=== PATIENT | female | born 1975 ===

== ENCOUNTER 2016-08-16 18:13 | Inpatient (IN) | payer OTHER ==
[2016-08-16] MEDS ORDERED: Sodium Chloride 0.9% 1,000 ML IV ONE ×2 (19:10→20:55)
--- NOTE | 2016-08-16 19:10 | C.PDOC ---
History Of Present Illness Patient presents to the ED for evaluation after being referred by clinic for elevated blood sugar over 483 mg/dl. Patient states sugar has been "out of control" and is an insulin-dependent diabetic. Patient denies any fever, chills , nausea, or vomiting. Time Seen by Provider: 08/16/16 19:10 Chief Complaint (Nursing): High Blood Sugar History Per: Patient, Other (Clinic ) History/Exam Limitations: no limitations Onset/Duration Of Symptoms: Hrs Current Diabetic Medications: Insulin Associated Infectious Symptoms: denies: Nausea, Vomiting, Diarrhea Recent travel outside of the [place]: No Past Medical History Reviewed: Historical Data, Nursing Documentation, Vital Signs Vital Signs: Last Vital Signs Temp 97.5 F L 08/16/16 22:31 Pulse 83 08/17/16 00:30 Resp 18 08/17/16 00:30 BP 129/73 08/17/16 00:30 Pulse Ox 100 08/17/16 01:25 - Medical History PMH: Diabetes, HTN Family History: States: Unknown Family Hx - Social History Hx Alcohol Use: No Hx Substance Use: No - Immunization History Hx Tetanus Toxoid Vaccination: Yes Hx Influenza Vaccination: No Hx Pneumococcal Vaccination: No Review Of Systems Constitutional: Negative for: Fever, Chills Cardiovascular: Negative for: Chest Pain, Palpitations Respiratory: Negative for: Cough, Shortness of Breath Gastrointestinal: Negative for: Nausea, Vomiting, Abdominal Pain, Diarrhea Physical Exam - Physical Exam Appears: Non-toxic, No Acute Distress Skin: Warm, Dry Eye(s): bilateral: Normal Inspection Neck: Supple Chest: Symmetrical, No Deformity Cardiovascular: Rhythm Regular Respiratory: No Rales, No Rhonchi, No Stridor, No Wheezing Gastrointestinal/Abdominal: Soft, No Tenderness, No Distention, No Guarding, No Rebound Extremity: Normal ROM, No Tenderness Neurological/Psych: Oriented x3 ED Course And Treatment - Laboratory Results Result Diagrams: 08/16/16 19:43 08/16/16 19:43 O2 Sat by Pulse Oximetry: 100 (room air ) Pulse Ox Interpretation: Normal Progress Note: blood work, ivf, insulin. pt c/o headache - ct ordered. c/o periorbital tingling as well as her tongue - neuro non focal ct negative. repeat accucheck BS 147 Critical Care Time - Critical Care Note Total Time (in mins): 30 Documented critical care: time excludes all time spent performing seperately billable procedures. NIHSS Stroke Scale - Date/Time Evaluation Performed Date Performed: 08/16/16 Time Performed: 22:20 When Was NIHSS Performed: Baseline - How Severe is the Stoke Level of Consciousness: 0=Alert LOC to Questions: 0=Both comments correct LOC to commands: 0=Obeys both correctly Best Gaze: 0=Normal Visual: 0=No visual loss Facial: 0=Normal Motor Arm - Left: 0=No drift Motor Arm - Right: 0=No drift Motor Leg - Left: 0=No drift Motor Leg - Right: 0=No drift Limb Ataxia: 0=Absent Sensory: 0=Normal Best Language: 0=No aphasia Dysarthia: 0=Normal articulation Extinction & Inattention (Neglect): 0=Normal, no object Score: 0 Severity Of Stroke: 0= No Stroke Disposition Discussed With : Sandeep Crespo Comment: accepted the pt on his service and took over the care at 1:53 AM Doctor Will See Patient In The: ED Counseled Patient/Family Regarding: Studies Performed, Diagnosis - Disposition Disposition: HOSPITALIZED Disposition Time: 19:10 Condition: FAIR - POA Present On Arrival: Poor Glycemic Control - Clinical Impression Clinical Impression: Hyperglycemia, Uncontrolled diabetes mellitus, Intractable headache - Scribe Statement The provider has reviewed the documentation as recorded by the Scribe Jyoti Juan All medical record entries made by the Joseibe were at my direction and personally dictated by me. I have reviewed the chart and agree that the record accurately reflects my personal performance of the history, physical exam, medical decision making, and the department course for this patient. I have also personally directed, reviewed, and agree with the discharge instructions and disposition. Decision To Admit - Pt Status Changed To: Hospital Disposition Of: Observation - . Bed Request Type: Regular Admitting Physician: Sandeep Crespo Patient Diagnosis: Hyperglycemia, Uncontrolled diabetes mellitus, Intractable headache
[2016-08-16 19:46] LABS: BASO # 0.1 K/uL (0.0-0.2); BASO % 0.7 % (0.0-2.0); EOS % 0.2 % (0.0-4.0); HEMOGLOBIN 10.2 g/dL (11.0-16.0); LYMPH % 20.5 % (20.0-40.0); MEAN CORPUSCULAR HEMOGLOBIN 23.9 pg (27.0-31.0); MEAN CORPUSCULAR HGB CONC 30.9 g/dL (33.0-37.0); MEAN PLATELET VOLUME 7.7 fL (7.2-11.7); MONO # 0.7 K/uL (0.0-0.8); MONO % 6.9 % (0.0-10.0); NEUT # 6.9 K/uL (1.8-7.0); NEUT % 71.7 % (50.0-75.0); RBC 4.25 Mil/uL (3.80-5.20); RED CELL DISTRIBUTION WIDTH 17.2 % (11.5-14.5); WHITE BLOOD COUNT 9.6 K/uL (4.8-10.8)
[2016-08-16 19:50] LABS: MEAN CELL VOLUME 77.4 fL (81.0-99.0)
[2016-08-16 19:54] LABS: VENOUS BLOOD GAS PCO2 43 mmHg (40-60); VENOUS BLOOD GAS PO2 34 mm/Hg (30-55); VENOUS BLOOD PH 7.38 (7.32-7.43)
[2016-08-16 19:56] LABS: ALBUMIN 3.7 g/dL (3.5-5.0)
[2016-08-16 19:58] LABS: GFR AFRICAN-AMERICAN > 60; GFR NON-AFRICAN AMERICAN > 60
[2016-08-16 19:59] LABS: ALB/GLOB RATIO 1.1 (1.0-2.1); ALT/SGPT 16 U/L (9-52); AST/SGOT 17 U/L (14-36); BLOOD UREA NITROGEN 20 mg/dL (7-17); CALCIUM 8.7 mg/dl (8.6-10.4); LIPASE 270 U/L (23-300)
[2016-08-16] MEDS ORDERED: (Novolin R) Insulin Human Regular 100 units/ml vial IV ONE (20:04)
[2016-08-16] MEDS ORDERED: (Novolin R) Insulin Human Regular 100 units/ml vial ONE (20:10)
[2016-08-16 20:23] LABS: SQUAMOUS EPITHIAL 1 /hpf (0-5); URINE BACTERIA OCC (<OCC); URINE BILIRUBIN NEGATIVE (NEGATIVE); URINE BLOOD 1+ (NEGATIVE); URINE CLARITY Clear (Clear); URINE COLOR Straw (YELLOW); URINE GLUCOSE (UA) 3+ mg/dL (Normal); URINE NITRATE POSITIVE (NEGATIVE); URINE PROTEIN 2+ mg/dL (NEGATIVE); URINE UROBILINOGEN NORMAL mg/dL (0.2-1.0)
[2016-08-16 20:24] LABS: URINE LEUKOCYTE ESTERASE 1+ Leu/uL (Negative)
[2016-08-16] MEDS ORDERED: Piperacillin/Tazobact 3.375 gm 100 ML IVPB STA (20:25)
[2016-08-16] MEDS ORDERED: Piperacillin/Tazobact 3.375 gm 100 ML IVPB ONE (21:03)
[2016-08-16] MEDS ORDERED: Sodium Chloride 0.9% 1,000 ML ONE (21:03)
--- NOTE | 2016-08-16 21:45 | CT ---
EXAM: CT Head Without Intravenous Contrast CLINICAL HISTORY: 41 years old, female; Condition or disease; Headache; Headache not specified TECHNIQUE: Axial computed tomography images of the head/brain without intravenous contrast. This CT exam was performed using one or more of the following dose reduction techniques: automated exposure control, adjustment of the mA and/or kV according to patient size, and/or use of iterative reconstruction technique. EXAM DATE/TIME: 08/16/2016 8:54 PM COMPARISON: There are no prior studies for comparison. FINDINGS: Brain: There is prominence of the of sulci, gyri and ventricles. There is no midline shift. There are no intra-axial or extra axial mass lesions or areas of hemorrhage. Mccormack-white differentiation is maintained. Ventricles: See above. Bony structures: Cranial vault is intact. Soft tissues: unremarkable Sinuses: There is no acute sinusitis. Ears and mastoids: Middle ears and mastoids unremarkable.There is streak artifact from an earring Orbits: Orbital contents are unremarkable. IMPRESSION: No acute intracranial abnormality
[2016-08-16] MEDS ORDERED: Morphine 4 MG/ML VIAL ONE (23:29)
[2016-08-17] MEDS ORDERED: HYDROmorphone 1 mg/ml ISec IVP STA (00:14)
[2016-08-17] MEDS ORDERED: HYDROmorphone 1 mg/ml ISec ONE (00:29)
--- NOTE | 2016-08-17 02:52 | CP.PCM.HP ---
History of Present Illness - History of Present Illness History of Present Illness: CC - "I was sent by my doctor for high blood sugar" HPI - Patient is a 40yo female PMHx DM and HTN presents to the ED today after being told by her primary care Dr. Meaghan Hodge that she had elevated blood sugars. Patient states she checks her sugars 5x a day and that they are always elevated in the 200s and 300s. She states she is complaint with taking her insulin. She was diagnosed with diabetes a few years ago but last HBA1c was 13.7. The patient admits to feeling very thirsty and urinary frequency but denies dysuria. She also admits to a headache which she has had for 3 days. She states she is nauseous and the headaches comes and goes mostly felt on the left side of her face, forehead and radiates to the back. She did not take any medication for the pain. With associated photophobia. She has had these headaches frequently in the past. She states that he vision is blurry but then that she actually was just seeing "black specs". Lastly she reports some numbness and tingling around her lips on tongue. She is able to speak well and denies numbness or weakness in the extremities. Patient denied any fever, chills , lightheadedness, cough, diarrhea, constipation. Denied sore throat, SOB, chest pain, dysphagia, leg cramps, muscle aches. Patient denied any travel history or sick contacts. PMHx: T2DM, HTN PMD: None MEDS: Lantus 25 U HS, Novolog 15 U TID ALL: NKDA PSurg: None FamHx: denies SH: smokes 2ppd for 10 years quit 3 month ago. Denies drug use. Drinks alcohol socially. Lives at home with children. Used to work in a [employer]. Present on Admission - Present on Admission Any Indicators Present on Admission: Yes History of Uncontrolled Diabetes: Yes Review of Systems - Constitutional Constitutional: absent: Chills, Fever - EENT Eyes: Change in Vision, Floaters, Spots in Vision. absent: Blurred Vision Ears: absent: Dizziness - Cardiovascular Cardiovascular: absent: Chest Pain, Chest Pain at Rest, Palpitations, Pedal Edema, Syncope - Respiratory Respiratory: absent: Cough, Dyspnea, Dyspnea on Exertion - Gastrointestinal Gastrointestinal: Nausea. absent: Abdominal Pain, Constipation, Diarrhea, Vomiting - Genitourinary Genitourinary: Urinary Frequency. absent: Change in Urinary Stream, Difficulty Urinating, Dysuria, Flank Pain, Hematuria - Musculoskeletal Musculoskeletal: Numbness, Tingling. absent: Muscle Weakness Additional comments: periorbital, lips, tongue - Neurological Neurological: Headaches. absent: Dizziness, Weakness Past Patient History - Past Social History Smoking Status: Former Smoker - CARDIAC Hx Hypertension: Yes - PULMONARY Hx Respiratory Disorders: No - NEUROLOGICAL Hx Neurological Disorder: No - HEENT Hx HEENT Problems: No - RENAL Hx Chronic Kidney Disease: No - ENDOCRINE/METABOLIC Hx Endocrine Disorders: Yes Hx Diabetes Mellitus Type 1: Yes - HEMATOLOGICAL/ONCOLOGICAL Hx Blood Disorders: No - INTEGUMENTARY Hx Dermatological Problems: No - MUSCULOSKELETAL/RHEUMATOLOGICAL Hx Musculoskeletal Disorders: No Hx Falls: No - GASTROINTESTINAL Hx Gastrointestinal Disorders: No - GENITOURINARY/GYNECOLOGICAL Hx Genitourinary Disorders: No - PSYCHIATRIC Hx Substance Use: No - SURGICAL HISTORY Hx Surgeries: No - ANESTHESIA Hx Anesthesia: No Meds Allergies/Adverse Reactions: Allergies Allergy/AdvReac Type Severity Reaction Status Date / Time No Known Allergies Allergy Verified 08/16/16 18:17 Physical Exam - Constitutional Appears: Non-toxic, No Acute Distress - Head Exam Head Exam: ATRAUMATIC, NORMAL INSPECTION - Eye Exam Eye Exam: EOMI, Normal appearance, PERRL Pupil Exam: NORMAL ACCOMODATION - ENT Exam ENT Exam: Mucous Membranes Dry - Respiratory Exam Respiratory Exam: Clear to Auscultation Bilateral, NORMAL BREATHING PATTERN. absent: Accessory Muscle Use, Decreased Breath Sounds, Rales, Wheezes, Respiratory Distress - Cardiovascular Exam Cardiovascular Exam: REGULAR RHYTHM, +S1, +S2 - GI/Abdominal Exam GI & Abdominal Exam: Normal Bowel Sounds, Soft. absent: Distended, Firm, Guarding, Tenderness - Extremities Exam Extremities exam: Positive for: normal inspection. Negative for: calf tenderness, pedal edema - Back Exam Back exam: NORMAL INSPECTION. absent: CVA tenderness (L), CVA tenderness (R), paraspinal tenderness - Neurological Exam Neurological exam: Alert, CN II-XII Intact, Normal Gait, Oriented x3 - Psychiatric Exam Psychiatric exam: Normal Affect, Normal Mood - Skin Skin Exam: Dry, Intact, Normal Color, Warm Results - Vital Signs Recent Vital Signs: Last Vital Signs Temp 97.5 F L 08/16/16 22:31 Pulse 83 08/17/16 00:30 Resp 18 08/17/16 00:30 BP 129/73 08/17/16 00:30 Pulse Ox 100 08/17/16 01:54 - Labs Result Diagrams: 08/16/16 19:43 08/16/16 19:43 Labs: Laboratory Results - last 24 hr 08/16/16 08/16/16 08/16/16 19:18 19:43 19:43 WBC 9.6 RBC 4.25 Hgb 10.2 L Hct 32.9 L MCV 77.4 L D MCH 23.9 L MCHC 30.9 L RDW 17.2 H Plt Count 489 H D MPV 7.7 Neut % (Auto) 71.7 Lymph % (Auto) 20.5 Surry % (Auto) 6.9 Eos % (Auto) 0.2 Baso % (Auto) 0.7 Neut # 6.9 Lymph # 2.0 Surry # 0.7 Eos # 0.0 Baso # 0.1 pO2 VBG pH VBG pCO2 VBG HCO3 VBG Total CO2 VBG O2 Sat (Calc) VBG Base Excess VBG Potassium Glucose Lactate Crit Value Called To Crit Value Called By Crit Value Read Back Blood Gas Notified Time Sodium 131 L Potassium 4.7 Chloride 97 L Carbon Dioxide 23 Anion Gap 16 BUN 20 H Creatinine 0.8 Est GFR ( Amer) > 60 Est GFR (Non-Af Amer) > 60 POC Glucose (mg/dL) 453 H* Random Glucose 485 H* D Calcium 8.7 Total Bilirubin 0.4 AST 17 ALT 16 Alkaline Phosphatase 83 Total Protein 7.2 Albumin 3.7 Globulin 3.5 Albumin/Globulin Ratio 1.1 Lipase 270 Venous Blood Potassium Urine Color Urine Clarity Urine pH Ur Specific Sterling Urine Protein Urine Glucose (UA) Urine Ketones Urine Blood Urine Nitrate Urine Bilirubin Urine Urobilinogen Ur Leukocyte Esterase Urine WBC (Auto) Urine RBC (Auto) Ur Squamous Epith Cells Urine Bacteria Urine HCG, Qual Serum Ketones Negative 08/16/16 08/16/16 08/16/16 19:50 19:56 19:56 WBC RBC Hgb Hct MCV MCH MCHC RDW Plt Count MPV Neut % (Auto) Lymph % (Auto) Surry % (Auto) Eos % (Auto) Baso % (Auto) Neut # Lymph # Surry # Eos # Baso # pO2 34 VBG pH 7.38 VBG pCO2 43 VBG HCO3 24.0 VBG Total CO2 26.7 VBG O2 Sat (Calc) 73.1 H VBG Base Excess 0.0 VBG Potassium 4.9 Glucose 491 H* Lactate 2.7 H Crit Value Called To Dr [email or web address] Crit Value Called By [email or web address].rt Crit Value Read Back Y Blood Gas Notified Time 1950 Sodium 133.0 Potassium Chloride 99.0 Carbon Dioxide Anion Gap BUN Creatinine Est GFR ( Amer) Est GFR (Non-Af Amer) POC Glucose (mg/dL) Random Glucose Calcium Total Bilirubin AST ALT Alkaline Phosphatase Total Protein Albumin Globulin Albumin/Globulin Ratio Lipase Venous Blood Potassium 4.9 Urine Color Straw Urine Clarity Clear Urine pH 6.0 Ur Specific Sterling 1.016 Urine Protein 2+ H Urine Glucose (UA) 3+ H Urine Ketones Negative Urine Blood 1+ H Urine Nitrate Positive H Urine Bilirubin Negative Urine Urobilinogen Normal Ur Leukocyte Esterase 1+ H Urine WBC (Auto) 22 H Urine RBC (Auto) 10 H Ur Squamous Epith Cells 1 Urine Bacteria Occ H Urine HCG, Qual Negative Serum Ketones 08/16/16 08/16/16 21:32 23:18 WBC RBC Hgb Hct MCV MCH MCHC RDW Plt Count MPV Neut % (Auto) Lymph % (Auto) Surry % (Auto) Eos % (Auto) Baso % (Auto) Neut # Lymph # Surry # Eos # Baso # pO2 VBG pH VBG pCO2 VBG HCO3 VBG Total CO2 VBG O2 Sat (Calc) VBG Base Excess VBG Potassium Glucose Lactate Crit Value Called To Crit Value Called By Crit Value Read Back Blood Gas Notified Time Sodium Potassium Chloride Carbon Dioxide Anion Gap BUN Creatinine Est GFR ( Amer) Est GFR (Non-Af Amer) POC Glucose (mg/dL) 108 147 H Random Glucose Calcium Total Bilirubin AST ALT Alkaline Phosphatase Total Protein Albumin Globulin Albumin/Globulin Ratio Lipase Venous Blood Potassium Urine Color Urine Clarity Urine pH Ur Specific Sterling Urine Protein Urine Glucose (UA) Urine Ketones Urine Blood Urine Nitrate Urine Bilirubin Urine Urobilinogen Ur Leukocyte Esterase Urine WBC (Auto) Urine RBC (Auto) Ur Squamous Epith Cells Urine Bacteria Urine HCG, Qual Serum Ketones Assessment & Plan - Assessment and Plan (Free Text) Assessment: DM uncontrolled Lantus 25 U SC HS Novolog 15 U TID with meals f/u HbA1c ISS Accuchecks consider statin/lisionpril f/u am labs Headache Head CT - negative Sumitriptan 6mg x 1 dose Firoicet 1tab Q 8 prn headache Numbness/tingling of lips Head CT negative Neuro exam normal - no focal deficits Hx HTN controlled does not take any home meds for HTN Prophylactic Measures SCDs Lovenox 40mg SC daily Pepcid 20 mg PO BID NS at 125 cc/hour Consistent carb diet
[2016-08-17] MEDS: Sodium Chloride 0.9% 1,000 ML IV SCH ×3 (03:27→19:42)
[2016-08-17 06:54] LABS: BASO # 0.1 K/uL (0.0-0.2); BASO % 0.7 % (0.0-2.0); EOS % 0.2 % (0.0-4.0); HEMOGLOBIN 9.7 g/dL (11.0-16.0); LYMPH % 16.6 % (20.0-40.0); MEAN CELL VOLUME 76.6 fL (81.0-99.0); MEAN CORPUSCULAR HEMOGLOBIN 24.4 pg (27.0-31.0); MEAN CORPUSCULAR HGB CONC 31.9 g/dL (33.0-37.0); MEAN PLATELET VOLUME 7.6 fL (7.2-11.7); MONO # 0.9 K/uL (0.0-0.8); MONO % 7.2 % (0.0-10.0); NEUT # 8.9 K/uL (1.8-7.0); NEUT % 75.3 % (50.0-75.0); RBC 3.98 Mil/uL (3.80-5.20); RED CELL DISTRIBUTION WIDTH 16.8 % (11.5-14.5); WHITE BLOOD COUNT 11.8 K/uL (4.8-10.8)
[2016-08-17] MEDS ORDERED: (Novolin R) Insulin Human Regular 100 units/ml vial SC SCH ×2 (07:30→07:53)
[2016-08-17 07:41] LABS: ALBUMIN 3.2 g/dL (3.5-5.0); ALT/SGPT 13 U/L (9-52); BLOOD UREA NITROGEN 12 mg/dL (7-17); CALCIUM 7.8 mg/dl (8.6-10.4); GFR AFRICAN-AMERICAN > 60; GFR NON-AFRICAN AMERICAN > 60; HDL CHOLESTEROL 61 mg/dL (30-70); LDL CHOLESTEROL 166 mg/dL (0-129); MAGNESIUM 1.9 mg/dL (1.6-2.3)
[2016-08-17 08:21] LABS: AST/SGOT 16 U/L (14-36)
--- NOTE | 2016-08-17 08:59 | CT ---
PROCEDURE: CT Abdomen and Pelvis without intravenous contrast HISTORY: + CVA tenderness COMPARISON: None. TECHNIQUE: Without contrast.. Contrast Dose: 0 Radiation dose: Total exam DLP = 519.42 mGy-cm. This CT exam was performed using one or more of the following dose reduction techniques: Automated exposure control, adjustment of the mA and/or kV according to patient size, and/or use of iterative reconstruction technique. FINDINGS: LOWER THORAX: Minimal linear scar/ atelectasis in both lower lobes. LIVER: Unremarkable. No gross lesion or ductal dilatation. GALLBLADDER AND BILE DUCTS: Unremarkable. PANCREAS: Unremarkable. No gross lesion or ductal dilatation. SPLEEN: Unremarkable. ADRENALS: Unremarkable. No mass. KIDNEYS AND URETERS: No mass, calculus or hydronephrosis. Minimal left perinephric stranding, nonspecific. Please note that evaluation for pyelonephritis is limited in the absence of intravenous contrast administration peer VASCULATURE: Unremarkable. No aortic aneurysm. BOWEL: Mild sigmoid diverticulosis. No evidence of diverticulitis. No bowel obstruction. No other abnormal bowel loops are identified. APPENDIX: Not positively identified. No secondary findings to suggest acute appendicitis. PERITONEUM: Unremarkable. No free fluid. No free air. LYMPH NODES: Unremarkable. No enlarged lymph nodes. BLADDER: Unremarkable. REPRODUCTIVE: Normal uterus. BONES: No acute fracture. OTHER FINDINGS: None. IMPRESSION: No acute abnormality. No evidence of urinary calculus or urinary tract obstruction. Please note that if there is suspicion of pyelonephritis, this examination is of limited diagnostic value due to the absence of intravenous contrast administration.
[2016-08-17] MEDS ORDERED: (Novolin R) Insulin Human Regular 100 units/ml vial ONE ×4 (09:19→13:14)
[2016-08-17] MEDS: (Novolin R) Insulin Human Regular 100 units/ml vial SC SCH ×2 (09:21→13:15)
[2016-08-17] MEDS: Saccharomyces Boulardi 250 mg Cap PO SCH ×2 (09:57→17:52)
[2016-08-17] MEDS: Enoxaparin 40 mg Syringe SC SCH (09:57)
[2016-08-17 11:10] LABS: CK-MB 0.83 ng/mL (0.0-3.38)
[2016-08-17] MEDS ORDERED: Sodium Chloride 0.9% 1,000 ML ONE (13:14)
--- NOTE | 2016-08-17 17:03 | CP.PCM.PN ---
<Maryana Davis - Last Filed: 08/17/16 17:30> Subjective - Date & Time of Evaluation Date of Evaluation: 08/17/16 Time of Evaluation: 08:00 - Subjective Subjective: PGY1 - Medicine Note- Dr. Dhillno's Service Patient seen and examined at bedside. Patient admits to headache that is made worse by light and is laying with her eyes closed. Patient has nausea but no vomiting. Patient admits of having some lower abdominal /suprapubic pain. Patient also states she has had burning with urination for the past 3-4 days. Patient explains she has some chest pressure and numbness and tingling in the left hand. Patient also says she has numbness and tingling in both feet which is chronic. Patient denies dizziness, shortness of breath and constipation/ diarrhea. Patient admits that she has not been to an outpatient doctor in a long time. Objective - Vital Signs/Intake and Output Vital Signs (last 24 hours): Temp Pulse Resp BP Pulse Ox 98.3 F 106 H 18 149/90 100 08/17/16 12:16 08/17/16 12:16 08/17/16 12:16 08/17/16 12:16 08/17/16 12:16 - Medications Medications: Current Medications Acetaminophen/Butalbital/Caffeine (Fioricet) 1 tab PO Q8 PRN PRN Reason: Headache Aspirin (Aspirin Chewable) 81 mg PO DAILY [facility] Enoxaparin Sodium (Lovenox) 40 mg SC DAILY [facility] Last Admin: 08/17/16 09:57 Dose: 40 mg Famotidine (Pepcid) 20 mg PO BID [facility] [place] Last Admin: 08/17/16 09:57 Dose: 20 mg Sodium Chloride (Sodium Chloride 0.9%) 1,000 mls @ 125 mls/hr IV .Q8H [facility] [place] Last Admin: 08/17/16 12:05 Dose: 125 mls/hr Ceftriaxone Sodium 1 gm/ (Sodium Chloride) 100 mls @ 100 mls/hr IVPB DAILY [facility] [place] Last Admin: 08/17/16 09:57 Dose: 100 mls/hr Insulin Aspart (Novolog) 12 unit SC AC ANA Insulin Aspart (Novolog) 0 unit SC ACHS ANA PRN Reason: Protocol Insulin Glargine (Lantus) 30 unit SC HS ANA Ondansetron HCl (Zofran Inj) 4 mg IVP Q6 PRN PRN Reason: Nausea/Vomiting Last Admin: 08/17/16 13:15 Dose: 4 mg Saccharomyces Boulardii (Florastor) 250 mg PO BID ANA Last Admin: 08/17/16 09:57 Dose: 250 mg - Labs Labs: 08/17/16 06:51 08/17/16 06:51 - Constitutional Appears: Well, Non-toxic, No Acute Distress - Head Exam Head Exam: ATRAUMATIC, NORMAL INSPECTION, NORMOCEPHALIC - Eye Exam Eye Exam: EOMI, Normal appearance, PERRL - ENT Exam ENT Exam: Mucous Membranes Moist, Normal Exam - Neck Exam Neck Exam: Full ROM, Normal Inspection. absent: Lymphadenopathy - Respiratory Exam Respiratory Exam: Clear to Ausculation Bilateral, NORMAL BREATHING PATTERN. absent: Rales, Rhonchi, Wheezes, Respiratory Distress, Stridor - Cardiovascular Exam Cardiovascular Exam: REGULAR RHYTHM, RRR, +S1, +S2. absent: Gallop, Rubs, Murmur - GI/Abdominal Exam GI & Abdominal Exam: Soft, Tenderness, Normal Bowel Sounds. absent: Distended, Firm, Guarding Additional comments: suprapubic tenderness - Extremities Exam Extremities Exam: Full ROM, Normal Inspection - Back Exam Back Exam: NORMAL INSPECTION. absent: rash noted - Neurological Exam Neurological Exam: Alert, Awake, Oriented x3 Neuro motor strength exam: Left Upper Extremity: 5, Right Upper Extremity: 5, Left Lower Extremity: 5, Right Lower Extremity: 5 - Psychiatric Exam Psychiatric exam: Normal Affect, Normal Mood - Skin Skin Exam: Intact, Normal Color, Warm Assessment and Plan (1) Uncontrolled diabetes mellitus Assessment & Plan: HgbA1C: 13.2 consult endocronologist, Dr. Henry, help appreciated makeup instructor referral for noncompliance diabetes management- teach PRN accuchecks QACHS Lantus 25 U sc q HS increased to 30 U Novolog sliding scale qHS urine microalbumin ordered (consider starting UCHE/ARB) Lipid panel: Triglycerides-88, Cholesterol-234, LDL-166, HDL-61 TSH:6.12, Free T4:1.23 Status: Acute (2) Chest pain Assessment & Plan: EKG x 3 (1st ekg NSR) FRANKI x 3 (1st FRANKI negative) ASA 325 mg PO x1 ASA 81 mg PO daily TSH elevated (6.12) lipid panel- see above Status: Acute (3) Dysuria Assessment & Plan: dysuria for 3-4 days Rochephin 1 g daily urine culture Florastor 250 mg PO BID IV NS 125 cc/hr CT scan of abdomen/pelvis: negative Status: Acute (4) Headache Assessment & Plan: Neurology consulted, Dr. Chan, help appreciated. Fiorcet q8h head CT done 08/16: no acute intracranial abnormality Status: Acute (5) Prophylactic measure Assessment & Plan: gi prophylaxis: Pepcid 20 mg PO BID DVT PPX: Lovenox mg SC Daily Status: Acute <Dara Dhillon V - Last Filed: 08/17/16 18:25> Objective - Vital Signs/Intake and Output Vital Signs (last 24 hours): Temp Pulse Resp BP Pulse Ox 98.4 F 87 18 129/76 100 08/17/16 17:35 08/17/16 17:35 08/17/16 17:35 08/17/16 17:35 08/17/16 17:35 - Medications Medications: Current Medications Acetaminophen/Butalbital/Caffeine (Fioricet) 1 tab PO Q8 PRN PRN Reason: Headache Last Admin: 08/17/16 17:51 Dose: 1 tab Aspirin (Aspirin Chewable) 81 mg PO DAILY [facility] Enoxaparin Sodium (Lovenox) 40 mg SC DAILY [facility] [place] Last Admin: 08/17/16 09:57 Dose: 40 mg Famotidine (Pepcid) 20 mg PO BID [facility] [place] Last Admin: 08/17/16 17:52 Dose: 20 mg Sodium Chloride (Sodium Chloride 0.9%) 1,000 mls @ 125 mls/hr IV .Q8H [facility] [place] Last Admin: 08/17/16 12:05 Dose: 125 mls/hr Ceftriaxone Sodium 1 gm/ (Sodium Chloride) 100 mls @ 100 mls/hr IVPB DAILY [facility] [place] Last Admin: 08/17/16 09:57 Dose: 100 mls/hr Insulin Aspart (Novolog) 12 unit SC AC ANA Insulin Aspart (Novolog) 0 unit SC ACHS ANA PRN Reason: Protocol Insulin Glargine (Lantus) 30 unit SC HS [facility] [place] Ondansetron HCl (Zofran Inj) 4 mg IVP Q6 PRN PRN Reason: Nausea/Vomiting Last Admin: 08/17/16 13:15 Dose: 4 mg Saccharomyces Carlitosdii (Florastor) 250 mg PO BID ANA Last Admin: 08/17/16 17:52 Dose: 250 mg - Labs Labs: 08/17/16 06:51 08/17/16 06:51 Attending/Attestation - Attestation I have personally seen and examined this patient.: Yes I have fully participated in the care of the patient.: Yes I have reviewed all pertinent clinical information, including history, physical exam and plan: Yes Notes (Text): Patient seen, examined, and discussed with daytime brand marketing intern. Patient seen in the emergency room hallway bed 1. Patient reporting history of gestational diabetes about 13 years with her last . Patient reports she inconsistently uses her insulin regimen. patient reports starting insulin regimen as of one month ago. Patient used to take Metformin but reports it does not work for her. Patient is noncompliant on Diabetic diet. Patient does not exercise. Patient has not seen an outpatient physician in quite some time and has no good explanation as to why she has not seen a doctor. Patient has been heavily only counseled on diet modifications and exercise in regards to her diabetes. Patient also reporting associated in the lower extremities. Likely secondary to her uncontrolled diabetes. Patient reporting history of 3-4 day of dysuria. Patient reports 2 prior hospitalizations Patient discussed CAT results which show no kidney stones. Patient started on empiric IV antibiotic for UTI. Awaiting urine culture. patient reported chest pressure with brand marketing intern this morning, given aspirin, and will follow-up serial EKG and Franki given her risk factor of uncontrolled diabetes. Patient reporting migraine type headaches; CT head r/o acute pathology; f/u neurology if further workup is needed. Upgraded to telemetry given chest pressure complaints. Assessment and Plan (1) Uncontrolled diabetes mellitus Assessment & Plan: HgbA1C: 13.2 consult endocronologist, Dr. Henry, help appreciated makeup instructor referral for noncompliance diabetes management- teach PRN accuchecks QACHS Lantus 25 U sc q HS increased to 30 U Novolog sliding scale qHS urine microalbumin ordered (consider starting UCHE/ARB) Lipid panel: Triglycerides-88, Cholesterol-234, LDL-166, HDL-61 TSH:6.12, Free T4:1.23 Status: Chronic (2) Chest pain Assessment & Plan: EKG x 3 (1st ekg NSR), Q 6hours FRANKI x 3 (1st FRANKI negative) ASA 325 mg PO x1 ASA 81 mg PO daily TSH elevated (6.12); mary lou; Free T4 Lipid panel: Triglycerides-88, Cholesterol-234, LDL-166, HDL-61 Status: Acute (3) Dysuria Assessment & Plan: dysuria for 3-4 days Rocephin 1 g IV q daily (active since 08/17/16) pending urine culture Florastor 250 mg PO BID IV NS 125 cc/hr CT scan of abdomen/pelvis: negative for nephrolithiasis Status: Acute (4) Headache Assessment & Plan: Neurology consulted, Dr. Chan, help appreciated. Fiorcet q8h head CT done 08/16: no acute intracranial abnormality Status: Acute (5) Prophylactic measure Assessment & Plan: gi prophylaxis: Pepcid 20 mg PO BID DVT PPX: Lovenox mg SC Daily Professor Of Finance referral Diabetes education provided Aspirin 81mg PO daily Status: Acute
[2016-08-17 17:09] LABS: CK-MB 0.66 ng/mL (0.0-3.38)
[2016-08-17] MEDS: Apap-Butalbital-Caffeine 325-50-40mg Tab PO PRN (17:51)
--- NOTE | 2016-08-17 18:23 | CP.PCM.CON ---
History of Present Illness - History of Present Illness History of Present Illness: NEURO CONSULT NOTE: 08/17/16 CHIEF COMPLAINT: HEADACHE. HPI: 54 YEAR O41 YEAR OLD WOMAN WITH HISTORY OF DM2, HTN WHO CAME IN WITH DIFFUSE PRESSURE HEADACHE WITH NAUSEA, PHOTOPHOBIA AND OCCASIONAL SCINTILATING SCOTOMA. SHE HAS ELEVATED BLOOD SUGARS AND CAME IN WITH SUGAR OVER 400. SHE MOVES ALL EXTREMITIES EQUALLY. CT HEAD SHOWED NO ACUTE ABNORMALITIES. A1C IS 13.5 INDICATING POOR CONTROLLED DIABETES. ROS: 14 POINT REVIEW OF SYMPTOMS IS NEGATIVE PER HPI. ALLERGIES: NONE SOCIAL HISTORY: NO ILLICIT DRUG USE, SMOKING, OR ETOH USE. FAMILY: NON CONTRIBUTORY. MEDICATIONS: REVIEWED BY NURSE'S RECONCILIATION SHEET. PAST MEDICAL HISTORY: HTN, TYPE 2 DM, PHYSICAL EXAM: VITAL SIGNS: REVIEWED BY THE CHART GENERAL EXAM: PATIENT SEEN IN BED, IN NO ACUTE DISTRESS MORBIDLY OBESE. HEENT: PERRLA, EOMI, NECK SUPPLE, NO JVD, NO ADENOPATHY CVS: S1, S2, RRR, NO MURMURS NOTED LUNGS: CLEAR TO AUSCULTATION, NO ADVENTITIOUS SOUNDS ABDOMEN: SOFT AND NONTENDER EXTREMITIES: NO CLUBBING OR CYANOSIS. PP 2+ B/L NEURO: PT IS ALERT AND ORIENTED TO PERSON, PLACE, AND YEAR. POOR ATTENTION SPAN , SLOW THOUGHT PROCESS, RECALL TO 5 MINUTES 0/3, SPEECH IS FLUENT WITHOUT ERRORS, CN II-XII INTACT, MOTOR EXAM: NORMAL TONE, NORMAL BULK OF MUSCLE, MOVES ALL EXTREMITIES EQUALLY, NO PRONATOR DRIFT SEEN. SENSORY EXAM: DECREASED LIGHT TOUCH, PIN PRICK UP TO CALVES B/L, PROPRIOCEPTION INTACT, DECREASED VIBRATION AT TOES AND KNEES. DEEP TENDON REFLEXES: 2+ THROUGHOUT EXCEPT 1 AT THE ANKLES. COORDINATION: FINGER TO NOSE IS INTACT. HEEL TO [place] IS INTACT GAIT: DEFERRED FOR NOW. LABS: REVIEWED BY THE CHART. ASSESSMENT AND PLAN: 54 YEAR O39 YEAR OLD WOMAN WITH HISTORY OF DM2, HTN WHO CAME IN WITH DIFFUSE PRESSURE HEADACHE WITH NAUSEA, PHOTOPHOBIA AND OCCASIONAL SCINTILATING SCOTOMA. SHE HAS ELEVATED BLOOD SUGARS AND CAME IN WITH SUGAR OVER 400. SHE MOVES ALL EXTREMITIES EQUALLY. CT HEAD SHOWED NO ACUTE ABNORMALITIES. A1C IS 13.5 INDICATING POOR CONTROLLED DIABETES. HEADACHE IS MORE OF MIGRAINE TRIGGERED BY HYPERGLYCEMIA. PLAN: 1.TILT TABLE TEST FOR SYNCOPAL EVENTS 2. ASA 81 MG FOR STROKE PREVENTION AND GABAPENTIN 300MG QHS FOR HEADACHE PREVENTION, FIORICET 1-2 TAB AT ACUTE ONSET OF HEADACHE. 3. MONITOR ELECTROLYTES AND CORRECT ACCORDINGLY. 4. ENDOCRINE CONSULT FOR UNCONTROLLED DM. KEEP BS BTW 140-180 5. NEEDS REDUCTION OF WEIGHT. THANK YOU PLEASE RECONSULT NECESSARY. Tremayne VELEZ MD Past Patient History - Past Medical History & Family History Past Medical History?: Yes - Past Social History Smoking Status: Former Smoker - CARDIAC Hx Hypertension: Yes - PULMONARY Hx Respiratory Disorders: No - NEUROLOGICAL Hx Neurological Disorder: No - HEENT Hx HEENT Problems: No - RENAL Hx Chronic Kidney Disease: No - ENDOCRINE/METABOLIC Hx Endocrine Disorders: Yes Hx Diabetes Mellitus Type 1: Yes - HEMATOLOGICAL/ONCOLOGICAL Hx Blood Disorders: No - INTEGUMENTARY Hx Dermatological Problems: No - MUSCULOSKELETAL/RHEUMATOLOGICAL Hx Musculoskeletal Disorders: No Hx Falls: No - GASTROINTESTINAL Hx Gastrointestinal Disorders: No - GENITOURINARY/GYNECOLOGICAL Hx Genitourinary Disorders: No - PSYCHIATRIC Hx Substance Use: No - SURGICAL HISTORY Hx Surgeries: No - ANESTHESIA Hx Anesthesia: Yes Hx Anesthesia Reactions: No Meds Allergies/Adverse Reactions: Allergies Allergy/AdvReac Type Severity Reaction Status Date / Time No Known Allergies Allergy Verified 08/16/16 18:17 - Medications Medications: Current Medications Acetaminophen/Butalbital/Caffeine (Fioricet) 1 tab PO Q8 PRN PRN Reason: Headache Last Admin: 08/17/16 17:51 Dose: 1 tab Aspirin (Aspirin Chewable) 81 mg PO DAILY [facility] Enoxaparin Sodium (Lovenox) 40 mg SC DAILY [facility] Last Admin: 08/17/16 09:57 Dose: 40 mg Famotidine (Pepcid) 20 mg PO BID [facility] Last Admin: 08/17/16 17:52 Dose: 20 mg Sodium Chloride (Sodium Chloride 0.9%) 1,000 mls @ 125 mls/hr IV .Q8H [facility] Last Admin: 08/17/16 12:05 Dose: 125 mls/hr Ceftriaxone Sodium 1 gm/ (Sodium Chloride) 100 mls @ 100 mls/hr IVPB DAILY [facility] Last Admin: 08/17/16 09:57 Dose: 100 mls/hr Insulin Aspart (Novolog) 12 unit SC AC ANA Insulin Aspart (Novolog) 0 unit SC ACHS ANA PRN Reason: Protocol Insulin Glargine (Lantus) 30 unit SC HS ANA Ondansetron HCl (Zofran Inj) 4 mg IVP Q6 PRN PRN Reason: Nausea/Vomiting Last Admin: 08/17/16 13:15 Dose: 4 mg Saccharomyces Boulardii (Florastor) 250 mg PO BID ANA Last Admin: 08/17/16 17:52 Dose: 250 mg Results - Vital Signs Recent Vital Signs: Last Vital Signs Temp 98.4 F 08/17/16 17:35 Pulse 87 08/17/16 17:35 Resp 18 08/17/16 17:35 BP 129/76 08/17/16 17:35 Pulse Ox 100 08/17/16 17:35 - Labs Result Diagrams: 08/17/16 06:51 08/17/16 06:51 Labs: Laboratory Results - last 24 hr 08/17/16 08/17/16 08/17/16 06:51 06:51 07:30 WBC 11.8 H RBC 3.98 Hgb 9.7 L Hct 30.4 L MCV 76.6 L MCH 24.4 L MCHC 31.9 L RDW 16.8 H Plt Count 447 H MPV 7.6 Neut % (Auto) 75.3 H Lymph % (Auto) 16.6 L [place] % (Auto) 7.2 Eos % (Auto) 0.2 Baso % (Auto) 0.7 Neut # 8.9 H Lymph # 2.0 [place] # 0.9 H Eos # 0.0 Baso # 0.1 Sodium 135 Potassium 4.4 Chloride 105 Carbon Dioxide 25 Anion Gap 10 BUN 12 Creatinine 0.7 Est GFR ( Amer) > 60 Est GFR (Non-Af Amer) > 60 POC Glucose (mg/dL) 228 H Random Glucose 179 H Hemoglobin A1c Calcium 7.8 L Phosphorus 2.6 Magnesium 1.9 Total Bilirubin 0.4 AST 16 ALT 13 Alkaline Phosphatase 73 Total Creatine Kinase CK-MB (Mass) Troponin I, Quant Total Protein 6.3 Albumin 3.2 L Globulin 3.1 Albumin/Globulin Ratio 1.0 Triglycerides 88 Cholesterol 234 H LDL Cholesterol Direct 166 H HDL Cholesterol 61 Free T4 TSH 3rd Generation 6.12 H 08/17/16 08/17/16 08/17/16 09:12 10:36 10:36 WBC RBC Hgb Hct MCV MCH MCHC RDW Plt Count MPV Neut % (Auto) Lymph % (Auto) [place] % (Auto) Eos % (Auto) Baso % (Auto) Neut # Lymph # [place] # Eos # Baso # Sodium Potassium Chloride Carbon Dioxide Anion Gap BUN Creatinine Est GFR ( Amer) Est GFR (Non-Af Amer) POC Glucose (mg/dL) 243 H Random Glucose Hemoglobin A1c 13.5 H Calcium Phosphorus Magnesium Total Bilirubin AST ALT Alkaline Phosphatase Total Creatine Kinase 58 CK-MB (Mass) 0.83 Troponin I, Quant < 0.0120 Total Protein Albumin Globulin Albumin/Globulin Ratio Triglycerides Cholesterol LDL Cholesterol Direct HDL Cholesterol Free T4 TSH 3rd Generation 08/17/16 08/17/16 08/17/16 10:36 13:04 16:37 WBC RBC Hgb Hct MCV MCH MCHC RDW Plt Count MPV Neut % (Auto) Lymph % (Auto) [place] % (Auto) Eos % (Auto) Baso % (Auto) Neut # Lymph # [place] # Eos # Baso # Sodium Potassium Chloride Carbon Dioxide Anion Gap BUN Creatinine Est GFR ( Amer) Est GFR (Non-Af Amer) POC Glucose (mg/dL) 261 H Random Glucose Hemoglobin A1c Calcium Phosphorus Magnesium Total Bilirubin AST ALT Alkaline Phosphatase Total Creatine Kinase 48 CK-MB (Mass) 0.66 Troponin I, Quant < 0.0120 Total Protein Albumin Globulin Albumin/Globulin Ratio Triglycerides Cholesterol LDL Cholesterol Direct HDL Cholesterol Free T4 1.23 TSH 3rd Generation
[2016-08-17] MEDS: (Novolog) Insulin Aspart, Recombinant 100 u/ml 10 ml vial SC SCH ×3 (18:49→21:37)
[2016-08-17] MEDS ORDERED: (Novolog) Insulin Aspart, Recombinant 100 u/ml 10 ml vial ONE (18:53)
[2016-08-17] MEDS ORDERED: (Lantus) Insulin Glargine, Recombinant SC SCH ×2 (22:00)
[2016-08-18 00:02] LABS: CK-MB 0.62 ng/mL (0.0-3.38)
[2016-08-18] MEDS: Sodium Chloride 0.9% 1,000 ML IV SCH ×3 (03:35→19:28)
[2016-08-18] MEDS: Apap-Butalbital-Caffeine 325-50-40mg Tab PO PRN ×2 (06:00→20:09)
[2016-08-18 07:39] LABS: BASO # 0.1 K/uL (0.0-0.2); BASO % 0.6 % (0.0-2.0); EOS % 0.4 % (0.0-4.0); HEMOGLOBIN 9.1 g/dL (11.0-16.0); LYMPH # 1.5 K/uL (1.0-4.3); LYMPH % 17.2 % (20.0-40.0); MEAN CORPUSCULAR HEMOGLOBIN 24.7 pg (27.0-31.0); MEAN CORPUSCULAR HGB CONC 31.7 g/dL (33.0-37.0); MEAN PLATELET VOLUME 8.3 fL (7.2-11.7); MONO # 0.7 K/uL (0.0-0.8); MONO % 8.2 % (0.0-10.0); NEUT # 6.4 K/uL (1.8-7.0); NEUT % 73.6 % (50.0-75.0); RBC 3.67 Mil/uL (3.80-5.20); RED CELL DISTRIBUTION WIDTH 17.1 % (11.5-14.5); WHITE BLOOD COUNT 8.6 K/uL (4.8-10.8)
[2016-08-18 07:49] LABS: ALBUMIN 2.9 g/dL (3.5-5.0)
[2016-08-18 07:52] LABS: AST/SGOT 16 U/L (14-36); GFR AFRICAN-AMERICAN > 60; GFR NON-AFRICAN AMERICAN > 60
[2016-08-18 07:53] LABS: ALB/GLOB RATIO 0.9 (1.0-2.1); ALT/SGPT 13 U/L (9-52); BLOOD UREA NITROGEN 15 mg/dL (7-17); MAGNESIUM 2.2 mg/dL (1.6-2.3)
[2016-08-18] MEDS: (Novolog) Insulin Aspart, Recombinant 100 u/ml 10 ml vial SC SCH ×7 (09:33→22:08)
[2016-08-18] MEDS: Enoxaparin 40 mg Syringe SC SCH (09:35)
[2016-08-18] MEDS: Saccharomyces Boulardi 250 mg Cap PO SCH ×2 (09:35→17:27)
--- NOTE | 2016-08-18 11:41 | CP.PCM.CON ---
History of Present Illness - History of Present Illness History of Present Illness: Consult Note for Dr. Carvajal Reason for consult: Tilt-table test 40 y/o F with PMH of HTN and DM initially presented to the hospital on 08/16/16 for hyperglycemia. Pt was found to have elevated blood sugars in her PMD's office. Pt states she checks her sugars frequently at home and they are always elevated. Pt admits to increased thirst and urination. In addition, patient also mentions that she has had a severe headache for the past several days. Pt states the headache is located mainly behind her eyes and is characterized as throbbing. Patient also mentions photophobia with headaches. She did not take any medication for the headaches. Pt does describe a hx of these severe headaches. Denies CP, SOB, N/V/D, fevers, chills. PMH: HTN, DM Surgical Hx: Denies SH: Former smoker, 1 ppd x 10 years. Social alcohol use, denies illicit drugs. Medications: See MAR Allergies: NKDA Review of Systems - Constitutional Constitutional: absent: Fatigue, Fever - EENT Eyes: Change in Vision. absent: Blurred Vision Nose/Mouth/Throat: Sinus Pressure. absent: Nasal Congestion, Nasal Discharge - Cardiovascular Cardiovascular: absent: Chest Pain, Irregular Heart Rhythm - Respiratory Respiratory: absent: Cough, Dyspnea - Genitourinary Genitourinary: absent: Dysuria, Hematuria - Integumentary Integumentary: absent: New Lesions, Rash - Neurological Neurological: Headaches. absent: Syncope, Tingling Past Patient History - Past Medical History & Family History Past Medical History?: Yes - Past Social History Smoking Status: Former Smoker - CARDIAC Hx Hypertension: Yes - PULMONARY Hx Respiratory Disorders: No - NEUROLOGICAL Hx Neurological Disorder: No - HEENT Hx HEENT Problems: No - RENAL Hx Chronic Kidney Disease: No - ENDOCRINE/METABOLIC Hx Endocrine Disorders: Yes Hx Diabetes Mellitus Type 1: Yes - HEMATOLOGICAL/ONCOLOGICAL Hx Blood Disorders: No - INTEGUMENTARY Hx Dermatological Problems: No - MUSCULOSKELETAL/RHEUMATOLOGICAL Hx Musculoskeletal Disorders: No Hx Falls: No - GASTROINTESTINAL Hx Gastrointestinal Disorders: No - GENITOURINARY/GYNECOLOGICAL Hx Genitourinary Disorders: No - PSYCHIATRIC Hx Substance Use: No - SURGICAL HISTORY Hx Surgeries: No - ANESTHESIA Hx Anesthesia: Yes Hx Anesthesia Reactions: No Meds Allergies/Adverse Reactions: Allergies Allergy/AdvReac Type Severity Reaction Status Date / Time No Known Allergies Allergy Verified 08/16/16 18:17 - Medications Medications: Current Medications Acetaminophen/Butalbital/Caffeine (Fioricet) 1 tab PO Q8 PRN PRN Reason: Headache Last Admin: 08/18/16 06:00 Dose: 1 tab Aspirin (Aspirin Chewable) 81 mg PO DAILY [facility] Last Admin: 08/18/16 09:35 Dose: 81 mg Enoxaparin Sodium (Lovenox) 40 mg SC DAILY [facility] Last Admin: 08/18/16 09:35 Dose: 40 mg Famotidine (Pepcid) 20 mg PO BID [facility] Last Admin: 08/18/16 09:35 Dose: 20 mg Sodium Chloride (Sodium Chloride 0.9%) 1,000 mls @ 125 mls/hr IV .Q8H [facility] Last Admin: 08/18/16 03:35 Dose: 125 mls/hr Ceftriaxone Sodium 1 gm/ (Sodium Chloride) 100 mls @ 100 mls/hr IVPB DAILY [facility] Last Admin: 08/18/16 09:35 Dose: 100 mls/hr Insulin Aspart (Novolog) 0 unit SC ACHS [facility] PRN Reason: Protocol Last Admin: 08/18/16 09:33 Dose: 5 unit Insulin Aspart (Novolog) 20 unit SC AC [facility] Insulin Glargine (Lantus) 40 unit SC HS [facility] Ondansetron HCl (Zofran Inj) 4 mg IVP Q6 PRN PRN Reason: Nausea/Vomiting Last Admin: 08/18/16 09:01 Dose: 4 mg Saccharomyces Boulardii (Florastor) 250 mg PO BID [facility] Last Admin: 08/18/16 09:35 Dose: 250 mg Physical Exam - Constitutional Appears: Well, No Acute Distress - Head Exam Head Exam: ATRAUMATIC, NORMAL INSPECTION, NORMOCEPHALIC - Respiratory Exam Respiratory Exam: Clear to Auscultation Bilateral, NORMAL BREATHING PATTERN - Cardiovascular Exam Cardiovascular Exam: RRR, +S1, +S2 - GI/Abdominal Exam GI & Abdominal Exam: Normal Bowel Sounds, Soft. absent: Tenderness - Extremities Exam Extremities exam: Negative for: calf tenderness, pedal edema - Neurological Exam Neurological exam: Alert, Oriented x3 - Skin Skin Exam: Intact, Normal Color, Warm Results - Vital Signs Recent Vital Signs: Last Vital Signs Temp 98.2 F 08/18/16 08:00 Pulse 91 H 08/18/16 08:00 Resp 20 08/18/16 08:00 BP 160/91 H 08/18/16 08:00 Pulse Ox 97 08/18/16 08:00 - Labs Result Diagrams: 08/18/16 07:03 08/18/16 07:03 Labs: Laboratory Results - last 24 hr 08/17/16 08/17/16 08/17/16 13:04 16:37 17:58 WBC RBC Hgb Hct MCV MCH MCHC RDW Plt Count MPV Neut % (Auto) Lymph % (Auto) [place] % (Auto) Eos % (Auto) Baso % (Auto) Neut # Lymph # [place] # Eos # Baso # Sodium Potassium Chloride Carbon Dioxide Anion Gap BUN Creatinine Est GFR ( Amer) Est GFR (Non-Af Amer) POC Glucose (mg/dL) 261 H Random Glucose Calcium Phosphorus Magnesium Total Bilirubin AST ALT Alkaline Phosphatase Total Creatine Kinase 48 CK-MB (Mass) 0.66 Troponin I, Quant < 0.0120 Total Protein Albumin Globulin Albumin/Globulin Ratio Urine Microalbumin > 950.0 H 08/17/16 08/17/16 08/17/16 18:47 21:14 23:37 WBC RBC Hgb Hct MCV MCH MCHC RDW Plt Count MPV Neut % (Auto) Lymph % (Auto) [place] % (Auto) Eos % (Auto) Baso % (Auto) Neut # Lymph # [place] # Eos # Baso # Sodium Potassium Chloride Carbon Dioxide Anion Gap BUN Creatinine Est GFR ( Amer) Est GFR (Non-Af Amer) POC Glucose (mg/dL) 175 H 75 Random Glucose Calcium Phosphorus Magnesium Total Bilirubin AST ALT Alkaline Phosphatase Total Creatine Kinase 56 CK-MB (Mass) 0.62 Troponin I, Quant < 0.0120 Total Protein Albumin Globulin Albumin/Globulin Ratio Urine Microalbumin 08/18/16 08/18/16 08/18/16 06:38 07:03 07:03 WBC 8.6 RBC 3.67 L Hgb 9.1 L Hct 28.6 L MCV 78.0 L MCH 24.7 L MCHC 31.7 L RDW 17.1 H Plt Count 425 H MPV 8.3 Neut % (Auto) 73.6 Lymph % (Auto) 17.2 L [place] % (Auto) 8.2 Eos % (Auto) 0.4 Baso % (Auto) 0.6 Neut # 6.4 Lymph # 1.5 [place] # 0.7 Eos # 0.0 Baso # 0.1 Sodium 137 Potassium 4.7 Chloride 108 H Carbon Dioxide 21 L Anion Gap 13 BUN 15 Creatinine 0.9 Est GFR ( Amer) > 60 Est GFR (Non-Af Amer) > 60 POC Glucose (mg/dL) 369 H Random Glucose 363 H Calcium 8.0 L Phosphorus 2.4 L Magnesium 2.2 Total Bilirubin 0.3 AST 16 ALT 13 Alkaline Phosphatase 65 Total Creatine Kinase CK-MB (Mass) Troponin I, Quant Total Protein 6.1 L Albumin 2.9 L Globulin 3.2 Albumin/Globulin Ratio 0.9 L Urine Microalbumin Assessment & Plan (1) Headache Assessment and Plan: Being followed by neurology who suggests tilt-table test Symptoms likely related to hyperglycemia as per neurology Tilt-table scheduled for tomorrow morning Status: Acute
--- NOTE | 2016-08-18 14:13 | CP.PCM.PN ---
<Maryana Davis - Last Filed: 08/18/16 16:50> Subjective - Date & Time of Evaluation Date of Evaluation: 08/18/16 Time of Evaluation: 07:00 - Subjective Subjective: PGY1- Medicine Note- Dr. Dhillon's Service Patient seen and examined at bedside and is in no acute distress. Patient states she is feeling better but still has a headache which she rates 6/10. She also has some dull mid to low back pain. She has suprapubic pain and says it burris when she urinates and she can only urinate a small amount at a time. She was able to eat dinner yesterday with no vomiting. She has some nausea today. Her last bowel movement was two days ago. Patient denies shortness of breath or chest pain. Objective - Vital Signs/Intake and Output Vital Signs (last 24 hours): Temp Pulse Resp BP Pulse Ox 98.2 F 91 H 20 160/91 H 97 08/18/16 08:00 08/18/16 08:00 08/18/16 08:00 08/18/16 08:00 08/18/16 08:00 Intake and Output: 08/18/16 08/18/16 06:59 18:59 Intake Total 450 Balance 450 - Medications Medications: Current Medications Acetaminophen/Butalbital/Caffeine (Fioricet) 1 tab PO Q8 PRN PRN Reason: Headache Last Admin: 08/18/16 06:00 Dose: 1 tab Aspirin (Aspirin Chewable) 81 mg PO DAILY [facility] Last Admin: 08/18/16 09:35 Dose: 81 mg Enoxaparin Sodium (Lovenox) 40 mg SC DAILY [facility] Last Admin: 08/18/16 09:35 Dose: 40 mg Famotidine (Pepcid) 20 mg PO BID [facility] Last Admin: 08/18/16 09:35 Dose: 20 mg Gabapentin (Neurontin) 300 mg PO HS [facility] Sodium Chloride (Sodium Chloride 0.9%) 1,000 mls @ 125 mls/hr IV .Q8H [facility] Last Admin: 08/18/16 03:35 Dose: 125 mls/hr Ceftriaxone Sodium 1 gm/ (Sodium Chloride) 100 mls @ 100 mls/hr IVPB DAILY [facility] Last Admin: 08/18/16 09:35 Dose: 100 mls/hr Insulin Aspart (Novolog) 0 unit SC ACHS [facility] PRN Reason: Protocol Last Admin: 08/18/16 14:02 Dose: 323 unit Insulin Aspart (Novolog) 20 unit SC AC [facility] Last Admin: 08/18/16 14:02 Dose: 20 unit Insulin Glargine (Lantus) 40 unit SC HS [facility] Ondansetron HCl (Zofran Inj) 4 mg IVP Q6 PRN PRN Reason: Nausea/Vomiting Last Admin: 08/18/16 09:01 Dose: 4 mg Saccharomyces Boulardii (Florastor) 250 mg PO BID [facility] Last Admin: 08/18/16 09:35 Dose: 250 mg - Labs Labs: 08/18/16 07:03 08/18/16 07:03 - Constitutional Appears: Well - Head Exam Head Exam: ATRAUMATIC, NORMAL INSPECTION, NORMOCEPHALIC - Eye Exam Eye Exam: EOMI, Normal appearance, PERRL - ENT Exam ENT Exam: Mucous Membranes Moist, Normal Exam - Neck Exam Neck Exam: Full ROM, Normal Inspection. absent: Lymphadenopathy - Respiratory Exam Respiratory Exam: Clear to Ausculation Bilateral, NORMAL BREATHING PATTERN. absent: Rales, Rhonchi, Wheezes, Respiratory Distress, Stridor - Cardiovascular Exam Cardiovascular Exam: REGULAR RHYTHM, RRR, +S1, +S2. absent: Gallop, Rubs, Murmur - GI/Abdominal Exam GI & Abdominal Exam: Soft, Tenderness, Normal Bowel Sounds. absent: Distended, Firm, Guarding Additional comments: suprapubic and left upper quadrant tenderness - Extremities Exam Extremities Exam: Full ROM, Normal Capillary Refill, Normal Inspection. absent : Joint Swelling, Pedal Edema - Back Exam Back Exam: NORMAL INSPECTION, tenderness Additional comments: low to mid back tenderness bilaterally - Neurological Exam Neurological Exam: Alert, Awake, Oriented x3 - Psychiatric Exam Psychiatric exam: Normal Affect, Normal Mood - Skin Skin Exam: Normal Color, Warm Assessment and Plan (1) Uncontrolled diabetes mellitus Assessment & Plan: HgbA1C: 13.2 consult endocronologist, Dr. Henry, help appreciated economic consultant referral for noncompliance diabetes management- teach PRN accuchecks QACHS Lantus 30 U sc q HS Novolog sliding scale qHS urine microalbumin: >950 (started Lisinopril 2.5mg PO daily) Lipid panel: Triglycerides-88, Cholesterol-234, LDL-166, HDL-61 TSH:6.12, Free T4:1.23 Status: Acute (2) Chest pain Assessment & Plan: Chest pain resolved EKG x 3 Negative RASHAD x 3 Negative ASA 325 mg PO x1 on 08/17 ASA 81 mg PO daily TSH elevated (6.12) lipid panel- see above Status: Resolved (3) Dysuria Assessment & Plan: dysuria for 3-4 days Rochephin 1 g daily urine culture Florastor 250 mg PO BID IV NS 125 cc/hr CT scan of abdomen/pelvis: negative Status: Acute (4) Urinary hesitancy Assessment & Plan: Bladder scan showed 85ml of urine. Encourage patient to keep drinking fluids. Continue Rocephin 1 g daily. Status: Acute (5) Headache Assessment & Plan: As per Dr. Chan (neuro) symptoms likely related to hyperglycemia. Recommended tilt table test for syncopal events, 81mg aspirin for stroke prevention and Gabapentin 300 mg QHS for headache. -Gabapentin started and tilt table test to be performed 08/[address] done 08/16: no acute intracranial abnormality Status: Acute (6) Prophylactic measure Assessment & Plan: gi prophylaxis: Pepcid 20 mg PO BID DVT PPX: Lovenox mg SC Daily Status: Acute <Dara Dhillon V - Last Filed: 08/19/16 02:48> Objective - Vital Signs/Intake and Output Vital Signs (last 24 hours): Temp Pulse Resp BP Pulse Ox 98.3 F 82 20 134/79 96 08/18/16 16:10 08/18/16 20:38 08/18/16 16:10 08/18/16 16:10 08/18/16 16:10 Intake and Output: 08/18/16 08/19/16 18:59 06:59 Intake Total 1075 600 Balance 1075 600 - Medications Medications: Current Medications Acetaminophen/Butalbital/Caffeine (Fioricet) 1 tab PO Q8 PRN PRN Reason: Headache Last Admin: 08/18/16 20:09 Dose: 1 tab Aspirin (Aspirin Chewable) 81 mg PO DAILY [facility] Last Admin: 08/18/16 09:35 Dose: 81 mg Enoxaparin Sodium (Lovenox) 40 mg SC DAILY [facility] Last Admin: 08/18/16 09:35 Dose: 40 mg Famotidine (Pepcid) 20 mg PO BID [facility] Last Admin: 08/18/16 17:27 Dose: 20 mg Gabapentin (Neurontin) 300 mg PO HS [facility] Last Admin: 08/18/16 21:27 Dose: 300 mg Sodium Chloride (Sodium Chloride 0.9%) 1,000 mls @ 125 mls/hr IV .Q8H [facility] Last Admin: 08/18/16 19:28 Dose: 125 mls/hr Ceftriaxone Sodium 1 gm/ (Sodium Chloride) 100 mls @ 100 mls/hr IVPB DAILY [facility] Last Admin: 08/18/16 09:35 Dose: 100 mls/hr Insulin Aspart (Novolog) 0 unit SC ACHS [facility] PRN Reason: Protocol Last Admin: 08/18/16 22:08 Dose: Not Given Insulin Aspart (Novolog) 20 unit SC AC [facility] Last Admin: 08/18/16 17:35 Dose: Not Given Insulin Glargine (Lantus) 40 unit SC HS [facility] Last Admin: 08/18/16 22:11 Dose: 40 units Lisinopril (Zestril) 2.5 mg PO DAILY [facility] Ondansetron HCl (Zofran Inj) 4 mg IVP Q6 PRN PRN Reason: Nausea/Vomiting Last Admin: 08/18/16 09:01 Dose: 4 mg Saccharomyces Boulardii (Florastor) 250 mg PO BID [facility] Last Admin: 08/18/16 17:27 Dose: 250 mg - Labs Labs: 08/18/16 07:03 08/18/16 07:03 Attending/Attestation - Attestation I have personally seen and examined this patient.: Yes I have fully participated in the care of the patient.: Yes I have reviewed all pertinent clinical information, including history, physical exam and plan: Yes Notes (Text): this is late compute entry for 08/18/16. Patient seen, examined and case discussed with day-time resident. Patient seen during afternoon rounds. Patient reports she is doing better. Patient is eating ADA diet. Patient to be evaluated by economic consultant. Patient's insulin regimen adjusted by school social worker today Patient started on Gabapentin 300mg POqHS recommended by neurology. Patient setup for a tilt table tomorrow with cardiology given her syncopal episodes. Patient STRONGLY advised for dietary and exercise modifications given her uncontrolled diabetes. Patient started on raquel-inhibitor given elevated urine microalbumin. Patient will likely need statin as well and prophylactic aspirin given her diabetes. Patient seen and evaluated by cardiology. Patient to be NPO for tilt table test tomorrow by cardiology. Assessment/Plan (1) Uncontrolled diabetes mellitus Assessment & Plan: HgbA1C: 13.2 consult endocronologist, Dr. Henry, help appreciated economic consultant referral for noncompliance diabetes management- teach PRN accuchecks QACHS Lantus 40 U sc q HS Novolog 20 units subqAC Novolog sliding scale qHS urine microalbumin: >950-->started Lisinopril 2.5mg PO daily for renoprotection Lipid panel: Triglycerides-88, Cholesterol-234, LDL-166, HDL-61-->will need statin therapy TSH:6.12, Free T4:1.23 Status: Acute (2) Chest pain Assessment & Plan: Chest pain resolved EKG x 3 Negative RASHAD x 3 Negative ASA 325 mg PO x1 on 08/17 ASA 81 mg PO daily TSH elevated (6.12) Lipid panel: Triglycerides-88, Cholesterol-234, LDL-166, HDL-61-->will need statin therapy Status: Resolved (3) Dysuria Assessment & Plan: dysuria for 3-4 days Rochephin 1 g IV daily urine culture pending Bladder scan: 85ml Florastor 250 mg PO BID IV NS 125 cc/hr CT scan of abdomen/pelvis: negative Status: Acute (4) Urinary hesitancy Assessment & Plan: Bladder scan showed 85ml of urine. Encourage patient to keep drinking fluids. Continue Rocephin 1 g IV daily for empiric broad coverage Urine culture; gram negative clarence (10,000 CFU)--->patient is symptomatic of UTI Status: Acute (5) Headache Assessment & Plan: As per Dr. Chan (neuro) symptoms likely related to hyperglycemia. Recommended tilt table test for syncopal events, 81mg aspirin for stroke prevention and Gabapentin 300 mg QHS for headache. -Gabapentin started and tilt table test to be performed 08/19 by cardiology Fiorcet q8h PRN headache head CT done 08/16: no acute intracranial abnormality Status: Acute (6) Prophylactic measure Assessment & Plan: gi prophylaxis: Pepcid 20 mg PO BID DVT PPX: Lovenox mg SC Daily NPO for tilt table tomorrow Status: Acute Dispostion: * Patient for tilt table test tomorrow-->depending clinical outcome is a possible discharge tomorrow and will need active outpatient follow-up in regards to further diabetic management
[2016-08-18] MEDS ORDERED: (Lantus) Insulin Glargine, Recombinant SC SCH (22:00)
[2016-08-19] MEDS: Sodium Chloride 0.9% 1,000 ML IV SCH ×2 (03:02→11:15)
--- NOTE | 2016-08-19 06:41 | CARD ---
APPROVED REPORT EKG Measurement Heart [id number] [place] 100P33 [id number] <Conclusion> Sinus rhythm with short [place] Otherwise normal ECG
[2016-08-19 07:17] LABS: BASO % 0.4 % (0.0-2.0); EOS % 0.5 % (0.0-4.0); HEMOGLOBIN 9.5 g/dL (11.0-16.0); LYMPH # 1.5 K/uL (1.0-4.3); LYMPH % 16.7 % (20.0-40.0); MEAN CELL VOLUME 76.8 fL (81.0-99.0); MEAN CORPUSCULAR HGB CONC 31.2 g/dL (33.0-37.0); MEAN PLATELET VOLUME 8.3 fL (7.2-11.7); MONO # 0.7 K/uL (0.0-0.8); NEUT # 6.6 K/uL (1.8-7.0); NEUT % 74.4 % (50.0-75.0); RBC 3.97 Mil/uL (3.80-5.20); RED CELL DISTRIBUTION WIDTH 17.4 % (11.5-14.5); WHITE BLOOD COUNT 8.8 K/uL (4.8-10.8)
[2016-08-19] MEDS: (Novolog) Insulin Aspart, Recombinant 100 u/ml 10 ml vial SC SCH ×7 (07:30→21:21)
[2016-08-19 07:45] LABS: ALBUMIN 3.2 g/dL (3.5-5.0)
[2016-08-19 07:47] LABS: GFR AFRICAN-AMERICAN > 60; GFR NON-AFRICAN AMERICAN > 60
[2016-08-19 07:48] LABS: ALT/SGPT 12 U/L (9-52); AST/SGOT 17 U/L (14-36); BLOOD UREA NITROGEN 17 mg/dL (7-17)
[2016-08-19 07:49] LABS: CALCIUM 8.5 mg/dl (8.6-10.4); MAGNESIUM 2.3 mg/dL (1.6-2.3)
[2016-08-19] MEDS: Saccharomyces Boulardi 250 mg Cap PO SCH ×2 (10:31→17:44)
[2016-08-19] MEDS: Enoxaparin 40 mg Syringe SC SCH (10:32)
[2016-08-19] MEDS: Apap-Butalbital-Caffeine 325-50-40mg Tab PO PRN (10:37)
--- NOTE | 2016-08-19 12:07 | CP.PCM.PN ---
Subjective - Date & Time of Evaluation Date of Evaluation: 08/19/16 Time of Evaluation: 12:05 - Subjective Subjective: Progress note for Dr. Carvajal Pt seen and examined at bedside. Pt with no acute events overnight as per nursing. Pt will receive tilt-table test this morning. Admits to dizziness. Denies CP, SOB, N/V/D. Objective - Vital Signs/Intake and Output Vital Signs (last 24 hours): Temp Pulse Resp BP Pulse Ox 97.1 F L 90 18 145/93 H 98 08/19/16 07:00 08/19/16 10:30 08/19/16 07:00 08/19/16 10:30 08/19/16 07:00 Intake and Output: 08/19/16 08/19/16 06:59 18:59 Intake Total 1030 Output Total 420 Balance 610 - Medications Medications: Current Medications Acetaminophen/Butalbital/Caffeine (Fioricet) 1 tab PO Q8 PRN PRN Reason: Headache Last Admin: 08/19/16 10:37 Dose: 1 tab Aspirin (Aspirin Chewable) 81 mg PO DAILY [facility] Last Admin: 08/19/16 10:31 Dose: 81 mg Enoxaparin Sodium (Lovenox) 40 mg SC DAILY [facility] Last Admin: 08/19/16 10:32 Dose: 40 mg Famotidine (Pepcid) 20 mg PO BID [facility] Last Admin: 08/19/16 10:31 Dose: 20 mg Gabapentin (Neurontin) 300 mg PO HS [facility] Last Admin: 08/18/16 21:27 Dose: 300 mg Sodium Chloride (Sodium Chloride 0.9%) 1,000 mls @ 125 mls/hr IV .Q8H [facility] Last Admin: 08/19/16 03:02 Dose: 125 mls/hr Ceftriaxone Sodium 1 gm/ (Sodium Chloride) 100 mls @ 100 mls/hr IVPB DAILY [facility] Last Admin: 08/19/16 10:31 Dose: 100 mls/hr Insulin Aspart (Novolog) 0 unit SC ACHS [facility] PRN Reason: Protocol Last Admin: 08/19/16 07:30 Dose: Not Given Insulin Aspart (Novolog) 20 unit SC AC [facility] Last Admin: 08/19/16 07:30 Dose: Not Given Insulin Glargine (Lantus) 50 unit SC HS [facility] Lisinopril (Zestril) 2.5 mg PO DAILY [facility] Last Admin: 08/19/16 10:32 Dose: 2.5 mg Ondansetron HCl (Zofran Inj) 4 mg IVP Q6 PRN PRN Reason: Nausea/Vomiting Last Admin: 08/19/16 11:44 Dose: 4 mg Saccharomyces Boulardii (Florastor) 250 mg PO BID [facility] Last Admin: 08/19/16 10:31 Dose: 250 mg - Labs Labs: 08/19/16 07:06 08/19/16 07:06 - Constitutional Appears: Well, No Acute Distress - Head Exam Head Exam: ATRAUMATIC, NORMAL INSPECTION, NORMOCEPHALIC - Respiratory Exam Respiratory Exam: Clear to Ausculation Bilateral, NORMAL BREATHING PATTERN - Cardiovascular Exam Cardiovascular Exam: RRR, +S1, +S2 - GI/Abdominal Exam GI & Abdominal Exam: Soft, Normal Bowel Sounds. absent: Tenderness - Extremities Exam Extremities Exam: absent: Calf Tenderness, Pedal Edema - Neurological Exam Neurological Exam: Alert, Awake, Oriented x3 - Skin Skin Exam: Intact, Normal Color, Warm Assessment and Plan (1) Headache Assessment & Plan: Tilt-table test negative Continue current medical management Will sign off at this time Thank you for the consult Status: Acute
--- NOTE | 2016-08-19 16:52 | CP.PCM.PN ---
Subjective - Date & Time of Evaluation Date of Evaluation: 08/19/16 Time of Evaluation: 09:40 - Subjective Subjective: Medicine Note (PGY 1) : Dr. Root's service Patient was seen and examined at bedside. Patient states that she is feeling better but still coninues to experience headaches, intermittent chest pain and suprapubic pain, constipation but denies sob, fever, chills, nausea, vomiting and abd pain. Objective - Vital Signs/Intake and Output Vital Signs (last 24 hours): Temp Pulse Resp BP Pulse Ox 98.2 F 106 H 20 143/72 96 08/19/16 16:20 08/19/16 16:20 08/19/16 16:20 08/19/16 16:20 08/19/16 16:20 Intake and Output: 08/19/16 08/19/16 06:59 18:59 Intake Total 1030 1240 Output Total 420 Balance 610 1240 - Medications Medications: Current Medications Acetaminophen/Butalbital/Caffeine (Fioricet) 1 tab PO Q8 PRN PRN Reason: Headache Last Admin: 08/19/16 10:37 Dose: 1 tab Aspirin (Aspirin Chewable) 81 mg PO DAILY [facility] Last Admin: 08/19/16 10:31 Dose: 81 mg Enoxaparin Sodium (Lovenox) 40 mg SC DAILY [facility] Last Admin: 08/19/16 10:32 Dose: 40 mg Famotidine (Pepcid) 20 mg PO BID [facility] Last Admin: 08/19/16 10:31 Dose: 20 mg Gabapentin (Neurontin) 300 mg PO HS [facility] Last Admin: 08/18/16 21:27 Dose: 300 mg Ceftriaxone Sodium 1 gm/ (Sodium Chloride) 100 mls @ 100 mls/hr IVPB DAILY [facility] Last Admin: 08/19/16 10:31 Dose: 100 mls/hr Insulin Aspart (Novolog) 0 unit SC ACHS [facility] PRN Reason: Protocol Last Admin: 08/19/16 11:30 Dose: Not Given Insulin Aspart (Novolog) 26 unit SC ACB ANA Insulin Aspart (Novolog) 20 unit SC ACLD ANA Insulin Glargine (Lantus) 50 unit SC HS [facility] Lisinopril (Zestril) 2.5 mg PO DAILY [facility] Last Admin: 08/19/16 10:32 Dose: 2.5 mg Ondansetron HCl (Zofran Inj) 4 mg IVP Q6 PRN PRN Reason: Nausea/Vomiting Last Admin: 08/19/16 11:44 Dose: 4 mg Saccharomyces Boulardii (Florastor) 250 mg PO BID [facility] Last Admin: 08/19/16 10:31 Dose: 250 mg - Labs Labs: 08/19/16 07:06 08/19/16 07:06 - Constitutional Appears: Well, No Acute Distress - Head Exam Head Exam: NORMAL INSPECTION, NORMOCEPHALIC - Eye Exam Eye Exam: EOMI, Normal appearance - ENT Exam ENT Exam: Mucous Membranes Moist, Normal Exam - Respiratory Exam Respiratory Exam: Clear to Ausculation Bilateral, NORMAL BREATHING PATTERN - Cardiovascular Exam Cardiovascular Exam: REGULAR RHYTHM, +S1, +S2 - GI/Abdominal Exam GI & Abdominal Exam: Soft, Normal Bowel Sounds - Neurological Exam Neurological Exam: Alert, Awake, Oriented x3 - Psychiatric Exam Psychiatric exam: Normal Affect, Normal Mood - Skin Skin Exam: Dry, Normal Color, Warm Assessment and Plan (1) Uncontrolled diabetes mellitus Assessment & Plan: HgbA1C: 13.2 consult endocronologist, Dr. 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 Carvajal) for cardiac work up --- > Help appreciated Chest pain is intermittent EKG x 3 Negative RASHAD x 3 Negative ASA 325 mg PO x1 on 08/17 ASA 81 mg PO daily Status: Acute (3) Dysuria Assessment & Plan: dysuria for 3-4 days Rochephin 1 g daily urine culture + for staphylcoccus IV NS 125 cc/hr CT scan of abdomen/pelvis: negative Status: Acute (4) Urinary hesitancy Assessment & Plan: Bladder scan showed 85ml of urine. Encourage patient to keep drinking fluids. Continue Rocephin 1 g daily. Bladder scan at midnight of 08/19/16 showed 440cc--> straight cath and second bladder scan showed 144 cc Status: Acute (5) Headache Assessment & Plan: As per Dr. Chan (neuro) symptoms likely related to hyperglycemia. tilt table test today for syncopal events, 81mg aspirin for stroke prevention and Gabapentin 300 mg QHS for headache. -Gabapentin started and tilt table test to be performed 08/19 Fiorcet q8h---> stopped and oxycodone 5mg PO Q8H started head CT done 08/16: no acute intracranial abnormality Status: Acute (6) Prophylactic measure Assessment & Plan: gi prophylaxis: Pepcid 20 mg PO BID Florastor 250mg PO BID DVT PPX: Lovenox mg SC Daily Status: Acute
[2016-08-19] MEDS ORDERED: Bisacodyl 5mg EC Tab PO ONE (17:36)
[2016-08-19] MEDS ORDERED: Apap-Butalbital-Caffeine 325-50-40mg Tab PO SCH (18:00)
[2016-08-19] MEDS: oxyCODONE 5 mg Immediate Release Tab PO SCH (19:01)
[2016-08-19] MEDS: (Lantus) Insulin Glargine, Recombinant SC SCH (21:21)
[2016-08-20] MEDS: oxyCODONE 5 mg Immediate Release Tab PO SCH ×2 (05:41→22:02)
--- NOTE | 2016-08-20 06:48 | CARD ---
APPROVED REPORT EKG Measurement Heart [id number] [place] 106P35 [id number] <Conclusion> Sinus rhythm with short [place] Otherwise normal ECG
[2016-08-20 07:06] LABS: BASO % 0.5 % (0.0-2.0); EOS # 0.1 K/uL (0.0-0.7); EOS % 0.9 % (0.0-4.0); HEMOGLOBIN 9.3 g/dL (11.0-16.0); LYMPH # 1.8 K/uL (1.0-4.3); LYMPH % 19.6 % (20.0-40.0); MEAN CELL VOLUME 76.5 fL (81.0-99.0); MEAN CORPUSCULAR HGB CONC 31.4 g/dL (33.0-37.0); MEAN PLATELET VOLUME 8.1 fL (7.2-11.7); MONO # 0.7 K/uL (0.0-0.8); NEUT # 6.3 K/uL (1.8-7.0); RBC 3.86 Mil/uL (3.80-5.20); RED CELL DISTRIBUTION WIDTH 17.2 % (11.5-14.5); WHITE BLOOD COUNT 8.9 K/uL (4.8-10.8)
[2016-08-20] MEDS: (Novolog) Insulin Aspart, Recombinant 100 u/ml 10 ml vial SC SCH ×5 (07:35→21:55)
[2016-08-20 07:53] LABS: ALBUMIN 2.9 g/dL (3.5-5.0)
[2016-08-20 07:55] LABS: GFR AFRICAN-AMERICAN > 60; GFR NON-AFRICAN AMERICAN > 60
[2016-08-20 07:56] LABS: ALB/GLOB RATIO 0.9 (1.0-2.1); ALT/SGPT 19 U/L (9-52); AST/SGOT 18 U/L (14-36); BLOOD UREA NITROGEN 20 mg/dL (7-17); CALCIUM 8.3 mg/dl (8.6-10.4)
[2016-08-20 07:57] LABS: MAGNESIUM 2.2 mg/dL (1.6-2.3)
[2016-08-20] MEDS: Saccharomyces Boulardi 250 mg Cap PO SCH (09:48)
[2016-08-20] MEDS: Enoxaparin 40 mg Syringe SC SCH (09:48)
[2016-08-20] MEDS ORDERED: Bisacodyl 5mg EC Tab PO ONE ×2 (11:02→12:30)
--- NOTE | 2016-08-20 20:51 | CP.PCM.PN ---
Subjective - Date & Time of Evaluation Date of Evaluation: 08/20/16 Time of Evaluation: 10:20 - Subjective Subjective: Medicine Note (PGY 1) : Dr. Root's service Patient was seen and examined at bedside. Patient states that she is feeling better but still continues to experience headaches, intermittent chest pain and suprapubic pain, constipation but denies sob, fever, chills, nausea, vomiting and abd pain Objective - Vital Signs/Intake and Output Vital Signs (last 24 hours): Temp Pulse Resp BP Pulse Ox 97.8 F 96 H 18 138/73 97 08/20/16 15:10 08/20/16 15:10 08/20/16 15:10 08/20/16 15:10 08/20/16 15:10 - Medications Medications: Current Medications Aspirin (Aspirin Chewable) 81 mg PO DAILY [facility] Last Admin: 08/20/16 09:48 Dose: 81 mg Enoxaparin Sodium (Lovenox) 40 mg SC DAILY [facility] Last Admin: 08/20/16 09:48 Dose: 40 mg Famotidine (Pepcid) 20 mg PO BID [facility] Last Admin: 08/20/16 09:48 Dose: 20 mg Gabapentin (Neurontin) 300 mg PO HS [facility] Last Admin: 08/19/16 21:25 Dose: 300 mg Ceftriaxone Sodium 1 gm/ (Sodium Chloride) 100 mls @ 100 mls/hr IVPB DAILY [facility] Last Admin: 08/20/16 09:53 Dose: 100 mls/hr Insulin Aspart (Novolog) 0 unit SC ACHS [facility] PRN Reason: Protocol Last Admin: 08/20/16 11:52 Dose: Not Given Insulin Aspart (Novolog) 26 unit SC ACB [facility] Last Admin: 08/20/16 08:24 Dose: 26 unit Insulin Aspart (Novolog) 20 unit SC ACLD [facility] Last Admin: 08/20/16 12:18 Dose: 20 unit Insulin Glargine (Lantus) 50 unit SC HS [facility] Last Admin: 08/19/16 21:21 Dose: Not Given Lisinopril (Zestril) 10 mg PO DAILY [facility] Last Admin: 08/20/16 09:47 Dose: 10 mg Ondansetron HCl (Zofran Inj) 4 mg IVP Q6 PRN PRN Reason: Nausea/Vomiting Last Admin: 08/19/16 11:44 Dose: 4 mg Oxycodone HCl (Oxycodone Immediate Release Tab) 5 mg PO Q8 [facility] Last Admin: 08/20/16 05:41 Dose: 5 mg Saccharomyces Boulardii (Florastor) 250 mg PO BID [facility] Last Admin: 08/20/16 09:48 Dose: 250 mg - Labs Labs: 08/20/16 07:01 08/20/16 07:01 - Constitutional Appears: Well, No Acute Distress - Head Exam Head Exam: NORMAL INSPECTION, NORMOCEPHALIC - Eye Exam Eye Exam: EOMI, Normal appearance - ENT Exam ENT Exam: Mucous Membranes Moist, Normal Exam - Respiratory Exam Respiratory Exam: Clear to Ausculation Bilateral, NORMAL BREATHING PATTERN - Cardiovascular Exam Cardiovascular Exam: REGULAR RHYTHM, +S1, +S2 - GI/Abdominal Exam GI & Abdominal Exam: Soft, Normal Bowel Sounds - Extremities Exam Extremities Exam: Normal Capillary Refill, Normal Inspection - Neurological Exam Neurological Exam: Alert, Awake, Oriented x3 - Psychiatric Exam Psychiatric exam: Normal Affect, Normal Mood - Skin Skin Exam: Dry, Normal Color, Warm Assessment and Plan (1) Uncontrolled diabetes mellitus Assessment & Plan: HgbA1C: 13.2 consult endocronologist, Dr. Henry, help appreciated litigation manager referral for noncompliance diabetes management- teach PRN accuchecks QACHS Lantus 30 U sc q HS Novolog sliding scale adjustment (08/19/16); * Novolog 26 units before breakfast * Novolog 20 units before dinner urine microalbumin: >950 (started Lisinopril 2.5mg PO daily---> lisinopril increased to 10mg on 08/19/16) Lipid panel: Triglycerides-88, Cholesterol-234, LDL-166, HDL-61 TSH:6.12, Free T4:1.23 Status: Acute (2) Chest pain Assessment & Plan: Media Relations Manager on board (Dr. Carvajal) for cardiac work up --- > Help appreciated Chest pain is intermittent EKG x 3 Negative RASHAD x 3 Negative ASA 325 mg PO x1 on 08/17 ASA 81 mg PO daily Status: Acute (3) Dysuria Assessment & Plan: Resolving dysuria for 3-4 days Rochephin 1 g daily urine culture + for staphylcoccus IV NS 125 cc/hr CT scan of abdomen/pelvis: negative Status: Acute (4) Urinary hesitancy Assessment & Plan: Bladder scan showed 85ml of urine. Encourage patient to keep drinking fluids. Continue Rocephin 1 g daily. Bladder scan at midnight of 08/19/16 showed 440cc--> straight cath and second bladder scan showed 144 cc Bladder scan at 1:00pm after voiding 2x, right side showed 254 cc (08/20/16) Status: Acute (5) Headache Assessment & Plan: Ongoing As per Dr. Chan (neuro) symptoms likely related to hyperglycemia. tilt table test today for syncopal events, 81mg aspirin for stroke prevention and Gabapentin 300 mg QHS for headache. -Gabapentin started and tilt table test to be performed 08/19 Fiorcet q8h---> stopped and oxycodone 5mg PO Q8H started 08/20/16: Started on ibuprofen 800mg Q6 prn head CT done 08/16: no acute intracranial abnormality Status: Acute (6) Prophylactic measure Assessment & Plan: gi prophylaxis: Pepcid 20 mg PO BID Florastor 250mg PO BID DVT PPX: Lovenox mg SC Daily Status: Acute
[2016-08-20] MEDS: (Lantus) Insulin Glargine, Recombinant SC SCH (22:10)
--- NOTE | 2016-08-21 02:07 | CP.PCM.PN ---
Subjective - Date & Time of Evaluation Date of Evaluation: 08/21/16 Time of Evaluation: 06:10 - Subjective Subjective: PGY-[address] Dhillon Service Patient was examined at bedside. Patients and daughter were present. Patient complained of headache and dizziness when she tries to ambulate. She states that she feels a little better from yesterday. She states her constipation has resolved. She denies chest pain, shortness of breath, palpitations, abdominal pain, diarrhea, vomiting, fever. Objective - Vital Signs/Intake and Output Vital Signs (last 24 hours): Temp Pulse Resp BP Pulse Ox 97.8 F 95 H 20 129/72 97 08/21/16 00:13 08/21/16 00:13 08/21/16 00:13 08/21/16 00:13 08/21/16 00:13 Intake and Output: 08/20/16 08/21/16 18:59 06:59 Intake Total 240 Balance 240 - Medications Medications: Current Medications Aspirin (Aspirin Chewable) 81 mg PO DAILY [facility] Last Admin: 08/20/16 09:48 Dose: 81 mg Enoxaparin Sodium (Lovenox) 40 mg SC DAILY [facility] Last Admin: 08/20/16 09:48 Dose: 40 mg Famotidine (Pepcid) 20 mg PO BID [facility] Last Admin: 08/20/16 09:48 Dose: 20 mg Gabapentin (Neurontin) 300 mg PO HS [facility] Last Admin: 08/20/16 22:02 Dose: 300 mg Ceftriaxone Sodium 1 gm/ (Sodium Chloride) 100 mls @ 100 mls/hr IVPB DAILY [facility] Last Admin: 08/20/16 09:53 Dose: 100 mls/hr Insulin Aspart (Novolog) 0 unit SC ACHS [facility] PRN Reason: Protocol Last Admin: 08/20/16 21:55 Dose: Not Given Insulin Aspart (Novolog) 26 unit SC ACB [facility] Last Admin: 08/20/16 08:24 Dose: 26 unit Insulin Aspart (Novolog) 20 unit SC ACLD [facility] Last Admin: 08/20/16 12:18 Dose: 20 unit Insulin Glargine (Lantus) 50 unit SC HS [facility] Last Admin: 08/20/16 22:10 Dose: 50 u Lisinopril (Zestril) 10 mg PO DAILY [facility] Last Admin: 07/01/17 09:47 Dose: 10 mg Ondansetron HCl (Zofran Inj) 4 mg IVP Q6 PRN PRN Reason: Nausea/Vomiting Last Admin: 08/19/16 11:44 Dose: 4 mg Oxycodone HCl (Oxycodone Immediate Release Tab) 5 mg PO Q8 [facility] Last Admin: 08/20/16 22:02 Dose: 5 mg Saccharomyces Boulardii (Florastor) 250 mg PO BID [facility] Last Admin: 08/20/16 09:48 Dose: 250 mg - Labs Labs: 08/20/16 07:01 08/20/16 07:01 - Constitutional Appears: Well, Non-toxic, No Acute Distress - Head Exam Head Exam: NORMAL INSPECTION - Eye Exam Eye Exam: EOMI, Normal appearance - ENT Exam ENT Exam: Mucous Membranes Moist - Neck Exam Neck Exam: Full ROM, Normal Inspection - Respiratory Exam Respiratory Exam: Clear to Ausculation Bilateral, NORMAL BREATHING PATTERN - Cardiovascular Exam Cardiovascular Exam: REGULAR RHYTHM, RRR, +S1, +S2 - GI/Abdominal Exam GI & Abdominal Exam: Soft, Normal Bowel Sounds - Rectal Exam Rectal Exam: Deferred - Extremities Exam Extremities Exam: Full ROM, Normal Inspection - Back Exam Back Exam: tenderness - Neurological Exam Neurological Exam: Alert, Awake, Oriented x3 - Psychiatric Exam Psychiatric exam: Normal Affect, Normal Mood - Skin Skin Exam: Dry, Intact, Normal Color, Warm Assessment and Plan - Assessment and Plan (Free Text) Assessment: (1) Uncontrolled diabetes mellitus Assessment & Plan: HgbA1C: 13.2 consult endocronologist, Dr. 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 Carvajal) for cardiac work up --- > Help appreciated Chest pain is intermittent EKG x 3 Negative RASHAD x 3 Negative ASA 325 mg PO x1 on 08/17 ASA 81 mg PO daily Status: Acute (3) Dysuria Assessment & Plan: Resolving dysuria for 3-4 days Rochephin 1 g daily urine culture + for staphylcoccus IV NS 125 cc/hr CT scan of abdomen/pelvis: negative Status: Acute (4) Urinary hesitancy Assessment & Plan: Bladder scan showed 85ml of urine. Encourage patient to keep drinking fluids. Continue Rocephin 1 g daily. Bladder scan at midnight of 08/19/16 showed 440cc--> straight cath and second bladder scan showed 144 cc Bladder scan at 1:00pm after voiding 2x, right side showed 254 cc (08/20/16) Status: Acute (5) Headache Assessment & Plan: Ongoing As per Dr. Chan (neuro) symptoms likely related to hyperglycemia. tilt table test today for syncopal events, 81mg aspirin for stroke prevention and Gabapentin 300 mg QHS for headache. -Gabapentin started and tilt table test to be performed 08/19 Fiorcet q8h---> stopped and oxycodone 5mg PO Q8H started 08/20/16: Started on ibuprofen 800mg Q6 prn head CT done 08/16: no acute intracranial abnormality Status: Acute (6) Prophylactic measure Assessment & Plan: gi prophylaxis: Pepcid 20 mg PO BID Florastor 250mg PO BID DVT PPX: Lovenox mg SC Daily Status: Acute
[2016-08-21] MEDS: oxyCODONE 5 mg Immediate Release Tab PO SCH ×3 (05:25→21:35)
[2016-08-21 07:17] LABS: BASO # 0.1 K/uL (0.0-0.2); BASO % 0.7 % (0.0-2.0); EOS # 0.1 K/uL (0.0-0.7); EOS % 0.8 % (0.0-4.0); HEMOGLOBIN 8.9 g/dL (11.0-16.0); LYMPH # 1.7 K/uL (1.0-4.3); LYMPH % 17.9 % (20.0-40.0); MEAN CORPUSCULAR HEMOGLOBIN 23.7 pg (27.0-31.0); MEAN CORPUSCULAR HGB CONC 30.8 g/dL (33.0-37.0); MEAN PLATELET VOLUME 8.5 fL (7.2-11.7); MONO # 0.8 K/uL (0.0-0.8); NEUT # 7.1 K/uL (1.8-7.0); NEUT % 72.6 % (50.0-75.0); NRBC % 0.1 % (0.0-2.0); RBC 3.76 Mil/uL (3.80-5.20); RED CELL DISTRIBUTION WIDTH 17.6 % (11.5-14.5); WHITE BLOOD COUNT 9.7 K/uL (4.8-10.8)
[2016-08-21] MEDS: (Novolog) Insulin Aspart, Recombinant 100 u/ml 10 ml vial SC SCH ×7 (07:17→21:32)
[2016-08-21 08:27] LABS: ALBUMIN 2.9 g/dL (3.5-5.0)
[2016-08-21 08:30] LABS: AST/SGOT 19 U/L (14-36); GFR AFRICAN-AMERICAN > 60; GFR NON-AFRICAN AMERICAN 55
[2016-08-21 08:31] LABS: ALT/SGPT 15 U/L (9-52); BLOOD UREA NITROGEN 28 mg/dL (7-17); CALCIUM 8.3 mg/dl (8.6-10.4); MAGNESIUM 2.3 mg/dL (1.6-2.3)
[2016-08-21 08:40] LABS: ALB/GLOB RATIO 0.9 (1.0-2.1)
[2016-08-21] MEDS: Enoxaparin 40 mg Syringe SC SCH (10:01)
[2016-08-21] MEDS: Saccharomyces Boulardi 250 mg Cap PO SCH ×2 (10:01→17:52)
[2016-08-21] MEDS: (Lantus) Insulin Glargine, Recombinant SC SCH (21:37)
[2016-08-22] MEDS: oxyCODONE 5 mg Immediate Release Tab PO SCH (05:51)
[2016-08-22 07:12] LABS: BASO # 0.1 K/uL (0.0-0.2); BASO % 0.8 % (0.0-2.0); EOS # 0.1 K/uL (0.0-0.7); EOS % 0.9 % (0.0-4.0); HEMOGLOBIN 9.1 g/dL (11.0-16.0); LYMPH # 1.5 K/uL (1.0-4.3); LYMPH % 17.7 % (20.0-40.0); MEAN CELL VOLUME 76.5 fL (81.0-99.0); MEAN CORPUSCULAR HGB CONC 31.3 g/dL (33.0-37.0); MEAN PLATELET VOLUME 8.3 fL (7.2-11.7); MONO # 0.8 K/uL (0.0-0.8); MONO % 9.8 % (0.0-10.0); NEUT # 5.9 K/uL (1.8-7.0); NEUT % 70.8 % (50.0-75.0); NRBC % 0.1 % (0.0-2.0); RBC 3.8 Mil/uL (3.80-5.20); RED CELL DISTRIBUTION WIDTH 17.4 % (11.5-14.5); WHITE BLOOD COUNT 8.3 K/uL (4.8-10.8)
[2016-08-22 07:28] LABS: AST/SGOT 17 U/L (14-36); BLOOD UREA NITROGEN 26 mg/dL (7-17); GFR AFRICAN-AMERICAN > 60; GFR NON-AFRICAN AMERICAN > 60
[2016-08-22 07:29] LABS: ALT/SGPT 15 U/L (9-52); CALCIUM 8.3 mg/dl (8.6-10.4); MAGNESIUM 2.3 mg/dL (1.6-2.3)
[2016-08-22] MEDS: (Novolog) Insulin Aspart, Recombinant 100 u/ml 10 ml vial SC SCH ×7 (08:21→21:53)
[2016-08-22] MEDS: Enoxaparin 40 mg Syringe SC SCH (10:21)
[2016-08-22] MEDS: Saccharomyces Boulardi 250 mg Cap PO SCH ×2 (10:22→18:20)
[2016-08-22] MEDS ORDERED: Dextrose 50% SYRINGE Inj (50 ml) IV ONE (13:21)
--- NOTE | 2016-08-22 13:42 | CP.PCM.PN ---
Subjective - Date & Time of Evaluation Date of Evaluation: 08/22/16 Time of Evaluation: 13:35 - Subjective Subjective: Cardiology progress note. Attending: Dr. Carvajal Pt seen and examined at bedside. No acute distress. No events overnight. No fevers, chills, vomiting, diarrhea. Objective - Vital Signs/Intake and Output Vital Signs (last 24 hours): Temp Pulse Resp BP Pulse Ox 98 F 96 H 20 148/88 99 08/22/16 07:50 08/22/16 07:50 08/22/16 07:50 08/22/16 07:50 08/22/16 07:50 - Medications Medications: Current Medications Aspirin (Aspirin Chewable) 81 mg PO DAILY [facility] Last Admin: 08/22/16 10:21 Dose: 81 mg Enoxaparin Sodium (Lovenox) 40 mg SC DAILY [facility] Last Admin: 08/22/16 10:21 Dose: 40 mg Famotidine (Pepcid) 20 mg PO BID [facility] Last Admin: 08/22/16 10:22 Dose: 20 mg Gabapentin (Neurontin) 300 mg PO HS [facility] Last Admin: 08/21/16 21:37 Dose: 300 mg Ibuprofen (Motrin Tab) 800 mg PO Q6H PRN PRN Reason: Pain, moderate (4-7) Insulin Aspart (Novolog) 0 unit SC ACHS [facility] PRN Reason: Protocol Last Admin: 08/22/16 08:21 Dose: Not Given Insulin Aspart (Novolog) 26 unit SC ACB [facility] Last Admin: 08/22/16 09:06 Dose: 26 unit Insulin Aspart (Novolog) 20 unit SC ACLD [facility] Last Admin: 08/21/16 17:17 Dose: 20 unit Insulin Glargine (Lantus) 50 unit SC HS [facility] Last Admin: 08/21/16 21:37 Dose: 50 u Lisinopril (Zestril) 10 mg PO DAILY [facility] Last Admin: 08/22/16 10:22 Dose: 10 mg Ondansetron HCl (Zofran Inj) 4 mg IVP Q6 PRN PRN Reason: Nausea/Vomiting Last Admin: 08/22/16 09:05 Dose: 4 mg Saccharomyces Boulardii (Florastor) 250 mg PO BID [facility] Last Admin: 08/22/16 10:22 Dose: 250 mg Temazepam (Restoril) 30 mg PO HS PRN PRN Reason: Insomnia Last Admin: 08/21/16 23:21 Dose: 30 mg - Labs Labs: 08/22/16 07:01 08/22/16 07:01 - Constitutional Appears: Non-toxic, No Acute Distress - Head Exam Head Exam: ATRAUMATIC, NORMAL INSPECTION, NORMOCEPHALIC - Eye Exam Eye Exam: EOMI - ENT Exam ENT Exam: Mucous Membranes Moist - Respiratory Exam Respiratory Exam: NORMAL BREATHING PATTERN. absent: Respiratory Distress - Cardiovascular Exam Cardiovascular Exam: +S1, +S2 - GI/Abdominal Exam GI & Abdominal Exam: Soft, Normal Bowel Sounds. absent: Tenderness - Extremities Exam Extremities Exam: Full ROM, Normal Inspection - Neurological Exam Neurological Exam: Alert, Awake, Oriented x3 - Psychiatric Exam Psychiatric exam: Normal Affect, Normal Mood - Skin Skin Exam: Dry, Intact, Normal Color, Warm Assessment and Plan - Assessment and Plan (Free Text) Assessment: (1) Headache Tilt-table test negative Continue current medical management outpatient stress test f/u echo florentino Carvajal
[2016-08-22] MEDS ORDERED: Simethicone 80 mg Chewtab PO PRN (14:14)
[2016-08-22] MEDS ORDERED: (Novolog) Insulin Aspart, Recombinant 100 u/ml 10 ml vial SC SCH (14:14)
[2016-08-22] MEDS ORDERED: Dextrose 50% SYRINGE Inj (50 ml) IV STA (14:28)
--- NOTE | 2016-08-22 22:07 | CP.PCM.PN ---
<Jace Sampson R - Last Filed: 08/22/16 22:04> Subjective - Date & Time of Evaluation Date of Evaluation: 08/22/16 Time of Evaluation: 09:00 - Subjective Subjective: PGY-[address] Dhillon's Medicine Service Patient was seen and examined at bedside. Patient was not in acute distress. Pt complained of headache. She complained of dizziness when she ambulated to the bathroom. She said she had an episode of vomiting after eating breakfast. She says she feels bloated. She says she was able to urinate on her own last night, she urinated about 300ml. She denies chest pain, shortness of breath, tremors, diarrhea. Objective - Vital Signs/Intake and Output Vital Signs (last 24 hours): Temp Pulse Resp BP Pulse Ox 97.8 F 105 H 20 95/67 L 97 08/22/16 15:30 08/22/16 15:30 08/22/16 15:30 08/22/16 15:30 08/22/16 15:30 Intake and Output: 08/22/16 08/23/16 18:59 06:59 Intake Total 300 Balance 300 - Medications Medications: Current Medications Aspirin (Aspirin Chewable) 81 mg PO DAILY [facility] Last Admin: 08/22/16 10:21 Dose: 81 mg Enoxaparin Sodium (Lovenox) 40 mg SC DAILY [facility] Last Admin: 08/22/16 10:21 Dose: 40 mg Famotidine (Pepcid) 20 mg PO BID [facility] Last Admin: 08/22/16 18:20 Dose: 20 mg Gabapentin (Neurontin) 300 mg PO HS [facility] Last Admin: 08/21/16 21:37 Dose: 300 mg Ibuprofen (Motrin Tab) 800 mg PO Q6H PRN PRN Reason: Pain, moderate (4-7) Insulin Aspart (Novolog) 0 unit SC ACHS [facility] PRN Reason: Protocol Last Admin: 08/22/16 21:53 Dose: Not Given Insulin Aspart (Novolog) 20 unit SC ACLD [facility] Last Admin: 08/22/16 18:37 Dose: Not Given Insulin Aspart (Novolog) 26 unit SC ACB [facility] Insulin Glargine (Lantus) 50 unit SC HS [facility] Last Admin: 08/21/16 21:37 Dose: 50 u Lisinopril (Zestril) 10 mg PO DAILY [facility] Last Admin: 08/22/16 10:22 Dose: 10 mg Ondansetron HCl (Zofran Inj) 4 mg IVP Q6 PRN PRN Reason: Nausea/Vomiting Last Admin: 08/22/16 09:05 Dose: 4 mg Saccharomyces Boulardii (Florastor) 250 mg PO BID [facility] Last Admin: 08/22/16 18:20 Dose: 250 mg Simethicone (Mylicon Chew Tab) 80 mg PO QID PRN PRN Reason: GI distress Temazepam (Restoril) 30 mg PO HS PRN PRN Reason: Insomnia Last Admin: 08/21/16 23:21 Dose: 30 mg - Labs Labs: 08/22/16 07:01 08/22/16 07:01 - Constitutional Appears: Well, Non-toxic, No Acute Distress - Head Exam Head Exam: ATRAUMATIC, NORMAL INSPECTION, NORMOCEPHALIC - Eye Exam Eye Exam: EOMI, Normal appearance, PERRL - ENT Exam ENT Exam: Mucous Membranes Moist, Normal Exam - Neck Exam Neck Exam: Full ROM, Normal Inspection. absent: Lymphadenopathy - Respiratory Exam Respiratory Exam: Clear to Ausculation Bilateral, NORMAL BREATHING PATTERN - Cardiovascular Exam Cardiovascular Exam: REGULAR RHYTHM, +S1, +S2. absent: Murmur - GI/Abdominal Exam GI & Abdominal Exam: Soft, Normal Bowel Sounds. absent: Tenderness - Rectal Exam Rectal Exam: Deferred - Extremities Exam Extremities Exam: Full ROM, Normal Capillary Refill, Normal Inspection. absent : Joint Swelling, Pedal Edema - Neurological Exam Neurological Exam: Alert, Awake, Oriented x3 - Psychiatric Exam Psychiatric exam: Normal Affect, Normal Mood - Skin Skin Exam: Dry, Intact, Normal Color, Warm Assessment and Plan - Assessment and Plan (Free Text) Assessment: (1) Uncontrolled diabetes mellitus Assessment & Plan: HgbA1C: 13.2 08/22: glucose 74, dextrose 50ml IV given today consult endocronologist, Dr. 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 Carvajal) for cardiac work up --- > Help appreciated Chest pain is intermittent EKG x 3 Negative RASHAD x 3 Negative ASA 325 mg PO x1 on 08/17 ASA 81 mg PO daily cardiology recommends outpatient stress test tilt table test negative f/u echo Status: Acute (3) Dysuria Assessment & Plan: Resolving dysuria for 3-4 days Rochephin 1 g daily urine culture + for staphylcoccus IV NS 125 cc/hr CT scan of abdomen/pelvis: negative Status: Acute (4) Urinary hesitancy Assessment & Plan: 08/22: pt able to urinate on her own overnight, 300ml Bladder scan showed 85ml of urine. Encourage patient to keep drinking fluids. Continue Rocephin 1 g daily. Bladder scan at midnight of 08/19/16 showed 440cc--> straight cath and second bladder scan showed 144 cc Bladder scan at 1:00pm after voiding 2x, right side showed 254 cc (08/20/16) Status: Acute (5) Headache Assessment & Plan: Ongoing Tilt-table test negative As per Dr. Chan (neuro) symptoms likely related to hyperglycemia. tilt table test today for syncopal events, 81mg aspirin for stroke prevention and Gabapentin 300 mg QHS for headache. -Gabapentin started and tilt table test to be performed 08/19 Fiorcet q8h---> stopped and oxycodone 5mg PO Q8H started 08/20/16: Started on ibuprofen 800mg Q6 prn head CT done 08/16: no acute intracranial abnormality Status: Acute (6) Prophylactic measure Assessment & Plan: gi prophylaxis: Pepcid 20 mg PO BID Florastor 250mg PO BID DVT PPX: Lovenox mg SC Daily Status: Acute <Dara Dhillon V - Last Filed: 08/22/16 22:49> Objective - Vital Signs/Intake and Output Vital Signs (last 24 hours): Temp Pulse Resp BP Pulse Ox 97.8 F 105 H 20 95/67 L 97 08/22/16 15:30 08/22/16 15:30 08/22/16 15:30 08/22/16 15:30 08/22/16 15:30 Intake and Output: 08/22/16 08/23/16 18:59 06:59 Intake Total 300 Balance 300 - Medications Medications: Current Medications Aspirin (Aspirin Chewable) 81 mg PO DAILY [facility] Last Admin: 08/22/16 10:21 Dose: 81 mg Enoxaparin Sodium (Lovenox) 40 mg SC DAILY [facility] Last Admin: 08/22/16 10:21 Dose: 40 mg Famotidine (Pepcid) 20 mg PO BID [facility] Last Admin: 08/22/16 18:20 Dose: 20 mg Gabapentin (Neurontin) 300 mg PO HS [facility] Last Admin: 08/22/16 22:38 Dose: 300 mg Ibuprofen (Motrin Tab) 800 mg PO Q6H PRN PRN Reason: Pain, moderate (4-7) Insulin Aspart (Novolog) 0 unit SC ACHS [facility] PRN Reason: Protocol Last Admin: 08/22/16 21:53 Dose: Not Given Insulin Aspart (Novolog) 20 unit SC ACLD [facility] Last Admin: 08/22/16 18:37 Dose: Not Given Insulin Aspart (Novolog) 26 unit SC ACB [facility] Insulin Glargine (Lantus) 50 unit SC HS [facility] Last Admin: 08/22/16 22:38 Dose: 50 u Lisinopril (Zestril) 10 mg PO DAILY [facility] Last Admin: 08/22/16 10:22 Dose: 10 mg Ondansetron HCl (Zofran Inj) 4 mg IVP Q6 PRN PRN Reason: Nausea/Vomiting Last Admin: 08/22/16 09:05 Dose: 4 mg Saccharomyces Boulardii (Florastor) 250 mg PO BID [facility] Last Admin: 08/22/16 18:20 Dose: 250 mg Simethicone (Mylicon Chew Tab) 80 mg PO QID PRN PRN Reason: GI distress Temazepam (Restoril) 30 mg PO HS PRN PRN Reason: Insomnia Last Admin: 08/22/16 22:39 Dose: 30 mg - Labs Labs: 08/22/16 07:01 08/22/16 07:01 Attending/Attestation - Attestation I have personally seen and examined this patient.: Yes I have fully participated in the care of the patient.: Yes I have reviewed all pertinent clinical information, including history, physical exam and plan: Yes Notes (Text): Patient seen, examined and case discussed with day-time web marketing intern. Patient reports she is feeling better but reports she feels lightheaded and dizziness. Patient sugar at bedside 48. Patient reports she ate everything including juice meal, ordered for amp D50. Patient reports she had oatmeal and some alvarenga from breakfast. Patient reports day prior she has not been getting meals at consistent time and had to wait 4 hours later for dinner and barely had lunch. Patient reminded she needs to eat consistently. Hold parameter for morning Novolog placed. Patient's sugar is 280 while on Lantus 50 units subHS. Per cardiology, patient is recommended for an echo which was ordered on 08/20 but has yet to be completed and unlikely to be completed since its a holiday tomorrow. Recommended for outpatient stress test. Patient has not been sleeping well. patient is placed on Restoril prn to help improve insomnia. Patient is mildly tachycardia likely due to hypoglycemia. Will order thyroid studies and d-dimer to r/o other sources of tachycardia.
[2016-08-22] MEDS: (Lantus) Insulin Glargine, Recombinant SC SCH (22:38)
[2016-08-23] MEDS: (Novolog) Insulin Aspart, Recombinant 100 u/ml 10 ml vial SC SCH ×4 (08:02→21:52)
[2016-08-23 08:04] LABS: BASO % 0.4 % (0.0-2.0); EOS # 0.1 K/uL (0.0-0.7); EOS % 0.6 % (0.0-4.0); HEMOGLOBIN 9.5 g/dL (11.0-16.0); LYMPH # 2.3 K/uL (1.0-4.3); LYMPH % 23.1 % (20.0-40.0); MEAN CELL VOLUME 77.4 fL (81.0-99.0); MEAN CORPUSCULAR HEMOGLOBIN 23.9 pg (27.0-31.0); MEAN CORPUSCULAR HGB CONC 30.9 g/dL (33.0-37.0); MEAN PLATELET VOLUME 8.2 fL (7.2-11.7); MONO # 0.8 K/uL (0.0-0.8); NEUT # 6.8 K/uL (1.8-7.0); NEUT % 67.9 % (50.0-75.0); NRBC % 0.1 % (0.0-2.0); RBC 3.98 Mil/uL (3.80-5.20); RED CELL DISTRIBUTION WIDTH 17.8 % (11.5-14.5); WHITE BLOOD COUNT 9.9 K/uL (4.8-10.8)
[2016-08-23 08:24] LABS: ALBUMIN 3.4 g/dL (3.5-5.0)
[2016-08-23 08:26] LABS: GFR AFRICAN-AMERICAN > 60; GFR NON-AFRICAN AMERICAN 55
[2016-08-23 08:27] LABS: AST/SGOT 27 U/L (14-36)
[2016-08-23 08:28] LABS: ALT/SGPT 29 U/L (9-52); BLOOD UREA NITROGEN 28 mg/dL (7-17); CALCIUM 8.6 mg/dl (8.6-10.4); MAGNESIUM 2.4 mg/dL (1.6-2.3)
[2016-08-23] MEDS: Saccharomyces Boulardi 250 mg Cap PO SCH ×2 (09:26→17:34)
[2016-08-23] MEDS: Enoxaparin 40 mg Syringe SC SCH (09:26)
[2016-08-23] MEDS ORDERED: Iodixanol 320 MG/ML 100 ML BOTTLE IV ONE (09:41)
[2016-08-23 10:16] LABS: CK-MB 0.73 ng/mL (0.0-3.38)
--- NOTE | 2016-08-23 11:40 | CT ---
PROCEDURE: CT Chest with contrast (Pulmonary Angiogram) HISTORY: elevated d-dimer COMPARISON: None available. TECHNIQUE: Axial computed tomography images were obtained of the chest in the pulmonary arterial phase of enhancement. Coronal and sagittal reformatted images were created and reviewed. Intravenous contrast dose: 100 cc Visipaque 320 contrast Radiation dose: Total exam DLP = 465.5 mGy-cm. This CT exam was performed using one or more of the following dose reduction techniques: Automated exposure control, adjustment of the mA and/or kV according to patient size, and/or use of iterative reconstruction technique. FINDINGS: PULMONARY ARTERIES: Visualized pulmonary trunk, right and left main, lobar, segmental and proximal subsegmental branches of the pulmonary arteries are relatively well opacified with no definitive filling defects seen to suggest acute pulmonary embolus. Pulmonary trunk measures approximately 2.75 cm. AORTA: Ascending thoracic aorta measures approximately 3 cm and descending thoracic aorta measures approximately 2.4 cm. No evidence of aortic dissection. LUNGS: Mild bibasilar atelectasis and or scarring changes left greater than right. In addition, there are ground-glass opacities seen in the the posterior lung michaels with lower lobe predominance is suggesting some air trapping - small airways disease. . . Tiny blebs seen right posterior lung apex. PLEURAL SPACES: Unremarkable. No effusion or pneuomothorax. HEART: Heart size is within range of normal. No significant pericardial effusion. LYMPH NODES: No significant mediastinal or hilar adenopathy. Central airways are midline and patent. No endobronchial lesions are identified. There is a small hiatal hernia. BONES, CHEST WALL: The osseous structures appear grossly intact. OTHER FINDINGS: The liver is incompletely seen along its inferior border though does appear enlarged. IMPRESSION: No evidence of acute central pulmonary embolus. Bibasilar atelectasis and or scarring changes left greater than right. There are also ground-glass opacity seen in the posterior lung michaels lower lobe predominance suggesting air trapping -small airways disease. On findings consistent with on hepatomegaly.
--- NOTE | 2016-08-23 13:24 | CP.PCM.PN ---
<Dara Dhillon V - Last Filed: 08/23/16 14:32> Objective - Vital Signs/Intake and Output Vital Signs (last 24 hours): Temp Pulse Resp BP Pulse Ox 97.9 F 90 20 144/90 96 08/23/16 07:58 08/23/16 08:00 08/23/16 07:58 08/23/16 07:58 08/23/16 07:58 - Medications Medications: Current Medications Aspirin (Aspirin Chewable) 81 mg PO DAILY [facility] Last Admin: 08/23/16 09:26 Dose: 81 mg Enoxaparin Sodium (Lovenox) 40 mg SC DAILY [facility] Last Admin: 08/23/16 09:26 Dose: 40 mg Famotidine (Pepcid) 20 mg PO BID [facility] Last Admin: 08/23/16 09:26 Dose: 20 mg Gabapentin (Neurontin) 300 mg PO HS [facility] Last Admin: 08/22/16 22:38 Dose: 300 mg Ibuprofen (Motrin Tab) 800 mg PO Q6H PRN PRN Reason: Pain, moderate (4-7) Last Admin: 08/23/16 06:22 Dose: 800 mg Insulin Aspart (Novolog) 0 unit SC ACHS [facility] PRN Reason: Protocol Last Admin: 08/22/16 21:53 Dose: Not Given Insulin Aspart (Novolog) 20 unit SC QPM [facility] Insulin Glargine (Lantus) 50 unit SC HS [facility] Last Admin: 08/22/16 22:38 Dose: 50 u Lisinopril (Zestril) 10 mg PO DAILY [facility] Last Admin: 08/23/16 09:26 Dose: 10 mg Ondansetron HCl (Zofran Inj) 4 mg IVP Q6 PRN PRN Reason: Nausea/Vomiting Last Admin: 08/22/16 09:05 Dose: 4 mg Saccharomyces Boulardii (Florastor) 250 mg PO BID [facility] Last Admin: 08/23/16 09:26 Dose: 250 mg Simethicone (Mylicon Chew Tab) 80 mg PO QID PRN PRN Reason: GI distress Temazepam (Restoril) 30 mg PO HS PRN PRN Reason: Insomnia Last Admin: 08/22/16 22:39 Dose: 30 mg - Labs Labs: 08/23/16 07:55 08/23/16 07:55 Attending/Attestation - Attestation I have personally seen and examined this patient.: Yes I have fully participated in the care of the patient.: Yes I have reviewed all pertinent clinical information, including history, physical exam and plan: Yes Notes (Text): Patient seen, examined and case discussed with day-time direct marketing intern. Patient seen at bedside this morning. Patient reporting she has a headache. Patient is not using the PRN for her insomnia and reports she is not sleeping. Patient advised to use PRN to assist in getting proper sleep. Review insulin regimen with resident and discussed with nursing staff. patient becomes hypoglycemic after breakfast and prior to start of lunch wherein sugar goes in 50s following Novolog 26 units and prior to receiving Novolog 20 units. Discontinued Novolog 20 units prior to lunch and reset at dinner. Discussed with nursing, patient is completing her breakfast in the morning. Patient ordered Chest CT given elevated d-dimer in light of tachycardia. Chest Ct is negative for PE. Patient is pending for an echocardiogram which was ordered 08/20/16. Assessment/Plan (1) Uncontrolled diabetes mellitus Assessment & Plan: HgbA1C: 13.2 consult endocronologist, Dr. Henry, help appreciated thermostat repairer referral for noncompliance diabetes management- teach PRN accuchecks QACHS Lantus 40 U sc q HS Novolog 20 units subq at 8PM Held Novolog 26 units SUBAC-->patient becomes hypoglycemic Novolog sliding scale qHS urine microalbumin: >950 Lipid panel: Triglycerides-88, Cholesterol-234, LDL-166, HDL-61 TSH:6.12, Free T4:1.23 Lisinopril 10mg PO daily for renoprotection Crestor 5mg POqHS for optimal LDL therapy in light of uncontrolled diabetes Status: Acute (2) Chest pain Assessment & Plan: Cardiology (Dr. Carvajal) help appreciated Chest pain resolved EKG x 3 Negative RASHAD x 3 Negative ASA 325 mg PO x1 on 08/17 ASA 81 mg PO daily TSH elevated (6.12) Lipid panel: Triglycerides-88, Cholesterol-234, LDL-166, HDL-61-->will need statin therapy CT Chest (08/23/16): no evidence of acute central pulmonary embolus. Bibasilar atelectasis and/or scarring changes left greater than right. Ground glass opacity seen in the posterior pending echocardiogram Will likely need outpatient stress test Status: Acute (3) Dysuria Assessment & Plan: Completed 6 days of IV abx CT scan of abdomen/pelvis: negative urine culture: no growth Status: Resolved (4) Urinary hesitancy Assessment & Plan: Resolved Patient is urinating Status: Acute (5) Headache Assessment & Plan: As per Dr. Chan (neuro) symptoms likely related to hyperglycemia. Recommended tilt table test for syncopal events, 81mg aspirin for stroke prevention and Gabapentin 300 mg QHS for headache. Gabapentin 300mg POqHS Completed Tilt table test head CT done 08/16: no acute intracranial abnormality Likely due to sleep deprivation Aspirin 81mg PO daily Motrin 800mg PO Q8hour PRN Restoril 30mg POqHS PRN insomnia Status: Acute (6) Prophylactic measure Assessment & Plan: gi prophylaxis: Pepcid 20 mg PO BID DVT PPX: Lovenox 40 mg SC Daily Status: Acute Dispostion: * Will optimize sugars given repeated hypoglycemic events for past 2 days; will likely discharge the patient tomorrow * Patient encouraged to take insomnia PRN medications * Will need to follow-up outpatient with cardiology for possible outpatient stress test <Jace Smapson - Last Filed: 08/23/16 18:11> Subjective - Date & Time of Evaluation Date of Evaluation: 08/23/16 Time of Evaluation: 10:30 - Subjective Subjective: PGY-[address] Dhillon's Medicine Service Patient was seen and examined at bedside. Patient was not in acute distress. Today pt complained of intermittent left sided chest pain which she rated a 3/ 10. Pt also complained of ongoing headache. She complained of dizziness when she ambulated to the bathroom. She denies vomiting, shortness of breath, tremors , diarrhea, urinary retention. Objective - Vital Signs/Intake and Output Vital Signs (last 24 hours): Temp Pulse Resp BP Pulse Ox 97.9 F 90 20 144/90 96 08/23/16 07:58 08/23/16 07:58 08/23/16 07:58 08/23/16 07:58 08/23/16 07:58 - Medications Medications: Current Medications Aspirin (Aspirin Chewable) 81 mg PO DAILY [facility] Last Admin: 08/23/16 09:26 Dose: 81 mg Enoxaparin Sodium (Lovenox) 40 mg SC DAILY [facility] Last Admin: 08/23/16 09:26 Dose: 40 mg Famotidine (Pepcid) 20 mg PO BID [facility] Last Admin: 08/23/16 09:26 Dose: 20 mg Gabapentin (Neurontin) 300 mg PO [facility] Last Admin: 08/22/16 22:38 Dose: 300 mg Ibuprofen (Motrin Tab) 800 mg PO Q6H PRN PRN Reason: Pain, moderate (4-7) Last Admin: 08/23/16 06:22 Dose: 800 mg Insulin Aspart (Novolog) 0 unit SC [facility] PRN Reason: Protocol Last Admin: 08/22/16 21:53 Dose: Not Given Insulin Glargine (Lantus) 50 unit SC [facility] Last Admin: 08/22/16 22:38 Dose: 50 u Lisinopril (Zestril) 10 mg PO DAILY [facility] Last Admin: 08/23/16 09:26 Dose: 10 mg Ondansetron HCl (Zofran Inj) 4 mg IVP Q6 PRN PRN Reason: Nausea/Vomiting Last Admin: 08/22/16 09:05 Dose: 4 mg Saccharomyces Boulardii (Florastor) 250 mg PO BID [facility] Last Admin: 08/23/16 09:26 Dose: 250 mg Simethicone (Mylicon Chew Tab) 80 mg PO QID PRN PRN Reason: GI distress Temazepam (Restoril) 30 mg PO HS PRN PRN Reason: Insomnia Last Admin: 08/22/16 22:39 Dose: 30 mg - Labs Labs: 08/23/16 07:55 08/23/16 07:55 - Constitutional Appears: Well - Head Exam Head Exam: ATRAUMATIC, NORMAL INSPECTION, NORMOCEPHALIC - Eye Exam Eye Exam: EOMI, Normal appearance, PERRL - ENT Exam ENT Exam: Mucous Membranes Moist, Normal Exam - Neck Exam Neck Exam: Full ROM, Normal Inspection. absent: Lymphadenopathy - Respiratory Exam Respiratory Exam: Clear to Ausculation Bilateral, NORMAL BREATHING PATTERN - Cardiovascular Exam Cardiovascular Exam: REGULAR RHYTHM, +S1, +S2. absent: Murmur - GI/Abdominal Exam GI & Abdominal Exam: Soft, Normal Bowel Sounds. absent: Tenderness - Rectal Exam Rectal Exam: Deferred - Extremities Exam Extremities Exam: Full ROM, Normal Capillary Refill, Normal Inspection. absent : Joint Swelling, Pedal Edema - Neurological Exam Neurological Exam: Alert, Awake, Oriented x3 - Psychiatric Exam Psychiatric exam: Normal Affect, Normal Mood - Skin Skin Exam: Dry, Intact, Normal Color, Warm Assessment and Plan - Assessment and Plan (Free Text) Assessment: (1) Uncontrolled diabetes mellitus Assessment & Plan: HgbA1C: 13.2 08/22: glucose 74, dextrose 50ml IV given today consult endocronologist, Dr. Henry, help appreciated thermostat repairer referral for noncompliance diabetes management- teach PRN accuchecks QACHS Lantus 30 U sc q HS -> Lantus 50 U sc q HS (08/22) Novolog sliding scale adjustment (08/19/16); Novolog 26 units before breakfast. 08/23: Stopped for now. Novolog 20 units before dinner. 08/23: Was getting this before lunch and with her novolog 26u before breakfast, was causing hypoglycemia. urine microalbumin: >950 (started Lisinopril 2.5mg PO daily---> lisinopril increased to 10mg on 08/19/16) Lipid panel: Triglycerides-88, Cholesterol-234, LDL-166, HDL-61 08/23: TSH wnl TSH:6.12, Free T4:1.23 Status: Acute (2) Chest pain Assessment & Plan: It Intern on board (Dr. Carvajal) for cardiac work up --- > Help appreciated Chest pain is intermittent 08/23: D dimer 505 H 08/23: ROMIx3, EKGsx3 ordered due to chest pain this morning 08/23: TSH wnl 08/23: Chest CT impression "No evidence of acute central pulmonary embolus. Bibasilar atelectasis and or scarring changes left greater than right. There are also ground-glass opacity seen in the posterior lung michaels lower lobe predominance suggesting air trapping -small airways disease. On findings consistent with on hepatomegaly" EKG x 3 Negative RASHAD x 3 Negative ASA 325 mg PO x1 on 08/17 ASA 81 mg PO daily cardiology recommends outpatient stress test tilt table test negative f/u echo Status: Acute (3) Dysuria Assessment & Plan: Resolving dysuria for 3-4 days Rochephin 1 g daily urine culture + for staphylcoccus IV NS 125 cc/hr CT scan of abdomen/pelvis: negative Status: Acute (4) Urinary hesitancy Assessment & Plan: 08/22: pt able to urinate on her own overnight, 300ml Bladder scan showed 85ml of urine. Encourage patient to keep drinking fluids. Continue Rocephin 1 g daily. Bladder scan at midnight of 08/19/16 showed 440cc--> straight cath and second bladder scan showed 144 cc Bladder scan at 1:00pm after voiding 2x, right side showed 254 cc (08/20/16) Status: Acute (5) Headache Assessment & Plan: Ongoing possibly related to insomnia. Resteril 30mg po hs prn for insomnia. Tilt-table test negative As per Dr. Chan (neuro) symptoms likely related to hyperglycemia. tilt table test today for syncopal events, 81mg aspirin for stroke prevention and Gabapentin 300 mg QHS for headache. -Gabapentin started and tilt table test to be performed 08/19 Fiorcet q8h---> stopped and oxycodone 5mg PO Q8H started 08/20/16: Started on ibuprofen 800mg Q6 prn head CT done 08/16: no acute intracranial abnormality Status: Acute (6) Prophylactic measure Assessment & Plan: gi prophylaxis: Pepcid 20 mg PO BID Florastor 250mg PO BID DVT PPX: Lovenox mg SC Daily Status: Acute
[2016-08-23] MEDS ORDERED: Bisacodyl 5mg EC Tab PO ONE (15:24)
[2016-08-23 16:47] LABS: CK-MB 0.81 ng/mL (0.0-3.38)
[2016-08-23] MEDS ORDERED: (Novolog) Insulin Aspart, Recombinant 100 u/ml 10 ml vial SC SCH (18:00)
[2016-08-23] MEDS: (Lantus) Insulin Glargine, Recombinant SC SCH (21:51)
[2016-08-23 22:26] LABS: CK-MB 1.1 ng/mL (0.0-3.38)
[2016-08-24 07:37] LABS: BASO # 0.1 K/uL (0.0-0.2); BASO % 0.5 % (0.0-2.0); EOS # 0.1 K/uL (0.0-0.7); EOS % 0.8 % (0.0-4.0); HEMOGLOBIN 9.3 g/dL (11.0-16.0); LYMPH # 1.7 K/uL (1.0-4.3); LYMPH % 17.5 % (20.0-40.0); MEAN CELL VOLUME 76.7 fL (81.0-99.0); MEAN CORPUSCULAR HEMOGLOBIN 23.9 pg (27.0-31.0); MEAN CORPUSCULAR HGB CONC 31.1 g/dL (33.0-37.0); MONO # 0.9 K/uL (0.0-0.8); MONO % 9.1 % (0.0-10.0); NEUT # 7.1 K/uL (1.8-7.0); NEUT % 72.1 % (50.0-75.0); NRBC % 0.2 % (0.0-2.0); RBC 3.88 Mil/uL (3.80-5.20); RED CELL DISTRIBUTION WIDTH 17.9 % (11.5-14.5); WHITE BLOOD COUNT 9.9 K/uL (4.8-10.8)
[2016-08-24 07:40] LABS: ALBUMIN 3.2 g/dL (3.5-5.0)
[2016-08-24 07:43] LABS: ALB/GLOB RATIO 1.1 (1.0-2.1); AST/SGOT 27 U/L (14-36); GFR AFRICAN-AMERICAN > 60; GFR NON-AFRICAN AMERICAN 55
[2016-08-24 07:44] LABS: ALT/SGPT 27 U/L (9-52); BLOOD UREA NITROGEN 21 mg/dL (7-17); CALCIUM 8.4 mg/dl (8.6-10.4); MAGNESIUM 2.9 mg/dL (1.6-2.3)
[2016-08-24] MEDS: (Novolog) Insulin Aspart, Recombinant 100 u/ml 10 ml vial SC SCH ×6 (08:03→21:47)
--- NOTE | 2016-08-24 09:56 | CP.PCM.PN ---
Subjective - Date & Time of Evaluation Date of Evaluation: 08/24/16 Time of Evaluation: 09:00 - Subjective Subjective: Patient was seen and examined at bedside today. She was not in acute distress. She was sleeping when I walked in. She stated that she was able to fall sleep last night, sleeping has been a problem for her and might be contributing to her headaches. She complains of headache but says they were less severe today. She complains of dizziness. She had her first BM yesterday after 4 days. She had no other complaints. She denies chest pain, shortness of breath, cough, vomiting, diarrhea. Objective - Vital Signs/Intake and Output Vital Signs (last 24 hours): Temp Pulse Resp BP Pulse Ox 98.1 F 95 H 20 133/77 97 08/24/16 07:42 08/24/16 07:42 08/24/16 07:42 08/24/16 07:42 08/24/16 07:42 Intake and Output: 08/24/16 08/24/16 06:59 18:59 Intake Total 120 Balance 120 - Medications Medications: Current Medications Aspirin (Aspirin Chewable) 81 mg PO DAILY [facility] Last Admin: 08/23/16 09:26 Dose: 81 mg Enoxaparin Sodium (Lovenox) 40 mg SC DAILY [facility] Last Admin: 08/23/16 09:26 Dose: 40 mg Famotidine (Pepcid) 20 mg PO BID [facility] Last Admin: 08/23/16 17:34 Dose: 20 mg Gabapentin (Neurontin) 300 mg PO HS [facility] Last Admin: 08/23/16 21:49 Dose: 300 mg Ibuprofen (Motrin Tab) 800 mg PO Q6H PRN PRN Reason: Pain, moderate (4-7) Last Admin: 08/23/16 20:47 Dose: 800 mg Insulin Aspart (Novolog) 0 unit SC ACHS [facility] PRN Reason: Protocol Last Admin: 08/24/16 08:03 Dose: Not Given Insulin Aspart (Novolog) 10 unit SC TIDAC [facility] Insulin Glargine (Lantus) 50 unit SC HS [facility] Last Admin: 08/23/16 21:51 Dose: 50 u Lisinopril (Zestril) 10 mg PO DAILY [facility] Last Admin: 08/23/16 09:26 Dose: 10 mg Ondansetron HCl (Zofran Inj) 4 mg IVP Q6 PRN PRN Reason: Nausea/Vomiting Last Admin: 08/22/16 09:05 Dose: 4 mg Rosuvastatin Calcium (Crestor) 5 mg PO HS [facility] Last Admin: 08/23/16 21:49 Dose: 5 mg Saccharomyces Boulardii (Florastor) 250 mg PO BID [facility] Last Admin: 08/23/16 17:34 Dose: 250 mg Simethicone (Mylicon Chew Tab) 80 mg PO QID PRN PRN Reason: GI distress Temazepam (Restoril) 30 mg PO HS PRN PRN Reason: Insomnia Last Admin: 08/22/16 22:39 Dose: 30 mg - Labs Labs: 08/24/16 07:09 08/24/16 07:09 - Constitutional Appears: Well, Non-toxic - Head Exam Head Exam: ATRAUMATIC, NORMAL INSPECTION, NORMOCEPHALIC - Eye Exam Eye Exam: EOMI, Normal appearance, PERRL - ENT Exam ENT Exam: Mucous Membranes Moist, Normal Exam - Neck Exam Neck Exam: Full ROM - Respiratory Exam Respiratory Exam: Clear to Ausculation Bilateral. absent: Wheezes - Cardiovascular Exam Cardiovascular Exam: REGULAR RHYTHM, +S1, +S2. absent: Murmur - GI/Abdominal Exam GI & Abdominal Exam: Normal Bowel Sounds - Rectal Exam Rectal Exam: Deferred - Extremities Exam Extremities Exam: Full ROM, Normal Inspection - Neurological Exam Neurological Exam: Alert, Awake, Oriented x3 - Psychiatric Exam Psychiatric exam: Normal Affect, Normal Mood - Skin Skin Exam: Dry, Intact, Normal Color, Warm Assessment and Plan - Assessment and Plan (Free Text) Assessment: (1) Uncontrolled diabetes mellitus Assessment & Plan: HgbA1C: 13.2 consult endocronologist, Dr. 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 08/24: Novolog 10 units TIDAC Held Novolog 26 units SUBAC-->patient becomes hypoglycemic Novolog sliding scale qHS urine microalbumin: >950 Lipid panel: Triglycerides-88, Cholesterol-234, LDL-166, HDL-61 TSH:6.12, Free T4:1.23 Lisinopril 10mg PO daily for renoprotection Crestor 5mg POqHS for optimal LDL therapy in light of uncontrolled diabetes Status: Acute (2) Chest pain Assessment & Plan: Cardiology (Dr. Carvajal) help appreciated 08/23: chest CT negative for PE 08/23: d-dimer 505 Chest pain resolved EKG x 3 Negative RASHAD x 3 Negative ASA 325 mg PO x1 on 08/17 ASA 81 mg PO daily TSH elevated (6.12) Lipid panel: Triglycerides-88, Cholesterol-234, LDL-166, HDL-61-->will need statin therapy CT Chest (08/23/16): no evidence of acute central pulmonary embolus. Bibasilar atelectasis and/or scarring changes left greater than right. Ground glass opacity seen in the posterior pending echocardiogram Will likely need outpatient stress test Status: Acute (3) Dysuria Assessment & Plan: Completed 6 days of IV abx CT scan of abdomen/pelvis: negative urine culture: no growth Status: Resolved (4) Urinary hesitancy Assessment & Plan: Resolved Patient is urinating Status: Acute (5) Headache Assessment & Plan: As per Dr. Chan (neuro) symptoms likely related to hyperglycemia. Recommended tilt table test for syncopal events, 81mg aspirin for stroke prevention and Gabapentin 300 mg QHS for headache. Gabapentin 300mg POqHS Completed Tilt table test head CT done 08/16: no acute intracranial abnormality Likely due to sleep deprivation Aspirin 81mg PO daily Motrin 800mg PO Q8hour PRN Restoril 30mg POqHS PRN insomnia Status: Acute (6) Prophylactic measure Assessment & Plan: gi prophylaxis: Pepcid 20 mg PO BID DVT PPX: Lovenox 40 mg SC Daily Status: Acute Dispostion: 08/24: Social work working with patient for insulin coverage after discharge * Will optimize sugars given repeated hypoglycemic events for past 2 days; will likely discharge the patient tomorrow * Patient encouraged to take insomnia PRN medications * Will need to follow-up outpatient with cardiology for possible outpatient stress test
[2016-08-24] MEDS: Saccharomyces Boulardi 250 mg Cap PO SCH ×2 (10:41→18:42)
[2016-08-24] MEDS: (Lantus) Insulin Glargine, Recombinant SC SCH (21:45)
--- NOTE | 2016-08-24 23:07 | CARD ---
APPROVED REPORT EXAM: Two-dimensional and M-mode echocardiogram with Doppler and color Doppler. Other Information Quality : GoodRhythm : NSR RISK FACTORS Hypertension Diabetes Smoking M-Mode DIMENSIONS RVDd1.92 (2.1-3.2cm)Left Atrium (MM)3.64 (2.5-4.0cm) IVSd1.07 (0.7-1.1cm)Aortic Root2.57 (2.2-3.7cm) LVDd4.20 (4.0-5.6cm)Aortic Cusp Exc.1.98 (1.5-2.0cm) PWd0.88 (0.7-1.1cm)FS (%) 48 % LVDs2.18 (2.0-3.8cm)LVEF (%)80 (>50%) Mitral Valve MV E [id number]/sMV A Xwxpvpgw96.6cm/sE/A ratio1.2 TDI E/Lateral E'0.0E/Medial E'0.0 Tricuspid Valve TR Peak [id number]/sTR Peak [id number] LEFT VENTRICLE The left ventricle is normal size. There is normal left ventricular wall thickness. Left ventricle systolic function is normal with Ejection Fraction of >70%. There is normal LV segmental wall motion. The left ventricular diastolic function is normal. No left ventricle thrombus noted on this study. RIGHT VENTRICLE The right ventricle is normal size. The right ventricular systolic function is normal. ATRIA The left atrium size is normal. The right atrium size is normal. AORTIC VALVE The aortic valve is trileaflet. The aortic valve is mildly thickened. No aortic regurgitation is present. There is no aortic valvular stenosis. There is no aortic valvular vegetation. MITRAL VALVE The mitral valve is normal in structure. There is no evidence of mitral valve prolapse. There is no mitral valve stenosis. Mitral regurgitation is mild. TRICUSPID VALVE The tricuspid valve is normal in structure. There is mild tricuspid regurgitation. Right ventricular systolic pressure is estimated at 30-40 mmHg. There is no pulmonary hypertension. There is no tricuspid valve prolapse or vegetation. There is no tricuspid valve stenosis. PULMONIC VALVE The pulmonic valve is not well visualized. There is no pulmonic valvular regurgitation. GREAT VESSELS The aortic root is normal in size. The IVC is normal in size and collapses >50% with inspiration. PERICARDIAL EFFUSION There is no pericardial effusion. There is no pleural effusion. <Conclusion> Left ventricle systolic function is normal with Ejection Fraction of >70%. The left ventricular diastolic function is normal. The right ventricle is normal size. The right ventricular systolic function is normal. The left atrium size is normal. The right atrium size is normal. There is mild tricuspid regurgitation. Mitral regurgitation is mild. There is mild tricuspid regurgitation.
[2016-08-25] MEDS: (Novolog) Insulin Aspart, Recombinant 100 u/ml 10 ml vial SC SCH ×6 (08:09→16:49)
[2016-08-25] MEDS: Saccharomyces Boulardi 250 mg Cap PO SCH ×2 (10:40→17:45)
[2016-08-25] MEDS ORDERED: Dextrose 50% SYRINGE Inj (50 ml) IV ONE (12:00)
[2016-08-25 15:13] LABS: ALBUMIN 3.6 g/dL (3.5-5.0)
[2016-08-25 15:16] LABS: ALT/SGPT 42 U/L (9-52); AST/SGOT 43 U/L (14-36); BLOOD UREA NITROGEN 22 mg/dL (7-17); GFR AFRICAN-AMERICAN > 60; GFR NON-AFRICAN AMERICAN > 60
[2016-08-25 15:17] LABS: CALCIUM 8.6 mg/dl (8.6-10.4); MAGNESIUM 3.1 mg/dL (1.6-2.3)
[2016-08-25 15:34] LABS: BASO # 0.1 K/uL (0.0-0.2); BASO % 0.7 % (0.0-2.0); EOS # 0.1 K/uL (0.0-0.7); EOS % 0.5 % (0.0-4.0); LYMPH # 1.7 K/uL (1.0-4.3); LYMPH % 15.4 % (20.0-40.0); MEAN CELL VOLUME 77.7 fL (81.0-99.0); MEAN CORPUSCULAR HEMOGLOBIN 23.3 pg (27.0-31.0); MONO % 8.8 % (0.0-10.0); NEUT # 8.4 K/uL (1.8-7.0); NEUT % 74.6 % (50.0-75.0); RBC 4.17 Mil/uL (3.80-5.20); WHITE BLOOD COUNT 11.3 K/uL (4.8-10.8)
[2016-08-25 15:39] LABS: HEMOGLOBIN 9.7 g/dL (11.0-16.0)
[2016-08-25] MEDS: (Lantus) Insulin Glargine, Recombinant SC SCH (21:29)
--- NOTE | 2016-08-25 23:03 | CP.PCM.PN ---
Subjective - Date & Time of Evaluation Date of Evaluation: 08/25/16 Time of Evaluation: 09:00 - Subjective Subjective: Patient was seen and examined at bedside today. She was not in acute distress. She was sleeping when I walked in. She stated that she was able to fall sleep last night, sleeping has been a problem for her and might be contributing to her headaches. She complains of headache but says they were less severe today. She complains of dizziness. She had no other complaints. She denies chest pain, shortness of breath, cough, vomiting, diarrhea. Objective - Vital Signs/Intake and Output Vital Signs (last 24 hours): Temp Pulse Resp BP Pulse Ox 97.7 F 110 H 20 145/81 97 08/25/16 15:25 08/25/16 18:00 08/25/16 15:25 08/25/16 15:25 08/25/16 15:25 Intake and Output: 08/25/16 08/26/16 18:59 06:59 Intake Total 240 120 Balance 240 120 - Medications Medications: Current Medications Aspirin (Aspirin Chewable) 81 mg PO DAILY [facility] Last Admin: 08/25/16 10:40 Dose: 81 mg Famotidine (Pepcid) 20 mg PO BID [facility] Last Admin: 08/25/16 17:45 Dose: 20 mg Gabapentin (Neurontin) 300 mg PO BID [facility] Last Admin: 08/25/16 17:45 Dose: 300 mg Ibuprofen (Motrin Tab) 800 mg PO Q6H PRN PRN Reason: Pain, moderate (4-7) Last Admin: 08/25/16 10:40 Dose: 800 mg Insulin Aspart (Novolog) 10 unit SC TIDAC [facility] Last Admin: 08/25/16 16:49 Dose: 10 unit Insulin Glargine (Lantus) 50 unit SC HS [facility] Last Admin: 08/25/16 21:29 Dose: 50 u Lisinopril (Zestril) 10 mg PO DAILY [facility] Last Admin: 08/25/16 10:40 Dose: 10 mg Ondansetron HCl (Zofran Inj) 4 mg IVP Q6 PRN PRN Reason: Nausea/Vomiting Last Admin: 08/25/16 05:45 Dose: 4 mg Rosuvastatin Calcium (Crestor) 5 mg PO [facility] Last Admin: 08/25/16 21:29 Dose: 5 mg Saccharomyces Boulardii (Florastor) 250 mg PO BID [facility] Last Admin: 08/25/16 17:45 Dose: 250 mg Simethicone (Mylicon Chew Tab) 80 mg PO QID PRN PRN Reason: GI distress Temazepam (Restoril) 30 mg PO HS PRN PRN Reason: Insomnia Last Admin: 08/24/16 21:44 Dose: 30 mg - Labs Labs: 08/25/16 14:55 08/25/16 14:55 - Constitutional Appears: Well, Non-toxic, No Acute Distress - Head Exam Head Exam: ATRAUMATIC, NORMAL INSPECTION, NORMOCEPHALIC - Eye Exam Eye Exam: EOMI, Normal appearance, PERRL - ENT Exam ENT Exam: Mucous Membranes Moist, Normal Exam - Neck Exam Neck Exam: Full ROM, Normal Inspection. absent: Lymphadenopathy - Respiratory Exam Respiratory Exam: Clear to Ausculation Bilateral, NORMAL BREATHING PATTERN. absent: Wheezes - Cardiovascular Exam Cardiovascular Exam: REGULAR RHYTHM, +S1, +S2. absent: Murmur - GI/Abdominal Exam GI & Abdominal Exam: Soft, Normal Bowel Sounds. absent: Tenderness - Rectal Exam Rectal Exam: Deferred - Extremities Exam Extremities Exam: Full ROM, Normal Capillary Refill, Normal Inspection. absent : Joint Swelling, Pedal Edema - Neurological Exam Neurological Exam: Alert, Awake, Normal Gait, Oriented x3 - Psychiatric Exam Psychiatric exam: Normal Affect, Normal Mood - Skin Skin Exam: Dry, Intact, Normal Color, Warm Assessment and Plan - Assessment and Plan (Free Text) Assessment: (1) Uncontrolled diabetes mellitus Assessment & Plan: 08/25: optimizing short acting insulin dose to keep her glucose in normal range HgbA1C: 13.2 consult endocronologist, Dr. Henry, help appreciated story teller referral for noncompliance diabetes management- teach PRN accuchecks QACHS Lantus 50 U sc q HS Novolog 20 units subq at 8PM d/c. 08/24: Novolog 10 units TIDAC Held Novolog 26 units SUBAC-->patient becomes hypoglycemic Novolog sliding scale qHS urine microalbumin: >950 Lipid panel: Triglycerides-88, Cholesterol-234, LDL-166, HDL-61 TSH:6.12, Free T4:1.23 Lisinopril 10mg PO daily for renoprotection Crestor 5mg POqHS for optimal LDL therapy in light of uncontrolled diabetes Status: Acute (2) Chest pain Assessment & Plan: Cardiology (Dr. Carvajal) help appreciated 08/23: chest CT negative for PE 08/23: d-dimer 505 Chest pain resolved EKG x 3 Negative RASHAD x 3 Negative ASA 325 mg PO x1 on 08/17 ASA 81 mg PO daily TSH elevated (6.12) Lipid panel: Triglycerides-88, Cholesterol-234, LDL-166, HDL-61-->will need statin therapy CT Chest (08/23/16): no evidence of acute central pulmonary embolus. Bibasilar atelectasis and/or scarring changes left greater than right. Ground glass opacity seen in the posterior pending echocardiogram Will likely need outpatient stress test Status: Acute (3) Dysuria Assessment & Plan: Completed 6 days of IV abx CT scan of abdomen/pelvis: negative urine culture: no growth Status: Resolved (4) Urinary hesitancy Assessment & Plan: Resolved Patient is urinating Status: Acute (5) Headache Assessment & Plan: As per Dr. Chan (neuro) symptoms likely related to hyperglycemia. Recommended tilt table test for syncopal events, 81mg aspirin for stroke prevention and Gabapentin 300 mg QHS for headache. Gabapentin 300mg POqHS Completed Tilt table test head CT done 08/16: no acute intracranial abnormality Likely due to sleep deprivation Aspirin 81mg PO daily Motrin 800mg PO Q8hour PRN Restoril 30mg POqHS PRN insomnia Status: Acute (6) Prophylactic measure Assessment & Plan: gi prophylaxis: Pepcid 20 mg PO BID DVT PPX: Lovenox 40 mg SC Daily Status: Acute Dispostion: 08/24: Social work working with patient for insulin coverage after discharge * Will optimize sugars given repeated hypoglycemic events for past 2 days; will likely discharge the patient tomorrow * Patient encouraged to take insomnia PRN medications * Will need to follow-up outpatient with cardiology for possible outpatient stress test
[2016-08-26 07:55] LABS: BASO # 0.1 K/uL (0.0-0.2); BASO % 0.6 % (0.0-2.0); EOS # 0.1 K/uL (0.0-0.7); EOS % 0.8 % (0.0-4.0); HEMOGLOBIN 8.8 g/dL (11.0-16.0); LYMPH % 20.4 % (20.0-40.0); MEAN CELL VOLUME 77.8 fL (81.0-99.0); MEAN CORPUSCULAR HEMOGLOBIN 24.2 pg (27.0-31.0); MEAN CORPUSCULAR HGB CONC 31.1 g/dL (33.0-37.0); MEAN PLATELET VOLUME 7.9 fL (7.2-11.7); MONO # 0.8 K/uL (0.0-0.8); MONO % 8.1 % (0.0-10.0); NEUT # 6.8 K/uL (1.8-7.0); NEUT % 70.1 % (50.0-75.0); NRBC % 0.1 % (0.0-2.0); RBC 3.63 Mil/uL (3.80-5.20); RED CELL DISTRIBUTION WIDTH 17.6 % (11.5-14.5); WHITE BLOOD COUNT 9.7 K/uL (4.8-10.8)
[2016-08-26 08:11] LABS: ALBUMIN 3.2 g/dL (3.5-5.0)
[2016-08-26 08:13] LABS: GFR AFRICAN-AMERICAN > 60; GFR NON-AFRICAN AMERICAN > 60
[2016-08-26 08:14] LABS: % IRON SATURATION 7 (20-55); ALT/SGPT 47 U/L (9-52); AST/SGOT 41 U/L (14-36); BLOOD UREA NITROGEN 24 mg/dL (7-17); TOTAL IRON BINDING CAPACITY 406 ug/dL (250-450)
[2016-08-26 08:15] LABS: CALCIUM 8.4 mg/dl (8.6-10.4); MAGNESIUM 2.7 mg/dL (1.6-2.3)
[2016-08-26] MEDS: (Novolog) Insulin Aspart, Recombinant 100 u/ml 10 ml vial SC SCH ×3 (08:31→21:44)
[2016-08-26 09:09] LABS: FOLATE 7.8 ng/mL
[2016-08-26] MEDS: Saccharomyces Boulardi 250 mg Cap PO SCH ×2 (10:32→18:17)
[2016-08-26] MEDS ORDERED: POLYETHYLENE GLYCOL 3350 17 GM/Dose PACKET PO ONE (15:16)
[2016-08-26] MEDS ORDERED: Dextrose 50% SYRINGE Inj (50 ml) IV STA (16:04)
--- NOTE | 2016-08-26 19:51 | CP.PCM.PN ---
Subjective - Date & Time of Evaluation Date of Evaluation: 08/26/16 Time of Evaluation: 10:15 - Subjective Subjective: Patient was seen and examined at bedside. Patient stated that she was naseous and had a headache. She said she slept 4 hours last night. She said she refused the resteril medication last night as it makes her nauseous. She says she feels as if she's gained 20-30lbs since admission. She denied chest pain, shortness of breath, palpitations, fever, vomiting, diarrhea. Objective - Vital Signs/Intake and Output Vital Signs (last 24 hours): Temp Pulse Resp BP Pulse Ox 98 F 100 H 20 120/78 96 08/26/16 15:42 08/26/16 15:42 08/26/16 15:42 08/26/16 15:42 08/26/16 15:42 - Medications Medications: Current Medications Aspirin (Aspirin Chewable) 81 mg PO DAILY [facility] Last Admin: 08/26/16 10:32 Dose: 81 mg Famotidine (Pepcid) 20 mg PO BID [facility] Last Admin: 08/26/16 18:17 Dose: 20 mg Gabapentin (Neurontin) 300 mg PO BID [facility] Last Admin: 08/26/16 18:17 Dose: 300 mg Ibuprofen (Motrin Tab) 800 mg PO Q6H PRN PRN Reason: Pain, moderate (4-7) Last Admin: 08/26/16 10:33 Dose: 800 mg Insulin Aspart (Novolog) 0 unit SC [facility] PRN Reason: Protocol Last Admin: 08/26/16 16:52 Dose: Not Given Insulin Glargine (Lantus) 50 unit SC [facility] Last Admin: 08/25/16 21:29 Dose: 50 u Lisinopril (Zestril) 10 mg PO DAILY [facility] Last Admin: 08/26/16 10:32 Dose: 10 mg Ondansetron HCl (Zofran Inj) 4 mg IVP Q6 PRN PRN Reason: Nausea/Vomiting Last Admin: 08/25/16 05:45 Dose: 4 mg Rosuvastatin Calcium (Crestor) 5 mg PO [facility] Last Admin: 08/25/16 21:29 Dose: 5 mg Saccharomyces Boulardii (Florastor) 250 mg PO BID [facility] Last Admin: 08/26/16 18:17 Dose: 250 mg Simethicone (Mylicon Chew Tab) 80 mg PO QID PRN PRN Reason: GI distress Temazepam (Restoril) 30 mg PO HS PRN PRN Reason: Insomnia Last Admin: 08/24/16 21:44 Dose: 30 mg - Labs Labs: 08/26/16 07:57 08/26/16 07:39 - Constitutional Appears: Well, Non-toxic, No Acute Distress - Head Exam Head Exam: ATRAUMATIC, NORMAL INSPECTION, NORMOCEPHALIC - Eye Exam Eye Exam: EOMI, Normal appearance, PERRL Pupil Exam: NORMAL ACCOMODATION, PERRL - ENT Exam ENT Exam: Mucous Membranes Moist, Normal Exam - Neck Exam Neck Exam: Full ROM, Normal Inspection. absent: Lymphadenopathy - Respiratory Exam Respiratory Exam: Clear to Ausculation Bilateral, NORMAL BREATHING PATTERN. absent: Wheezes - Cardiovascular Exam Cardiovascular Exam: Tachycardia, REGULAR RHYTHM, RRR, +S1, +S2 - GI/Abdominal Exam GI & Abdominal Exam: Soft, Normal Bowel Sounds - Rectal Exam Rectal Exam: Deferred - Neurological Exam Neurological Exam: Alert, Awake, Normal Gait, Oriented x3 - Psychiatric Exam Psychiatric exam: Normal Affect, Normal Mood - Skin Skin Exam: Dry, Intact, Normal Color, Warm Assessment and Plan - Assessment and Plan (Free Text) Assessment: (1) Uncontrolled diabetes mellitus Assessment & Plan: 08/26: blood glucose dropped to 39 in the afternoon today - holding novolog for now 08/26: weight measured today. Pt has gained 9 lbs since admission. 08/25: optimizing short acting insulin dose to keep her glucose in normal range HgbA1C: 13.2 consult field captain, Dr. Henry, help appreciated occupational therapy asst referral for noncompliance diabetes management- teach PRN accuchecks QACHS Lantus 50 U sc q HS Novolog 20 units subq at 8PM d/c. 08/24: Novolog 10 units TIDAC Held Novolog 26 units SUBAC-->patient becomes hypoglycemic Novolog sliding scale qHS urine microalbumin: >950 Lipid panel: Triglycerides-88, Cholesterol-234, LDL-166, HDL-61 TSH:6.12, Free T4:1.23 Lisinopril 10mg PO daily for renoprotection Crestor 5mg POqHS for optimal LDL therapy in light of uncontrolled diabetes Status: Acute (2) Chest pain Assessment & Plan: Cardiology (Dr. Carvajal) help appreciated 08/26: ECHO report - EF > 70%, no abnormalities 08/26: Pt tachy - one time dose of lopressor 12.5 given 08/23: chest CT negative for PE 08/23: d-dimer 505 Chest pain resolved EKG x 3 Negative RASHAD x 3 Negative ASA 325 mg PO x1 on 08/17 ASA 81 mg PO daily TSH elevated (6.12) Lipid panel: Triglycerides-88, Cholesterol-234, LDL-166, HDL-61-->will need statin therapy Lisinopril 10mg po daily crestor 5mg po daily CT Chest (08/23/16): no evidence of acute central pulmonary embolus. Bibasilar atelectasis and/or scarring changes left greater than right. Ground glass opacity seen in the posterior Will likely need outpatient stress test Status: Acute (3) Dysuria Assessment & Plan: Completed 6 days of IV abx CT scan of abdomen/pelvis: negative urine culture: no growth Status: Resolved (4) Urinary hesitancy Assessment & Plan: Resolved Patient is urinating Status: Acute (5) Headache Assessment & Plan: As per Dr. Chan (neuro) symptoms likely related to hyperglycemia. Recommended tilt table test for syncopal events, 81mg aspirin for stroke prevention and Gabapentin 300 mg QHS for headache. Gabapentin 300mg POqHS Completed Tilt table test head CT done 08/16: no acute intracranial abnormality Likely due to sleep deprivation Aspirin 81mg PO daily Motrin 800mg PO Q8hour PRN Restoril 30mg POqHS PRN insomnia Status: Acute (6) Prophylactic measure Assessment & Plan: gi prophylaxis: Pepcid 20 mg PO BID DVT PPX: Lovenox 40 mg SC Daily Status: Acute Dispostion: 08/24: Social work working with patient for insulin coverage after discharge * Will optimize sugars given repeated hypoglycemic events for past 2 days * Patient encouraged to take insomnia PRN medications * Will need to follow-up outpatient with cardiology for possible outpatient stress test
[2016-08-26] MEDS: (Lantus) Insulin Glargine, Recombinant SC SCH (21:45)
[2016-08-27 07:33] LABS: BASO # 0.1 K/uL (0.0-0.2); BASO % 0.6 % (0.0-2.0); EOS % 0.4 % (0.0-4.0); HEMOGLOBIN 8.8 g/dL (11.0-16.0); LYMPH # 1.8 K/uL (1.0-4.3); LYMPH % 16.3 % (20.0-40.0); MEAN CELL VOLUME 76.7 fL (81.0-99.0); MEAN CORPUSCULAR HEMOGLOBIN 23.8 pg (27.0-31.0); MEAN CORPUSCULAR HGB CONC 31.1 g/dL (33.0-37.0); MEAN PLATELET VOLUME 7.9 fL (7.2-11.7); MONO % 8.8 % (0.0-10.0); NEUT # 8.1 K/uL (1.8-7.0); NEUT % 73.9 % (50.0-75.0); NRBC % 0.1 % (0.0-2.0); RBC 3.7 Mil/uL (3.80-5.20); RED CELL DISTRIBUTION WIDTH 17.3 % (11.5-14.5); WHITE BLOOD COUNT 10.9 K/uL (4.8-10.8)
[2016-08-27 07:42] LABS: ALBUMIN 3.3 g/dL (3.5-5.0)
[2016-08-27 07:45] LABS: ALB/GLOB RATIO 1.1 (1.0-2.1); AST/SGOT 29 U/L (14-36); BLOOD UREA NITROGEN 27 mg/dL (7-17); GFR AFRICAN-AMERICAN > 60; GFR NON-AFRICAN AMERICAN > 60
[2016-08-27] MEDS ORDERED: Iohexol 240 (50 ml) PO ONE ×2 (07:45→10:00)
[2016-08-27 07:46] LABS: ALT/SGPT 39 U/L (9-52); CALCIUM 8.7 mg/dl (8.6-10.4); MAGNESIUM 2.3 mg/dL (1.6-2.3)
--- NOTE | 2016-08-27 08:07 | CP.PCM.PN ---
<Fredis Uribe - Last Filed: 08/27/16 20:34> Subjective - Date & Time of Evaluation Date of Evaluation: 08/27/16 Time of Evaluation: 08:35 - Subjective Subjective: Medicine Note- Hospitalist Service Patient was seen and examined at bedside. Patient reports she still has abdominal pain. Patient reports that she has gained about 12lbs over the last week. She states her last bowel movement was on Monday. She denies any distention. Still tolerating PO, though patient reports she is not eating as much because of the weight she gained. Patient continues to have intermittent hypoglycemic episodes. Objective - Vital Signs/Intake and Output Vital Signs (last 24 hours): Temp Pulse Resp BP Pulse Ox 98.1 F 98 H 20 124/80 97 08/27/16 00:00 08/27/16 00:00 08/27/16 00:00 08/27/16 00:00 08/27/16 00:00 - Medications Medications: Current Medications Aspirin (Aspirin Chewable) 81 mg PO DAILY [facility] Last Admin: 08/26/16 10:32 Dose: 81 mg Famotidine (Pepcid) 20 mg PO BID [facility] Last Admin: 08/26/16 18:17 Dose: 20 mg Gabapentin (Neurontin) 300 mg PO BID [facility] Last Admin: 08/26/16 18:17 Dose: 300 mg Ibuprofen (Motrin Tab) 800 mg PO Q6H PRN PRN Reason: Pain, moderate (4-7) Last Admin: 08/26/16 10:33 Dose: 800 mg Insulin Aspart (Novolog) 0 unit SC [facility] PRN Reason: Protocol Last Admin: 08/26/16 21:44 Dose: Not Given Insulin Glargine (Lantus) 50 unit SC [facility] Last Admin: 08/26/16 21:45 Dose: Not Given Lisinopril (Zestril) 10 mg PO DAILY [facility] Last Admin: 08/26/16 10:32 Dose: 10 mg Ondansetron HCl (Zofran Inj) 4 mg IVP Q6 PRN PRN Reason: Nausea/Vomiting Last Admin: 08/25/16 05:45 Dose: 4 mg Rosuvastatin Calcium (Crestor) 5 mg PO [facility] Last Admin: 08/26/16 21:40 Dose: 5 mg Saccharomyces Boulardii (Florastor) 250 mg PO BID [facility] Last Admin: 08/26/16 18:17 Dose: 250 mg Simethicone (Mylicon Chew Tab) 80 mg PO QID PRN PRN Reason: GI distress Temazepam (Restoril) 30 mg PO HS PRN PRN Reason: Insomnia Last Admin: 08/26/16 21:44 Dose: 30 mg - Labs Labs: 08/27/16 07:15 08/27/16 07:15 - Constitutional Appears: Non-toxic, No Acute Distress - Head Exam Head Exam: ATRAUMATIC, NORMAL INSPECTION, NORMOCEPHALIC - Eye Exam Pupil Exam: NORMAL ACCOMODATION, PERRL - ENT Exam ENT Exam: Mucous Membranes Moist - Neck Exam Neck Exam: Normal Inspection - Respiratory Exam Respiratory Exam: Clear to Ausculation Bilateral, NORMAL BREATHING PATTERN. absent: Prolonged Expiratory Phase, Rales, Rhonchi, Wheezes - Cardiovascular Exam Cardiovascular Exam: REGULAR RHYTHM, +S1, +S2 - GI/Abdominal Exam GI & Abdominal Exam: Soft, Normal Bowel Sounds. absent: Tenderness, Diminished Bowel Sounds, Hernia, Hyperactive Bowel Sounds, Hypoactive Bowel Sounds - Extremities Exam Extremities Exam: Normal Capillary Refill, Normal Inspection - Neurological Exam Neurological Exam: Alert, Awake, Oriented x3 - Psychiatric Exam Psychiatric exam: Normal Affect, Normal Mood - Skin Skin Exam: Dry, Intact, Normal Color, Warm Assessment and Plan - Assessment and Plan (Free Text) Assessment: (1) Uncontrolled diabetes mellitus Assessment & Plan: 08/27: Patient continues to have intermittent episodes of hypoglycemia. Changed Lantus from 50U qHS to 25U Q12h. Started on D5 1/2 NS @ 50cc/hr. Calorie count Daily. Encouraged patient to eat meals 08/26: blood glucose dropped to 39 in the afternoon today - holding novolog for now 08/26: weight measured today. Pt has gained 9 lbs since admission. 08/25: optimizing short acting insulin dose to keep her glucose in normal range HgbA1C: 13.2 consult shopfitter, Dr. Henry, help appreciated mirror specialist referral for noncompliance diabetes management- teach PRN accuchecks QACHS Lantus 25 U sc q12 Held Novolog 26 units SUBAC-->patient becomes hypoglycemic Novolog sliding scale qHS urine microalbumin: >950 Lipid panel: Triglycerides-88, Cholesterol-234, LDL-166, HDL-61 TSH:6.12, Free T4:1.23 Lisinopril 10mg PO daily for renoprotection Crestor 5mg POqHS for optimal LDL therapy in light of uncontrolled diabetes Status: Acute (2) Hyperkalemia Assessment & Plan: K+ this AM 5.4 repeat in afternoon 6.7 Patient given Insulin 3U IV, D50 amp, Duoneb treatment, Kayexalate, Calcium Gluconate EKG- NSR, no acute changes f/u BMP @ 8pm (3) Chest pain Assessment & Plan: Cardiology (Dr. Carvajal) help appreciated 08/26: ECHO report - EF > 70%, no abnormalities 08/26: Pt tachy - one time dose of lopressor 12.5 given 08/23: chest CT negative for PE 08/23: d-dimer 505 Chest pain resolved EKG x 3 Negative RASHAD x 3 Negative ASA 325 mg PO x1 on 08/17 ASA 81 mg PO daily TSH elevated (6.12) Lipid panel: Triglycerides-88, Cholesterol-234, LDL-166, HDL-61-->will need statin therapy Lisinopril 10mg po daily crestor 5mg po daily CT Chest (08/23/16): no evidence of acute central pulmonary embolus. Bibasilar atelectasis and/or scarring changes left greater than right. Ground glass opacity seen in the posterior Will likely need outpatient stress test Status: Acute (4) Dysuria Assessment & Plan: Completed 6 days of IV abx CT scan of abdomen/pelvis: negative urine culture: no growth Status: Resolved (5) Urinary hesitancy Assessment & Plan: Resolved Patient is urinating Status: Acute (6) Headache Assessment & Plan: As per Dr. Chan (neuro) symptoms likely related to hyperglycemia. Recommended tilt table test for syncopal events, 81mg aspirin for stroke prevention and Gabapentin 300 mg QHS for headache. Gabapentin 300mg POqHS Completed Tilt table test head CT done 08/16: no acute intracranial abnormality Likely due to sleep deprivation Aspirin 81mg PO daily Motrin 800mg PO Q8hour PRN Restoril 30mg POqHS PRN insomnia Status: Acute (7) Prophylactic measure Assessment & Plan: gi prophylaxis: Pepcid 20 mg PO BID DVT PPX: Lovenox 40 mg SC Daily Status: Acute Dispostion: 08/24: Social work working with patient for insulin coverage after discharge * Will optimize sugars given repeated hypoglycemic events for past 2 days * Patient encouraged to take insomnia PRN medications * Will need to follow-up outpatient with cardiology for possible outpatient stress test <Dara Dhillon V - Last Filed: 08/28/16 07:15> Objective - Vital Signs/Intake and Output Vital Signs (last 24 hours): Temp Pulse Resp BP Pulse Ox 98.4 F 116 H 20 129/84 96 08/27/16 23:17 08/28/16 01:45 08/27/16 23:17 08/27/16 23:17 08/27/16 23:17 - Medications Medications: Current Medications Aspirin (Aspirin Chewable) 81 mg PO DAILY [facility] Last Admin: 08/27/16 11:27 Dose: 81 mg Famotidine (Pepcid) 20 mg PO BID [facility] Last Admin: 08/27/16 18:01 Dose: 20 mg Gabapentin (Neurontin) 300 mg PO BID [facility] Last Admin: 08/27/16 18:02 Dose: 300 mg Dextrose/Sodium Chloride (Dextrose 5%/0.45% Ns 1000 Ml) 1,000 mls @ 50 mls/hr IV .Q20H [facility] Last Admin: 08/27/16 13:46 Dose: 50 mls/hr Ibuprofen (Motrin Tab) 800 mg PO Q6H PRN PRN Reason: Pain, moderate (4-7) Last Admin: 08/26/16 10:33 Dose: 800 mg Insulin Aspart (Novolog) 0 unit SC ACHS [facility] PRN Reason: Protocol Last Admin: 08/27/16 23:13 Dose: Not Given Insulin Glargine (Lantus) 25 unit SC Q12H [facility] Last Admin: 08/28/16 00:40 Dose: 25 units Ondansetron HCl (Zofran Inj) 4 mg IVP Q6 PRN PRN Reason: Nausea/Vomiting Last Admin: 08/25/16 05:45 Dose: 4 mg Rosuvastatin Calcium (Crestor) 5 mg PO HS [facility] Last Admin: 08/27/16 22:34 Dose: 5 mg Saccharomyces Boulardii (Florastor) 250 mg PO BID [facility] Last Admin: 08/27/16 18:19 Dose: 250 mg Simethicone (Mylicon Chew Tab) 80 mg PO QID PRN PRN Reason: GI distress Zolpidem Tartrate (Ambien) 5 mg PO HS PRN PRN Reason: Insomnia Last Admin: 08/28/16 00:33 Dose: 5 mg - Labs Labs: 08/27/16 07:15 08/27/16 23:50 Attending/Attestation - Attestation I have personally seen and examined this patient.: Yes I have fully participated in the care of the patient.: Yes I have reviewed all pertinent clinical information, including history, physical exam and plan: Yes Notes (Text): This is late computer entry for 08/27/16. Patient seen, examined, and case discussed with day-time resident. Patient seen in the morning. Patient is reporting she is getting disjointed sleep. Sleeping for about 4 hours and then wakes up and then sleeps again for 5 hours. Patient is also not taking the sleep medication as needed as advised before. Instead she is taking a Tylenol PM provided by a friend but not getting good sleep. I have explained to her before the medication for insomnia is as needed medication meaning sometimes you will need it to help you sleep and sometimes you do not need it because sleeping better. Patient did not receive long acting insulin. Patient reports she eats breakfast but in her later meals she eat little bits because she feels she has gained "a lot of weight". Patient reports she has not had a great bowel movement since Monday. She received the Miralax before but has not gone yet. Patient has completed CT scan earlier today. I reviewed the cat scan, patient has fecal retention will attempt lactuose and encourage fiber consumption for the patient to have a bowel movement. I have also personally explained to the patient that weight and diabetes go hand and hand. We know she is a diabetic, but not eating will not help her lose weight and will not help her sugars that go low with only insulin coverage since she is not receiving premeal insulin nor long acting insulin. Patient later in afternoon had high potassium. Patient treated acutely for high potassium. Repeat EKG shows sinus tachycardia. Patient reports she does eat alot of banana, kiwi, grapefruit and advised for now to refrain from those items.
[2016-08-27] MEDS: (Novolog) Insulin Aspart, Recombinant 100 u/ml 10 ml vial SC SCH ×4 (09:27→23:13)
[2016-08-27] MEDS: Saccharomyces Boulardi 250 mg Cap PO SCH ×2 (11:27→18:19)
[2016-08-27] MEDS ORDERED: Iohexol 350mgl/ml 50 ML ONE (12:33)
[2016-08-27] MEDS ORDERED: Iohexol 300 100 ML IJ ONE (12:34)
[2016-08-27] MEDS: (Lantus) Insulin Glargine, Recombinant SC SCH (13:34)
[2016-08-27] MEDS ORDERED: Dextrose 50% SYRINGE Inj (50 ml) IV STA (13:39)
[2016-08-27] MEDS ORDERED: Dextrose 50% SYRINGE Inj (50 ml) ONE ×2 (13:44→19:09)
[2016-08-27] MEDS ORDERED: Dextrose 5%/0.45% NS 1,000 ML IV SCH (13:45)
--- NOTE | 2016-08-27 14:31 | CT ---
CT abdomen and pelvis History: Abdominal pain and bloating. Comparison: CT scan dated 08/17/2016 Technique: Multiple contiguous axial images were performed through the abdomen and pelvis with the use of intravenous contrast. Subsequently, sagittal and coronal reformatted images were obtained. This CT exam was performed using one or more of the following dose reduction techniques: Automated exposure control, adjustment of the mA and/or kV according to patient size, and/or use of iterative reconstruction technique. Findings: Focal nodular consolidation within the medial aspect of the right middle lobe of the lung inferiorly. Prominent linear atelectasis within the anterior aspect of the left lower lobe of the lung. No pleural or pericardial effusion. Mild fatty infiltration of the liver. Gallbladder is preserved. Splenule. Mild nodularity at the level of the left adrenal gland. Pancreas is preserved. Upper abdominal bowel is preserved. Right kidney: No calculi. Mild fullness of the right renal collecting system and ureter. Left Kidney: Ovoid areas of low attenuation seen at the periphery of the cortex of the mid and lower poles of the left kidney, nonspecific. These findings are of uncertain clinical etiology however sequelae of acute and or acute on chronic pyelonephritis cannot entirely be excluded. Clinical correlation. Additional scattered hypodensities, too small to adequately characterize. Few shotty inguinal and para-aortic lymph nodes. Urinary bladder is preserved. Heterogeneous uterus and bilateral adnexa. Fecal retention in the colon. Few diverticuli. Appendix is within normal limits. Degenerative changes in the spine. Impression: Ovoid areas of low attenuation seen at the periphery of the cortex of the mid and lower poles of the left kidney, nonspecific. These findings are of uncertain clinical etiology however sequelae of acute and or acute on chronic pyelonephritis cannot entirely be excluded. Clinical correlation. Additional scattered hypodensities, too small to adequately characterize. Additional findings as above.
[2016-08-27] MEDS ORDERED: Magnesium Citrate Oral SOL (300 ml) PO ONE (15:17)
[2016-08-27] MEDS ORDERED: Sod Polystyrene Sulf 15 gm/60 ml Oral Susp PO ONE (17:34)
[2016-08-27] MEDS ORDERED: Albuterol-Ipratrop 3 mg / 0.5 (3 ml) UD INH STA (17:41)
[2016-08-27] MEDS ORDERED: (Novolin R) Insulin Human Regular 100 units/ml vial IV ONE (17:45)
[2016-08-27] MEDS ORDERED: Dextrose 50% SYRINGE Inj (50 ml) IV ONE (17:45)
[2016-08-28 00:28] LABS: BLOOD UREA NITROGEN 21 mg/dL (7-17); GFR AFRICAN-AMERICAN > 60; GFR NON-AFRICAN AMERICAN > 60
[2016-08-28 00:29] LABS: CALCIUM 8.4 mg/dl (8.6-10.4)
[2016-08-28] MEDS: (Lantus) Insulin Glargine, Recombinant SC SCH ×2 (00:40→14:04)
[2016-08-28] MEDS: (Novolog) Insulin Aspart, Recombinant 100 u/ml 10 ml vial SC SCH ×4 (09:00→21:58)
[2016-08-28] MEDS: Saccharomyces Boulardi 250 mg Cap PO SCH ×2 (10:12→17:34)
[2016-08-28 12:06] LABS: BASO % 0.5 % (0.0-2.0); EOS # 0.1 K/uL (0.0-0.7); EOS % 0.8 % (0.0-4.0); LYMPH # 2.2 K/uL (1.0-4.3); LYMPH % 20.7 % (20.0-40.0); MEAN CELL VOLUME 78.3 fL (81.0-99.0); MEAN CORPUSCULAR HGB CONC 30.6 g/dL (33.0-37.0); MONO # 0.9 K/uL (0.0-0.8); MONO % 8.5 % (0.0-10.0); NEUT # 7.3 K/uL (1.8-7.0); NEUT % 69.5 % (50.0-75.0); RBC 3.74 Mil/uL (3.80-5.20); RED CELL DISTRIBUTION WIDTH 17.4 % (11.5-14.5); WHITE BLOOD COUNT 10.5 K/uL (4.8-10.8)
[2016-08-28 12:22] LABS: ALBUMIN 3.7 g/dL (3.5-5.0)
[2016-08-28 12:25] LABS: ALB/GLOB RATIO 1.1 (1.0-2.1); AST/SGOT 29 U/L (14-36); BLOOD UREA NITROGEN 28 mg/dL (7-17); GFR AFRICAN-AMERICAN > 60; GFR NON-AFRICAN AMERICAN 55
[2016-08-28 12:26] LABS: ALT/SGPT 47 U/L (9-52); CALCIUM 8.7 mg/dl (8.6-10.4)
--- NOTE | 2016-08-28 17:59 | CP.PCM.PN ---
<Fredis Uribe - Last Filed: 08/28/16 17:56> Subjective - Date & Time of Evaluation Date of Evaluation: 08/28/16 Time of Evaluation: 09:05 - Subjective Subjective: Medicine Note- Hospitalist service Patient was seen and examined at bedside. Patient reports she had one episode of palpitations which self resolved earlier in the day. She says she still has no had a bowel movement yet, since Monday. She is tolerating PO diet, no nausea, vomiting. She states she has been eating more to prevent hypoglycemic episodes. No events overnight, per nursing. Objective - Vital Signs/Intake and Output Vital Signs (last 24 hours): Temp Pulse Resp BP Pulse Ox 97.6 F 102 H 18 123/81 97 08/28/16 16:00 08/28/16 16:00 08/28/16 16:00 08/28/16 16:00 08/28/16 16:00 Intake and Output: 08/28/16 08/28/16 06:59 18:59 Intake Total 840 Balance 840 - Medications Medications: Current Medications Aspirin (Aspirin Chewable) 81 mg PO DAILY [facility] Last Admin: 08/28/16 10:12 Dose: 81 mg Famotidine (Pepcid) 20 mg PO BID [facility] Last Admin: 08/28/16 17:34 Dose: 20 mg Gabapentin (Neurontin) 300 mg PO BID [facility] Last Admin: 08/28/16 17:34 Dose: 300 mg Ibuprofen (Motrin Tab) 800 mg PO Q6H PRN PRN Reason: Pain, moderate (4-7) Last Admin: 08/26/16 10:33 Dose: 800 mg Insulin Aspart (Novolog) 0 unit SC ACHS [facility] PRN Reason: Protocol Last Admin: 08/28/16 14:04 Dose: 1 unit Insulin Glargine (Lantus) 25 unit SC Q12H [facility] Last Admin: 08/28/16 14:04 Dose: 25 units Metoprolol Tartrate (Lopressor) 12.5 mg PO BID [facility] Last Admin: 08/28/16 17:34 Dose: 12.5 mg Ondansetron HCl (Zofran Inj) 4 mg IVP Q6 PRN PRN Reason: Nausea/Vomiting Last Admin: 08/25/16 05:45 Dose: 4 mg Rosuvastatin Calcium (Crestor) 5 mg PO HS [facility] Last Admin: 08/27/16 22:34 Dose: 5 mg Saccharomyces Boulardii (Florastor) 250 mg PO BID [facility] Last Admin: 08/28/16 17:34 Dose: 250 mg Simethicone (Mylicon Chew Tab) 80 mg PO QID PRN PRN Reason: GI distress Zolpidem Tartrate (Ambien) 5 mg PO HS PRN PRN Reason: Insomnia Last Admin: 08/28/16 00:33 Dose: 5 mg - Labs Labs: 08/28/16 11:59 08/28/16 11:59 - Constitutional Appears: Non-toxic, No Acute Distress - Head Exam Head Exam: ATRAUMATIC, NORMAL INSPECTION, NORMOCEPHALIC - Eye Exam Pupil Exam: NORMAL ACCOMODATION, PERRL - ENT Exam ENT Exam: Mucous Membranes Moist - Respiratory Exam Respiratory Exam: Clear to Ausculation Bilateral, NORMAL BREATHING PATTERN. absent: Prolonged Expiratory Phase, Rales, Rhonchi, Wheezes - Cardiovascular Exam Cardiovascular Exam: REGULAR RHYTHM, +S1, +S2 - GI/Abdominal Exam GI & Abdominal Exam: Soft, Normal Bowel Sounds. absent: Guarding, Rigid, Tenderness, Diminished Bowel Sounds, Hypoactive Bowel Sounds - Extremities Exam Extremities Exam: Normal Capillary Refill, Normal Inspection - Neurological Exam Neurological Exam: Alert, Awake, Oriented x3 - Psychiatric Exam Psychiatric exam: Normal Affect, Normal Mood - Skin Skin Exam: Dry, Intact, Normal Color, Warm Assessment and Plan - Assessment and Plan (Free Text) Assessment: (1) Uncontrolled diabetes mellitus Assessment & Plan: 08/28: No hypoglycemic episodes as of today. Patient improved on eating meals. Continue Lantus 25U Q12h. D5 1/2 NS stopped. 08/27: Patient continues to have intermittent episodes of hypoglycemia. Changed Lantus from 50U qHS to 25U Q12h. Started on D5 1/2 NS @ 50cc/hr. Calorie count Daily. Encouraged patient to eat meals 08/26: blood glucose dropped to 39 in the afternoon today - holding novolog for now 08/26: weight measured today. Pt has gained 9 lbs since admission. 08/25: optimizing short acting insulin dose to keep her glucose in normal range HgbA1C: 13.2 consult market news reporter, Dr. Henry, help appreciated orchid superintendent referral for noncompliance diabetes management- teach PRN accuchecks QACHS Lantus 25 U sc q12 Held Novolog 26 units SUBAC-->patient becomes hypoglycemic Novolog sliding scale qHS urine microalbumin: >950 Lipid panel: Triglycerides-88, Cholesterol-234, LDL-166, HDL-61 TSH:6.12, Free T4:1.23 Lisinopril 10mg PO daily for renoprotection Crestor 5mg POqHS for optimal LDL therapy in light of uncontrolled diabetes Status: Acute (2) Hyperkalemia Assessment & Plan: Resolved. Continue to monitor K+ this AM 5.0 Patient given Insulin 3U IV, D50 amp, Duoneb treatment, Kayexalate, Calcium Gluconate on 08/28/15 EKG- NSR, no acute changes (3) Tachycardia Assessment & Plan: Sinus tachycardia Possibly due to anemia Patient given 1U PRBC today (08/28/16) Ordered Lopressor 12.5mg PO BID TSH on 08/23/16- normal CT Angio on 08/23/16- no PE (4) Chest pain Assessment & Plan: Cardiology (Dr. Carvajal) help appreciated 08/26: ECHO report - EF > 70%, no abnormalities 08/26: Pt tachy - one time dose of lopressor 12.5 given 08/23: chest CT negative for PE 08/23: d-dimer 505 Chest pain resolved EKG x 3 Negative RASHAD x 3 Negative ASA 325 mg PO x1 on 08/17 ASA 81 mg PO daily TSH elevated (6.12) Lipid panel: Triglycerides-88, Cholesterol-234, LDL-166, HDL-61-->will need statin therapy Lisinopril 10mg po daily crestor 5mg po daily CT Chest (08/23/16): no evidence of acute central pulmonary embolus. Bibasilar atelectasis and/or scarring changes left greater than right. Ground glass opacity seen in the posterior Will likely need outpatient stress test Status: Acute (5) Dysuria Assessment & Plan: Completed 6 days of IV abx CT scan of abdomen/pelvis: negative urine culture: no growth Status: Resolved (6) Urinary hesitancy Assessment & Plan: Resolved Patient is urinating Status: Acute (7) Headache Assessment & Plan: As per Dr. Chan (neuro) symptoms likely related to hyperglycemia. Recommended tilt table test for syncopal events, 81mg aspirin for stroke prevention and Gabapentin 300 mg QHS for headache. Gabapentin 300mg POqHS Completed Tilt table test head CT done 08/16: no acute intracranial abnormality Likely due to sleep deprivation Aspirin 81mg PO daily Motrin 800mg PO Q8hour PRN Restoril 30mg POqHS PRN insomnia Status: Acute (8) Constipation Assessment & Plan: Ordered one time dose of Magnesium Citrate 300mg PO. Monitor for BM. (9) Prophylactic measure Assessment & Plan: gi prophylaxis: Pepcid 20 mg PO BID DVT PPX: Lovenox 40 mg SC Daily Status: Acute Dispostion: 08/24: Social work working with patient for insulin coverage after discharge * Will optimize sugars given repeated hypoglycemic events for past 2 days * Patient encouraged to take insomnia PRN medications * Will need to follow-up outpatient with cardiology for possible outpatient stress test <Dara Dhillon V - Last Filed: 08/28/16 22:57> Objective - Vital Signs/Intake and Output Vital Signs (last 24 hours): Temp Pulse Resp BP Pulse Ox 97.8 F 103 H 18 126/79 97 08/28/16 21:43 08/28/16 21:43 08/28/16 21:43 08/28/16 21:43 08/28/16 16:00 Intake and Output: 08/28/16 08/29/16 18:59 06:59 Intake Total 1080 325 Balance 1080 325 - Medications Medications: Current Medications Aspirin (Aspirin Chewable) 81 mg PO DAILY [facility] Last Admin: 08/28/16 10:12 Dose: 81 mg Famotidine (Pepcid) 20 mg PO BID [facility] Last Admin: 08/28/16 17:34 Dose: 20 mg Gabapentin (Neurontin) 300 mg PO BID [facility] Last Admin: 08/28/16 17:34 Dose: 300 mg Ibuprofen (Motrin Tab) 800 mg PO Q6H PRN PRN Reason: Pain, moderate (4-7) Last Admin: 08/26/16 10:33 Dose: 800 mg Insulin Aspart (Novolog) 0 unit SC ACHS [facility] PRN Reason: Protocol Last Admin: 08/28/16 21:58 Dose: Not Given Insulin Glargine (Lantus) 25 unit SC Q12H [facility] Last Admin: 08/28/16 14:04 Dose: 25 units Metoprolol Tartrate (Lopressor) 12.5 mg PO BID [facility] Last Admin: 08/28/16 17:34 Dose: 12.5 mg Ondansetron HCl (Zofran Inj) 4 mg IVP Q6 PRN PRN Reason: Nausea/Vomiting Last Admin: 08/25/16 05:45 Dose: 4 mg Rosuvastatin Calcium (Crestor) 5 mg PO HS [facility] Last Admin: 08/28/16 21:36 Dose: 5 mg Saccharomyces Boulardii (Florastor) 250 mg PO BID [facility] Last Admin: 08/28/16 17:34 Dose: 250 mg Simethicone (Mylicon Chew Tab) 80 mg PO QID PRN PRN Reason: GI distress Zolpidem Tartrate (Ambien) 5 mg PO HS PRN PRN Reason: Insomnia Last Admin: 08/28/16 21:40 Dose: 5 mg - Labs Labs: 08/28/16 11:59 08/28/16 11:59 Attending/Attestation - Attestation I have personally seen and examined this patient.: Yes I have fully participated in the care of the patient.: Yes I have reviewed all pertinent clinical information, including history, physical exam and plan: Yes Notes (Text): Patient seen, examined, and case discussed with day-time resident. Patient reports she had palpitations this morning; but has resolved. Patient hgb : 9.0 on admisson she was 10.7. Possible tachycardia secondary to anemia (volme depletion). CT angio negative for PE, TSH is normal, and patient is ambulatory. Resident discussed risk and benefits of blood transfusion, patient consented for 1 unit of PRBC. Patient did not have a bowel movement yesterday. Patient completed Magnesium Citrate today; when re-evaluated in the afternoon, patient reporting liquid stool. Patient placed on liquid diet until she has an adequate diet. Discontinued IV fluids. Patient's long acting insulin split to Lantus 25 units sub Q12 hours and insulin sliding scale adjusted to low dose. Will monitor accuchecks in light of these adjustments. There were no calls regarding hypoglycemic events today. Assessment/Plan (1) Uncontrolled diabetes mellitus Assessment & Plan: * 08/28: No hypoglycemic episodes as of today. Patient improved on eating meals. Continue Lantus 25U Q12h. D5 1/2 NS stopped. Novolog insulin sliding subq (low dose); Case management working with insulin [employer] to retrieve insulin for the patient on discharge * HgbA1C: 13.2 * consult market news reporter, Dr. Henry, help appreciated * orchid superintendent referral for noncompliance * diabetes management- teach PRN * sophie MARIO Current regimen: 1) Lantus 25 U sc q12 2) Low dose novolog insulin subq sliding subq Held: Held Novolog 26 units SUBAC and Novolog 20 units PM-->patient becomes hypoglycemic between 11AM-2PM during the past several days urine microalbumin: >950-->held Lisinopril 10mg PO daily for renoprotection secondary to hyperkalemia Lipid panel: Triglycerides-88, Cholesterol-234, LDL-166, HDL-61 TSH:6.12, Free T4:1.23 Crestor 5mg POqHS for optimal LDL therapy in light of uncontrolled diabetes--> will need to switch to Simvastatin upon discharge due to affordability Status: Acute (2) Hyperkalemia Assessment & Plan: * 08/28 Resolved. Continue to monitor and adjust; Held Lisinopril * 08/27: Patient given Insulin 3U IV X1,1 D50 amp, Duoneb treatment, Kayexalate, Calcium Gluconate; EKG: sinus tachycardia Status: Resolved (3) Anemia Assessment & Plan: * Iron Saturation: 7%; TIBC: 406; B12: normal; Folate: normal * 08/28: completed 1 unit of PRBC today Status: Acute (4) Tachycardia Assessment & Plan: * Sinus tachycardia * Contributing hypoglycemic episodes during this past week * 08/28 possible volume depletion secondary to anemia secondary to blood draws--> given 1 unit of PRBC today * CT Chest (08/23/16): no evidence of acute central pulmonary embolus; bibasilar atelectasis and/or scarring changes left greater than right. Ground-glass opacity seen in the posterior lung field lower lobe predominance suggesting air trapping-small airways disease. Hepatomegaly * TSH: 6.12; TSH: 1.44 * PRN: Lopressor small dose per cardiology; patient has not used secondary to hypoglycemic events * 08/24/16 Echo: left ventricle systole function is normal; EF>7-%, left ventricular diastolic function is normal, right ventricle is normal size, right ventricular systolic function is normal, left atrium size is normal, right atrium size is normal, mild tricupsid regurgitiation, mitral regurgitation is mild, mild tricupsid regurgitation (5) Chest pain Assessment & Plan: * Cardiology (Dr. aCrvajal) help appreciated * Elevated d-dimer * 08/24/16 Echo: left ventricle systole function is normal; EF>7-%, left ventricular diastolic function is normal, right ventricle is normal size, right ventricular systolic function is normal, left atrium size is normal, right atrium size is normal, mild tricupsid regurgitiation, mitral regurgitation is mild, mild tricupsid regurgitation * CT Chest (08/23/16): no evidence of acute central pulmonary embolus; bibasilar atelectasis and/or scarring changes left greater than right. Ground-glass opacity seen in the posterior lung field lower lobe predominance suggesting air trapping-small airways disease. Hepatomegaly * EKG x 3 Negative; RASHAD x 3 Negative * ASA 325 mg PO x1 on 08/17-->ASA 81 mg PO daily * Lipid panel: Triglycerides-88, Cholesterol-234, LDL-166, HDL-61-->Crestor 5mg po daily * held lisinopril secondary to hyperkalemia * Recommended by cardiology for outpatient stress test Status: Resolved (5) Dysuria Assessment & Plan: * Completed 6 days of IV abx * CT scan of abdomen/pelvis: negative * Urine culture (08/19): no growth (<1,000 CFU) * Urine culture (08/17): gram positive cocci (<10,000 CFU) Status: Resolved (6) Headache Assessment & Plan: * Neurology (Dr. Braulio Chan) on board-->hep appreciated * As per Dr. Chan (neuro) symptoms likely related to hyperglycemia. In his consult, recommended tilt table test for syncopal events, 81mg aspirin for stroke prevention and Gabapentin 300 mg QHS for headache. * Tilt table is negative. * Element of sleep deprivation; does not get adequate hours of continuous sleep ; characterizes sleeps as 4 hours then wakes up and then sleeps for additional 5 hours. She does not use the sleep PRN as advocated for her. She was changed to Ambien PRN; which has improved * Head CT done 08/16: no acute intracranial abnormality * Aspirin 81mg PO daily * Motrin 800mg PO Q8hour PRN * Ambien 5mg PO HS PRN insomnia Status: Acute (7) Constipation Assessment & Plan: * 08/28 Ordered one time dose of Magnesium Citrate 300mg PO; Monitor for BM * 08/27: CT abdomen/pelvis PO and IV contrast: Fecal retention in the colon. Few diverticuli Status: Acute (8) Vitamin D Deficiency Assessment & Plan: * Vitamin D <12.8-->will need Vitamin 50,000 IU 1x/ week for 8-12 weeks Status: Acute (9) Prophylactic measure Assessment & Plan: * gi prophylaxis: Pepcid 20 mg PO BID * DVT PPX: Lovenox 40 mg SC Daily Status: Acute Disposition: 08/24: Social work working [employer] for insulin coverage after discharge-->provided scripts for Lantus, Novolin for coverage-->dosing to be adjusted prior to discharge * Will optimize sugars given repeated hypoglycemic events for prior 3-4 days; today, no hypoglycemic events * Awaiting bowel movement since patient reports she has not had adequate bowel movement since Monday * Upon discharge, patient will need to follow-up outpatient with cardiology for possible outpatient stress test and complete Vitamin D; Patient follows at the [facility]
[2016-08-29] MEDS: (Lantus) Insulin Glargine, Recombinant SC SCH ×2 (00:19→12:52)
[2016-08-29 08:17] LABS: ALBUMIN 3.4 g/dL (3.5-5.0); BASO # 0.1 K/uL (0.0-0.2); BASO % 0.5 % (0.0-2.0); EOS # 0.1 K/uL (0.0-0.7); EOS % 0.6 % (0.0-4.0); LYMPH # 2.3 K/uL (1.0-4.3); LYMPH % 20.9 % (20.0-40.0); MEAN CELL VOLUME 78.2 fL (81.0-99.0); MEAN CORPUSCULAR HEMOGLOBIN 23.9 pg (27.0-31.0); MEAN CORPUSCULAR HGB CONC 30.5 g/dL (33.0-37.0); MONO # 0.9 K/uL (0.0-0.8); MONO % 8.4 % (0.0-10.0); NEUT # 7.8 K/uL (1.8-7.0); NEUT % 69.6 % (50.0-75.0); NRBC % 0.1 % (0.0-2.0); RBC 4.18 Mil/uL (3.80-5.20); RED CELL DISTRIBUTION WIDTH 16.9 % (11.5-14.5); WHITE BLOOD COUNT 11.2 K/uL (4.8-10.8)
[2016-08-29 08:20] LABS: AST/SGOT 23 U/L (14-36); BLOOD UREA NITROGEN 33 mg/dL (7-17); GFR AFRICAN-AMERICAN > 60; GFR NON-AFRICAN AMERICAN 55
[2016-08-29 08:21] LABS: ALT/SGPT 40 U/L (9-52); CALCIUM 8.7 mg/dl (8.6-10.4); MAGNESIUM 2.7 mg/dL (1.6-2.3)
[2016-08-29] MEDS: (Novolog) Insulin Aspart, Recombinant 100 u/ml 10 ml vial SC SCH ×4 (08:37→21:39)
[2016-08-29] MEDS: Saccharomyces Boulardi 250 mg Cap PO SCH ×2 (09:10→17:57)
[2016-08-29] MEDS ORDERED: Ergocalciferol 50,000 Intl Units Cap PO SCH (10:00)
--- NOTE | 2016-08-29 12:53 | CARD ---
APPROVED REPORT EKG Measurement Heart [id number] <Conclusion> Sinus tachycardia Otherwise normal ECG
--- NOTE | 2016-08-29 12:53 | CARD ---
APPROVED REPORT EKG Measurement Heart [id number] <Conclusion> Sinus rhythm with short [place] Possible Left atrial enlargement Nonspecific T wave abnormality Abnormal ECG
--- NOTE | 2016-08-29 12:54 | CARD ---
APPROVED REPORT EKG Measurement Heart [id number] <Conclusion> Sinus tachycardia Nonspecific T wave abnormality Abnormal ECG
--- NOTE | 2016-08-29 15:38 | CP.PCM.PN ---
<CamillaJace R - Last Filed: 08/29/16 18:03> Subjective - Date & Time of Evaluation Date of Evaluation: 08/29/16 Time of Evaluation: 08:25 - Subjective Subjective: Patient was seen and examined at bedside. Patient was complaining of headache this morning. She stated she didn't get great sleep last night. She also complains of abdominal bloating. She complains of left sided pin point chest pain. She complains of right forearm/hand itchiness. She denies shortness of breath, nausea, vomiting, diarrhea, fever. Objective - Vital Signs/Intake and Output Vital Signs (last 24 hours): Temp Pulse Resp BP Pulse Ox 98.0 F 94 H 20 129/85 97 08/29/16 07:00 08/29/16 07:00 08/29/16 07:00 08/29/16 07:00 08/29/16 07:00 Intake and Output: 08/29/16 08/29/16 06:59 18:59 Intake Total 325 Balance 325 - Medications Medications: Current Medications Aspirin (Aspirin Chewable) 81 mg PO DAILY [facility] Last Admin: 08/29/16 09:09 Dose: 81 mg Ergocalciferol (Drisdol 50,000 Intl Units Cap) 1 cap PO Q7D [facility] Stop: 11/14/16 10:01 Last Admin: 08/29/16 09:09 Dose: 1 cap Famotidine (Pepcid) 20 mg PO BID [facility] Last Admin: 08/29/16 09:10 Dose: 20 mg Gabapentin (Neurontin) 300 mg PO BID [facility] Last Admin: 08/29/16 09:10 Dose: 300 mg Ibuprofen (Motrin Tab) 800 mg PO Q6H PRN PRN Reason: Pain, moderate (4-7) Last Admin: 08/29/16 12:57 Dose: 800 mg Insulin Aspart (Novolog) 0 unit SC ACHS [facility] PRN Reason: Protocol Last Admin: 08/29/16 12:52 Dose: 1 unit Insulin Glargine (Lantus) 25 unit SC Q12H [facility] Last Admin: 08/29/16 12:52 Dose: 25 units Metoprolol Tartrate (Lopressor) 12.5 mg PO BID [facility] Last Admin: 08/29/16 09:09 Dose: 12.5 mg Ondansetron HCl (Zofran Inj) 4 mg IVP Q6 PRN PRN Reason: Nausea/Vomiting Last Admin: 08/29/16 07:15 Dose: 4 mg Rosuvastatin Calcium (Crestor) 5 mg PO HS ANA Last Admin: 08/28/16 21:36 Dose: 5 mg Saccharomyces Boulardii (Florastor) 250 mg PO BID ANA Last Admin: 08/29/16 09:10 Dose: 250 mg Simethicone (Mylicon Chew Tab) 80 mg PO QID PRN PRN Reason: GI distress Zolpidem Tartrate (Ambien) 5 mg PO HS PRN PRN Reason: Insomnia Last Admin: 08/28/16 21:40 Dose: 5 mg - Labs Labs: 08/29/16 07:23 08/29/16 07:23 - Constitutional Appears: Well - Head Exam Head Exam: ATRAUMATIC, NORMAL INSPECTION, NORMOCEPHALIC - Eye Exam Eye Exam: EOMI, Normal appearance, PERRL - ENT Exam ENT Exam: Mucous Membranes Moist, Normal Exam - Neck Exam Neck Exam: Full ROM, Normal Inspection. absent: Lymphadenopathy - Respiratory Exam Respiratory Exam: Clear to Ausculation Bilateral, NORMAL BREATHING PATTERN - Cardiovascular Exam Cardiovascular Exam: REGULAR RHYTHM, +S1, +S2. absent: Murmur - GI/Abdominal Exam GI & Abdominal Exam: Soft, Normal Bowel Sounds. absent: Tenderness - Rectal Exam Rectal Exam: Deferred - Extremities Exam Extremities Exam: Full ROM, Normal Capillary Refill, Normal Inspection. absent : Joint Swelling, Pedal Edema - Neurological Exam Neurological Exam: Alert, Awake, Oriented x3 - Psychiatric Exam Psychiatric exam: Normal Affect, Normal Mood - Skin Skin Exam: Dry, Intact, Normal Color, Warm Assessment and Plan - Assessment and Plan (Free Text) Assessment: (1) Uncontrolled diabetes mellitus Assessment & Plan: 08/29: nurse communication to witness patient eating meals 08/28: No hypoglycemic episodes as of today. Patient improved on eating meals. Continue Lantus 25U Q12h. D5 1/2 NS stopped. 08/27: Patient continues to have intermittent episodes of hypoglycemia. Changed Lantus from 50U qHS to 25U Q12h. Started on D5 1/2 NS @ 50cc/hr. Calorie count Daily. Encouraged patient to eat meals 08/26: blood glucose dropped to 39 in the afternoon today - holding novolog for now 08/26: weight measured today. Pt has gained 9 lbs since admission. 08/25: optimizing short acting insulin dose to keep her glucose in normal range HgbA1C: 13.2 consult manager software, Dr. Henry, help appreciated food beverage manager referral for noncompliance diabetes management- teach PRN accuchecks QACHS Lantus 25 U sc q12 Held Novolog 26 units SUBAC-->patient becomes hypoglycemic Novolog sliding scale qHS urine microalbumin: >950 Lipid panel: Triglycerides-88, Cholesterol-234, LDL-166, HDL-61 TSH:6.12, Free T4:1.23 Lisinopril 10mg PO daily for renoprotection Crestor 5mg POqHS for optimal LDL therapy in light of uncontrolled diabetes Status: Acute (2) Hyperkalemia Assessment & Plan: 08/29: K 5.5; kayexalate 15mg po once Resolved. Continue to monitor K+ this AM 5.0 Patient given Insulin 3U IV, D50 amp, Duoneb treatment, Kayexalate, Calcium Gluconate on 08/28/15 EKG- NSR, no acute changes (3) Tachycardia Assessment & Plan: Sinus tachycardia Possibly due to anemia Patient given 1U PRBC today (08/28/16) Ordered Lopressor 12.5mg PO BID TSH on 08/23/16- normal CT Angio on 08/23/16- no PE (4) Chest pain Assessment & Plan: Cardiology (Dr. Carvajal) help appreciated 08/29: venous duplex scan b/l ordered, f/u 08/26: ECHO report - EF > 70%, no abnormalities 08/26: Pt tachy - one time dose of lopressor 12.5 given 08/23: chest CT negative for PE 08/23: d-dimer 505 Chest pain resolved EKG x 3 Negative RASHAD x 3 Negative ASA 325 mg PO x1 on 08/17 ASA 81 mg PO daily TSH elevated (6.12) Lipid panel: Triglycerides-88, Cholesterol-234, LDL-166, HDL-61-->will need statin therapy Lisinopril 10mg po daily crestor 5mg po daily CT Chest (08/23/16): no evidence of acute central pulmonary embolus. Bibasilar atelectasis and/or scarring changes left greater than right. Ground glass opacity seen in the posterior Will likely need outpatient stress test Status: Acute (5) Dysuria Assessment & Plan: Completed 6 days of IV abx CT scan of abdomen/pelvis: negative urine culture: no growth Status: Resolved (6) Urinary hesitancy Assessment & Plan: Resolved Patient is urinating Status: Acute (7) Headache Assessment & Plan: As per Dr. Chan (neuro) symptoms likely related to hyperglycemia. Recommended tilt table test for syncopal events, 81mg aspirin for stroke prevention and Gabapentin 300 mg QHS for headache. Gabapentin 300mg POqHS Completed Tilt table test head CT done 08/16: no acute intracranial abnormality Likely due to sleep deprivation Aspirin 81mg PO daily Motrin 800mg PO Q8hour PRN Restoril 30mg POqHS PRN insomnia Status: Acute (8) Constipation Assessment & Plan: Ordered one time dose of Magnesium Citrate 300mg PO. Monitor for BM. (9) Prophylactic measure Assessment & Plan: gi prophylaxis: Pepcid 20 mg PO BID DVT PPX: Lovenox 40 mg SC Daily <Ron Childers - Last Filed: 08/29/16 20:45> Objective - Vital Signs/Intake and Output Vital Signs (last 24 hours): Temp Pulse Resp BP Pulse Ox 98.3 F 100 H 20 111/74 98 08/29/16 15:35 08/29/16 15:35 08/29/16 15:35 08/29/16 15:35 08/29/16 15:35 Intake and Output: 08/29/16 08/30/16 18:59 06:59 Intake Total 1120 Output Total 0 Balance 1120 - Medications Medications: Current Medications Aspirin (Aspirin Chewable) 81 mg PO DAILY [facility] Last Admin: 08/29/16 09:09 Dose: 81 mg Ergocalciferol (Drisdol 50,000 Intl Units Cap) 1 cap PO Q7D [facility] Stop: 11/14/16 10:01 Last Admin: 08/29/16 09:09 Dose: 1 cap Famotidine (Pepcid) 20 mg PO BID [facility] Last Admin: 08/29/16 17:58 Dose: 20 mg Gabapentin (Neurontin) 300 mg PO BID [facility] Last Admin: 08/29/16 17:57 Dose: 300 mg Ibuprofen (Motrin Tab) 800 mg PO Q6H PRN PRN Reason: Pain, moderate (4-7) Last Admin: 08/29/16 12:57 Dose: 800 mg Insulin Aspart (Novolog) 0 unit SC ACHS [facility] PRN Reason: Protocol Last Admin: 08/29/16 17:04 Dose: 2 unit Insulin Glargine (Lantus) 25 unit SC Q12H [facility]NA Last Admin: 08/29/16 12:52 Dose: 25 units Metoprolol Tartrate (Lopressor) 12.5 mg PO BID [facility] Last Admin: 08/29/16 17:57 Dose: 12.5 mg Ondansetron HCl (Zofran Inj) 4 mg IVP Q6 PRN PRN Reason: Nausea/Vomiting Last Admin: 08/29/16 07:15 Dose: 4 mg Rosuvastatin Calcium (Crestor) 5 mg PO HS [facility] Last Admin: 08/28/16 21:36 Dose: 5 mg Saccharomyces Boulardii (Florastor) 250 mg PO BID [facility] Last Admin: 08/29/16 17:57 Dose: 250 mg Simethicone (Mylicon Chew Tab) 80 mg PO QID PRN PRN Reason: GI distress Zolpidem Tartrate (Ambien) 5 mg PO HS PRN PRN Reason: Insomnia Last Admin: 08/28/16 21:40 Dose: 5 mg - Labs Labs: 08/29/16 07:23 08/29/16 07:23 Attending/Attestation - Attestation I have personally seen and examined this patient.: Yes I have fully participated in the care of the patient.: Yes I have reviewed all pertinent clinical information, including history, physical exam and plan: Yes Notes (Text): 08/29/16 20:44 Patient was seen and examined at 5 PM 08/29/16. History, Exam, and Assessment and Plan were thoroughly gone over with the Triage Nurse If Blood Glucose remains stable then will discharge patient. I spoke with Umbrella Cutter Yudith and she will arrange for Insulin Delivery at home. Ron Childers D.O.
[2016-08-29] MEDS ORDERED: Sod Polystyrene Sulf 15 gm/60 ml Oral Susp PO ONE (15:39)
[2016-08-30] MEDS: (Lantus) Insulin Glargine, Recombinant SC SCH ×2 (00:50→13:07)
[2016-08-30 07:39] LABS: BASO # 0.1 K/uL (0.0-0.2); BASO % 0.5 % (0.0-2.0); EOS # 0.1 K/uL (0.0-0.7); EOS % 0.9 % (0.0-4.0); HEMOGLOBIN 9.5 g/dL (11.0-16.0); LYMPH # 2.6 K/uL (1.0-4.3); MEAN CELL VOLUME 78.5 fL (81.0-99.0); MEAN CORPUSCULAR HEMOGLOBIN 24.3 pg (27.0-31.0); MEAN PLATELET VOLUME 7.9 fL (7.2-11.7); MONO # 1.2 K/uL (0.0-0.8); MONO % 10.2 % (0.0-10.0); NEUT # 7.7 K/uL (1.8-7.0); NEUT % 66.4 % (50.0-75.0); NRBC % 0.1 % (0.0-2.0); RBC 3.9 Mil/uL (3.80-5.20); RED CELL DISTRIBUTION WIDTH 17.1 % (11.5-14.5); WHITE BLOOD COUNT 11.7 K/uL (4.8-10.8)
[2016-08-30 08:02] LABS: ALBUMIN 3.2 g/dL (3.5-5.0)
[2016-08-30 08:05] LABS: ALT/SGPT 36 U/L (9-52); AST/SGOT 18 U/L (14-36); BLOOD UREA NITROGEN 37 mg/dL (7-17); CALCIUM 8.3 mg/dl (8.6-10.4); GFR AFRICAN-AMERICAN > 60; GFR NON-AFRICAN AMERICAN 50
[2016-08-30] MEDS: (Novolog) Insulin Aspart, Recombinant 100 u/ml 10 ml vial SC SCH ×4 (08:06→22:21)
[2016-08-30] MEDS: Saccharomyces Boulardi 250 mg Cap PO SCH ×2 (11:07→18:37)
--- NOTE | 2016-08-30 18:38 | CP.PCM.PN ---
<Jace Sampson Ary - Last Filed: 08/30/16 18:30> Subjective - Date & Time of Evaluation Date of Evaluation: 08/30/16 Time of Evaluation: 09:25 - Subjective Subjective: Patient was seen and examined at bedside. She was resting comfortably in bed. She said she felt fine. She said her stool was more formed yesterday. She still complains of mild headache. She denied chest pain, shortness of breath, fever, chills, nausea, vomiting, diarrhea. Objective - Vital Signs/Intake and Output Vital Signs (last 24 hours): Temp Pulse Resp BP Pulse Ox 98.0 F 90 20 117/71 99 08/30/16 17:08 08/30/16 17:08 08/30/16 17:08 08/30/16 17:08 08/30/16 17:08 - Medications Medications: Current Medications Aspirin (Aspirin Chewable) 81 mg PO DAILY [facility] Last Admin: 08/30/16 11:07 Dose: 81 mg Ergocalciferol (Drisdol 50,000 Intl Units Cap) 1 cap PO Q7D [facility] Stop: 11/14/16 10:01 Last Admin: 08/29/16 09:09 Dose: 1 cap Famotidine (Pepcid) 20 mg PO BID [facility] Last Admin: 08/30/16 11:07 Dose: 20 mg Gabapentin (Neurontin) 300 mg PO BID [facility] Last Admin: 08/30/16 11:07 Dose: 300 mg Ibuprofen (Motrin Tab) 800 mg PO Q6H PRN PRN Reason: Pain, moderate (4-7) Last Admin: 08/30/16 13:10 Dose: 800 mg Insulin Aspart (Novolog) 0 unit SC [facility] PRN Reason: Protocol Last Admin: 08/30/16 12:57 Dose: Not Given Insulin Glargine (Lantus) 12 unit SC [facility] Metoprolol Tartrate (Lopressor) 12.5 mg PO BID [facility] Last Admin: 08/30/16 11:07 Dose: 12.5 mg Ondansetron HCl (Zofran Inj) 4 mg IVP Q6 PRN PRN Reason: Nausea/Vomiting Last Admin: 08/29/16 07:15 Dose: 4 mg Rosuvastatin Calcium (Crestor) 5 mg PO [facility] Last Admin: 08/29/16 21:33 Dose: 5 mg Saccharomyces Boulardii (Florastor) 250 mg PO BID [facility] Last Admin: 08/30/16 11:07 Dose: 250 mg Simethicone (Mylicon Chew Tab) 80 mg PO QID PRN PRN Reason: GI distress Zolpidem Tartrate (Ambien) 5 mg PO HS PRN PRN Reason: Insomnia Last Admin: 08/29/16 21:33 Dose: 5 mg - Labs Labs: 08/30/16 07:27 08/30/16 07:27 - Constitutional Appears: Well - Head Exam Head Exam: ATRAUMATIC, NORMAL INSPECTION, NORMOCEPHALIC - Eye Exam Eye Exam: EOMI, Normal appearance, PERRL - ENT Exam ENT Exam: Mucous Membranes Moist, Normal Exam - Neck Exam Neck Exam: Full ROM, Normal Inspection. absent: Lymphadenopathy - Respiratory Exam Respiratory Exam: Clear to Ausculation Bilateral, NORMAL BREATHING PATTERN - Cardiovascular Exam Cardiovascular Exam: REGULAR RHYTHM, +S1, +S2. absent: Murmur - GI/Abdominal Exam GI & Abdominal Exam: Soft, Normal Bowel Sounds. absent: Tenderness - Rectal Exam Rectal Exam: Deferred - Extremities Exam Extremities Exam: Full ROM, Normal Capillary Refill, Normal Inspection. absent : Joint Swelling, Pedal Edema - Neurological Exam Neurological Exam: Alert, Awake, Oriented x3 - Psychiatric Exam Psychiatric exam: Normal Affect, Normal Mood - Skin Skin Exam: Dry, Intact, Normal Color, Warm Assessment and Plan - Assessment and Plan (Free Text) Assessment: (1) Uncontrolled diabetes mellitus Assessment & Plan: 08/30: lantus adjusted to 12 u sc hs due to poc glucose today at 45. Dr Henry updated on fluctuating sugar levels. 08/30: diet change to 6 small a day 08/29: nurse communication to witness patient eating meals 08/28: No hypoglycemic episodes as of today. Patient improved on eating meals. Continue Lantus 25U Q12h. D5 1/2 NS stopped. 08/27: Patient continues to have intermittent episodes of hypoglycemia. Changed Lantus from 50U qHS to 25U Q12h. Started on D5 1/2 NS @ 50cc/hr. Calorie count Daily. Encouraged patient to eat meals 08/26: blood glucose dropped to 39 in the afternoon today - holding novolog for now 08/26: weight measured today. Pt has gained 9 lbs since admission. 08/25: optimizing short acting insulin dose to keep her glucose in normal range HgbA1C: 13.2 consult film producer, Dr. Henry, help appreciated display manager referral for noncompliance diabetes management- teach PRN accuchecks QACHS Lantus 25 U sc q12 Held Novolog 26 units SUBAC-->patient becomes hypoglycemic Novolog sliding scale qHS urine microalbumin: >950 Lipid panel: Triglycerides-88, Cholesterol-234, LDL-166, HDL-61 TSH:6.12, Free T4:1.23 Lisinopril 10mg PO daily for renoprotection Crestor 5mg POqHS for optimal LDL therapy in light of uncontrolled diabetes Status: Acute (2) Hyperkalemia Assessment & Plan: 08/30: K wnl today 08/29: K 5.5; kayexalate 15mg po once Resolved. Continue to monitor K+ this AM 5.0 Patient given Insulin 3U IV, D50 amp, Duoneb treatment, Kayexalate, Calcium Gluconate on 08/28/15 EKG- NSR, no acute changes (3) Tachycardia Assessment & Plan: Sinus tachycardia Possibly due to anemia Patient given 1U PRBC today (08/28/16) Ordered Lopressor 12.5mg PO BID TSH on 08/23/16- normal CT Angio on 08/23/16- no PE (4) Chest pain Assessment & Plan: Cardiology (Dr. Carvajal) help appreciated 08/29: venous duplex scan b/l ordered, f/u 08/26: ECHO report - EF > 70%, no abnormalities 08/26: Pt tachy - one time dose of lopressor 12.5 given 08/23: chest CT negative for PE 08/23: d-dimer 505 Chest pain resolved EKG x 3 Negative RASHAD x 3 Negative ASA 325 mg PO x1 on 08/17 ASA 81 mg PO daily TSH elevated (6.12) Lipid panel: Triglycerides-88, Cholesterol-234, LDL-166, HDL-61-->will need statin therapy Lisinopril 10mg po daily crestor 5mg po daily CT Chest (08/23/16): no evidence of acute central pulmonary embolus. Bibasilar atelectasis and/or scarring changes left greater than right. Ground glass opacity seen in the posterior Will likely need outpatient stress test Status: Acute (5) Dysuria Assessment & Plan: Completed 6 days of IV abx CT scan of abdomen/pelvis: negative urine culture: no growth Status: Resolved (6) Urinary hesitancy Assessment & Plan: Resolved Patient is urinating Status: Acute (7) Headache Assessment & Plan: As per Dr. Chan (neuro) symptoms likely related to hyperglycemia. Recommended tilt table test for syncopal events, 81mg aspirin for stroke prevention and Gabapentin 300 mg QHS for headache. Gabapentin 300mg POqHS Completed Tilt table test head CT done 08/16: no acute intracranial abnormality Likely due to sleep deprivation Aspirin 81mg PO daily Motrin 800mg PO Q8hour PRN Restoril 30mg POqHS PRN insomnia Status: Acute (8) Constipation Assessment & Plan: Ordered one time dose of Magnesium Citrate 300mg PO. Monitor for BM. (9) Prophylactic measure Assessment & Plan: gi prophylaxis: Pepcid 20 mg PO BID DVT PPX: Lovenox 40 mg SC Daily <Ron Childers - Last Filed: 08/30/16 20:35> Objective - Vital Signs/Intake and Output Vital Signs (last 24 hours): Temp Pulse Resp BP Pulse Ox 98.0 F 96 H 18 125/82 97 08/30/16 17:08 08/30/16 18:40 08/30/16 18:40 08/30/16 18:40 08/30/16 18:40 - Medications Medications: Current Medications Aspirin (Aspirin Chewable) 81 mg PO DAILY [facility] Last Admin: 08/30/16 11:07 Dose: 81 mg Ergocalciferol (Drisdol 50,000 Intl Units Cap) 1 cap PO Q7D [facility] Stop: 11/14/16 10:01 Last Admin: 08/29/16 09:09 Dose: 1 cap Famotidine (Pepcid) 20 mg PO BID [facility] Last Admin: 08/30/16 18:37 Dose: 20 mg Gabapentin (Neurontin) 300 mg PO BID [facility] Last Admin: 08/30/16 18:37 Dose: 300 mg Ibuprofen (Motrin Tab) 800 mg PO Q6H PRN PRN Reason: Pain, moderate (4-7) Last Admin: 08/30/16 13:10 Dose: 800 mg Insulin Aspart (Novolog) 0 unit SC ACHS [facility] PRN Reason: Protocol Last Admin: 08/30/16 18:37 Dose: Not Given Insulin Glargine (Lantus) 12 unit SC HS [facility] Metoprolol Tartrate (Lopressor) 12.5 mg PO BID [facility] Last Admin: 08/30/16 18:37 Dose: 12.5 mg Ondansetron HCl (Zofran Inj) 4 mg IVP Q6 PRN PRN Reason: Nausea/Vomiting Last Admin: 08/29/16 07:15 Dose: 4 mg Rosuvastatin Calcium (Crestor) 5 mg PO HS [facility] Last Admin: 08/29/16 21:33 Dose: 5 mg Saccharomyces Boulardii (Florastor) 250 mg PO BID [facility] Last Admin: 08/30/16 18:37 Dose: 250 mg Simethicone (Mylicon Chew Tab) 80 mg PO QID PRN PRN Reason: GI distress Zolpidem Tartrate (Ambien) 5 mg PO HS PRN PRN Reason: Insomnia Last Admin: 08/29/16 21:33 Dose: 5 mg - Labs Labs: 08/30/16 07:27 08/30/16 07:27 Attending/Attestation - Attestation I have personally seen and examined this patient.: Yes I have fully participated in the care of the patient.: Yes I have reviewed all pertinent clinical information, including history, physical exam and plan: Yes Notes (Text): 08/30/16 20:32 Patient was seen and examined at 6:21 PM Exam and Assessment and Plan were thoroughly gone over with the Resident I placed a call to Endocrine Dr. Henry's cell phone to update her on the fluctuating Blood Glucose levels and left her my contact information. Lantus was decreased to 12 Units SC QHS and added 6 small meals throughout the day. This was also explained to patient's nurse. Unsafe for discharge until blood glucose is stabilized. Ron Childers D.O.
[2016-08-30] MEDS ORDERED: (Lantus) Insulin Glargine, Recombinant SC SCH (22:00)
[2016-08-31 01:22] VITALS: RESP 20
[2016-08-31 08:00] LABS: BASO # 0.1 K/uL (0.0-0.2); BASO % 0.6 % (0.0-2.0); EOS # 0.1 K/uL (0.0-0.7); EOS % 0.6 % (0.0-4.0); HEMOGLOBIN 9.8 g/dL (11.0-16.0); LYMPH # 2.1 K/uL (1.0-4.3); LYMPH % 17.5 % (20.0-40.0); MEAN CELL VOLUME 78.7 fL (81.0-99.0); MEAN CORPUSCULAR HEMOGLOBIN 24.3 pg (27.0-31.0); MEAN CORPUSCULAR HGB CONC 30.8 g/dL (33.0-37.0); MEAN PLATELET VOLUME 8.2 fL (7.2-11.7); MONO % 8.6 % (0.0-10.0); NEUT # 8.5 K/uL (1.8-7.0); NEUT % 72.7 % (50.0-75.0); NRBC % 0.2 % (0.0-2.0); RBC 4.06 Mil/uL (3.80-5.20); RED CELL DISTRIBUTION WIDTH 17.2 % (11.5-14.5); WHITE BLOOD COUNT 11.7 K/uL (4.8-10.8)
[2016-08-31 08:01] LABS: ALBUMIN 3.1 g/dL (3.5-5.0)
[2016-08-31 08:03] LABS: GFR AFRICAN-AMERICAN > 60; GFR NON-AFRICAN AMERICAN > 60
[2016-08-31 08:04] LABS: ALT/SGPT 35 U/L (9-52); AST/SGOT 21 U/L (14-36); BLOOD UREA NITROGEN 29 mg/dL (7-17); CALCIUM 8.1 mg/dl (8.6-10.4)
[2016-08-31] MEDS: (Novolog) Insulin Aspart, Recombinant 100 u/ml 10 ml vial SC SCH ×4 (08:58→21:51)
--- NOTE | 2016-08-31 09:12 | CP.PCM.PN ---
<Jace Sampson Ary - Last Filed: 08/31/16 18:07> Subjective - Date & Time of Evaluation Date of Evaluation: 08/31/16 Time of Evaluation: 10:00 - Subjective Subjective: Patient currently feeling fine. She was able to sleep about 5 hrs last night uninterrupted. Admits to a mild HOFMFAN and nausea at the moment, typically of the ones she has been having since admission. Denies any vomiting, dizziness or lightheadness. Patient says she has been able to eat yesterday, but at times, finds it uncomfortable 2/2 bloating and nausea. Admits to some improvement with Ducolax. Patient is otherwise in NAD. Agrees with current plan. Denies any chest pain, SOB, or leg pain. No other complaints are noted. Objective - Vital Signs/Intake and Output Vital Signs (last 24 hours): Temp Pulse Resp BP Pulse Ox 98.3 F 107 H 20 117/72 97 08/30/16 23:30 08/30/16 23:30 08/30/16 23:30 08/30/16 23:30 08/30/16 23:30 - Medications Medications: Current Medications Aspirin (Aspirin Chewable) 81 mg PO DAILY COUNTS INCLUDE 234 BEDS AT [facility] Last Admin: 08/30/16 11:07 Dose: 81 mg Ergocalciferol (Drisdol 50,000 Intl Units Cap) 1 cap PO Q7D COUNTS INCLUDE 234 BEDS AT THE [facility] Stop: 11/14/16 10:01 Last Admin: 08/29/16 09:09 Dose: 1 cap Famotidine (Pepcid) 20 mg PO BID COUNTS INCLUDE 234 BEDS AT THE [facility] Last Admin: 08/30/16 18:37 Dose: 20 mg Gabapentin (Neurontin) 300 mg PO BID COUNTS INCLUDE 234 BEDS AT THE [facility] Last Admin: 08/30/16 18:37 Dose: 300 mg Ibuprofen (Motrin Tab) 800 mg PO Q6H PRN PRN Reason: Pain, moderate (4-7) Last Admin: 08/30/16 13:10 Dose: 800 mg Insulin Aspart (Novolog) 0 unit SC ACHS COUNTS INCLUDE 234 BEDS AT THE [facility] PRN Reason: Protocol Last Admin: 08/31/16 08:58 Dose: Not Given Insulin Glargine (Lantus) 12 unit SC HS COUNTS INCLUDE 234 BEDS AT THE [facility] Last Admin: 08/30/16 22:22 Dose: 12 u Metoprolol Tartrate (Lopressor) 12.5 mg PO BID COUNTS INCLUDE 234 BEDS AT THE [facility] Last Admin: 08/30/16 18:37 Dose: 12.5 mg Ondansetron HCl (Zofran Inj) 4 mg IVP Q6 PRN PRN Reason: Nausea/Vomiting Last Admin: 08/29/16 07:15 Dose: 4 mg Rosuvastatin Calcium (Crestor) 5 mg PO HS ANA Last Admin: 08/30/16 22:00 Dose: 5 mg Saccharomyces Boulardii (Florastor) 250 mg PO BID ANA Last Admin: 08/30/16 18:37 Dose: 250 mg Simethicone (Mylicon Chew Tab) 80 mg PO QID PRN PRN Reason: GI distress Zolpidem Tartrate (Ambien) 5 mg PO HS PRN PRN Reason: Insomnia Last Admin: 08/29/16 21:33 Dose: 5 mg - Labs Labs: 08/31/16 07:35 08/31/16 07:35 - Constitutional Appears: Well - Head Exam Head Exam: ATRAUMATIC, NORMAL INSPECTION, NORMOCEPHALIC - Eye Exam Eye Exam: EOMI, Normal appearance, PERRL - ENT Exam ENT Exam: Mucous Membranes Moist, Normal Exam - Neck Exam Neck Exam: Full ROM, Normal Inspection. absent: Lymphadenopathy - Respiratory Exam Respiratory Exam: Clear to Ausculation Bilateral, NORMAL BREATHING PATTERN - Cardiovascular Exam Cardiovascular Exam: REGULAR RHYTHM, +S1, +S2. absent: Murmur - GI/Abdominal Exam GI & Abdominal Exam: Soft, Normal Bowel Sounds. absent: Tenderness - Rectal Exam Rectal Exam: Deferred - Extremities Exam Extremities Exam: Full ROM, Normal Capillary Refill, Normal Inspection. absent : Joint Swelling, Pedal Edema - Neurological Exam Neurological Exam: Alert, Awake, Oriented x3 - Psychiatric Exam Psychiatric exam: Normal Affect, Normal Mood - Skin Skin Exam: Dry, Intact, Normal Color, Warm Assessment and Plan - Assessment and Plan (Free Text) Assessment: (1) Uncontrolled diabetes mellitus Assessment & Plan: 08/31: lantus adjusted to [address] Childers spoke with Dr Henry today and both discussed possible d/c tmr pending patient's response to 6 small meals and new lantus dose 08/30: lantus adjusted to 12 u sc hs due to poc glucose today at 45. Dr Henry updated on fluctuating sugar levels. 08/30: diet change to 6 small a day 08/29: nurse communication to witness patient eating meals 08/28: No hypoglycemic episodes as of today. Patient improved on eating meals. Continue Lantus 25U Q12h. D5 1/ NS stopped. 08/27: Patient continues to have intermittent episodes of hypoglycemia. Changed Lantus from 50U qHS to 25U Q12h. Started on D5 1/2 NS @ 50cc/hr. Calorie count Daily. Encouraged patient to eat meals 08/26: blood glucose dropped to 39 in the afternoon today - holding novolog for now 08/26: weight measured today. Pt has gained 9 lbs since admission. 08/25: optimizing short acting insulin dose to keep her glucose in normal range HgbA1C: 13.2 consult commercial assistant, Dr. 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 Continue to monitor K+ this AM 5.0 Patient given Insulin 3U IV, D50 amp, Duoneb treatment, Kayexalate, Calcium Gluconate on 08/28/15 EKG- NSR, no acute changes (3) Tachycardia Assessment & Plan: Sinus tachycardia Possibly due to anemia Patient given 1U PRBC today (08/28/16) Ordered Lopressor 12.5mg PO BID TSH on 08/23/16- normal CT Angio on 08/23/16- no PE (4) Chest pain Assessment & Plan: Cardiology (Dr. Carvajal) help appreciated 08/29: venous duplex scan b/l ordered, f/u 08/26: ECHO report - EF > 70%, no abnormalities 08/26: Pt tachy - one time dose of lopressor 12.5 given 08/23: chest CT negative for PE 08/23: d-dimer 505 Chest pain resolved EKG x 3 Negative RASHAD x 3 Negative ASA 325 mg PO x1 on 08/17 ASA 81 mg PO daily TSH elevated (6.12) Lipid panel: Triglycerides-88, Cholesterol-234, LDL-166, HDL-61-->will need statin therapy Lisinopril 10mg po daily crestor 5mg po daily CT Chest (08/23/16): no evidence of acute central pulmonary embolus. Bibasilar atelectasis and/or scarring changes left greater than right. Ground glass opacity seen in the posterior Will likely need outpatient stress test Status: Acute (5) Dysuria Assessment & Plan: Completed 6 days of IV abx CT scan of abdomen/pelvis: negative urine culture: no growth Status: Resolved (6) Urinary hesitancy Assessment & Plan: Resolved Patient is urinating Status: Acute (7) Headache Assessment & Plan: As per Dr. Chan (neuro) symptoms likely related to hyperglycemia. Recommended tilt table test for syncopal events, 81mg aspirin for stroke prevention and Gabapentin 300 mg QHS for headache. Gabapentin 300mg POqHS Completed Tilt table test head CT done 08/16: no acute intracranial abnormality Likely due to sleep deprivation Aspirin 81mg PO daily Motrin 800mg PO Q8hour PRN Restoril 30mg POqHS PRN insomnia Status: Acute (8) Constipation Assessment & Plan: 08/31: pt c/o of abdominal discomfort/pain. abdominal u/s ordered, f/u. Ordered one time dose of Magnesium Citrate 300mg PO. Monitor for BM. (9) Prophylactic measure Assessment & Plan: gi prophylaxis: Pepcid 20 mg PO BID DVT PPX: Lovenox 40 mg SC Daily <Ron Childers - Last Filed: 08/31/16 19:42> Objective - Vital Signs/Intake and Output Vital Signs (last 24 hours): Temp Pulse Resp BP Pulse Ox 98 F 99 H 20 144/91 H 100 08/31/16 15:59 08/31/16 15:59 08/31/16 15:59 08/31/16 15:59 08/31/16 15:59 - Medications Medications: Current Medications Aspirin (Aspirin Chewable) 81 mg PO DAILY COUNTS INCLUDE 234 BEDS AT THE [facility] Last Admin: 08/31/16 10:48 Dose: 81 mg Ergocalciferol (Drisdol 50,000 Intl Units Cap) 1 cap PO Q7D COUNTS INCLUDE 234 BEDS AT THE [facility] Stop: 11/14/16 10:01 Last Admin: 08/29/16 09:09 Dose: 1 cap Famotidine (Pepcid) 20 mg PO BID COUNTS INCLUDE 234 BEDS AT [facility] Last Admin: 08/31/16 18:25 Dose: Not Given Gabapentin (Neurontin) 300 mg PO BID COUNTS INCLUDE 234 BEDS AT [facility] Last Admin: 08/31/16 18:25 Dose: Not Given Ibuprofen (Motrin Tab) 800 mg PO Q6H PRN PRN Reason: Pain, moderate (4-7) Last Admin: 08/31/16 10:54 Dose: 800 mg Insulin Aspart (Novolog) 0 unit SC [facility] COUNTS INCLUDE 234 BEDS AT THE [facility] PRN Reason: Protocol Last Admin: 08/31/16 16:49 Dose: Not Given Insulin Glargine (Lantus) 14 unit SC [facility] Metoprolol Tartrate (Lopressor) 12.5 mg PO BID COUNTS INCLUDE 234 BEDS AT THE [facility] Last Admin: 08/31/16 18:24 Dose: Not Given Ondansetron HCl (Zofran Inj) 4 mg IVP Q6 PRN PRN Reason: Nausea/Vomiting Last Admin: 08/29/16 07:15 Dose: 4 mg Rosuvastatin Calcium (Crestor) 5 mg PO HS COUNTS INCLUDE 234 BEDS AT [facility] Last Admin: 08/30/16 22:00 Dose: 5 mg Saccharomyces Boulardii (Florastor) 250 mg PO BID COUNTS INCLUDE 234 BEDS AT [facility] Last Admin: 08/31/16 18:24 Dose: Not Given Simethicone (Mylicon Chew Tab) 80 mg PO QID PRN PRN Reason: GI distress Zolpidem Tartrate (Ambien) 5 mg PO HS PRN PRN Reason: Insomnia Last Admin: 08/29/16 21:33 Dose: 5 mg - Labs Labs: 08/31/16 07:35 08/31/16 07:35 Attending/Attestation - Attestation I have personally seen and examined this patient.: Yes I have fully participated in the care of the patient.: Yes I have reviewed all pertinent clinical information, including history, physical exam and plan: Yes Notes (Text): 08/31/16 19:36 Patient was seen and examined at 4:30 PM 08/31/16 Assessment and Plan were thoroughly gone over with the Resident. U/S Abdomen were ordered for patient's complaints of some nausea and epigastric pain (please note that the patient was comfortably watching television and in no distress right before my exam). Abdominal Exam was unremarkable. I spoke with Regulated Program Manager Dr. Henry and she agreed with the 6 meals a day. She has recommended increasing the Lantus to 14 units and to have Novolog 4 to 6 units before breakfast, lunch, and dinner when patient is ready to go home. Insulin and diabetic supplies to be delivered to patient have been arranged by the Resident and Case Management. Explained to patient the importance of measuring her blood glucose. She states that she will purchase a glucose monitoring system (name of which she can not remember) that was recommended by her pharmacist, for which the glucose testing strips were not that expensive. Stressed to patient about eating the 6 meals a day: breakfast, snack, lunch, snack, snack, dinner. If the blood glucose remains stable (with no severe episodes of hypoglycemia) overnight then we will discharge patient to home on morning 08/31/16. Ron Childers D.O.
[2016-08-31] MEDS: Saccharomyces Boulardi 250 mg Cap PO SCH ×2 (10:48→18:24)
--- NOTE | 2016-08-31 14:57 | CARD ---
APPROVED REPORT EKG Measurement Heart [id number] <Conclusion> Sinus tachycardia Otherwise normal ECG
--- NOTE | 2016-08-31 18:33 | US ---
HISTORY: Epigastric pain and nausea COMPARISON: Comparison made with CT scan of the abdomen and pelvis 08/27/2016 TECHNIQUE: Sonographic evaluation of the abdomen. FINDINGS: LIVER: Measures approximately 16.3 cm. Liver demonstrates smooth contour though increased echogenicity consistent with fatty infiltration ; other infiltrative hepatocellular disease process not excluded. No obvious hepatic mass or collection. . . No intrahepatic bile duct dilatation. No evidence of abdominal ascites GALLBLADDER: Gallbladder is contracted. No definitive intraluminal gallbladder calculi. No sonographic. Bowman sign COMMON BILE DUCT: Measures approximately. . No intraluminal calculi PANCREAS: Pancreas poorly visualized on this study due to bowel gas and body habitus RIGHT KIDNEY: Measures approximately 12.3 x 4.6 x 5.2cm. Normal echogenicity. No calculus, mass, or hydronephrosis. LEFT KIDNEY: Measures approximately 10.9 x 5.4 x 5.1cm. Normal echogenicity. No calculus, mass, or hydronephrosis. Previously noted low-attenuation focus left kidney which was identified on prior CT scan of the abdomen pelvis 08/27/2016 is not visualized on this exam SPLEEN: Spleen measures 9.7 cm. No splenic mass collection or calcification. . No mass. AORTA: No aneurysmal dilatation. IVC: Unremarkable. OTHER FINDINGS: None. IMPRESSION: Probable fatty infiltration however other infiltrative hepatocellular disease process not excluded.
[2016-08-31] MEDS ORDERED: (Lantus) Insulin Glargine, Recombinant SC SCH (22:00)
[2016-09-01 00:15] VITALS: O2SAT 97
[2016-09-01] MEDS: (Novolog) Insulin Aspart, Recombinant 100 u/ml 10 ml vial SC SCH ×2 (07:08→12:39)
[2016-09-01 07:32] LABS: BASO # 0.1 K/uL (0.0-0.2); BASO % 0.7 % (0.0-2.0); EOS # 0.1 K/uL (0.0-0.7); HEMOGLOBIN 10.2 g/dL (11.0-16.0); LYMPH # 2.5 K/uL (1.0-4.3); MEAN CELL VOLUME 78.3 fL (81.0-99.0); MEAN CORPUSCULAR HEMOGLOBIN 24.2 pg (27.0-31.0); MEAN CORPUSCULAR HGB CONC 30.9 g/dL (33.0-37.0); MEAN PLATELET VOLUME 7.7 fL (7.2-11.7); MONO # 0.9 K/uL (0.0-0.8); MONO % 8.9 % (0.0-10.0); NEUT # 6.5 K/uL (1.8-7.0); NEUT % 64.4 % (50.0-75.0); RBC 4.2 Mil/uL (3.80-5.20); RED CELL DISTRIBUTION WIDTH 17.6 % (11.5-14.5)
[2016-09-01 07:47] LABS: ALBUMIN 3.2 g/dL (3.5-5.0)
[2016-09-01 07:49] LABS: GFR AFRICAN-AMERICAN > 60; GFR NON-AFRICAN AMERICAN > 60
[2016-09-01 07:50] LABS: ALT/SGPT 37 U/L (9-52); AST/SGOT 20 U/L (14-36); BLOOD UREA NITROGEN 24 mg/dL (7-17)
[2016-09-01 07:51] LABS: CALCIUM 8.1 mg/dl (8.6-10.4)
[2016-09-01 08:43] VITALS: BP 135/80; PULSE 89; TEMP 97.9
[2016-09-01] MEDS: Saccharomyces Boulardi 250 mg Cap PO SCH (09:17)
--- NOTE | 2016-09-01 10:26 | VASCLAB ---
PROCEDURE: Lower Extremity Venous Duplex Exam. HISTORY: elevated d-dimer PRIORS: None. TECHNIQUE: Bilateral common femoral, femoral, popliteal and posterior tibial, peroneal and great saphenous veins were evaluated. Flow was assessed with color Doppler, compressibility, assessment of phasic flow and augmentation response. Report prepared by Mikie Michelle, [place], RVT FINDINGS: RIGHT: 1. Common Femoral Vein: 1.1. Compressibility - Fully compressible: Thrombus - None : Flow - Phasic: Augmentation -Normal: Reflux - None. 2. Femoral Vein: 2.1. Compressibility - Fully compressible: Thrombus - None : Flow - Phasic: Augmentation -Normal: Reflux - None. 3. Popliteal Vein: 3.1. Compressibility - Fully compressible: Thrombus - None : Flow - Phasic: Augmentation -Normal: Reflux - None. 4. Posterior Tibial Vein: 4.1. Compressibility - Fully compressible: Thrombus - None: Flow - Phasic: Augmentation -Normal: Reflux - None. 5. Peroneal Vein: 5.1. Compressibility - Fully compressible: Thrombus - None: Flow - Phasic: Augmentation -Normal: Reflux - None. 6. Great Saphenous Vein: 6.1. Compressibility - Fully compressible: Thrombus - None: Flow - Phasic: Augmentation - Normal: Reflux - None. LEFT: 1. Common Femoral Vein: 1.1. Compressibility - Fully compressible: Thrombus - None: Flow - Phasic: Augmentation -Normal: Reflux - None. 2. Femoral Vein: 2.1. Compressibility - Fully compressible: Thrombus - None: Flow - Phasic: Augmentation -Normal: Reflux - None. 3. Popliteal Vein: 3.1. Compressibility - Fully compressible: Thrombus - None : Flow - Phasic: Augmentation -Normal: Reflux - None. 4. Posterior Tibial Vein: 4.1. Compressibility - Fully compressible: Thrombus - None: Flow - Phasic: Augmentation -Normal: Reflux - None. 5. Peroneal Vein: 5.1. Compressibility - Fully compressible: Thrombus - None: Flow - Phasic: Augmentation -Normal: Reflux - None. 6. Great Saphenous Vein: 6.1. Compressibility - Fully compressible: Thrombus - None: Flow - Phasic: Augmentation - Normal: Reflux - None. OTHER FINDINGS: Right: None significant. Left: None significant. IMPRESSION: Right: No evidence of deep or superficial vein thrombosis of the right lower extremity. Normal valve function noted of the right side. Left: No evidence of deep or superficial vein thrombosis of the left lower extremity. Normal valve function noted of the left side.
--- NOTE | 2016-09-01 14:46 | CP.PCM.PN ---
Subjective - Date & Time of Evaluation Date of Evaluation: 09/01/16 Time of Evaluation: 13:45 - Subjective Subjective: Hospitalist Progress Note (Patient was seen and examined at 1:45 PM 09/01/16 551- B Upon FULL ROS: NO longer with abdominal discomfort NO longer withe nausea NO chest pain, NO palpitations, NO SOB/Cough/Wheezing, NO abdominal pain, NO n/v /d/c (last bowel movement was 09/01/16 and it was normal), NO burning/pain with urination, NO lightheadedness/dizziness, NO headache, NO new changes in vision, NO new changes in hearing, NO paresthesias, NO diaphoresis. Exam: HEENT: NCA, EOMI, PERRLA, NO lymphadenopathy, NO thyromegaly, NO pharyngeal erythema/exudate Cardio: NS1 and NS2, NO M/R/G Resp: CTA B/L, NO R/R/W GI: BSx4 are normal, NT (NO more Epigastric Discomfort), ND, NO HSM, NO guarding rebound tenderness Ext: Pulses are strong and equal, Capillary Refill is 2 seconds, NO edema Neuro: CN II through XII are grossly intact Assessments: Uncotrolled DM Hyperkalemia Tachycardia Chest Pain Dysuria/Urinary Hesitancy Low Vitamin D Headaches Constipation The patient's blood glucose has been more stable. I spoke with Endocrine Dr. Henry via phone on 08/31/16 evening and patient would be ok for discharge on Levemir 14 units and Novolog 4 to 6 units AC Meals. I comfirmed with Mail Sorter Winifred that Diabetic Supplies and the Levemir and Novolog were being delivered to patient home. Patient herself revealed to me that her son called her prior to my exam and told her that these items were delivered to their home. Extensive conversation with patient about the importance of 6 meals a day and measuring blood glucose (she states that she will obtain monitor that was recommended by her pharmacist that used less expensive blood glucose strips). The following instructions should be included in the Discharge Summary and in the Discharge Instructions by the Busgirl: 1). Schedule an appointment with the [facility] located at [facility] Floor B in 7 days by calling [phone]. 2). Obtain the blood glucose monitor that was recommended by your pharmacist and measure your blood glucose in the following manner on the following dates: 09/02/16: before breakfast and before lunch 09/03/16: before breakfast and before dinner 09/04/16: before breakfast and before bedtime 09/05/16: before breakfast and before lunch 09/06/16: before breakfast and before dinner 09/07/16: before breakfast and before bedtime You may repeat the above cycle 3). When you have your appointment with the [facility] in 7 days bring in your blood glucose readings. 4). Make sure to have 6 meals throughout the day: Breakfast--> Small Snack --> Lunch --> Small Snack --> Small Snack --> Dinner 5). Make sure to stay well hydrated with water. 6). The following prescriptions you must have filled at your pharmacy: Vitamin D 50,000 Units, 1 tablet by mouth every Monday for 7 weeks, #7, NO refills Gabapentin 300 mg, 1 tablet by mouth 2x/day (breakfast and dinner), #60, NO refills Metoprolol Tartrate 12.5 mg, 1 tablet by mouth 2x/day (breakfast and dinner), # 60, NO refills Atorvastatin 10 mg, 1 tablet by mouth (after dinner), #30, NO refills 7). You must obtain the following medications at your pharmacy that are over the counter (does not require a prescription): Aspirin 81 mg, 1 tablet by mouth 1x/day (breakfast) Probiotic 1 tablet by mouth 1x/day (breakfast): you can ask the pharmacist which one she recommends. 8). Please make sure to follow the above instructions. 9). Please take care and be happy. Ron Childers D.O. Objective - Vital Signs/Intake and Output Vital Signs (last 24 hours): Temp Pulse Resp BP Pulse Ox 97.9 F 89 20 135/80 97 09/01/16 07:00 09/01/16 07:00 09/01/16 07:00 09/01/16 07:00 09/01/16 07:00 - Medications Medications: Current Medications Aspirin (Aspirin Chewable) 81 mg PO DAILY [facility] Last Admin: 09/01/16 09:17 Dose: 81 mg Ergocalciferol (Drisdol 50,000 Intl Units Cap) 1 cap PO Q7D [facility] Stop: 11/14/16 10:01 Last Admin: 08/29/16 09:09 Dose: 1 cap Famotidine (Pepcid) 20 mg PO BID [facility] Last Admin: 09/01/16 09:17 Dose: 20 mg Gabapentin (Neurontin) 300 mg PO BID [facility] Last Admin: 09/01/16 09:17 Dose: 300 mg Ibuprofen (Motrin Tab) 800 mg PO Q6H PRN PRN Reason: Pain, moderate (4-7) Last Admin: 09/01/16 13:22 Dose: 800 mg Insulin Aspart (Novolog) 0 unit SC [facility] PRN Reason: Protocol Last Admin: 09/01/16 12:39 Dose: Not Given Insulin Glargine (Lantus) 14 unit SC HS [facility] Last Admin: 08/31/16 21:48 Dose: 14 units Metoprolol Tartrate (Lopressor) 12.5 mg PO BID [facility] Last Admin: 09/01/16 09:17 Dose: 12.5 mg Ondansetron HCl (Zofran Inj) 4 mg IVP Q6 PRN PRN Reason: Nausea/Vomiting Last Admin: 08/29/16 07:15 Dose: 4 mg Rosuvastatin Calcium (Crestor) 5 mg PO HS [facility] Last Admin: 08/31/16 21:48 Dose: 5 mg Saccharomyces Boulardii (Florastor) 250 mg PO BID [facility] Last Admin: 09/01/16 09:17 Dose: 250 mg Simethicone (Mylicon Chew Tab) 80 mg PO QID PRN PRN Reason: GI distress Zolpidem Tartrate (Ambien) 5 mg PO HS PRN PRN Reason: Insomnia Last Admin: 08/29/16 21:33 Dose: 5 mg - Labs Labs: 09/01/16 07:24 09/01/16 07:24
--- NOTE | 2016-09-01 15:41 | CP.PCM.DIS ---
<Jace Sampson - Last Filed: 09/01/16 16:13> Provider - Provider Date of Admission: 08/17/16 01:52 Attending physician: Ron Childers MD Primary care physician: Dr Goodson Consults: Cardio - Dr Carvajal Endo - Dr Henry Neuro - Dr Chan Time Spent in preparation of Discharge (in minutes): 40 Diagnosis - Discharge Diagnosis (1) Hypoglycemia Status: Resolved (2) Chest pain Status: Resolved (3) Headache Status: Resolved (4) Hyperglycemia Status: Acute (5) Intractable headache Status: Acute (6) Uncontrolled diabetes mellitus Status: Acute (7) Urinary hesitancy Status: Resolved Hospital Course - Lab Results Lab Results: Micro Results 08/19/16 12:00 Urine Urine Culture - Final No Growth (<1,000 CFU/ML) 08/17/16 Unknown Urine Urine Culture - Final Gram Positive Cocci Most Recent Lab Values WBC 10.0 K/uL (4.8-10.8) 09/01/16 07:24 RBC 4.20 Mil/uL (3.80-5.20) 09/01/16 07:24 Hgb 10.2 g/dL (11.0-16.0) L 09/01/16 07:24 Hct 32.9 % (34.0-47.0) L 09/01/16 07:24 MCV 78.3 fL (81.0-99.0) L 09/01/16 07:24 MCH 24.2 pg (27.0-31.0) L 09/01/16 07:24 MCHC 30.9 g/dL (33.0-37.0) L 09/01/16 07:24 RDW 17.6 % (11.5-14.5) H 09/01/16 07:24 Plt Count 447 K/uL (130-400) H 09/01/16 07:24 MPV 7.7 fL (7.2-11.7) 09/01/16 07:24 Neut % (Auto) 64.4 % (50.0-75.0) 09/01/16 07:24 Lymph % (Auto) 25.0 % (20.0-40.0) 09/01/16 07:24 [place] % (Auto) 8.9 % (0.0-10.0) 09/01/16 07:24 Eos % (Auto) 1.0 % (0.0-4.0) 09/01/16 07:24 Baso % (Auto) 0.7 % (0.0-2.0) 09/01/16 07:24 Neut # 6.5 K/uL (1.8-7.0) 09/01/16 07:24 Lymph # 2.5 K/uL (1.0-4.3) 09/01/16 07:24 [place] # 0.9 K/uL (0.0-0.8) H 09/01/16 07:24 Eos # 0.1 K/uL (0.0-0.7) 09/01/16 07:24 Baso # 0.1 K/uL (0.0-0.2) 09/01/16 07:24 Retic Count 2.3 % (0.5-1.5) H 08/26/16 07:57 D-Dimer, Quantitative 505 ng/mlDDU (0-243) H 08/23/16 07:55 pO2 34 mm/Hg (30-55) 08/16/16 19:50 VBG pH 7.38 (7.32-7.43) 08/16/16 19:50 VBG pCO2 43 mmHg (40-60) 08/16/16 19:50 VBG HCO3 24.0 mmol/L 08/16/16 19:50 VBG Total CO2 26.7 mmol/L (22-28) 08/16/16 19:50 VBG O2 Sat (Calc) 73.1 % (40-65) H 08/16/16 19:50 VBG Base Excess 0.0 mmol/L (0.0-2.0) 08/16/16 19:50 VBG Potassium 4.9 mmol/L (3.6-5.2) 08/16/16 19:50 Sodium 133.0 mmol/l (132-148) 08/16/16 19:50 Chloride 99.0 mmol/L (98-107) 08/16/16 19:50 Glucose 491 mg/dl (65-105) H* 08/16/16 19:50 Lactate 2.7 mmol/L (0.7-2.1) H 08/16/16 19:50 Crit Value Called To Dr [email or web address] 08/16/16 19:50 Crit Value Called By [email or web address] 08/16/16 19:50 Crit Value Read Back Y 08/16/16 19:50 Blood Gas Notified Time 1950 08/16/16 19:50 Sodium 142 mmol/L (132-148) 09/01/16 07:24 Potassium 4.7 mmol/L (3.6-5.2) 09/01/16 07:24 Chloride 110 mmol/L (98-107) H 09/01/16 07:24 Carbon Dioxide 24 mmol/L (22-30) 09/01/16 07:24 Anion Gap 12 (10-20) 09/01/16 07:24 BUN 24 mg/dL (7-17) H 09/01/16 07:24 Creatinine 0.8 MG/DL (0.7-1.2) 09/01/16 07:24 Est GFR ( Amer) > 60 09/01/16 07:24 Est GFR (Non-Af Amer) > 60 09/01/16 07:24 POC Glucose (mg/dL) 231 mg/dL (65-110) H 09/01/16 11:45 Random Glucose 82 mg/dL (65-105) 09/01/16 07:24 Hemoglobin A1c 13.5 % (4.2-6.5) H 08/17/16 10:36 Calcium 8.1 mg/dl (8.6-10.4) L 09/01/16 07:24 Phosphorus 4.8 mg/dL (2.5-4.5) H 08/27/16 07:15 Magnesium 2.7 mg/dL (1.6-2.3) H 08/29/16 07:23 TIBC 406 ug/dL (250-450) 08/26/16 07:39 % Saturation 7 (20-55) L 08/26/16 07:39 Total Bilirubin 0.3 mg/dL (0.2-1.3) 09/01/16 07:24 AST 20 U/L (14-36) 09/01/16 07:24 ALT 37 U/L (9-52) 09/01/16 07:24 Alkaline Phosphatase 61 U/L (38-126) 09/01/16 07:24 Total Creatine Kinase 67 U/L (30-135) 08/23/16 22:02 CK-MB (Mass) 1.10 ng/mL (0.0-3.38) 08/23/16 22:02 Troponin I, Quant 0.0280 ng/mL (0.00-0.120) 08/23/16 22:02 Total Protein 6.3 g/dL (6.3-8.3) 09/01/16 07:24 Albumin 3.2 g/dL (3.5-5.0) L 09/01/16 07:24 Globulin 3.1 gm/dL (2.2-3.9) 09/01/16 07:24 Albumin/Globulin Ratio 1.0 (1.0-2.1) 09/01/16 07:24 Triglycerides 88 mg/dL (0-149) 08/17/16 06:51 Cholesterol 234 mg/dL (0-199) H 08/17/16 06:51 LDL Cholesterol Direct 166 mg/dL (0-129) H 08/17/16 06:51 HDL Cholesterol 61 mg/dL (30-70) 08/17/16 06:51 Lipase 270 U/L (23-300) 08/16/16 19:43 Vitamin B12 318 pg/mL (239-931) 08/26/16 07:39 25-OH Vitamin D Total < 12.8 NG/ML (30.0-100.0) L 08/24/16 07:09 Folate 7.8 ng/mL 08/26/16 07:39 Free T4 1.23 ng/dL (0.78-2.19) 08/17/16 10:36 TSH 3rd Generation 1.44 mIU/L (0.46-4.68) 08/23/16 07:55 Venous Blood Potassium 4.9 mmol/L (3.6-5.2) 08/16/16 19:50 Urine Color Straw (YELLOW) 08/16/16 19:56 Urine Clarity Clear (Clear) 08/16/16 19:56 Urine pH 6.0 (5.0-8.0) 08/16/16 19:56 Ur Specific [place] 1.016 (1.003-1.030) 08/16/16 19:56 Urine Protein 2+ mg/dL (NEGATIVE) H 06/27/17 19:56 Urine Glucose (UA) 3+ mg/dL (Normal) H 08/16/16 19:56 Urine Ketones Negative mg/dL (NEGATIVE) 08/16/16 19:56 Urine Blood 1+ (NEGATIVE) H 08/16/16 19:56 Urine Nitrate Positive (NEGATIVE) H 08/16/16 19:56 Urine Bilirubin Negative (NEGATIVE) 08/16/16 19:56 Urine Urobilinogen Normal mg/dL (0.2-1.0) 08/16/16 19:56 Ur Leukocyte Esterase 1+ Tia/uL (Negative) H 08/16/16 19:56 Urine WBC (Auto) 22 /hpf (0-5) H 08/16/16 19:56 Urine RBC (Auto) 10 /hpf (0-3) H 08/16/16 19:56 Ur Squamous Epith Cells 1 /hpf (0-5) 08/16/16 19:56 Urine Bacteria Occ (<OCC) H 08/16/16 19:56 Urine Microalbumin > 950.0 mg/L (0.0-16.6) H 08/17/16 17:58 Urine HCG, Qual Negative (NEGATIVE) 08/16/16 19:56 Serum Ketones Negative (NEGATIVE) 08/16/16 19:43 Blood Type A POSITIVE 08/28/16 14:23 Blood Type Confirm A POSITIVE 08/28/16 14:23 Antibody Screen Negative 08/28/16 14:23 - Hospital Course Hospital Course: HPI - Patient is a 40yo female PMHx DM and HTN presents to the ED today after being told by her primary care Dr. Meaghan Hodge that she had elevated blood sugars. Patient states she checks her sugars 5x a day and that they are always elevated in the 200s and 300s. She states she is complaint with taking her insulin. She was diagnosed with diabetes a few years ago but last HBA1c was 13.7. The patient admits to feeling very thirsty and urinary frequency but denies dysuria. She also admits to a headache which she has had for 3 days. She states she is nauseous and the headaches comes and goes mostly felt on the left side of her face, forehead and radiates to the back. She did not take any medication for the pain. With associated photophobia. She has had these headaches frequently in the past. She states that he vision is blurry but then that she actually was just seeing "black specs". Lastly she reports some numbness and tingling around her lips on tongue. She is able to speak well and denies numbness or weakness in the extremities. Patient denied any fever, chills , lightheadedness, cough, diarrhea, constipation. Denied sore throat, SOB, chest pain, dysphagia, leg cramps, muscle aches. Patient denied any travel history or sick contacts. PMHx: T2DM, HTN PMD: None MEDS: Lantus 25 U HS, Novolog 15 U TID ALL: NKDA PSurg: None FamHx: denies SH: smokes 2ppd for 10 years quit 3 month ago. Denies drug use. Drinks alcohol socially. Lives at home with children. Used to work in a [employer] company. Hospital Course: Patient was treated for her fluctuations in blood sugar. Her HgA1C on this admission was 13.2. Throughout her stay we've tried to optimize her short acting and long acting insulin doses. On the final hospital day her lantus was adjusted to 14u sc hs and to have Novolog 4 to 6 units before breakfast, lunch, and dinner. We also changed her diet to 6 small meals a day during her stay. The patient became hyperkalemic during her stay and kayexalate was administered which brought her potassium to normal levels. Patient was treated for her tachycardia with lopressor 12.5mg bid. Her chest pain was addressed with a full cardio workup including echo, ekg, troponins and CT chest. All were normal. Her CT chest showed no evidence of a PE. Her dysuria was addressed with antibiotics. A CT of her abd/pelvis came back negative. Her urine culture showed no growth. Her headache was managed with aspirin, motrin, restoril (to promote more sleep) and gabapentin. She still complained of mild headache at discharge. A CT head was done which showed no abnormality. A tilt table test was also normal. The patient was discharged with specific instructions on how and when to take her insulin to manage her hyperglycemia. Discharge Exam - Head Exam Head Exam: ATRAUMATIC, NORMAL INSPECTION, NORMOCEPHALIC - Eye Exam Eye Exam: EOMI, Normal appearance, PERRL - ENT Exam ENT Exam: Normal Exam - Neck Exam Neck exam: Full Rom - Respiratory Exam Respiratory Exam: NORMAL BREATHING PATTERN - Cardiovascular Exam Cardiovascular Exam: Tachycardia, REGULAR RHYTHM, +S1, +S2 - GI/Abdominal Exam GI & Abdominal Exam: Normal Bowel Sounds - Rectal Exam Rectal Exam: Deferred - Extremities Exam Extremities exam: normal inspection - Neurological Exam Neurological exam: Alert, Oriented x3 - Psychiatric Exam Psychiatric exam: Normal Affect, Normal Mood - Skin Skin Exam: Dry, Intact, Normal Color, Warm Discharge Plan - Discharge Medications Prescriptions: Atorvastatin [Lipitor] 10 mg PO DIN #30 tab Ergocalciferol [Drisdol 50,000 Intl Units Cap] 1 cap PO Q7D 7 Days Gabapentin [Neurontin] 300 mg PO BID #60 cap Metoprolol Tartrate [Lopressor] 12.5 mg PO BID #60 tab - Follow Up Plan Condition: FAIR Disposition: HOME/ ROUTINE Instructions: Metoprolol (By mouth), Gabapentin (By mouth), Atorvastatin (By mouth), Insulin Aspart, Recombinant (By injection), Vitamin D (By mouth), Insulin Detemir (By injection), How to Check Your Blood Sugar (DC), Diabetic Ketoacidosis (DC), Diabetic Ketoacidosis (GEN), Giving an Insulin Injection (DC) , Meal Planning with the Plate Method (DC), Pen Devices for Insulin Administration (DC) Additional Instructions: 1. SCHEDULE AN APPOINTMENT WITH THE [facility] LOCATED AT [facility] IN 7 DAYS BY CALLING [phone]. 2.OBTAIN THE BLOOD GLUCOSE MONITPOR THAT WAS RECOMMENDED BY YOUR PHARMACIST AND MEASURE YOUR BLOOD GLUCOSE IN THE FOLLOWING MANNER ON THE FOLLOWING DATES; 09/02/16: BEFORE BREAKFAST AND BEFORE LUNCH 09/03/16: BEFORE BREAKFAST AND BEFORE DINNER 09/04/16: BEFORE BREAKFAST AND BEFORE BEDTIME 09/05/16: BEFORE BREAKFAST AND BEFORE LUNCH 09/06/16: BEFORE BREAKFAST AND BEFORE DINNER 09/07/16: BEFORE BREAKFAST AND BEFORE BEDTIME YOU MAY REPEAT THE ABOVE CYCLE, AND PLEASE KEEP A RECORD. 3.WHEN YOU HAVE YOUR APPOINTMENT WITH THE [facility] IN 7 DAYS BRING IN YOUR BLOOD GLUCOSE READINGS 4.MAKE SURE TO HAVE 6 MEALS THROUGHOUT THE DAY. BREAKFAST---- SMALL SNACK---LUNCH---SMALL SNACK-----SMALL SNACK-----DINNER 5. MAKE SURE TO STAY WELL HYDRATED WITH WATER. 6.THE FOLLOWING PRESCRIPTIONS YOU MUST FILLED AT YOUR PHARMACY. VITAMIN D 50,000 UNITS 1 TABLET BY MOUTH EVERY MONDAY FOR 7 WEEKS,NO REFILLS. GABAPENTIN 300 MG,1 TABLET BY MOUTH 2X A DAY,( BREAKFAST AND DINNER) METOPROLOL TARTRATE 12.5 MG,1 TABLET BY MOUTH ,2X A DAY ( BREAKFAST AND DINNER ) ATORVASTATIN 10 MG,1 TABLET BY MOUTH ( AFTER DINNER) 7.YOU MUST OBTAIN THE FOLLOWING MEDICATIONS AT YOUR PHARMACY THAT ARE OVER THE COUNTER, ASPIRIN 81 MG 1 TABLET BY MOUTH DAILY (BREAKFAST) PROBIOTIC 1 TABLET BY MOUTH DAILY (BREAKFAST),YOU CAN ASK THE PHARMACIST WHICH ONE SHE RECOMMENDS. 8. PLEASE MAKE SURE TO FOLLOW THE ABOVE INSTRUCTIONS. 9. PLEASE TAKE CARE AND BE HAPPY. Referrals: Maria Luisa Goodson MD [Staff Provider] - eNeraj Carvajal MD [Staff Provider] - Deepika Henry MD [Medical Doctor] - Eron Chan MD [Staff Provider] - <Ron Childers - Last Filed: 09/01/16 19:17> Provider - Provider Date of Admission: 08/17/16 01:52 Attending physician: Ron Childers MD Hospital Course - Lab Results Lab Results: Micro Results 08/19/16 12:00 Urine Urine Culture - Final No Growth (<1,000 CFU/ML) 08/17/16 Unknown Urine Urine Culture - Final Gram Positive Cocci Most Recent Lab Values WBC 10.0 K/uL (4.8-10.8) 09/01/16 07:24 RBC 4.20 Mil/uL (3.80-5.20) 09/01/16 07:24 Hgb 10.2 g/dL (11.0-16.0) L 09/01/16 07:24 Hct 32.9 % (34.0-47.0) L 09/01/16 07:24 MCV 78.3 fL (81.0-99.0) L 09/01/16 07:24 MCH 24.2 pg (27.0-31.0) L 09/01/16 07:24 MCHC 30.9 g/dL (33.0-37.0) L 09/01/16 07:24 RDW 17.6 % (11.5-14.5) H 09/01/16 07:24 Plt Count 447 K/uL (130-400) H 09/01/16 07:24 MPV 7.7 fL (7.2-11.7) 09/01/16 07:24 Neut % (Auto) 64.4 % (50.0-75.0) 09/01/16 07:24 Lymph % (Auto) 25.0 % (20.0-40.0) 09/01/16 07:24 [place] % (Auto) 8.9 % (0.0-10.0) 09/01/16 07:24 Eos % (Auto) 1.0 % (0.0-4.0) 09/01/16 07:24 Baso % (Auto) 0.7 % (0.0-2.0) 09/01/16 07:24 Neut # 6.5 K/uL (1.8-7.0) 09/01/16 07:24 Lymph # 2.5 K/uL (1.0-4.3) 09/01/16 07:24 [place] # 0.9 K/uL (0.0-0.8) H 09/01/16 07:24 Eos # 0.1 K/uL (0.0-0.7) 09/01/16 07:24 Baso # 0.1 K/uL (0.0-0.2) 09/01/16 07:24 Retic Count 2.3 % (0.5-1.5) H 08/26/16 07:57 D-Dimer, Quantitative 505 ng/mlDDU (0-243) H 08/23/16 07:55 pO2 34 mm/Hg (30-55) 08/16/16 19:50 VBG pH 7.38 (7.32-7.43) 08/16/16 19:50 VBG pCO2 43 mmHg (40-60) 08/16/16 19:50 VBG HCO3 24.0 mmol/L 08/16/16 19:50 VBG Total CO2 26.7 mmol/L (22-28) 08/16/16 19:50 VBG O2 Sat (Calc) 73.1 % (40-65) H 08/16/16 19:50 VBG Base Excess 0.0 mmol/L (0.0-2.0) 08/16/16 19:50 VBG Potassium 4.9 mmol/L (3.6-5.2) 08/16/16 19:50 Sodium 133.0 mmol/l (132-148) 08/16/16 19:50 Chloride 99.0 mmol/L (98-107) 08/16/16 19:50 Glucose 491 mg/dl (65-105) H* 08/16/16 19:50 Lactate 2.7 mmol/L (0.7-2.1) H 08/16/16 19:50 Crit Value Called To Dr [email or web address] 08/16/16 19:50 Crit Value Called By [email or web address] 08/16/16 19:50 Crit Value Read Back Y 08/16/16 19:50 Blood Gas Notified Time 1950 08/16/16 19:50 Sodium 142 mmol/L (132-148) 09/01/16 07:24 Potassium 4.7 mmol/L (3.6-5.2) 09/01/16 07:24 Chloride 110 mmol/L (98-107) H 09/01/16 07:24 Carbon Dioxide 24 mmol/L (22-30) 09/01/16 07:24 Anion Gap 12 (10-20) 09/01/16 07:24 BUN 24 mg/dL (7-17) H 09/01/16 07:24 Creatinine 0.8 MG/DL (0.7-1.2) 09/01/16 07:24 Est GFR ( Amer) > 60 09/01/16 07:24 Est GFR (Non-Af Amer) > 60 09/01/16 07:24 POC Glucose (mg/dL) 231 mg/dL (65-110) H 09/01/16 11:45 Random Glucose 82 mg/dL (65-105) 09/01/16 07:24 Hemoglobin A1c 13.5 % (4.2-6.5) H 08/17/16 10:36 Calcium 8.1 mg/dl (8.6-10.4) L 09/01/16 07:24 Phosphorus 4.8 mg/dL (2.5-4.5) H 08/27/16 07:15 Magnesium 2.7 mg/dL (1.6-2.3) H 08/29/16 07:23 TIBC 406 ug/dL (250-450) 08/26/16 07:39 % Saturation 7 (20-55) L 08/26/16 07:39 Total Bilirubin 0.3 mg/dL (0.2-1.3) 09/01/16 07:24 AST 20 U/L (14-36) 09/01/16 07:24 ALT 37 U/L (9-52) 09/01/16 07:24 Alkaline Phosphatase 61 U/L (38-126) 09/01/16 07:24 Total Creatine Kinase 67 U/L (30-135) 08/23/16 22:02 CK-MB (Mass) 1.10 ng/mL (0.0-3.38) 08/23/16 22:02 Troponin I, Quant 0.0280 ng/mL (0.00-0.120) 08/23/16 22:02 Total Protein 6.3 g/dL (6.3-8.3) 09/01/16 07:24 Albumin 3.2 g/dL (3.5-5.0) L 09/01/16 07:24 Globulin 3.1 gm/dL (2.2-3.9) 09/01/16 07:24 Albumin/Globulin Ratio 1.0 (1.0-2.1) 09/01/16 07:24 Triglycerides 88 mg/dL (0-149) 08/17/16 06:51 Cholesterol 234 mg/dL (0-199) H 08/17/16 06:51 LDL Cholesterol Direct 166 mg/dL (0-129) H 08/17/16 06:51 HDL Cholesterol 61 mg/dL (30-70) 08/17/16 06:51 Lipase 270 U/L (23-300) 08/16/16 19:43 Vitamin B12 318 pg/mL (239-931) 08/26/16 07:39 25-OH Vitamin D Total < 12.8 NG/ML (30.0-100.0) L 08/24/16 07:09 Folate 7.8 ng/mL 08/26/16 07:39 Free T4 1.23 ng/dL (0.78-2.19) 08/17/16 10:36 TSH 3rd Generation 1.44 mIU/L (0.46-4.68) 08/23/16 07:55 Venous Blood Potassium 4.9 mmol/L (3.6-5.2) 08/16/16 19:50 Urine Color Straw (YELLOW) 08/16/16 19:56 Urine Clarity Clear (Clear) 08/16/16 19:56 Urine pH 6.0 (5.0-8.0) 08/16/16 19:56 Ur Specific [place] 1.016 (1.003-1.030) 08/16/16 19:56 Urine Protein 2+ mg/dL (NEGATIVE) H 08/16/16 19:56 Urine Glucose (UA) 3+ mg/dL (Normal) H 08/16/16 19:56 Urine Ketones Negative mg/dL (NEGATIVE) 08/16/16 19:56 Urine Blood 1+ (NEGATIVE) H 08/16/16 19:56 Urine Nitrate Positive (NEGATIVE) H 08/16/16 19:56 Urine Bilirubin Negative (NEGATIVE) 08/16/16 19:56 Urine Urobilinogen Normal mg/dL (0.2-1.0) 08/16/16 19:56 Ur Leukocyte Esterase 1+ Tia/uL (Negative) H 08/16/16 19:56 Urine WBC (Auto) 22 /hpf (0-5) H 08/16/16 19:56 Urine RBC (Auto) 10 /hpf (0-3) H 08/16/16 19:56 Ur Squamous Epith Cells 1 /hpf (0-5) 08/16/16 19:56 Urine Bacteria Occ (<OCC) H 08/16/16 19:56 Urine Microalbumin > 950.0 mg/L (0.0-16.6) H 08/17/16 17:58 Urine HCG, Qual Negative (NEGATIVE) 08/16/16 19:56 Serum Ketones Negative (NEGATIVE) 08/16/16 19:43 Blood Type A POSITIVE 08/28/16 14:23 Blood Type Confirm A POSITIVE 08/28/16 14:23 Antibody Screen Negative 08/28/16 14:23 Attending/Attestation - Attestation I have personally seen and examined this patient.: Yes I have fully participated in the care of the patient.: Yes I have reviewed all pertinent clinical information, including history, physical exam and plan: Yes
== END 2016-09-01 15:32 | disposition home or self-care (01) | DRG 294 ==
LOC: C.ER 18:13 → C.9E 08-17 01:52 → OBSVTOIN 08-17 01:52 → C.5T 08-17 18:10
PROVIDERS: ADMIT Family Medicine; ATTEND Family Medicine
PROC: 4A02XFZ Measurement of Cardiac Rhythm, External Approach (ICD-10-PCS; principal; 2016-08-19)
PROC: 4A03XB1 Measurement of Arterial Pressure, Peripheral, External Approach (ICD-10-PCS; 2016-08-19)
DX: E10.65 Type 1 diabetes mellitus with hyperglycemia (principal); E10.649 Type 1 diabetes mellitus with hypoglycemia without coma; E87.5 Hyperkalemia; R07.89 Other chest pain; G43.909 Migraine, unspecified, not intractable, without status migrainosus; I10 Essential (primary) hypertension; R39.11 Hesitancy of micturition; R00.0 Tachycardia, unspecified; K59.00 Constipation, unspecified

== ENCOUNTER 2016-10-20 11:16 | Emergency (ER) | payer OTHER ==
[2016-10-20 11:29] VITALS: BP 130/86; PULSE 97; RESP 20; TEMP 98.5; O2SAT 97
--- NOTE | 2016-10-20 12:14 | C.PDOC ---
History Of Present Illness 41 y/o F c PMHx DM p/w L arm numbness and pain x 2 months. Patient states she came to the hospital 2 months ago and when she went home that day, she had pain in the L wrist radiating up the forearm with numbness and paresthesias. She did not think much of it because she had IV access obtained and thought it was a side effect of the needle puncture. The pain has persisted so she came to ED today. She denies fever, injury, erythema, weakness. Time Seen by Provider: 10/20/16 11:43 Chief Complaint (Nursing): Upper Extremity Problem/Injury Past Medical History Vital Signs: Last Vital Signs Temp 98.5 F 10/20/16 11:23 Pulse 97 H 10/20/16 11:23 Resp 20 10/20/16 11:23 BP 130/86 10/20/16 11:23 Pulse Ox 97 10/20/16 13:20 - Medical History PMH: Diabetes, HTN Denies: Chronic Kidney Disease - [facility] Procedures MEASURE OF ARTERIAL PRESSURE, PERIPHERAL, FAMILY PRACTICE PHYSICIAN ASSISTANT APPROACH (08/17/16) MEASUREMENT OF CARDIAC RHYTHM, EXTERNAL APPROACH (08/17/16) Family History: States: Unknown Family Hx - Social History Hx Alcohol Use: No Hx Substance Use: No - Immunization History Hx Tetanus Toxoid Vaccination: Yes Hx Influenza Vaccination: No Hx Pneumococcal Vaccination: No Review Of Systems Except As Marked, All Systems Reviewed And Found Negative. Constitutional: Negative for: Fever Cardiovascular: Negative for: Chest Pain Physical Exam - Physical Exam Appears: Well, Non-toxic Skin: No Rash Respiratory: No Accessory Muscle Use Extremity: Normal ROM (of elbow, wrist, digits, shoulder including supination/ pronation), Tenderness (proximal radius), Capillary Refill (<2 seconds), No Deformity, No Swelling Pulses: Right Radial: Normal Neurological/Psych: Normal Motor, Normal Sensation (Sensation to light touch intact in L hand, states feels different than R in all dermatomes) Gait: Steady ED Course And Treatment O2 Sat by Pulse Oximetry: 97 Disposition - Disposition Disposition: HOME/ ROUTINE Disposition Time: 13:19 Condition: STABLE Additional Instructions: PROCEDURE: Radiographs of the left elbow. HISTORY: proximal radial pain COMPARISON: No prior. FINDINGS: BONES: Normal. No fracture. JOINTS: Normal. No osteoarthritis. SOFT TISSUES: Normal. JOINT EFFUSION: None. OTHER FINDINGS: None IMPRESSION: Unremarkable radiographs of the left elbow. PROCEDURE: Radiographs of the Left Forearm HISTORY: radial pain COMPARISON: None available. TECHNIQUE: Frontal and lateral views obtained. FINDINGS: BONES: No fracture or destructive lesion. JOINT SPACES: Unremarkable. OTHER FINDINGS: Distal forearm full with/carpal level medial and lateral arterial vascular calcifications IMPRESSION: No fracture or lytic lesion. Atherosclerotic vascular disease Prescriptions: Ibuprofen [Motrin] 1 tab PO Q6 #30 tab Instructions: Peripheral Neuropathy (ED) Forms: [facility] ([place]) - Clinical Impression Clinical Impression: Arm numbness
--- NOTE | 2016-10-20 12:36 | RAD ---
PROCEDURE: Radiographs of the left elbow. HISTORY: proximal radial pain COMPARISON: No prior. FINDINGS: BONES: Normal. No fracture. JOINTS: Normal. No osteoarthritis. SOFT TISSUES: Normal. JOINT EFFUSION: None. OTHER FINDINGS: None IMPRESSION: Unremarkable radiographs of the left elbow.
--- NOTE | 2016-10-20 12:37 | RAD ---
PROCEDURE: Radiographs of the Left Forearm HISTORY: radial pain COMPARISON: None available. TECHNIQUE: Frontal and lateral views obtained. FINDINGS: BONES: No fracture or destructive lesion. JOINT SPACES: Unremarkable. OTHER FINDINGS: Distal forearm full with/carpal level medial and lateral arterial vascular calcifications IMPRESSION: No fracture or lytic lesion. Atherosclerotic vascular disease
== END 2016-10-20 13:30 | disposition home or self-care (01) ==
LOC: C.ER 11:16
DX: R20.0 Anesthesia of skin (principal)

== ENCOUNTER 2017-01-15 11:11 | Emergency (ER) | payer OTHER ==
[2017-01-15 11:11] VITALS: BMI 29.5
[2017-01-15 11:23] VITALS: TEMP 98.6
[2017-01-15] MEDS ORDERED: Amoxicillin-Clav 875-125 mg Tab PO STA (11:29)
[2017-01-15] MEDS ORDERED: Lidocaine 1% Inj (20ml) INFIL STA (11:30)
[2017-01-15] MEDS ORDERED: Lidocaine 1% Inj (20ml) ONE (11:44)
[2017-01-15] MEDS ORDERED: Amoxicillin-Clav 875-125 mg Tab PO ONE (11:44)
--- NOTE | 2017-01-15 11:52 | C.PDOC ---
History Of Present Illness 41 year old female complains of swelling, redness and pain to her left thumb for 3 days. Patient states her own dog bit her thumb and left ear on 01/06/17. 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 Dog is UTD with vaccinations. She cleaned her wounds and then over the last few days left thumb is swollen. She tried to pop area yesterday with needle and noticed pus. Denies fever, numbness or weakness. Time Seen by Provider: 01/15/17 11:23 Chief Complaint (Nursing): Bite History Per: Patient History/Exam Limitations: no limitations Onset/Duration Of Symptoms: Days (3) Current Symptoms Are (Timing): Still Present Quality Of Symptoms: Painful, Swollen Additional History Per: Patient - Animal Bite Description Of The Animal: Family Pet Reports Animal Appears: Well Reports Animal's Immunization Status: UTD Past Medical History Reviewed: Historical Data, Nursing Documentation, Vital Signs Vital Signs: Last Vital Signs Temp 98.6 F 01/15/17 11:19 Pulse 85 01/15/17 12:45 Resp 18 01/15/17 12:45 BP 132/72 01/15/17 12:45 Pulse Ox 100 01/15/17 16:29 - Medical History PMH: Diabetes, HTN Denies: Chronic Kidney Disease Surgical History: No Surg Hx - [facility] Procedures MEASURE OF ARTERIAL PRESSURE, PERIPHERAL, FINANCIAL HEALTH COUNSELOR APPROACH (08/17/16) MEASUREMENT OF CARDIAC RHYTHM, EXTERNAL APPROACH (08/17/16) Family History: States: Unknown Family Hx - Social History Hx Alcohol Use: No Hx Substance Use: No - Immunization History Hx Tetanus Toxoid Vaccination: Yes Hx Influenza Vaccination: No Hx Pneumococcal Vaccination: No Review Of Systems Skin: Positive for: Other (redness, pain and swelling to left thumb s/p dog bite ) Physical Exam - Physical Exam Appears: Non-toxic, No Acute Distress Skin: Warm, Dry Ear(s): Right: TM Erythema (mild, to outer pinna, no laceration or scab.) Extremity: Normal ROM (left thumb ), Capillary Refill (less than 2 seconds ), Other (left thumb: swelling, erythema and fluctuance to finger pad. ) Neurological/Psych: Oriented x3, Normal Speech, Normal Cognition, Normal Sensation Gait: Steady ED Course And Treatment O2 Sat by Pulse Oximetry: 100 (on RA) Pulse Ox Interpretation: Normal Medical Decision Making Medical Decision Making: Impression: 41 year old female with swelling, redness and pain to left thumb s/ p dog bite Plan: * Augmentin PO * Tetanus immunization * I&D Progress: Augmentin PO and Tetanus immunization administered. On reassessment, patient is resting comfortably, showing no signs of distress and is stable for discharge. Patient is advised to follow up with her PMD within 2-5 days for further evaluation and/or return to the ED if symptoms return or worsen. Disposition Counseled Patient/Family Regarding: Diagnosis, Need For Followup, Rx Given - Disposition Referrals: [facility] [Outside] [email or web address] [Outside] Disposition: HOME/ ROUTINE Disposition Time: 12:05 Condition: GOOD Additional Instructions: Follow up with your primary medical doctor or clinic in 2-5 days for further evaluation. Take medications as prescribed. Return to the emergency department at any time if symptoms persist or worsen. Prescriptions: Amoxicillin/Clavulanate [Augmentin 875 MG-125 MG] 1 tab PO BID #14 tab Instructions: Animal Bite (ED) Forms: [employer] (Romansh) Print Language: SETSWANA - POA Present On Arrival: None - Clinical Impression Clinical Impression: Animal bite wound - PA / MASTER MOTORCYCLE TECHNICIAN / Resident Statement MD/DO has reviewed & agrees with the documentation as recorded. - Scribe Statement The provider has reviewed the documentation as recorded by the Scribe (Kacie Childers) All medical record entries made by the Scribe were at my direction and personally dictated by me. I have reviewed the chart and agree that the record accurately reflects my personal performance of the history, physical exam, medical decision making, and the department course for this patient. I have also personally directed, reviewed, and agree with the discharge instructions and disposition. Procedures - Incision and Drainage Site: left thumb Blade Size: 18 gauge needle I & D Procedure: betadine prep Progress: Digital block using Lidocaine 1%. Area drained of purulent discharge. Sterile dressing applied
[2017-01-15 12:52] VITALS: BP 132/72; PULSE 85; RESP 18
[2017-01-15 16:15] VITALS: O2SAT 100
== END 2017-01-15 12:53 | disposition home or self-care (01) ==
LOC: C.ER 11:11
DX: S61.052A Open bite of left thumb without damage to nail, initial encounter (principal); L02.512 Cutaneous abscess of left hand; W54.0XXA Bitten by dog, initial encounter

== ENCOUNTER 2017-01-19 18:19 | Observation (INO) | payer OTHER ==
[2017-01-19 18:41] VITALS: BMI 28.3
[2017-01-19] MEDS ORDERED: (Novolin R) Insulin Human Regular 100 units/ml vial SC ONE (19:48)
[2017-01-19] MEDS ORDERED: Sodium Chloride 0.9% 1,000 ML IV SCH (20:00)
[2017-01-19] MEDS ORDERED: (Novolin R) Insulin Human Regular 100 units/ml vial ONE (20:04)
[2017-01-19] MEDS ORDERED: Sodium Chloride 0.9% 1,000 ML ONE (20:04)
[2017-01-19 20:15] LABS: BASO # 0.1 K/uL (0.0-0.2); BASO % 0.8 % (0.0-2.0); EOS % 0.4 % (0.0-4.0); HEMATOCRIT 36.4 % (34.0-47.0); LYMPH # 1.4 K/uL (1.0-4.3); MEAN CELL VOLUME 82.5 fL (81.0-99.0); MEAN CORPUSCULAR HGB CONC 31.5 g/dL (33.0-37.0); MEAN PLATELET VOLUME 8.5 fL (7.2-11.7); MONO # 0.7 K/uL (0.0-0.8); MONO % 7.1 % (0.0-10.0); RED CELL DISTRIBUTION WIDTH 14.9 % (11.5-14.5); WHITE BLOOD COUNT 10.1 K/uL (4.8-10.8)
--- NOTE | 2017-01-19 20:21 | C.PDOC ---
History Of Present Illness 41 year old female with Hx of insulin dependent DM presents to the ED for evaluation of her blood sugar which has been in the 500-600 for the past few days. Patient was bitten on her left thumb by her own dog, seen in the ED on ,and she was prescribed Motrin and augmentin and her tetanus was updated. pt just started taking augmentin yesterday, and states her pain in the thumb worsened. Patient denies nausea, vomit, fever, abdominal pain, weakness, numbness, new injury, fall or trauma. Time Seen by Provider: 01/19/17 19:22 Chief Complaint (Nursing): Bite History Per: Patient History/Exam Limitations: no limitations Onset/Duration Of Symptoms: Days Current Symptoms Are (Timing): Still Present Location Of Injury: Left: Hand (Thumb) Quality Of Symptoms: Painful, Swollen Recent travel outside of the [place]: No Additional History Per: Patient Past Medical History Reviewed: Historical Data, Nursing Documentation, Vital Signs Vital Signs: Last Vital Signs Temp 98 F 01/21/17 00:25 Pulse 88 01/21/17 00:25 Resp 19 01/21/17 00:25 BP 136/80 01/21/17 00:25 Pulse Ox 99 01/21/17 13:51 - Medical History PMH: Diabetes, HTN Denies: Chronic Kidney Disease Surgical History: No Surg Hx - [facility] Procedures MEASURE OF ARTERIAL PRESSURE, PERIPHERAL, VENDING TECHNICIAN APPROACH (08/17/16) MEASUREMENT OF CARDIAC RHYTHM, EXTERNAL APPROACH (08/17/16) Family History: States: Unknown Family Hx - Social History Hx Alcohol Use: No Hx Substance Use: No - Immunization History Hx Tetanus Toxoid Vaccination: Yes Hx Influenza Vaccination: No Hx Pneumococcal Vaccination: No Review Of Systems Constitutional: Negative for: Fever, Chills Cardiovascular: Negative for: Chest Pain Respiratory: Negative for: Cough, Shortness of Breath Gastrointestinal: Negative for: Nausea, Vomiting, Abdominal Pain Genitourinary: Negative for: Dysuria, Incontinence Musculoskeletal: Positive for: Hand Pain (Left thumb) Skin: Negative for: Rash Neurological: Negative for: Weakness, Numbness Physical Exam - Physical Exam Appears: Non-toxic, No Acute Distress Skin: Normal Color, Warm, Dry Head: Atraumatic, Normacephalic Oral Mucosa: Moist Neck: Normal ROM, Supple Chest: Symmetrical Cardiovascular: Rhythm Regular, No Murmur Respiratory: Normal Breath Sounds, No Rales, No Rhonchi, No Wheezing Gastrointestinal/Abdominal: Soft, No Tenderness Extremity: Normal ROM, Swelling (Left thumb, distal phalanx markedly swollen with tenderness, mild fluctuance) Pulses: Left Radial: Normal Neurological/Psych: Oriented x3, Normal Speech, Normal Cognition, Normal Motor, Normal Sensation Gait: Steady ED Course And Treatment - Laboratory Results Result Diagrams: 01/21/17 07:05 01/21/17 07:05 O2 Sat by Pulse Oximetry: 99 (On RA) Pulse Ox Interpretation: Normal Medical Decision Making Medical Decision Making: Plan: * Blood work, UA ordered * Insulin 6 units given * Blood culture collected * Left thumb X-Ray Reevaluation : pt to be admitted to Dr Crespo with hand consul inpatient. Disposition Discussed With DrBob: Sandeep Crespo - Disposition Disposition: HOSPITALIZED Disposition Time: 22:56 Condition: SERIOUS - Clinical Impression Clinical Impression: Dog bite of left thumb with infection, Uncontrolled diabetes mellitus - PA / PUBLIC HEALTH CLINICAL NURSE SPECIALIST / Resident Statement MD/DO has reviewed & agrees with the documentation as recorded. - Scribe Statement The provider has reviewed the documentation as recorded by the Scribe Cruz Mccullough All medical record entries made by the Juan were at my direction and personally dictated by me. I have reviewed the chart and agree that the record accurately reflects my personal performance of the history, physical exam, medical decision making, and the department course for this patient. I have also personally directed, reviewed, and agree with the discharge instructions and disposition.
[2017-01-19 20:41] LABS: POTASSIUM 4.8 mmol/L (3.6-5.2)
[2017-01-19 20:45] LABS: ALB/GLOB RATIO 0.8 (1.0-2.1); ALKALINE PHOSPHATASE 110 U/L (38-126); ALT/SGPT 30 U/L (9-52); AST/SGOT 16 U/L (14-36); BILIRUBIN,TOTAL 0.3 mg/dL (0.2-1.3); BLOOD UREA NITROGEN 20 mg/dL (7-17); CALCIUM 8.5 mg/dl (8.6-10.4); CARBON DIOXIDE 27 mmol/L (22-30); CHLORIDE 95 mmol/L (98-107); GFR AFRICAN-AMERICAN > 60; GLUCOSE,RANDOM 480 mg/dL (65-105); SODIUM 133 mmol/L (132-148); TOTAL PROTEIN 8.6 g/dL (6.3-8.3)
[2017-01-19 20:51] LABS: RBC URINE 97 /hpf (0-3); URINE BACTERIA MANY (<OCC); URINE BILIRUBIN NEGATIVE (NEGATIVE); URINE BLOOD 3+ (NEGATIVE); URINE COLOR Yellow (YELLOW); URINE GLUCOSE (UA) 3+ mg/dL (Normal); URINE KETONE NEGATIVE (NEGATIVE); URINE PROTEIN 3+ mg/dL (NEGATIVE); URINE UROBILINOGEN NORMAL mg/dL (0.2-1.0); WBC URINE 158 /hpf (0-5)
[2017-01-19 20:54] LABS: URINE LEUKOCYTE ESTERASE 3+ Leu/uL (Negative)
[2017-01-19] MEDS ORDERED: Oxycodone/Acetaminophen 5/325 mg Tab ONE (21:12)
[2017-01-19] MEDS ORDERED: Oxycodone/Acetaminophen 5/325 mg Tab PO STA ×2 (21:15→21:25)
[2017-01-19] MEDS ORDERED: Piperacill/Tazo 3.375gm in Dex 3.375 GM/50 ML BAG IVPB STA (22:18)
[2017-01-20] MEDS: (Lantus) Insulin Glargine, Recombinant SC SCH ×2 (00:40→21:49)
[2017-01-20] MEDS: Lactated Ringer's 1,000 ML IV SCH ×3 (00:45→16:44)
[2017-01-20] MEDS ORDERED: Iodixanol 320 MG/ML 100 ML BOTTLE IV ONE (01:17)
[2017-01-20] MEDS ORDERED: Piperacill/Tazo 3.375gm in Dex 3.375 GM/50 ML BAG IVPB SCH (01:30)
[2017-01-20] MEDS: (Novolin R) Insulin Human Regular 100 units/ml vial SC SCH ×4 (02:12→21:00)
--- NOTE | 2017-01-20 02:30 | CT ---
EXAM: CT Left Upper Extremity With Intravenous Contrast, Hand EXAM DATE/TIME: 01/20/2017 12:10 AM CLINICAL HISTORY: 41 years old, female; Signs and symptoms; Swelling; Fingers; Left; Additional info: Left finger infection TECHNIQUE: Axial computed tomography images of the left hand with intravenous contrast. All CT scans at this facility use one or more dose reduction techniques, viz.: automated exposure control; ma/kV adjustment per patient size (including targeted exams where dose is matched to indication; i.e. head); or iterative reconstruction technique. Coronal and sagittal reformatted images were created and reviewed. CONTRAST: 100 mL of [id number] administered intravenously. COMPARISON: No relevant prior studies available. FINDINGS: There is haziness in the fat of the first and second phalanges presumably representing cellulitis. There is no abscess collection. There is no air within the soft tissues to suggest necrotizing infection. The osseous structures appear normal. IMPRESSION: Cellulitis of the first and second phalanges without drainable collection.
[2017-01-20] MEDS ORDERED: Oxycodone/Acetaminophen 5/325 mg Tab PO STA (03:00)
--- NOTE | 2017-01-20 03:09 | CP.PCM.HP ---
<Maryana Davis - Last Filed: 01/20/17 03:02> History of Present Illness - History of Present Illness History of Present Illness: CC: dog bit on thumb Patient is a 41 y/o F with PMHx of uncontrolled Diabetes presents today for a dog bite on her thumb. Patient was bitten by her dog on 01/06/17. Patient came to ED on 01/15 and was discharged with Augmentin 1 tab po BID. Patient's thumb pain is increasing and she feels it is not getting better. She said there was pus coming out of the wound. Patient also says her blood sugars are sometimes in the 500-600s. Patient has poor vision due to her diabetes and has difficulty knowing how much insulin she is injecting. Patient also admits to lightheadedness, headaches, abdominal pain, nausea, vomiting, and diarrhea from her diabetes. Patient denies chest pain or shortness of breath. PMD: [facility] Pmhx: DM Psurg:none Social: denies alcohol, drugs, tobacco Allergies: none Home meds: Levamir 22 u at night, Novolog 12-15 u TID Present on Admission - Present on Admission Any Indicators Present on Admission: Yes History of DVT/PE: No History of Uncontrolled Diabetes: Yes Urinary Catheter: No Decubitus Ulcer Present: No Review of Systems - EENT Eyes: Blurred Vision - Cardiovascular Cardiovascular: absent: Chest Pain, Dyspnea, Palpitations, Pedal Edema - Respiratory Respiratory: absent: Cough, Dyspnea, Wheezing, Stridor - Gastrointestinal Gastrointestinal: Abdominal Pain, Diarrhea, Nausea, Vomiting - Genitourinary Genitourinary: absent: Difficulty Urinating - Integumentary Integumentary: absent: Rash - Neurological Neurological: Dizziness, Headaches Past Patient History - Infectious Disease Hx of Infectious Diseases: None - Past Medical History & Family History Past Medical History?: Yes - Past Social History Smoking Status: Former Smoker - CARDIAC Hx Hypertension: Yes - PULMONARY Hx Respiratory Disorders: No - NEUROLOGICAL Hx Neurological Disorder: No - HEENT Hx HEENT Problems: No - RENAL Hx Chronic Kidney Disease: No - ENDOCRINE/METABOLIC Hx Diabetes Mellitus Type 1: Yes - HEMATOLOGICAL/ONCOLOGICAL Hx Blood Disorders: No - INTEGUMENTARY Hx Dermatological Problems: No - MUSCULOSKELETAL/RHEUMATOLOGICAL Hx Musculoskeletal Disorders: No Hx Falls: No - GASTROINTESTINAL Hx Gastrointestinal Disorders: No - GENITOURINARY/GYNECOLOGICAL Hx Genitourinary Disorders: No - PSYCHIATRIC Hx Substance Use: No - SURGICAL HISTORY Hx Surgeries: No - ANESTHESIA Hx Anesthesia: Yes Hx Anesthesia Reactions: No Meds Allergies/Adverse Reactions: Allergies Allergy/AdvReac Type Severity Reaction Status Date / Time No Known Allergies Allergy Verified 01/19/17 18:50 Physical Exam - Constitutional Appears: Non-toxic, No Acute Distress - Head Exam Head Exam: ATRAUMATIC, NORMAL INSPECTION, NORMOCEPHALIC - Eye Exam Eye Exam: EOMI, Normal appearance - ENT Exam ENT Exam: Mucous Membranes Moist - Respiratory Exam Respiratory Exam: Clear to Auscultation Bilateral, NORMAL BREATHING PATTERN. absent: Rales, Rhonchi, Wheezes, Respiratory Distress, Stridor - Cardiovascular Exam Cardiovascular Exam: REGULAR RHYTHM, RRR, +S1, +S2 - GI/Abdominal Exam GI & Abdominal Exam: Normal Bowel Sounds, Soft. absent: Tenderness - Extremities Exam Extremities exam: Positive for: normal inspection. Negative for: pedal edema Additional comments: better sensation in left foot than right left thumb edema and erythema - Neurological Exam Neurological exam: Alert, Oriented x3 - Psychiatric Exam Psychiatric exam: Normal Affect, Normal Mood - Skin Skin Exam: Intact, Normal Color, Warm Results - Vital Signs Recent Vital Signs: Last Vital Signs Temp 98 F 01/20/17 00:35 Pulse 101 H 01/20/17 00:35 Resp 20 01/20/17 00:35 BP 114/75 01/20/17 00:35 Pulse Ox 98 01/20/17 00:35 - Labs Result Diagrams: 01/19/17 20:09 01/19/17 20:09 Labs: Laboratory Results - last 24 hr 01/19/17 01/19/17 01/19/17 19:28 20:09 20:09 WBC 10.1 RBC 4.41 Hgb 11.5 Hct 36.4 MCV 82.5 MCH 26.0 L MCHC 31.5 L RDW 14.9 H Plt Count 485 H MPV 8.5 Neut % (Auto) 77.7 H Lymph % (Auto) 14.0 L [place] % (Auto) 7.1 Eos % (Auto) 0.4 Baso % (Auto) 0.8 Neut # 7.9 H Lymph # 1.4 [place] # 0.7 Eos # 0.0 Baso # 0.1 Sodium 133 Potassium 4.8 Chloride 95 L Carbon Dioxide 27 Anion Gap 16 BUN 20 H Creatinine 0.9 Est GFR ( Amer) > 60 Est GFR (Non-Af Amer) > 60 POC Glucose (mg/dL) 413 H* Random Glucose 480 H* D Calcium 8.5 L Total Bilirubin 0.3 AST 16 ALT 30 Alkaline Phosphatase 110 Total Protein 8.6 H Albumin 3.9 Globulin 4.6 H Albumin/Globulin Ratio 0.8 L Urine Color Urine Clarity Urine pH Ur Specific [place] Urine Protein Urine Glucose (UA) Urine Ketones Urine Blood Urine Nitrate Urine Bilirubin Urine Urobilinogen Ur Leukocyte Esterase Urine WBC (Auto) Urine RBC (Auto) Ur Squamous Epith Cells Urine Bacteria Urine HCG, Qual Serum Ketones Neg 01/19/17 01/19/17 01/19/17 20:19 20:49 21:45 WBC RBC Hgb Hct MCV MCH MCHC RDW Plt Count MPV Neut % (Auto) Lymph % (Auto) [place] % (Auto) Eos % (Auto) Baso % (Auto) Neut # Lymph # [place] # Eos # Baso # Sodium Potassium Chloride Carbon Dioxide Anion Gap BUN Creatinine Est GFR ( Amer) Est GFR (Non-Af Amer) POC Glucose (mg/dL) 136 H Random Glucose Calcium Total Bilirubin AST ALT Alkaline Phosphatase Total Protein Albumin Globulin Albumin/Globulin Ratio Urine Color Yellow Urine Clarity Hazy Urine pH 5.0 Ur Specific [place] 1.028 Urine Protein 3+ H Urine Glucose (UA) 3+ H Urine Ketones Negative Urine Blood 3+ H Urine Nitrate Negative Urine Bilirubin Negative Urine Urobilinogen Normal Ur Leukocyte Esterase 3+ H Urine WBC (Auto) 158 H Urine RBC (Auto) 97 H Ur Squamous Epith Cells 1 Urine Bacteria Many H Urine HCG, Qual Negative Serum Ketones 01/19/17 01/20/17 23:08 02:12 WBC RBC Hgb Hct MCV MCH MCHC RDW Plt Count MPV Neut % (Auto) Lymph % (Auto) [place] % (Auto) Eos % (Auto) Baso % (Auto) Neut # Lymph # [place] # Eos # Baso # Sodium Potassium Chloride Carbon Dioxide Anion Gap BUN Creatinine Est GFR ( Amer) Est GFR (Non-Af Amer) POC Glucose (mg/dL) 200 H 271 H Random Glucose Calcium Total Bilirubin AST ALT Alkaline Phosphatase Total Protein Albumin Globulin Albumin/Globulin Ratio Urine Color Urine Clarity Urine pH Ur Specific [place] Urine Protein Urine Glucose (UA) Urine Ketones Urine Blood Urine Nitrate Urine Bilirubin Urine Urobilinogen Ur Leukocyte Esterase Urine WBC (Auto) Urine RBC (Auto) Ur Squamous Epith Cells Urine Bacteria Urine HCG, Qual Serum Ketones Assessment & Plan - Assessment and Plan (Free Text) Assessment: Left Thumb Infection f/u hand xray upper extremity CT: cellulitis of the first and second phalanges without drainable collection WBC: 10.1 Surgery, Dr. Carmen, consulted-help appreciated NPO Zosyn 3.375 q6h Vanco 1gm q12h f/u blood culture DM type II Insulin Glargine 22u sc HS Insulin Aspart 8 u sc TIDAC ISS-medium q6h accuchecks q6h diabetic education Prophylactic Measures DVT: Heparin 5000 u sc q8h, SCDs GI: Pepcid 20 mg po daily <Sandeep Crespo P - Last Filed: 01/20/17 07:31> Results - Vital Signs Recent Vital Signs: Last Vital Signs Temp 98 F 01/20/17 00:35 Pulse 101 H 01/20/17 00:35 Resp 20 01/20/17 00:35 BP 114/75 01/20/17 00:35 Pulse Ox 98 01/20/17 00:35 - Labs Result Diagrams: 01/19/17 20:09 01/19/17 20:09 Labs: Laboratory Results - last 24 hr 01/19/17 01/19/17 01/19/17 19:28 20:09 20:09 WBC 10.1 RBC 4.41 Hgb 11.5 Hct 36.4 MCV 82.5 MCH 26.0 L MCHC 31.5 L RDW 14.9 H Plt Count 485 H MPV 8.5 Neut % (Auto) 77.7 H Lymph % (Auto) 14.0 L [place] % (Auto) 7.1 Eos % (Auto) 0.4 Baso % (Auto) 0.8 Neut # 7.9 H Lymph # 1.4 [place] # 0.7 Eos # 0.0 Baso # 0.1 Sodium 133 Potassium 4.8 Chloride 95 L Carbon Dioxide 27 Anion Gap 16 BUN 20 H Creatinine 0.9 Est GFR ( Amer) > 60 Est GFR (Non-Af Amer) > 60 POC Glucose (mg/dL) 413 H* Random Glucose 480 H* D Calcium 8.5 L Total Bilirubin 0.3 AST 16 ALT 30 Alkaline Phosphatase 110 Total Protein 8.6 H Albumin 3.9 Globulin 4.6 H Albumin/Globulin Ratio 0.8 L Urine Color Urine Clarity Urine pH Ur Specific [place] Urine Protein Urine Glucose (UA) Urine Ketones Urine Blood Urine Nitrate Urine Bilirubin Urine Urobilinogen Ur Leukocyte Esterase Urine WBC (Auto) Urine RBC (Auto) Ur Squamous Epith Cells Urine Bacteria Urine HCG, Qual Serum Ketones Neg 01/19/17 01/19/17 01/19/17 20:19 20:49 21:45 WBC RBC Hgb Hct MCV MCH MCHC RDW Plt Count MPV Neut % (Auto) Lymph % (Auto) [place] % (Auto) Eos % (Auto) Baso % (Auto) Neut # Lymph # [place] # Eos # Baso # Sodium Potassium Chloride Carbon Dioxide Anion Gap BUN Creatinine Est GFR ( Amer) Est GFR (Non-Af Amer) POC Glucose (mg/dL) 136 H Random Glucose Calcium Total Bilirubin AST ALT Alkaline Phosphatase Total Protein Albumin Globulin Albumin/Globulin Ratio Urine Color Yellow Urine Clarity Hazy Urine pH 5.0 Ur Specific [place] 1.028 Urine Protein 3+ H Urine Glucose (UA) 3+ H Urine Ketones Negative Urine Blood 3+ H Urine Nitrate Negative Urine Bilirubin Negative Urine Urobilinogen Normal Ur Leukocyte Esterase 3+ H Urine WBC (Auto) 158 H Urine RBC (Auto) 97 H Ur Squamous Epith Cells 1 Urine Bacteria Many H Urine HCG, Qual Negative Serum Ketones 01/19/17 01/20/17 23:08 02:12 WBC RBC Hgb Hct MCV MCH MCHC RDW Plt Count MPV Neut % (Auto) Lymph % (Auto) [place] % (Auto) Eos % (Auto) Baso % (Auto) Neut # Lymph # [place] # Eos # Baso # Sodium Potassium Chloride Carbon Dioxide Anion Gap BUN Creatinine Est GFR ( Amer) Est GFR (Non-Af Amer) POC Glucose (mg/dL) 200 H 271 H Random Glucose Calcium Total Bilirubin AST ALT Alkaline Phosphatase Total Protein Albumin Globulin Albumin/Globulin Ratio Urine Color Urine Clarity Urine pH Ur Specific [place] Urine Protein Urine Glucose (UA) Urine Ketones Urine Blood Urine Nitrate Urine Bilirubin Urine Urobilinogen Ur Leukocyte Esterase Urine WBC (Auto) Urine RBC (Auto) Ur Squamous Epith Cells Urine Bacteria Urine HCG, Qual Serum Ketones Attending/Attestation - Attestation I have personally seen and examined this patient.: Yes I have fully participated in the care of the patient.: Yes I have reviewed all pertinent clinical information: Yes Notes (Text): Assessment * Left thumb infection after dog bite about 2wk after, with pain in thenar eminence, elbow, lymph in left axilla, breast exam neg for mass, recommend out pt mamogram * 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 Plan * Broad spectrum abx vanco, zosyn, * Hand surg consult * DM education, patient counselled about effect and duration of the insulin, use help of family members to confirm dose administration of the insulin due to poor vision suggest lantus instead of levimer will start lantus 22 units hs, humlog 8 tidac with sliding scale coverage * Pain control, gi/dvt prophylaxis * See orders for detail.
[2017-01-20] MEDS: Piperacill/Tazo 3.375gm in Dex 3.375 GM/50 ML BAG IVPB SCH ×4 (05:03→22:49)
[2017-01-20] MEDS ORDERED: (Novolog) Insulin Aspart, Recombinant 100 u/ml 10 ml vial SC SCH (07:30)
[2017-01-20] MEDS ORDERED: (Novolin R) Insulin Human Regular 100 units/ml vial SC SCH (07:30)
[2017-01-20] MEDS ORDERED: Oxycodone/Acetaminophen 5/325 mg Tab PO PRN (07:47)
[2017-01-20 08:09] LABS: BASO # 0.1 K/uL (0.0-0.2); BASO % 0.7 % (0.0-2.0); EOS % 0.5 % (0.0-4.0); HEMATOCRIT 29.9 % (34.0-47.0); LYMPH # 1.5 K/uL (1.0-4.3); LYMPH % 18.9 % (20.0-40.0); MEAN CELL VOLUME 82.1 fL (81.0-99.0); MEAN CORPUSCULAR HEMOGLOBIN 26.5 pg (27.0-31.0); MEAN CORPUSCULAR HGB CONC 32.2 g/dL (33.0-37.0); MEAN PLATELET VOLUME 8.4 fL (7.2-11.7); MONO # 0.7 K/uL (0.0-0.8); MONO % 8.4 % (0.0-10.0); RED CELL DISTRIBUTION WIDTH 14.9 % (11.5-14.5)
[2017-01-20 08:25] LABS: ALB/GLOB RATIO 1.1 (1.0-2.1); ALKALINE PHOSPHATASE 70 U/L (38-126); ALT/SGPT 26 U/L (9-52); AST/SGOT 15 U/L (14-36); BILIRUBIN,TOTAL 0.5 mg/dL (0.2-1.3); BLOOD UREA NITROGEN 16 mg/dL (7-17); CALCIUM 7.5 mg/dl (8.6-10.4); CARBON DIOXIDE 27 mmol/L (22-30); CHLORIDE 106 mmol/L (98-107); GFR AFRICAN-AMERICAN > 60; GLUCOSE,RANDOM 240 mg/dL (65-105); MAGNESIUM 2.2 mg/dL (1.6-2.3); PHOSPHOROUS 2.4 mg/dL (2.5-4.5); POTASSIUM 4.5 mmol/L (3.6-5.2); SODIUM 137 mmol/L (132-148); TOTAL PROTEIN 5.6 g/dL (6.3-8.3)
--- NOTE | 2017-01-20 08:45 | RAD ---
PROCEDURE: Left Thumb radiographs. HISTORY: infection COMPARISON: No prior. TECHNIQUE: AP radiograph of the left hand, as well as spot oblique and lateral images of thumb were obtained. FINDINGS: LEFT THUMB: Unremarkable left 1st digit without acute displaced fracture identified. Remainder of the left hand (as seen on the AP view) grossly unremarkable. No osseous destruction evident. JOINTS: No dislocation. SOFT TISSUES: Vascular calcifications. Marked soft tissue swelling of the 1st digit. No acute displaced fracture identified. OTHER FINDINGS: None. IMPRESSION: Marked soft tissue swelling of the 1st digit.
--- NOTE | 2017-01-20 09:12 | CP.PCM.CON ---
History of Present Illness - History of Present Illness History of Present Illness: Hand Surgery Consult Re: Dog bite to hand HPI: 41F presents today for a dog bite on her L thumb on 01/06/17 by her dog. Pt came to ED on 01/15, evaluated, and was discharged on Augmentin BID. Pt's thumb pain increased and she felt it wass not getting better after taking 2 days of abx and stopping, so she came to the ED again. Had some blood and pus coming out of the wound this AM. + lightheadedness. Denies F/C, N/V. PMH: Poorly controlled DM with diabetic retinopathy PSH: Denies SH: Denies EtOH, drugs, tobacco All: NKDA Meds: See MAR Review of Systems - Review of Systems All systems: reviewed and no additional remarkable complaints except (as per HPI ) Past Patient History - Infectious Disease Hx of Infectious Diseases: None - Past Medical History & Family History Past Medical History?: Yes - Past Social History Smoking Status: Former Smoker - CARDIAC Hx Hypertension: Yes - PULMONARY Hx Respiratory Disorders: No - NEUROLOGICAL Hx Neurological Disorder: No - HEENT Hx HEENT Problems: No - RENAL Hx Chronic Kidney Disease: No - ENDOCRINE/METABOLIC Hx Diabetes Mellitus Type 1: Yes - HEMATOLOGICAL/ONCOLOGICAL Hx Blood Disorders: No - INTEGUMENTARY Hx Dermatological Problems: No - MUSCULOSKELETAL/RHEUMATOLOGICAL Hx Musculoskeletal Disorders: No Hx Falls: No - GASTROINTESTINAL Hx Gastrointestinal Disorders: No - GENITOURINARY/GYNECOLOGICAL Hx Genitourinary Disorders: No - PSYCHIATRIC Hx Substance Use: No - SURGICAL HISTORY Hx Surgeries: No - ANESTHESIA Hx Anesthesia: Yes Hx Anesthesia Reactions: No Meds Allergies/Adverse Reactions: Allergies Allergy/AdvReac Type Severity Reaction Status Date / Time No Known Allergies Allergy Verified 01/19/17 18:50 - Medications Medications: Current Medications Famotidine (Pepcid) 20 mg PO DAILY [facility] Heparin Sodium (Porcine) (Heparin) 5,000 units SC Q8 [facility] Last Admin: 01/20/17 06:00 Dose: Not Given Lactated Ringer's (Lactated Ringer's) 1,000 mls @ 75 mls/hr IV .[id number] [facility] Last Admin: 01/20/17 00:45 Dose: 75 mls/hr Vancomycin HCl 1,000 mg/ (Sodium Chloride) 250 mls @ 166.6 mls/hr IVPB Q12H [facility] Piperacillin Sod/Tazobactam Sod (Zosyn 3.375 Gm Iv Premix) 3.375 gm in 50 mls @ 100 mls/hr IVPB Q6H [facility] Last Admin: 01/20/17 05:03 Dose: 100 mls/hr Insulin Aspart (Novolog) 8 unit SC TIDAC [facility] Insulin Glargine (Lantus) 22 unit SC HS [facility] Last Admin: 01/20/17 00:40 Dose: 22 units Insulin Human Regular (Novolin R) 0 unit SC Q6H ANA PRN Reason: Protocol Last Admin: 01/20/17 08:11 Dose: 4 unit Oxycodone/Acetaminophen (Percocet 5/325 Mg Tab) 1 tab PO Q6H PRN PRN Reason: Pain, severe (8-10) Stop: 01/23/17 07:48 Physical Exam - Constitutional Appears: Non-toxic, No Acute Distress - Head Exam Head Exam: ATRAUMATIC, NORMOCEPHALIC - Eye Exam Eye Exam: EOMI. absent: Scleral icterus - ENT Exam ENT Exam: Mucous Membranes Moist Additional comments: trachea midline - Respiratory Exam Respiratory Exam: NORMAL BREATHING PATTERN. absent: Respiratory Distress - Cardiovascular Exam Cardiovascular Exam: RRR, +S1, +S2 - GI/Abdominal Exam GI & Abdominal Exam: Soft. absent: Distended, Tenderness - Rectal Exam Rectal Exam: Deferred - Extremities Exam Extremities exam: Positive for: normal capillary refill. Negative for: calf tenderness - Back Exam Back exam: absent: CVA tenderness (L), CVA tenderness (R) - Neurological Exam Neurological exam: Alert, Oriented x3 - Psychiatric Exam Psychiatric exam: Normal Affect, Normal Mood - Skin Skin Exam: Dry, Warm - Additional Findings Additional findings: L hand with TTP, edema and erythema over palmar aspect of distal thumb. Motor and sensation intact, difficulty with movement due to pain. Small healing puncture wounds on 3rd distal phlange and base of thenar eminence Results - Vital Signs Recent Vital Signs: Last Vital Signs Temp 97.9 F 01/20/17 08:25 Pulse 84 01/20/17 08:25 Resp 20 01/20/17 08:25 BP 127/85 01/20/17 08:25 Pulse Ox 97 01/20/17 08:25 - Labs Result Diagrams: 01/20/17 07:54 01/20/17 07:54 Labs: Laboratory Results - last 24 hr 01/19/17 01/19/17 01/19/17 19:28 20:09 20:09 WBC 10.1 RBC 4.41 Hgb 11.5 Hct 36.4 MCV 82.5 MCH 26.0 L MCHC 31.5 L RDW 14.9 H Plt Count 485 H MPV 8.5 Neut % (Auto) 77.7 H Lymph % (Auto) 14.0 L [place] % (Auto) 7.1 Eos % (Auto) 0.4 Baso % (Auto) 0.8 Neut # 7.9 H Lymph # 1.4 [place] # 0.7 Eos # 0.0 Baso # 0.1 Sodium 133 Potassium 4.8 Chloride 95 L Carbon Dioxide 27 Anion Gap 16 BUN 20 H Creatinine 0.9 Est GFR ( Amer) > 60 Est GFR (Non-Af Amer) > 60 POC Glucose (mg/dL) 413 H* Random Glucose 480 H* D Calcium 8.5 L Phosphorus Magnesium Total Bilirubin 0.3 AST 16 ALT 30 Alkaline Phosphatase 110 Total Protein 8.6 H Albumin 3.9 Globulin 4.6 H Albumin/Globulin Ratio 0.8 L Urine Color Urine Clarity Urine pH Ur Specific [place] Urine Protein Urine Glucose (UA) Urine Ketones Urine Blood Urine Nitrate Urine Bilirubin Urine Urobilinogen Ur Leukocyte Esterase Urine WBC (Auto) Urine RBC (Auto) Ur Squamous Epith Cells Urine Bacteria Urine HCG, Qual Serum Ketones Neg 01/19/17 01/19/17 01/19/17 20:19 20:49 21:45 WBC RBC Hgb Hct MCV MCH MCHC RDW Plt Count MPV Neut % (Auto) Lymph % (Auto) [place] % (Auto) Eos % (Auto) Baso % (Auto) Neut # Lymph # [place] # Eos # Baso # Sodium Potassium Chloride Carbon Dioxide Anion Gap BUN Creatinine Est GFR ( Amer) Est GFR (Non-Af Amer) POC Glucose (mg/dL) 136 H Random Glucose Calcium Phosphorus Magnesium Total Bilirubin AST ALT Alkaline Phosphatase Total Protein Albumin Globulin Albumin/Globulin Ratio Urine Color Yellow Urine Clarity Hazy Urine pH 5.0 Ur Specific [place] 1.028 Urine Protein 3+ H Urine Glucose (UA) 3+ H Urine Ketones Negative Urine Blood 3+ H Urine Nitrate Negative Urine Bilirubin Negative Urine Urobilinogen Normal Ur Leukocyte Esterase 3+ H Urine WBC (Auto) 158 H Urine RBC (Auto) 97 H Ur Squamous Epith Cells 1 Urine Bacteria Many H Urine HCG, Qual Negative Serum Ketones 01/19/17 01/20/17 01/20/17 23:08 02:12 07:19 WBC RBC Hgb Hct MCV MCH MCHC RDW Plt Count MPV Neut % (Auto) Lymph % (Auto) [place] % (Auto) Eos % (Auto) Baso % (Auto) Neut # Lymph # [place] # Eos # Baso # Sodium Potassium Chloride Carbon Dioxide Anion Gap BUN Creatinine Est GFR ( Amer) Est GFR (Non-Af Amer) POC Glucose (mg/dL) 200 H 271 H 252 H Random Glucose Calcium Phosphorus Magnesium Total Bilirubin AST ALT Alkaline Phosphatase Total Protein Albumin Globulin Albumin/Globulin Ratio Urine Color Urine Clarity Urine pH Ur Specific [place] Urine Protein Urine Glucose (UA) Urine Ketones Urine Blood Urine Nitrate Urine Bilirubin Urine Urobilinogen Ur Leukocyte Esterase Urine WBC (Auto) Urine RBC (Auto) Ur Squamous Epith Cells Urine Bacteria Urine HCG, Qual Serum Ketones 01/20/17 01/20/17 07:54 07:54 WBC 8.0 RBC 3.64 L Hgb 9.6 L Hct 29.9 L MCV 82.1 MCH 26.5 L MCHC 32.2 L RDW 14.9 H Plt Count 424 H MPV 8.4 Neut % (Auto) 71.5 Lymph % (Auto) 18.9 L [place] % (Auto) 8.4 Eos % (Auto) 0.5 Baso % (Auto) 0.7 Neut # 5.7 Lymph # 1.5 [place] # 0.7 Eos # 0.0 Baso # 0.1 Sodium 137 Potassium 4.5 Chloride 106 Carbon Dioxide 27 Anion Gap 8 L BUN 16 Creatinine 0.8 Est GFR ( Amer) > 60 Est GFR (Non-Af Amer) > 60 POC Glucose (mg/dL) Random Glucose 240 H Calcium 7.5 L Phosphorus 2.4 L Magnesium 2.2 Total Bilirubin 0.5 AST 15 ALT 26 Alkaline Phosphatase 70 Total Protein 5.6 L Albumin 3.0 L D Globulin 2.6 Albumin/Globulin Ratio 1.1 Urine Color Urine Clarity Urine pH Ur Specific [place] Urine Protein Urine Glucose (UA) Urine Ketones Urine Blood Urine Nitrate Urine Bilirubin Urine Urobilinogen Ur Leukocyte Esterase Urine WBC (Auto) Urine RBC (Auto) Ur Squamous Epith Cells Urine Bacteria Urine HCG, Qual Serum Ketones - Imaging and Cardiology CT scan - hand Status: Image reviewed by me, Report reviewed by me Assessment & Plan - Assessment and Plan (Free Text) Assessment: 41F with L hand cellulitis 2/2 dog bite Plan: Continue abx Ok to eat 15 min thumb soaks in a cup of 50/50 warm water and betadine Q2H D/W Dr. Hailey Delgado PGY4
--- NOTE | 2017-01-20 09:43 | CP.PCM.PN ---
<Christy Fagan - Last Filed: 01/20/17 15:05> Subjective - Date & Time of Evaluation Date of Evaluation: 01/20/17 Time of Evaluation: 07:00 - Subjective Subjective: Patient was seen and examined at bedside in the AM. Patient came in last night to the ED for a dog bite on her left thumb. Her dog was hit by a car and after she went to hug the dog, the patient had been bitten. Patient states her dog is up to date on all it's vaccinations. Patient reports increasing pain and rates the pain 10/10. Dog bite happened last week and had been taking antibiotics, however after noticing no difference in appearance, patient decided to stop taking the antibiotics. Patient reports the pain radiates to her palm all the way to her elbow. She had some blood and pus coming out of the wound in the AM. Patient admits to also having a headache. Denies fever, chills, chest pain, palpitations, shortness of breath, cough, abdominal pain, nausea, vomiting, constipation, diarrhea, numbness, or tingling. Objective - Vital Signs/Intake and Output Vital Signs (last 24 hours): Temp Pulse Resp BP Pulse Ox 97.9 F 84 20 127/85 97 01/20/17 08:25 01/20/17 08:25 01/20/17 08:25 01/20/17 08:25 01/20/17 08:25 Intake and Output: 01/20/17 01/20/17 06:59 18:59 Intake Total 500 Balance 500 - Medications Medications: Current Medications Famotidine (Pepcid) 20 mg PO DAILY [facility] Heparin Sodium (Porcine) (Heparin) 5,000 units SC Q8 [facility] Last Admin: 01/20/17 06:00 Dose: Not Given Lactated Ringer's (Lactated Ringer's) 1,000 mls @ 75 mls/hr IV .[id number] [facility] Last Admin: 01/20/17 00:45 Dose: 75 mls/hr Vancomycin HCl 1,000 mg/ (Sodium Chloride) 250 mls @ 166.6 mls/hr IVPB Q12H [facility] Piperacillin Sod/Tazobactam Sod (Zosyn 3.375 Gm Iv Premix) 3.375 gm in 50 mls @ 100 mls/hr IVPB Q6H [facility] Last Admin: 01/20/17 05:03 Dose: 100 mls/hr Insulin Aspart (Novolog) 8 unit SC TIDAC [facility] Insulin Glargine (Lantus) 22 unit SC HS [facility] Last Admin: 01/20/17 00:40 Dose: 22 units Insulin Human Regular (Novolin R) 0 unit SC Q6H [facility] PRN Reason: Protocol Last Admin: 01/20/17 08:11 Dose: 4 unit Ondansetron HCl (Zofran Inj) 4 mg IVP ONCE ONE Stop: 01/20/17 09:42 Oxycodone/Acetaminophen (Percocet 5/325 Mg Tab) 1 tab PO Q6H PRN PRN Reason: Pain, severe (8-10) Stop: 01/23/17 07:48 Povidone Iodine (Betadine 10% Oint) 1 gm TOP Q2 [facility] - Labs Labs: 01/20/17 07:54 01/20/17 07:54 - Constitutional Appears: No Acute Distress - Head Exam Head Exam: ATRAUMATIC, NORMAL INSPECTION - Eye Exam Eye Exam: EOMI, Normal appearance - ENT Exam ENT Exam: Mucous Membranes Moist - Respiratory Exam Respiratory Exam: Clear to Ausculation Bilateral, NORMAL BREATHING PATTERN. absent: Rales, Rhonchi, Wheezes, Stridor - Cardiovascular Exam Cardiovascular Exam: REGULAR RHYTHM, RRR, +S1, +S2 - GI/Abdominal Exam GI & Abdominal Exam: Soft, Normal Bowel Sounds. absent: Tenderness - Extremities Exam Extremities Exam: Joint Swelling (left thumb swelling ), Tenderness (left thumb swelling; pain with thumb flexion and extension, minimal thumb flexion; pain with elbow flexion and extension). absent: Normal Inspection, Pedal Edema - Neurological Exam Neurological Exam: Alert, Awake, Oriented x3 - Psychiatric Exam Psychiatric exam: Normal Affect, Normal Mood - Skin Skin Exam: Abrasion, Erythema. absent: Intact Additional comments: Left thumb is erythema, swollen and tender. Also has an area of contusion where a scab is now starting to form Assessment and Plan - Assessment and Plan (Free Text) Assessment: 1.) Cellulitis of the first and second phalanges Surgery Consult: Dr. Carmen --> help appreciated - Hand x-ray: Marked soft tissue swelling of the 1st digit. - Upper extremity CT (01/20): Cellulitis of the first and second phalanges without drainable collection - WBC: 10.1 --> 8.0 - Medications * Zosyn 3.375 q6h * Vanco 1gm q12h * Percocet 1 tab PO q4h PRN * Toradol 10mg PO q4h PRN - f/u blood culture - per surgical note: 15 min thumb soaks in a cup of 50/50 warm water and betadine Q2H - Keep Left arm elevated 2.) DM type II - Insulin Glargine 22u sc HS - Insulin Aspart 8 u sc TIDAC- Hold - ISS-medium q6h - Accuchecks q6h - diabetic education 3.) Prophylactic Measures - DVT: Heparin 5000 u sc q8h, - SCDs - GI: Pepcid 20 mg po daily Case discussed with Dr. Cristina Fagan PGY-1 <Sonu Evans - Last Filed: 01/20/17 16:45> Objective - Vital Signs/Intake and Output Vital Signs (last 24 hours): Temp Pulse Resp BP Pulse Ox 97.9 F 84 20 127/85 97 01/20/17 08:25 01/20/17 08:25 01/20/17 08:25 01/20/17 08:25 01/20/17 08:25 Intake and Output: 01/20/17 01/20/17 06:59 18:59 Intake Total 500 950 Balance 500 950 - Medications Medications: Current Medications Famotidine (Pepcid) 20 mg PO DAILY [facility] Last Admin: 01/20/17 09:46 Dose: 20 mg Heparin Sodium (Porcine) (Heparin) 5,000 units SC Q8 [facility] Last Admin: 01/20/17 13:15 Dose: 5,000 units Lactated Ringer's (Lactated Ringer's) 1,000 mls @ 75 mls/hr IV .[id number] [facility] Last Admin: 01/20/17 13:28 Dose: Not Given Vancomycin HCl 1,000 mg/ (Sodium Chloride) 250 mls @ 166.6 mls/hr IVPB Q12H [facility] Last Admin: 01/20/17 09:46 Dose: 166.6 mls/hr Piperacillin Sod/Tazobactam Sod (Zosyn 3.375 Gm Iv Premix) 3.375 gm in 50 mls @ 100 mls/hr IVPB Q6H [facility] Last Admin: 01/20/17 11:02 Dose: 100 mls/hr Insulin Aspart (Novolog) 8 unit SC TIDAC [facility] Insulin Glargine (Lantus) 22 unit SC HS [facility] Last Admin: 01/20/17 00:40 Dose: 22 units Insulin Human Regular (Novolin R) 0 unit SC Q6H [facility] PRN Reason: Protocol Last Admin: 01/20/17 14:28 Dose: 3 unit Ketorolac Tromethamine (Toradol) 10 mg PO Q4H PRN PRN Reason: Pain, Mild (1-3) Last Admin: 01/20/17 13:53 Dose: 10 mg Oxycodone/Acetaminophen (Percocet 5/325 Mg Tab) 1 tab PO Q4H PRN PRN Reason: Pain, moderate (4-7) Stop: 01/23/17 07:48 Pneumococcal Polyvalent Vaccine (Pneumovax 23 Vaccine) 0.5 ml IM .ONCE ONE Stop: 01/22/17 10:01 Povidone Iodine (Betadine 10% Oint) 1 gm TOP Q2 [facility] Last Admin: 01/20/17 14:17 Dose: 1 gm - Labs Labs: 01/20/17 07:54 01/20/17 07:54 Attending/Attestation - Attestation I have personally seen and examined this patient.: Yes I have fully participated in the care of the patient.: Yes I have reviewed all pertinent clinical information, including history, physical exam and plan: Yes Notes (Text): 01/20/17 16:45 Medical attending: Patient was seen and examined by me, I reviewed the above note by medical reimbursement specialist. This is a very nice woman who about 2 weeks ago was bitten by her dog. The area of the bite was near her left thumb. It's to us that her dog was up to speed on all vaccinations. She is currently placed on IV antibiotics which she was evaluated by hand surgery team and at this time does not require surgery. She has swelling on the thumb as well as down to about the thenar eminence. After this area, she does have pain at the wrist however there is no swelling at the wrist or the palm area. There is also a history of diabetes for which she uses insulin. The patient has a lot of difficulty with vision and she is very dependent on her family to help her out. She tells me that she uses flex pens and listens to the numbers of clicks with the flex pen in order to know how many units of insulin to use. Thank you very much, Sonu Evans
[2017-01-20] MEDS ORDERED: Pneumococcal 23-Valent Vaccine IM ONE (10:00)
[2017-01-20] MEDS: Povidone Iodine Oint 10% (1 oz) TOP SCH ×7 (10:59→22:00)
[2017-01-20] MEDS: Oxycodone/Acetaminophen 5/325 mg Tab PO PRN ×2 (13:33→19:04)
--- NOTE | 2017-01-20 20:01 | CP.PCM.PCO ---
Physician Communication Note - Physician Communication Note Physician Communication Note: Patient with left thumb infection from dog bite Assessment & Plan - Assessment and Plan (Free Text) Assessment: Patient notes that since the morning, the redness has continued to decrease. PE: Left thumb flexion and extension is stiff but intact. There is no pain along the flexor tendon sheath. There is no fusiform swelling present. There is some tenderness along the volar distal tip. There is a 2 mm opening with minimal serous drainage present. CT scan shows no abscess, cellulitis and general swelling. Assessment: 41 year old female with left thumb cellulitis. There is no tenosynovitis present. Plan: Patient started on proper warm soaks using 10 cc of bedadine and 50 cc of warm water in a cup. Patient should soak thumb for 10 min every 2-3 hrs. I anticipate she should be ready for discharge home tomorrow to continue with soaks at home. Follow up with [facility] and if needed can be referred to me for further follow up. D/C with Augmentin for 1 more week. OT to show patient exercises for home to improve range of motion.
[2017-01-21] MEDS: Povidone Iodine Oint 10% (1 oz) TOP SCH ×8 (00:05→13:44)
[2017-01-21] MEDS: Oxycodone/Acetaminophen 5/325 mg Tab PO PRN ×2 (01:14→09:23)
[2017-01-21] MEDS: (Novolin R) Insulin Human Regular 100 units/ml vial SC SCH ×3 (02:00→13:41)
[2017-01-21] MEDS: Lactated Ringer's 1,000 ML IV SCH ×2 (03:10→09:24)
[2017-01-21] MEDS: Piperacill/Tazo 3.375gm in Dex 3.375 GM/50 ML BAG IVPB SCH ×2 (05:06→10:15)
[2017-01-21 07:45] LABS: BASO % 0.5 % (0.0-2.0); EOS # 0.1 K/uL (0.0-0.7); EOS % 0.8 % (0.0-4.0); HEMATOCRIT 30.9 % (34.0-47.0); LYMPH # 1.4 K/uL (1.0-4.3); LYMPH % 16.7 % (20.0-40.0); MEAN CELL VOLUME 82.2 fL (81.0-99.0); MEAN CORPUSCULAR HEMOGLOBIN 26.3 pg (27.0-31.0); MEAN PLATELET VOLUME 8.2 fL (7.2-11.7); MONO # 0.6 K/uL (0.0-0.8); MONO % 7.1 % (0.0-10.0); RED CELL DISTRIBUTION WIDTH 15.2 % (11.5-14.5); WHITE BLOOD COUNT 8.4 K/uL (4.8-10.8)
[2017-01-21 08:13] LABS: ALB/GLOB RATIO 1.1 (1.0-2.1); ALKALINE PHOSPHATASE 71 U/L (38-126); ALT/SGPT 26 U/L (9-52); AST/SGOT 24 U/L (14-36); BILIRUBIN,TOTAL 0.4 mg/dL (0.2-1.3); BLOOD UREA NITROGEN 11 mg/dL (7-17); CALCIUM 7.7 mg/dl (8.6-10.4); CARBON DIOXIDE 27 mmol/L (22-30); CHLORIDE 105 mmol/L (98-107); GFR AFRICAN-AMERICAN > 60; GLUCOSE,RANDOM 297 mg/dL (65-105); MAGNESIUM 1.9 mg/dL (1.6-2.3); PHOSPHOROUS 2.8 mg/dL (2.5-4.5); POTASSIUM 4.3 mmol/L (3.6-5.2); SODIUM 136 mmol/L (132-148); TOTAL PROTEIN 5.6 g/dL (6.3-8.3)
--- NOTE | 2017-01-21 12:45 | CP.PCM.DIS ---
Provider - Provider Date of Admission: 01/19/17 22:50 Attending physician: Sandeep Crespo MD Consults: Dr Hart ~ Hand surgery Time Spent in preparation of Discharge (in minutes): 29 Diagnosis - Discharge Diagnosis (1) Dog bite of left thumb with infection Status: Acute Priority: High Hospital Course - Lab Results Lab Results: Micro Results 01/19/17 20:35 Blood Blood Culture - Preliminary NO GROWTH AFTER 24 HOURS 01/19/17 20:05 Blood Blood Culture - Preliminary NO GROWTH AFTER 24 HOURS Most Recent Lab Values WBC 8.4 K/uL (4.8-10.8) 01/21/17 07:05 RBC 3.76 Mil/uL (3.80-5.20) L 01/21/17 07:05 Hgb 9.9 g/dL (11.0-16.0) L 01/21/17 07:05 Hct 30.9 % (34.0-47.0) L 01/21/17 07:05 MCV 82.2 fL (81.0-99.0) 01/21/17 07:05 MCH 26.3 pg (27.0-31.0) L 01/21/17 07:05 MCHC 32.0 g/dL (33.0-37.0) L 01/21/17 07:05 RDW 15.2 % (11.5-14.5) H 01/21/17 07:05 Plt Count 444 K/uL (130-400) H 01/21/17 07:05 MPV 8.2 fL (7.2-11.7) 01/21/17 07:05 Neut % (Auto) 74.9 % (50.0-75.0) 01/21/17 07:05 Lymph % (Auto) 16.7 % (20.0-40.0) L 01/21/17 07:05 [place] % (Auto) 7.1 % (0.0-10.0) 01/21/17 07:05 Eos % (Auto) 0.8 % (0.0-4.0) 01/21/17 07:05 Baso % (Auto) 0.5 % (0.0-2.0) 01/21/17 07:05 Neut # 6.3 K/uL (1.8-7.0) 01/21/17 07:05 Lymph # 1.4 K/uL (1.0-4.3) 01/21/17 07:05 [place] # 0.6 K/uL (0.0-0.8) 01/21/17 07:05 Eos # 0.1 K/uL (0.0-0.7) 01/21/17 07:05 Baso # 0.0 K/uL (0.0-0.2) 01/21/17 07:05 Sodium 136 mmol/L (132-148) 01/21/17 07:05 Potassium 4.3 mmol/L (3.6-5.2) 01/21/17 07:05 Chloride 105 mmol/L (98-107) 01/21/17 07:05 Carbon Dioxide 27 mmol/L (22-30) 01/21/17 07:05 Anion Gap 9 (10-20) L 01/21/17 07:05 BUN 11 mg/dL (7-17) 01/21/17 07:05 Creatinine 1.0 mg/dL (0.7-1.2) 01/21/17 07:05 Est GFR ( Amer) > 60 01/21/17 07:05 Est GFR (Non-Af Amer) > 60 01/21/17 07:05 POC Glucose (mg/dL) 274 mg/dL (65-110) H 01/21/17 11:59 Random Glucose 297 mg/dL (65-105) H 01/21/17 07:05 Calcium 7.7 mg/dl (8.6-10.4) L 01/21/17 07:05 Phosphorus 2.8 mg/dL (2.5-4.5) 01/21/17 07:05 Magnesium 1.9 mg/dL (1.6-2.3) 01/21/17 07:05 Total Bilirubin 0.4 mg/dL (0.2-1.3) 01/21/17 07:05 AST 24 U/L (14-36) 01/21/17 07:05 ALT 26 U/L (9-52) 01/21/17 07:05 Alkaline Phosphatase 71 U/L (38-126) 01/21/17 07:05 Total Protein 5.6 g/dL (6.3-8.3) L 01/21/17 07:05 Albumin 2.9 g/dL (3.5-5.0) L 01/21/17 07:05 Globulin 2.7 gm/dL (2.2-3.9) 01/21/17 07:05 Albumin/Globulin Ratio 1.1 (1.0-2.1) 01/21/17 07:05 Urine Color Yellow (YELLOW) 01/19/17 20:19 Urine Clarity Hazy (Clear) 01/19/17 20:19 Urine pH 5.0 (5.0-8.0) 01/19/17 20:19 Ur Specific [place] 1.028 (1.003-1.030) 01/19/17 20:19 Urine Protein 3+ mg/dL (NEGATIVE) H 01/19/17 20:19 Urine Glucose (UA) 3+ mg/dL (Normal) H 01/19/17 20:19 Urine Ketones Negative mg/dL (NEGATIVE) 01/19/17 20:19 Urine Blood 3+ (NEGATIVE) H 01/19/17 20:19 Urine Nitrate Negative (NEGATIVE) 01/19/17 20:19 Urine Bilirubin Negative (NEGATIVE) 01/19/17 20:19 Urine Urobilinogen Normal mg/dL (0.2-1.0) 01/19/17 20:19 Ur Leukocyte Esterase 3+ Tia/uL (Negative) H 01/19/17 20:19 Urine WBC (Auto) 158 /hpf (0-5) H 01/19/17 20:19 Urine RBC (Auto) 97 /hpf (0-3) H 01/19/17 20:19 Ur Squamous Epith Cells 1 /hpf (0-5) 01/19/17 20:19 Urine Bacteria Many (<OCC) H 01/19/17 20:19 Urine HCG, Qual Negative (NEGATIVE) 01/19/17 20:49 Serum Ketones Neg (NEGATIVE) 01/19/17 20:09 - Hospital Course Hospital Course: This is a 41 year old female who came in the ED for a dog bite on her left thumb. This happened almost one week ago on 01/06/17. Pt came to ER on 01/15/17 and sent home with abx however from what I understand only took a few days and stopped on her own. She now returns Apparently her dog was struck by a car and after she went to hug the dog, the dog turned around and bit her. According to the patient, the dog was up to date on all vaccinations. She has a history of DM and takes insulin. When she came, her L hand was tender, and there was some edema and erythema over palmar aspect of distal thumb as well as thenar emmicnece She had a CT scan of the hand and this did not show any abbcess or drainable fluid collection. The patient was also evaluated by surgery as well and does not need surgery She needs to take abx by mouth as well as elevate the hand on pillow and also soak the finger/thumb in warm water every 4 hrs for 20 mins. Discharge Exam - Head Exam Head Exam: ATRAUMATIC, NORMAL INSPECTION - Eye Exam Eye Exam: EOMI, Normal appearance - ENT Exam ENT Exam: Mucous Membranes Moist - Respiratory Exam Respiratory Exam: Clear to PA & Lateral, NORMAL BREATHING PATTERN, UNREMARKABLE - Cardiovascular Exam Cardiovascular Exam: REGULAR RHYTHM - GI/Abdominal Exam GI & Abdominal Exam: Normal Bowel Sounds, Soft - Extremities Exam Additional comments: L hand tenderness at the thumb, there is minimal edema and erythema over the thumb and the thenar emincence. She has pain when trying to move her thumb Other digits are ok - Neurological Exam Neurological exam: Alert, CN II-XII Intact, Oriented x3 - Psychiatric Exam Psychiatric exam: Normal Affect, Normal Mood Discharge Plan - Discharge Medications Prescriptions: Amoxicillin/Clavulanate [Augmentin 875 MG-125 MG Tab] 1 tab PO BID #14 tab Naproxen 500 mg PO BID #14 tab - Follow Up Plan Condition: SERIOUS Disposition: HOME/ ROUTINE
[2017-01-21] MEDS ORDERED: Influenza Vaccine 60 mcg/0.5 mL SYR (4YR UP) IM ONE (14:00)
--- NOTE | 2017-01-21 14:54 | CP.PCM.PN ---
Subjective - Date & Time of Evaluation Date of Evaluation: 01/21/17 Time of Evaluation: 07:15 - Subjective Subjective: Plastic surgery progress note for Dr. Lilibeth Reyes, PGY-1 Pt S & E at bedside this AM. Pt continues to c/o left thumb/hand pain, is doing Betadine soaks. Minimally able to flex thumb. Afebrile overnight. Denies N & V, F & C. Tolerating diet. Objective - Vital Signs/Intake and Output Vital Signs (last 24 hours): Temp Pulse Resp BP Pulse Ox 98 F 88 19 136/80 99 01/21/17 00:25 01/21/17 00:25 01/21/17 00:25 01/21/17 00:25 01/21/17 13:55 Intake and Output: 01/21/17 01/21/17 06:59 18:59 Intake Total 600 Balance 600 - Medications Medications: Current Medications Famotidine (Pepcid) 20 mg PO DAILY [facility] Last Admin: 01/21/17 10:32 Dose: 20 mg Heparin Sodium (Porcine) (Heparin) 5,000 units SC Q8 [facility] Last Admin: 01/21/17 13:43 Dose: Not Given Lactated Ringer's (Lactated Ringer's) 1,000 mls @ 75 mls/hr IV .[id number] [facility] Last Admin: 01/21/17 09:24 Dose: 75 mls/hr Vancomycin HCl 1,000 mg/ (Sodium Chloride) 250 mls @ 166.6 mls/hr IVPB Q12H [facility] Last Admin: 01/21/17 10:33 Dose: 166.6 mls/hr Piperacillin Sod/Tazobactam Sod (Zosyn 3.375 Gm Iv Premix) 3.375 gm in 50 mls @ 100 mls/hr IVPB Q6H [facility] Last Admin: 01/21/17 10:15 Dose: 100 mls/hr Insulin Aspart (Novolog) 8 unit SC TIDAC [facility] Insulin Glargine (Lantus) 22 unit SC HS [facility] Last Admin: 01/20/17 21:49 Dose: 22 units Insulin Human Regular (Novolin R) 0 unit SC Q6H [facility] PRN Reason: Protocol Last Admin: 01/21/17 13:41 Dose: 4 unit Ketorolac Tromethamine (Toradol) 10 mg PO Q4H PRN PRN Reason: Pain, Mild (1-3) Last Admin: 01/20/17 13:53 Dose: 10 mg Oxycodone/Acetaminophen (Percocet 5/325 Mg Tab) 1 tab PO Q4H PRN PRN Reason: Pain, moderate (4-7) Stop: 01/23/17 07:48 Last Admin: 01/21/17 09:23 Dose: 1 tab Povidone Iodine (Betadine 10% Oint) 1 gm TOP Q2 ANA Last Admin: 01/21/17 13:44 Dose: 1 gm - Labs Labs: 01/21/17 07:05 01/21/17 07:05 - Constitutional Appears: Non-toxic, No Acute Distress - Head Exam Head Exam: ATRAUMATIC, NORMAL INSPECTION, NORMOCEPHALIC - Eye Exam Eye Exam: EOMI, Normal appearance - ENT Exam ENT Exam: Mucous Membranes Moist, Normal Exam - Neck Exam Neck Exam: Full ROM, Normal Inspection - Respiratory Exam Respiratory Exam: Clear to Ausculation Bilateral, NORMAL BREATHING PATTERN - Cardiovascular Exam Cardiovascular Exam: REGULAR RHYTHM, +S1, +S2 - GI/Abdominal Exam GI & Abdominal Exam: Soft, Normal Bowel Sounds. absent: Tenderness - Extremities Exam Extremities Exam: Tenderness (Left thumb and hypothenar emience). absent: Full ROM (decreased ROM of L thumb), Normal Inspection (L thumb with edema, erythema , superficial skin abrasions and closed puncture wound at distal aspect, very tender to palpation) - Neurological Exam Neurological Exam: Alert, Awake, CN II-XII Intact, Oriented x3 - Psychiatric Exam Psychiatric exam: Normal Affect, Normal Mood - Skin Skin Exam: Dry, Intact, Warm. absent: Normal Color (erythema of L thumb) Assessment and Plan - Assessment and Plan (Free Text) Assessment: 41F L thumb cellulitis Plan: Cont Abx Cont pain mgmt Cont Betadine soaks May incise digit if not draining enough/swelling doesn't resolve Will plan on sending home on Augmentin x 1 wk when d/c'd with instructions to keep soaking digit as per previous recs by Dr. Hailey manning/[facility] within 1 wk. Pt to perform hand exercises as per OT to improve ROM, to do these at home DW attending Amy, PGY-1
[2017-01-21] MEDS ORDERED: Lidocaine/Prilocaine 2.5%-2.5% Cream (5 gm) TOP ONE (15:00)
[2017-01-21] MEDS ORDERED: Lidocaine 1% PF (5ml) Amp INJ ONE (16:06)
--- NOTE | 2017-01-21 17:27 | CP.PCM.PN ---
Subjective - Date & Time of Evaluation Date of Evaluation: 01/21/17 Time of Evaluation: 16:40 - Subjective Subjective: Procedure note. Dr. Hart Left thumb incision and drainage at bedside. Topical emla cream was placed at the left thumb. Patient prepped with betadine and draped in the usual sterile fashion. 4cc of lidocaine 1% was used for digital block, volar aspect approach. 1cc of lidocaine 1% was used as local anesthesia. Approximately 0.5cm incision was extended from the previous needle aspiration site. Small amount of purulent material was expressed. Wound culture taken and sent to lab. Clean dry dressing placed on wound. Patient tolerated procedure well. No immediate complications noted. Plan: - cleared for discharge. - Continue PO Abx upon discharge, Augmentin - Continue warm betadine soaks as recommended by Dr. Hart - Oral Pain meds prescribed by primary team Further recs as per Dr. Hailey English PGY1 surgery pager: [phone] Objective - Vital Signs/Intake and Output Vital Signs (last 24 hours): Temp Pulse Resp BP Pulse Ox 98 F 88 19 136/80 99 01/21/17 00:25 01/21/17 00:25 01/21/17 00:25 01/21/17 00:25 01/21/17 13:55 Intake and Output: 01/21/17 01/21/17 06:59 18:59 Intake Total 600 1175 Balance 600 1175 - Medications Medications: Current Medications Famotidine (Pepcid) 20 mg PO DAILY [facility] Last Admin: 01/21/17 10:32 Dose: 20 mg Heparin Sodium (Porcine) (Heparin) 5,000 units SC Q8 [facility] Last Admin: 01/21/17 13:43 Dose: Not Given Lactated Ringer's (Lactated Ringer's) 1,000 mls @ 75 mls/hr IV .[id number] [facility] Last Admin: 01/21/17 09:24 Dose: 75 mls/hr Vancomycin HCl 1,000 mg/ (Sodium Chloride) 250 mls @ 166.6 mls/hr IVPB Q12H [facility] Last Admin: 01/21/17 10:33 Dose: 166.6 mls/hr Piperacillin Sod/Tazobactam Sod (Zosyn 3.375 Gm Iv Premix) 3.375 gm in 50 mls @ 100 mls/hr IVPB Q6H [facility] Last Admin: 01/21/17 10:15 Dose: 100 mls/hr Insulin Aspart (Novolog) 8 unit SC TIDAC [facility] Insulin Glargine (Lantus) 22 unit SC HS [facility] Last Admin: 01/20/17 21:49 Dose: 22 units Insulin Human Regular (Novolin R) 0 unit SC Q6H ANA PRN Reason: Protocol Last Admin: 01/21/17 13:41 Dose: 4 unit Ketorolac Tromethamine (Toradol) 10 mg PO Q4H PRN PRN Reason: Pain, Mild (1-3) Last Admin: 01/20/17 13:53 Dose: 10 mg Oxycodone/Acetaminophen (Percocet 5/325 Mg Tab) 1 tab PO Q4H PRN PRN Reason: Pain, moderate (4-7) Stop: 01/23/17 07:48 Last Admin: 01/21/17 09:23 Dose: 1 tab Povidone Iodine (Betadine 10% Oint) 1 gm TOP Q2 [facility] Last Admin: 01/21/17 13:44 Dose: 1 gm - Labs Labs: 01/21/17 07:05 01/21/17 07:05
[2017-01-21 18:02] VITALS: BP 127/83; PULSE 95; RESP 20; TEMP 98.1; O2SAT 98
[2017-01-22] MEDS ORDERED: Pneumococcal 23-Valent Vaccine IM ONE ×2 (10:00)
== END 2017-01-21 20:15 | disposition home or self-care (01) ==
LOC: C.ER 18:19 → C.3T 22:50
PROVIDERS: ADMIT Internal Medicine; ATTEND Internal Medicine
DX: L03.012 Cellulitis of left finger (principal); E10.65 Type 1 diabetes mellitus with hyperglycemia; E10.319 Type 1 diabetes mellitus with unspecified diabetic retinopathy without macular edema; L03.114 Cellulitis of left upper limb; Z79.4 Long term (current) use of insulin; I10 Essential (primary) hypertension; Z87.891 Personal history of nicotine dependence; S61.452A Open bite of left hand, initial encounter; W54.0XXA Bitten by dog, initial encounter; H54.7 Unspecified visual loss; E10.42 Type 1 diabetes mellitus with diabetic polyneuropathy; B95.61 Methicillin susceptible Staphylococcus aureus infection as the cause of diseases classified elsewhere
CPT/HCPCS: 10140; 36415; 73140; 73201; 80053; 81001; 82009; 82948; 83735; 84100; 84703; 85025; 87040; 87070; 90471; 90674; 96372; 99285; G0378; J1644; J1885; J2405; J2543; J3370; J7040; J7050; J7120; Q9967

== ENCOUNTER 2017-02-28 10:14 | Emergency (ER) | payer OTHER ==
[2017-02-28 10:15] VITALS: BMI 28.3
[2017-02-28] MEDS ORDERED: Iohexol 240 (50 ml) PO STA (10:45)
[2017-02-28] MEDS ORDERED: Sodium Chloride 0.9% 1,000 ML IV ONE (10:45)
[2017-02-28] MEDS ORDERED: Iohexol 240 (50 ml) ONE (10:53)
--- NOTE | 2017-02-28 11:00 | C.PDOC ---
History Of Present Illness 42 year old female presents to the ED after being referred from clinic for evaluation of possible appendicitis. Patient has been experiencing abdominal pain, vomiting, diarrhea and subjective fever for the past 3 days. She reports persistent right lower quadrant abdominal pain and multiple episodes of watery diarrhea. Patient denies prior surgical history, back pain, dysuria. Time Seen by Provider: 02/28/17 10:44 Chief Complaint (Nursing): Abdominal Pain History Per: Patient History/Exam Limitations: no limitations Onset/Duration Of Symptoms: Days (3), Persistent Current Symptoms Are (Timing): Still Present Location Of Pain/Discomfort: RLQ Quality Of Discomfort: "Pain" Associated Symptoms: Fever (subjective ), Vomiting, Diarrhea. 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 (08/17/16) MEASUREMENT OF CARDIAC RHYTHM, EXTERNAL APPROACH (08/17/16) Family History: States: Unknown Family Hx - Social History Hx Alcohol Use: No Hx Substance Use: No - Immunization History Hx Tetanus Toxoid Vaccination: Yes Hx Influenza Vaccination: No Hx Pneumococcal Vaccination: No Review Of Systems Constitutional: Positive for: Fever Gastrointestinal: Positive for: Vomiting, Abdominal Pain (right lower quadrant ) , Diarrhea Genitourinary: Negative for: Dysuria Musculoskeletal: Negative for: Back Pain Physical Exam - Physical Exam Appears: Non-toxic, No Acute Distress Skin: Normal Color, Warm, Dry Head: Atraumatic, Normacephalic Eye(s): bilateral: Normal Inspection Oral Mucosa: Moist Neck: Supple Chest: Symmetrical, No Deformity, No Tenderness Cardiovascular: Rhythm Regular, No Murmur Respiratory: Normal Breath Sounds, No Rales, No Rhonchi, No Wheezing Gastrointestinal/Abdominal: Normal Exam, Soft, Tenderness (moderate, to right lower quadrant ), No Guarding, No Rebound Extremity: Normal ROM, Capillary Refill (less than 2 seconds ) Neurological/Psych: Oriented x3, Normal Speech, Normal Cognition Gait: Steady ED Course And Treatment - Laboratory Results Result Diagrams: 02/28/17 10:58 02/28/17 10:58 O2 Sat by Pulse Oximetry: 100 (on RA) Pulse Ox Interpretation: Normal Progress Note: Bloodwork, urinalysis, Influenza A/B, CT A/P ordered. Morphine IVP, Zofran IVP, Rocephin IV, and IV Fluids administered. Reevaluation Time: 15:12 Reassessment Condition: Improved (APPEARS COMFORTABLE NAD VSS. DC ABX) Medical Decision Making Medical Decision Makin:22: Patient c/o persistent nausea, is drinking contrast. Will order dose of additional meds Disposition Counseled Patient/Family Regarding: Studies Performed, Diagnosis, Need For Followup, Rx Given - Disposition Referrals: [facility] [Outside] [facility] [Outside] Disposition: HOME/ ROUTINE Disposition Time: 15:13 Condition: IMPROVED Prescriptions: Atropine/Diphenoxylate [Lonox 0.025 MG-2.5 MG] 1 tab PO BID PRN #10 tab PRN Reason: Diarrhea Nitrofurantoin Macrocrystals [Macrobid] 1 cap PO BID #14 cap Ondansetron [Zofran Odt] 4 mg PO TID PRN #9 odt PRN Reason: Nausea/Vomiting Phenazopyridine HCl [Pyridium] 200 mg PO BID #6 tablet Instructions: Urinary Tract Infection in Women (ED), Gastroenteritis (ED) Forms: [facility] (Welsh), Work Excuse - Clinical Impression Clinical Impression: Diarrhea, Vomiting, UTI (urinary tract infection) - Scribe Statement The provider has reviewed the documentation as recorded by the Scribe (Kacie Childers) Provider Attestation: All medical record entries made by the Scribe were at my direction and personally dictated by me. I have reviewed the chart and agree that the record accurately reflects my personal performance of the history, physical exam, medical decision making, and the department course for this patient. I have also personally directed, reviewed, and agree with the discharge instructions and disposition.
[2017-02-28 11:14] LABS: BASO # 0.1 K/uL (0.0-0.2); BASO % 0.6 % (0.0-2.0); EOS # 0.1 K/uL (0.0-0.7); EOS % 0.5 % (0.0-4.0); HEMOGLOBIN 10.8 g/dL (11.0-16.0); LYMPH # 2.2 K/uL (1.0-4.3); LYMPH % 18.9 % (20.0-40.0); MEAN CELL VOLUME 81.3 fL (81.0-99.0); MEAN CORPUSCULAR HEMOGLOBIN 25.9 pg (27.0-31.0); MEAN CORPUSCULAR HGB CONC 31.9 g/dL (33.0-37.0); MEAN PLATELET VOLUME 8.4 fL (7.2-11.7); MONO # 0.9 K/uL (0.0-0.8); MONO % 7.7 % (0.0-10.0); NEUT # 8.6 K/uL (1.8-7.0); NEUT % 72.3 % (50.0-75.0); RBC 4.17 Mil/uL (3.80-5.20); RED CELL DISTRIBUTION WIDTH 15.3 % (11.5-14.5); WHITE BLOOD COUNT 11.9 K/uL (4.8-10.8)
[2017-02-28 11:27] LABS: SQUAMOUS EPITHIAL 5 /hpf (0-5); URINE BACTERIA OCC (<OCC); URINE BILIRUBIN NEGATIVE (NEGATIVE); URINE BLOOD NEGATIVE (NEGATIVE); URINE CLARITY Hazy (Clear); URINE COLOR Yellow (YELLOW); URINE GLUCOSE (UA) 3+ mg/dL (Normal); URINE NITRATE POSITIVE (NEGATIVE); URINE PROTEIN 3+ mg/dL (NEGATIVE); URINE UROBILINOGEN NORMAL mg/dL (0.2-1.0)
[2017-02-28 11:29] LABS: URINE LEUKOCYTE ESTERASE 2+ Leu/uL (Negative)
[2017-02-28] MEDS ORDERED: cefTRIAXone IV 1 gm in Dextros 50 ML IV STA (11:30)
[2017-02-28 11:32] LABS: ALB/GLOB RATIO 1.1 (1.0-2.1); ALBUMIN 3.7 g/dL (3.5-5.0); ALT/SGPT 19 U/L (9-52); AST/SGOT 18 U/L (14-36); BLOOD UREA NITROGEN 19 mg/dL (7-17); CALCIUM 8.2 mg/dl (8.6-10.4); GFR AFRICAN-AMERICAN > 60; GFR NON-AFRICAN AMERICAN > 60; LIPASE 126 U/L (23-300)
[2017-02-28] MEDS ORDERED: Iodixanol 320 MG/ML 100 ML BOTTLE IV ONE (14:11)
--- NOTE | 2017-02-28 14:59 | CT ---
PROCEDURE: CT Abdomen and Pelvis with oral and IV contrast. HISTORY: abd pain ro appy COMPARISON: Abdominal ultrasound performed 08/31/16 TECHNIQUE: Contiguous axial images of the abdomen and pelvis. Oral and IV contrast was administered. Coronal and Sagittal reformats generated and reviewed. Contrast dose: 100 mL Visipaque 320 Radiation dose: Total exam DLP = 920.89 mGy-cm. This CT exam was performed using one or more of the following dose reduction techniques: Automated exposure control, adjustment of the mA and/or kV according to patient size, and/or use of iterative reconstruction technique. FINDINGS: LOWER THORAX: No visible consolidation, pleural effusion, or pneumothorax. LIVER: Unremarkable. GALLBLADDER AND BILE DUCTS: Contracted gallbladder appears otherwise unremarkable. PANCREAS: Unremarkable. SPLEEN: 13 mm probable splenule. Otherwise unremarkable. ADRENALS: Unremarkable. KIDNEYS AND URETERS: The kidneys enhance symmetrically. No hydronephrosis or obstructing renal calculus. Too small to characterize left renal hypodensity; statistically likely a cyst. BLADDER: Thick-walled urinary bladder may be exaggerated by under distension. REPRODUCTIVE: Uterus is present. Probable 16 mm fundal fibroid. Suspect left ovarian cysts. Probable nabothian cysts. APPENDIX: The appendix appears within normal limits of caliber. No secondary signs of acute appendicitis. BOWEL: The stomach is nondistended. The bowel loops appear within normal limits of caliber without evidence of intestinal obstruction. Colonic wall thickening ; correlate clinically for possibility of colitis. PERITONEUM: No significant free fluid. No definite free air. LYMPH NODES: No bulky lymphadenopathy identified. VASCULATURE: No aortic aneurysm. BONES: No acute osseous abnormality is detected. OTHER FINDINGS: Tiny fat containing umbilical hernia. IMPRESSION: Too small to characterize left renal hypodensity; statistically likely a cyst. Colonic wall thickening ; correlate clinically for possibility of colitis. Probable 16 mm fundal fibroid. Suspect left ovarian cysts. Recommend pelvic ultrasound for further evaluation. Thick-walled urinary bladder may be exaggerated by under distension; correlate clinically with urinalysis. Additional findings as above.
[2017-02-28 15:30] VITALS: BP 127/83; PULSE 98; RESP 20; TEMP 98; O2SAT 99
== END 2017-02-28 15:30 | disposition home or self-care (01) ==
LOC: C.ER 10:14
DX: N39.0 Urinary tract infection, site not specified (principal); R19.7 Diarrhea, unspecified; R11.10 Vomiting, unspecified
CPT/HCPCS: 74177; 80053; 81001; 83690; 85025; 87804; 96361; 96365; 96375; 96376; 99284; J0696; J2270; J2405; J7040; Q9966; Q9967

== ENCOUNTER 2017-03-30 14:54 | Emergency (ER) | payer OTHER ==
[2017-03-30 14:55] VITALS: BMI 28.3
[2017-03-30] MEDS ORDERED: Sodium Chloride 0.9% 1,000 ML IV ONE ×2 (16:24→17:27)
[2017-03-30 16:36] LABS: BASO # 0.1 K/uL (0.0-0.2); BASO % 1.2 % (0.0-2.0); EOS % 0.5 % (0.0-4.0); HEMOGLOBIN 10.3 g/dL (11.0-16.0); LYMPH # 1.5 K/uL (1.0-4.3); LYMPH % 17.2 % (20.0-40.0); MEAN CELL VOLUME 81.7 fL (81.0-99.0); MEAN CORPUSCULAR HEMOGLOBIN 25.8 pg (27.0-31.0); MEAN CORPUSCULAR HGB CONC 31.5 g/dL (33.0-37.0); MONO # 0.5 K/uL (0.0-0.8); MONO % 6.3 % (0.0-10.0); NEUT # 6.3 K/uL (1.8-7.0); NEUT % 74.8 % (50.0-75.0); NRBC % 0.1 % (0.0-2.0); RBC 3.98 Mil/uL (3.80-5.20); RED CELL DISTRIBUTION WIDTH 16.2 % (11.5-14.5); WHITE BLOOD COUNT 8.5 K/uL (4.8-10.8)
[2017-03-30 17:07] LABS: ALBUMIN 3.3 g/dL (3.5-5.0); ALT/SGPT 22 U/L (9-52); AST/SGOT 21 U/L (14-36); BLOOD UREA NITROGEN 22 mg/dL (7-17); CALCIUM 8.6 mg/dl (8.6-10.4); GFR AFRICAN-AMERICAN > 60; GFR NON-AFRICAN AMERICAN > 60; LIPASE 209 U/L (23-300)
[2017-03-30] MEDS ORDERED: (Novolin R) Insulin Human Regular 100 units/ml vial IV ONE (17:09)
--- NOTE | 2017-03-30 17:10 | C.PDOC ---
History Of Present Illness <Daly Domingo - Last Filed: 03/30/17 18:45> <Rafat Maravilla - Last Filed: 03/31/17 01:13> 42 y/o female with PMHx of DM presents to ED for evaluation of bump to right groin area developed 1 week ago. Pt notes she went to see her PMD who instructed her to come to ED for further evaluation. Patient also complaints of elevated blood sugar and reports she is compliant with insulin. Notes she took 14 units this morning and did not get a chance to eat. Patient denies change in diet, weakness or any other complaints at this time. (Daly Domingo ) History Per: Patient History/Exam Limitations: no limitations Onset/Duration Of Symptoms: Days Current Symptoms Are (Timing): Still Present <FilibertoloreDaly - Last Filed: 03/30/17 18:45> <Rafat Maravilla - Last Filed: 03/31/17 01:13> Time Seen by Provider: 03/30/17 16:22 Chief Complaint (Nursing): Abnormal Skin Integrity Past Medical History Reviewed: Historical Data, Nursing Documentation, Vital Signs - Medical History PMH: Diabetes, HTN Surgical History: No Surg Hx Family History: States: No Known Family Hx - Social History Hx Alcohol Use: No Hx Substance Use: No - Immunization History Hx Tetanus Toxoid Vaccination: Yes Hx Influenza Vaccination: No Hx Pneumococcal Vaccination: No <FilibertoloreDaly - Last Filed: 03/30/17 18:45> Vital Signs: Last Vital Signs Temp 97.4 F L 03/30/17 15:02 Pulse 111 H 03/30/17 19:12 Resp 16 03/30/17 19:12 BP 122/72 03/30/17 19:12 Pulse Ox 99 03/30/17 19:12 - [facility] Procedures MEASURE OF ARTERIAL PRESSURE, PERIPHERAL, 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 Non erythematous. Non flunctuant ) Head: Atraumatic, Normacephalic Eye(s): bilateral: Normal Inspection, EOMI Nose: Normal Oral Mucosa: Moist Neck: Normal ROM, Supple Chest: Symmetrical Cardiovascular: Rhythm Regular Respiratory: Normal Breath Sounds, No Accessory Muscle Use, No Rales, No Rhonchi , No Wheezing Gastrointestinal/Abdominal: Soft, No Tenderness, No Guarding, No Rebound Back: No CVA Tenderness Neurological/Psych: Oriented x3 <Daly Domingo - Last Filed: 03/30/17 18:45> ED Course And Treatment - Laboratory Results Result Diagrams: 03/30/17 16:33 03/30/17 16:33 O2 Sat by Pulse Oximetry: 98 (RA) Pulse Ox Interpretation: Normal Progress Note: Insulin, IV fluids. Case discussed and pt evaluated by Dr Rivera, agreed upon plan and treatment. Pending Research Recruiter evmary kay. CAse endorsed to Dr Maravilla, pending evaluation. <Daly Domingo - Last Filed: 03/30/17 18:45> - Laboratory Results Result Diagrams: 03/30/17 16:33 03/30/17 16:33 <Rafat Maravilla - Last Filed: 03/31/17 01:13> Disposition - Disposition Disposition Time: 18:47 <Daly Domingo - Last Filed: 03/30/17 18:45> - Disposition Disposition Time: 01:09 - POA Present On Arrival: None <Rafat Maravilla - Last Filed: 03/31/17 01:13> - Disposition Disposition: HOME/ ROUTINE Condition: STABLE Prescriptions: Amoxicillin/Clavulanate [Augmentin 875 MG-125 MG] 1 tab PO BID #14 tab Naproxen 375 mg PO TIDPC #20 tablet Instructions: Abscess (ED), Abscess Follow-up (ED), Diabetes Mellitus Type 1 in Adults (ED) Forms: [facility] (Arabic) - Clinical Impression Clinical Impression: Abscess of right groin, Hyperglycemia, Diabetes mellitus - PA / HORTICULTURAL FARMER / Resident Statement MD/DO has reviewed & agrees with the documentation as recorded. - Scribe Statement The provider has reviewed the documentation as recorded by the Scribe <Daly Domingo - Last Filed: 03/30/17 18:45> <Rafat Maravilla - Last Filed: 03/31/17 01:13> - Scribe Statement Edith Villatoro All medical record entries made by the Scribe were at my direction and personally dictated by me. I have reviewed the chart and agree that the record accurately reflects my personal performance of the history, physical exam, medical decision making, and the department course for this patient. I have also personally directed, reviewed, and agree with the discharge instructions and disposition. (Daly Domingo)
[2017-03-30] MEDS ORDERED: (Novolin R) Insulin Human Regular 100 units/ml vial ONE (17:38)
[2017-03-30 19:01] LABS: HCG,QUALITATIVE URINE NEGATIVE (NEGATIVE); SQUAMOUS EPITHIAL 5 /hpf (0-5); URINE BACTERIA MOD (<OCC); URINE BILIRUBIN NEGATIVE (NEGATIVE); URINE BLOOD NEGATIVE (NEGATIVE); URINE CLARITY Hazy (Clear); URINE COLOR Yellow (YELLOW); URINE GLUCOSE (UA) 3+ mg/dL (Normal); URINE LEUKOCYTE ESTERASE NEG Leu/uL (Negative); URINE NITRATE POSITIVE (NEGATIVE); URINE PROTEIN 3+ mg/dL (NEGATIVE); URINE UROBILINOGEN NORMAL mg/dL (0.2-1.0)
[2017-03-30 19:12] VITALS: O2SAT 99
[2017-03-31] MEDS ORDERED: Amoxicillin-Clav 500-125 mg Tab PO STA (01:03)
[2017-03-31] MEDS ORDERED: Amoxicillin-Clav 500-125 mg Tab PO ONE (01:14)
[2017-03-31 01:17] VITALS: BP 136/76; PULSE 102; RESP 20; TEMP 98.5
== END 2017-03-31 01:36 | disposition home or self-care (01) ==
LOC: C.ER 14:54
DX: E11.65 Type 2 diabetes mellitus with hyperglycemia (principal); L02.214 Cutaneous abscess of groin; I10 Essential (primary) hypertension; Z79.4 Long term (current) use of insulin
CPT/HCPCS: 80053; 81001; 82009; 82948; 83690; 84703; 85025; 96361; 96374; 99285; J7040

== ENCOUNTER 2017-03-31 19:45 | Inpatient (IN) | payer OTHER ==
[2017-03-31 19:48] VITALS: BMI 28.3
[2017-03-31 21:08] LABS: BASO # 0.1 K/uL (0.0-0.2); BASO % 0.7 % (0.0-2.0); EOS % 0.3 % (0.0-4.0); HEMOGLOBIN 10.9 g/dL (11.0-16.0); LYMPH # 1.1 K/uL (1.0-4.3); LYMPH % 12.1 % (20.0-40.0); MEAN CELL VOLUME 81.3 fL (81.0-99.0); MEAN CORPUSCULAR HEMOGLOBIN 25.8 pg (27.0-31.0); MEAN CORPUSCULAR HGB CONC 31.7 g/dL (33.0-37.0); MEAN PLATELET VOLUME 8.2 fL (7.2-11.7); MONO # 0.7 K/uL (0.0-0.8); MONO % 6.9 % (0.0-10.0); NEUT # 7.6 K/uL (1.8-7.0); RBC 4.21 Mil/uL (3.80-5.20); RED CELL DISTRIBUTION WIDTH 15.9 % (11.5-14.5); WHITE BLOOD COUNT 9.5 K/uL (4.8-10.8)
[2017-03-31 21:27] LABS: ALBUMIN 3.3 g/dL (3.5-5.0); ALT/SGPT 23 U/L (9-52); AST/SGOT 19 U/L (14-36); BLOOD UREA NITROGEN 20 mg/dL (7-17); GFR AFRICAN-AMERICAN > 60; GFR NON-AFRICAN AMERICAN > 60
[2017-03-31] MEDS ORDERED: Sodium Chloride 0.9% 1,000 ML IV ONE (21:48)
[2017-03-31] MEDS ORDERED: Sodium Chloride 0.9% 1,000 ML ONE (21:56)
--- NOTE | 2017-03-31 21:57 | C.PDOC ---
History Of Present Illness Patient is a 42y/o female who presents to the ED with a complaint of worsening right groin pain. Patient was seen yesterday for similar complaint. Reports to have small abscess in the right pubic area; abscess no ready for drainage. Patient also has Hx of insulin-dependent DM; blood sugar over 600 currently in ED. Denies fever, chills, nausea, or vomiting. Admits pain is 6/10 and notes intermittent loose and watery diarrhea over the last 1 month. Time Seen by Provider: 03/31/17 21:47 Chief Complaint (Nursing): High Blood Sugar History Per: Patient History/Exam Limitations: no limitations Onset/Duration Of Symptoms: Days Current Symptoms Are (Timing): Still Present Severity: Severe Pain Scale Rating Of: 6 Current Diabetic Medications: Insulin Associated Infectious Symptoms: Diarrhea. 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 Negative for: Nausea, Vomiting Genitourinary: Positive for: Pelvic Pain, Other (small abscess at right pubic area). Negative for: Dysuria Musculoskeletal: Negative for: Back Pain Skin: Negative for: Rash Neurological: Negative for: Weakness Psych: Negative for: Anxiety Physical Exam - Physical Exam Appears: Non-toxic, No Acute Distress Skin: Dry, Diaphoretic Head: Normacephalic Eye(s): bilateral: Normal Inspection Oral Mucosa: Moist Neck: Supple Chest: Symmetrical Cardiovascular: Rhythm Regular, No Murmur Respiratory: Normal Breath Sounds, No Rales, No Rhonchi, No Wheezing Gastrointestinal/Abdominal: Soft, No Tenderness, Other (1x1.5cm area of induration, painful to palpation with no surrounding erythema) Back: Normal Inspection Extremity: Normal ROM Extremity: Bilateral: Atraumatic Pulses: Left Dorsalis Pedis: Normal, Right Dorsalis Pedis: Normal Neurological/Psych: Oriented x3, Normal Speech, Normal Cognition Gait: Steady ED Course And Treatment - Laboratory Results Result Diagrams: 03/31/17 21:03 03/31/17 21:03 O2 Sat by Pulse Oximetry: 95 - CT Scan/US CT A/P Other Rad Studies (CT/US): Interpreted By Me, Read By Radiologist CT/US Interpretation: EXAM: CT Abdomen and Pelvis With Intravenous Contrast. CLINICAL HISTORY: 42 years old, female; Pain; Abdominal pain and other: Diarrhea and r pelvic abscess; Patient HX: . 11-07 images sent; Additional info: Abd pain, diarrhea and r pelvic abscess. TECHNIQUE: Axial computed tomography images of the abdomen and pelvis with intravenous contrast. All CT. scans at this facility use one or more dose reduction techniques, viz.: automated exposure control;. ma/kV adjustment per patient size (including targeted exams where dose is matched to indication; i.e. head); or iterative reconstruction technique. Coronal and sagittal reformatted images were created and reviewed. CONTRAST: 100 mL of [id number] administered intravenously. COMPARISON: CT - ABD PELVIS PO IV CONTRAST 2017-02-28 14:33. FINDINGS: Lower thorax: Minimal atelectasis. ABDOMEN: Liver: Unremarkable. No mass. Gallbladder and bile ducts: No calcified stones. No ductal dilation. Pancreas: No ductal dilation. No mass. Spleen: No splenomegaly. Adrenals: No mass. Kidneys and ureters: Too small to characterize lesion within LEFT kidney. No hydronephrosis. Stomach and bowel: Few scattered diverticula within colon. No associated inflammatory stranding. No definite mural thickening. Borderline dilated cecum within mid abdomen, new in interval. Appendix: Normal caliber. No inflammation. PELVIS: Bladder: Unremarkable. Reproductive: Lobulated uterus with few uterine masses. 1.6 x 1.5 x 1.2 cm hypodense lesion. within LEFT ovary. 1.5 x 1.4 x 1.5 cm hypodense lesion within RIGHT ovary. ABDOMEN and PELVIS: Intraperitoneal space: Small amount of fluid within left paracolic gutter. No free air. Bones/joints: No acute fracture. Soft tissues: Small LEFT inguinal hernia containing fat. Small umbilical hernia containing fat. Vasculature: Mild atherosclerotic disease. No aneurysm. Lymph nodes: No pathologically enlarged lymph nodes. IMPRESSION: 1. Probable ovarian cysts. Consider ultrasound. 2. Borderline dilated cecum within mid abdomen. Early cecal volvulus/bascule not excluded. 3. Probable fibroid uterus. 4. Incidental /non-acute findings are described above. Thank you for allowing us to participate in the care of your patient. Progress Note: Blood work, HCG urine, and UA ordered. Toradol, Morphine, and IV fluids administered. Disposition Discussed With DrBob: Sandeep Crespo Comment: accepted the pt on his service and took over the care at 3AM Doctor Will See Patient In The: ED Counseled Patient/Family Regarding: Studies Performed, Diagnosis, Need For Followup - Disposition Disposition: HOSPITALIZED Disposition Time: 21:57 Condition: FAIR Forms: [employer] (Turkish) - POA Present On Arrival: Poor Glycemic Control - Clinical Impression Clinical Impression: Uncontrolled diabetes mellitus, Abscess of pubic region, Intractable diarrhea - Scribe Statement The provider has reviewed the documentation as recorded by the Scribe Lacey Mcgovern All medical record entries made by the Scribe were at my direction and personally dictated by me. I have reviewed the chart and agree that the record accurately reflects my personal performance of the history, physical exam, medical decision making, and the department course for this patient. I have also personally directed, reviewed, and agree with the discharge instructions and disposition. Decision To Admit - Pt Status Changed To: Hospital Disposition Of: Inpatient - Admit Certification Admit to Inpatient:: After my assessment, the patient will require hospitalization for at least two midnights. This is because of the severity of symptoms shown, intensity of services needed, and/or the medical risk in this patient being treated as an outpatient. - InPatient: Physician Admission Certification: I certify that this patient requires 2 or more midnights of care for the following reason:: After my assessment, the patient will require hospitalization for at least two midnights. This is because of the severity of symptoms shown, intensity of services needed, and/or the medical risk in this patient being treated as an outpatient. - . Bed Request Type: Regular Admitting Physician: Sandeep Crespo Patient Diagnosis: Uncontrolled diabetes mellitus, Abscess of pubic region, Intractable diarrhea
[2017-03-31] MEDS ORDERED: Morphine 4 MG/ML VIAL ONE (22:43)
[2017-03-31 22:45] LABS: INR 0.8; PROTHROMBIN TIME 9.2 SECONDS (9.7-12.2)
[2017-03-31 23:10] LABS: VENOUS BLOOD GAS BASE EXCESS -3.8 mmol/L (0.0-2.0); VENOUS BLOOD GAS PCO2 39 mmHg (40-60); VENOUS BLOOD GAS PO2 37 mm/Hg (30-55); VENOUS BLOOD PH 7.35 (7.32-7.43)
[2017-03-31] MEDS ORDERED: Piperacillin/Tazobact 3.375 gm 100 ML IVPB STA (23:54)
[2017-04-01 00:09] LABS: SQUAMOUS EPITHIAL 6 /hpf (0-5); URINE BILIRUBIN NEGATIVE (NEGATIVE); URINE BLOOD NEGATIVE (NEGATIVE); URINE CLARITY Clear (Clear); URINE GLUCOSE (UA) 3+ mg/dL (Normal); URINE LEUKOCYTE ESTERASE NEG Leu/uL (Negative); URINE NITRATE NEGATIVE (NEGATIVE); URINE PROTEIN 2+ mg/dL (NEGATIVE); URINE UROBILINOGEN NORMAL mg/dL (0.2-1.0)
[2017-04-01 00:11] LABS: HCG,QUALITATIVE URINE NEGATIVE (NEGATIVE)
[2017-04-01] MEDS ORDERED: Piperacill/Tazo 3.375gm in Dex 3.375 GM/50 ML BAG IVPB STA (00:27)
[2017-04-01] MEDS ORDERED: Iodixanol 320 MG/ML 100 ML BOTTLE IV ONE (00:34)
[2017-04-01 00:35] LABS: URINE COLOR 575490 (YELLOW)
--- NOTE | 2017-04-01 02:01 | CT ---
EXAM: CT Abdomen and Pelvis With Intravenous Contrast CLINICAL HISTORY: 42 years old, female; Pain; Abdominal pain and other: Diarrhea and r pelvic abscess; Patient HX: 02-28-17 images sent; Additional info: Abd pain, diarrhea and r pelvic abscess TECHNIQUE: Axial computed tomography images of the abdomen and pelvis with intravenous contrast. All CT scans at this facility use one or more dose reduction techniques, viz.: automated exposure control; ma/kV adjustment per patient size (including targeted exams where dose is matched to indication; i.e. head); or iterative reconstruction technique. Coronal and sagittal reformatted images were created and reviewed. CONTRAST: 100 mL of [id number] administered intravenously. COMPARISON: CT - ABD PELVIS PO IV CONTRAST 2017-02-28 14:33 FINDINGS: Lower thorax: Minimal atelectasis. ABDOMEN: Liver: Unremarkable. No mass. Gallbladder and bile ducts: No calcified stones. No ductal dilation. Pancreas: No ductal dilation. No mass. Spleen: No splenomegaly. Adrenals: No mass. Kidneys and ureters: Too small to characterize lesion within LEFT kidney. No hydronephrosis. Stomach and bowel: Few scattered diverticula within colon. No associated inflammatory stranding. No definite mural thickening. Borderline dilated cecum within mid abdomen, new in interval. Appendix: Normal caliber. No inflammation. PELVIS: Bladder: Unremarkable. Reproductive: Lobulated uterus with few uterine masses. 1.6 x 1.5 x 1.2 cm hypodense lesion within LEFT ovary. 1.5 x 1.4 x 1.5 cm hypodense lesion within RIGHT ovary. ABDOMEN and PELVIS: Intraperitoneal space: Small amount of fluid within left paracolic gutter. No free air. Bones/joints: No acute fracture. Soft tissues: Small LEFT inguinal hernia containing fat. Small umbilical hernia containing fat. Vasculature: Mild atherosclerotic disease. No aneurysm. Lymph nodes: No pathologically enlarged lymph nodes. IMPRESSION: 1. Probable ovarian cysts. Consider ultrasound. 2. Borderline dilated cecum within mid abdomen. Early cecal volvulus/bascule not excluded. 3. Probable fibroid uterus. 4. Incidental/non-acute findings are described above.
[2017-04-01] MEDS ORDERED: Morphine 4 MG/ML VIAL ONE (02:47)
--- NOTE | 2017-04-01 03:16 | CP.PCM.HP ---
<Luther Traore - Last Filed: 04/01/17 05:13> History of Present Illness - History of Present Illness History of Present Illness: 42 year old female with a past medical history of hypertension, type 2 Diabetes Mellitus and hyperlipidemia, and hypertension comes in to the hospital complaining of diarrhea for the past one month. The patient reports having to go to the bathroom anytime she eats or drinks anything. She denies any changes in diet or travel. The patient denies any blood or mucous in the stool. She describes the stool as watery in nature. In conjunction the patient also reports abdominal pain for the past week. The pain is located in the lower left and lower right quadrant . She describes the pain as sharp in nature with no radiation. She denies the pain is associated with food intake. Patient denies any chest pain, nausea, vomiting, fevers, chills, changes in vision, headaches, syncopal episodes or any other complaints. PMD: Dr. Torres Past medical history: hypertension, DM, Hypercholesterolemia Medications: Will verify with clinic in the A.M. Surgical history: Denies Allergies: Denies Social: Smokes 1 cigarette a day x25 years. Denies alcohol or illicit drug use. Full code Health care proxy: Daughter Present on Admission - Present on Admission Any Indicators Present on Admission: No Review of Systems - Constitutional Constitutional: absent: Chills, Daytime Sleepiness, Headache, Snoring, Weakness - EENT Eyes: absent: Blurred Vision, Discharge, Loss of Peripheral Vision, Sees Flashes , Other Visual Disturbances, Loss of Vision Ears: absent: Ear Discharge, Dizziness Nose/Mouth/Throat: absent: Nasal Congestion, Nose Pain, Bleeding Gums, Halitosis , Tongue Swelling, Facial Pain - Breasts Breasts: absent: Mass, Pain, Swelling - Cardiovascular Cardiovascular: absent: Chest Pain, Claudication, Leg Edema, Pedal Edema, Syncope - Respiratory Respiratory: absent: Cough, Hemoptysis, Snoring, Pain on Inspiration, Change in Mucous Color - Gastrointestinal Gastrointestinal: Change in Bowel Habits, Diarrhea. absent: Dysphagia, Fecal Incontinence, Heartburn, Melena, Vomiting - Musculoskeletal Musculoskeletal: absent: Back Pain, Neck Pain, Numbness, Stiffness - Integumentary Integumentary: absent: Alopecia, Non-Healing Lesions, Rash, Sores, Striae, Swelling - Neurological Neurological: absent: Dizziness, Syncope, Tremor, Vertigo, Weakness - Endocrine Endocrine: absent: Polydipsia, Polyphagia, Polyuria - Hematologic/Lymphatic Hematologic: absent: Easy Bleeding, Easy Bruising Past Patient History - Infectious Disease Hx of Infectious Diseases: None - Past Medical History & Family History Past Medical History?: Yes - Past Social History Smoking Status: Former Smoker - CARDIAC Hx Hypertension: Yes - PULMONARY Hx Respiratory Disorders: No - NEUROLOGICAL Hx Neurological Disorder: No - HEENT Hx HEENT Problems: No - RENAL Hx Chronic Kidney Disease: No - ENDOCRINE/METABOLIC Hx Endocrine Disorders: Yes Hx Diabetes Mellitus Type 1: Yes - HEMATOLOGICAL/ONCOLOGICAL Hx Blood Disorders: No - INTEGUMENTARY Hx Dermatological Problems: No - MUSCULOSKELETAL/RHEUMATOLOGICAL Hx Musculoskeletal Disorders: No Hx Falls: No - GASTROINTESTINAL Hx Gastrointestinal Disorders: No - GENITOURINARY/GYNECOLOGICAL Hx Genitourinary Disorders: No - PSYCHIATRIC Hx Substance Use: No - SURGICAL HISTORY Hx Surgeries: No - ANESTHESIA Hx Anesthesia: Yes Hx Anesthesia Reactions: No Meds Allergies/Adverse Reactions: Allergies Allergy/AdvReac Type Severity Reaction Status Date / Time jungwi Allergy Verified 03/31/17 20:08 Physical Exam - Head Exam Head Exam: ATRAUMATIC, NORMAL INSPECTION, NORMOCEPHALIC - Eye Exam Eye Exam: EOMI, Normal appearance, PERRL Pupil Exam: NORMAL ACCOMODATION, PERRL - ENT Exam ENT Exam: Mucous Membranes Moist, Normal Exam - Neck Exam Neck exam: Positive for: Normal Inspection. Negative for: Lymphadenopathy, Thyromegaly - Respiratory Exam Respiratory Exam: Clear to Auscultation Bilateral, NORMAL BREATHING PATTERN. absent: Chest Wall Tenderness, Prolonged Expiratory Phase, Respiratory Distress - Cardiovascular Exam Cardiovascular Exam: REGULAR RHYTHM, +S1, +S2 - GI/Abdominal Exam GI & Abdominal Exam: Normal Bowel Sounds, Soft, Tenderness. absent: Rebound - Extremities Exam Extremities exam: Positive for: full ROM, normal inspection. Negative for: joint swelling, pedal edema - Back Exam Back exam: NORMAL INSPECTION. absent: CVA tenderness (L), CVA tenderness (R), paraspinal tenderness - Neurological Exam Neurological exam: Alert, CN II-XII Intact, Oriented x3 - Psychiatric Exam Psychiatric exam: Normal Affect, Normal Mood - Skin Skin Exam: Dry, Intact Results - Vital Signs Recent Vital Signs: Last Vital Signs Temp 98.3 F 04/01/17 00:35 Pulse 94 H 04/01/17 00:35 Resp 18 04/01/17 00:35 BP 159/91 H 04/01/17 00:35 Pulse Ox 95 04/01/17 02:21 - Labs Result Diagrams: 03/31/17 21:03 03/31/17 21:03 Labs: Laboratory Results - last 24 hr 03/31/17 03/31/17 03/31/17 20:00 21:03 21:03 WBC 9.5 RBC 4.21 Hgb 10.9 L Hct 34.3 MCV 81.3 MCH 25.8 L MCHC 31.7 L RDW 15.9 H Plt Count 465 H MPV 8.2 Neut % (Auto) 80.0 H Lymph % (Auto) 12.1 L [place] % (Auto) 6.9 Eos % (Auto) 0.3 Baso % (Auto) 0.7 Neut # (Auto) 7.6 H Lymph # (Auto) 1.1 [place] # (Auto) 0.7 Eos # (Auto) 0.0 Baso # (Auto) 0.1 PT INR APTT pO2 VBG pH VBG pCO2 VBG HCO3 VBG Total CO2 VBG O2 Sat (Calc) VBG Base Excess VBG Potassium Glucose Lactate Crit Value Called To Crit Value Called By Crit Value Read Back Blood Gas Notified Time Sodium 133 Potassium 3.9 Chloride 102 Carbon Dioxide 20 L Anion Gap 15 BUN 20 H Creatinine 0.9 Est GFR ( Amer) > 60 Est GFR (Non-Af Amer) > 60 POC Glucose (mg/dL) > 500 H* Random Glucose 608 H* Calcium 8.0 L Total Bilirubin 0.4 AST 19 ALT 23 Alkaline Phosphatase 86 Total Protein 6.6 Albumin 3.3 L Globulin 3.3 Albumin/Globulin Ratio 1.0 Venous Blood Potassium Urine Color Urine Clarity Urine pH Ur Specific [place] Urine Protein Urine Glucose (UA) Urine Ketones Urine Blood Urine Nitrate Urine Bilirubin Urine Urobilinogen Ur Leukocyte Esterase Urine WBC (Auto) Urine RBC (Auto) Ur Squamous Epith Cells Urine HCG, Qual Blood Type Antibody Screen 03/31/17 03/31/17 03/31/17 22:33 22:33 23:03 WBC RBC Hgb Hct MCV MCH MCHC RDW Plt Count MPV Neut % (Auto) Lymph % (Auto) [place] % (Auto) Eos % (Auto) Baso % (Auto) Neut # (Auto) Lymph # (Auto) [place] # (Auto) Eos # (Auto) Baso # (Auto) PT 9.2 L INR 0.8 APTT 27 pO2 37 VBG pH 7.35 VBG pCO2 39 L VBG HCO3 21.1 VBG Total CO2 22.7 VBG O2 Sat (Calc) 78.8 H VBG Base Excess -3.8 L VBG Potassium 3.6 Glucose 415 H* Lactate 1.1 Crit Value Called To Reina rodriguez rn Crit Value Called By Veena Crit Value Read Back Y Blood Gas Notified Time 2310 Sodium 135.0 Potassium Chloride 108.0 H Carbon Dioxide Anion Gap BUN Creatinine Est GFR ( Amer) Est GFR (Non-Af Amer) POC Glucose (mg/dL) Random Glucose Calcium Total Bilirubin AST ALT Alkaline Phosphatase Total Protein Albumin Globulin Albumin/Globulin Ratio Venous Blood Potassium 3.6 Urine Color Urine Clarity Urine pH Ur Specific [place] Urine Protein Urine Glucose (UA) Urine Ketones Urine Blood Urine Nitrate Urine Bilirubin Urine Urobilinogen Ur Leukocyte Esterase Urine WBC (Auto) Urine RBC (Auto) Ur Squamous Epith Cells Urine HCG, Qual Blood Type A POSITIVE Antibody Screen Negative 03/31/17 03/31/17 23:52 23:59 WBC RBC Hgb Hct MCV MCH MCHC RDW Plt Count MPV Neut % (Auto) Lymph % (Auto) [place] % (Auto) Eos % (Auto) Baso % (Auto) Neut # (Auto) Lymph # (Auto) [place] # (Auto) Eos # (Auto) Baso # (Auto) PT INR APTT pO2 VBG pH VBG pCO2 VBG HCO3 VBG Total CO2 VBG O2 Sat (Calc) VBG Base Excess VBG Potassium Glucose Lactate Crit Value Called To Crit Value Called By Crit Value Read Back Blood Gas Notified Time Sodium Potassium Chloride Carbon Dioxide Anion Gap BUN Creatinine Est GFR ( Amer) Est GFR (Non-Af Amer) POC Glucose (mg/dL) 342 H Random Glucose Calcium Total Bilirubin AST ALT Alkaline Phosphatase Total Protein Albumin Globulin Albumin/Globulin Ratio Venous Blood Potassium Urine Color [id number] Urine Clarity Clear Urine pH 7.0 Ur Specific [place] 1.012 Urine Protein 2+ H Urine Glucose (UA) 3+ H Urine Ketones Negative Urine Blood Negative Urine Nitrate Negative Urine Bilirubin Negative Urine Urobilinogen Normal Ur Leukocyte Esterase Neg Urine WBC (Auto) 1 Urine RBC (Auto) < 1 Ur Squamous Epith Cells 6 H Urine HCG, Qual Negative Blood Type Antibody Screen Assessment & Plan - Assessment and Plan (Free Text) Assessment: 42 year old female with a past medical history of uncontrolled diabetes, hypertension, and hyperlipidemia who is being admitted for recurrent diarrhea. Plan: 1. Diarrhea -Patient reports diarrhea for the past 1 months. -Afebrile with no leukocytosis upon admission. -Stool studies ordered. Will f/u with results. -Blood cultures ordered. Will f/u with results. -IV fluids @125cc/hr 2.history of hypertension -Confirm medications in the morning with pharmacy and restart. 3. history of Hypercholesterolemia -Confirm medications in the morning with pharmacy and restart. 4. history of uncontrolled Diabetes -Hemoglobin A1C ordered. Will f/u with results -ISS high. -Moderate carb consistent diet. -Accu checks ACHS. Maintain euglycemia 5. 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 -Thoracic spine tender around T10. -Thoracic Spine MRI ordered .Will f/u with results. -Toradol 30mg IVP for pain control. PPx Pepcid 20mg PO Daily Heparin 5000 units q12 <Sandeep Crespo P - Last Filed: 04/01/17 07:33> Results - Vital Signs Recent Vital Signs: Last Vital Signs Temp 97.8 F 04/01/17 06:25 Pulse 78 04/01/17 06:25 Resp 20 04/01/17 06:25 BP 120/80 04/01/17 06:25 Pulse Ox 100 04/01/17 06:25 - Labs Result Diagrams: 04/01/17 05:47 04/01/17 05:47 Labs: Laboratory Results - last 24 hr 03/31/17 03/31/17 03/31/17 20:00 21:03 21:03 WBC 9.5 RBC 4.21 Hgb 10.9 L Hct 34.3 MCV 81.3 MCH 25.8 L MCHC 31.7 L RDW 15.9 H Plt Count 465 H MPV 8.2 Neut % (Auto) 80.0 H Lymph % (Auto) 12.1 L [place] % (Auto) 6.9 Eos % (Auto) 0.3 Baso % (Auto) 0.7 Neut # (Auto) 7.6 H Lymph # (Auto) 1.1 [place] # (Auto) 0.7 Eos # (Auto) 0.0 Baso # (Auto) 0.1 PT INR APTT pO2 VBG pH VBG pCO2 VBG HCO3 VBG Total CO2 VBG O2 Sat (Calc) VBG Base Excess VBG Potassium Glucose Lactate Crit Value Called To Crit Value Called By Crit Value Read Back Blood Gas Notified Time Sodium 133 Potassium 3.9 Chloride 102 Carbon Dioxide 20 L Anion Gap 15 BUN 20 H Creatinine 0.9 Est GFR ( Amer) > 60 Est GFR (Non-Af Amer) > 60 POC Glucose (mg/dL) > 500 H* Random Glucose 608 H* Calcium 8.0 L Total Bilirubin 0.4 AST 19 ALT 23 Alkaline Phosphatase 86 Total Protein 6.6 Albumin 3.3 L Globulin 3.3 Albumin/Globulin Ratio 1.0 Venous Blood Potassium Urine Color Urine Clarity Urine pH Ur Specific [place] Urine Protein Urine Glucose (UA) Urine Ketones Urine Blood Urine Nitrate Urine Bilirubin Urine Urobilinogen Ur Leukocyte Esterase Urine WBC (Auto) Urine RBC (Auto) Ur Squamous Epith Cells Urine HCG, Qual Blood Type Antibody Screen 03/31/17 03/31/17 03/31/17 22:33 22:33 23:03 WBC RBC Hgb Hct MCV MCH MCHC RDW Plt Count MPV Neut % (Auto) Lymph % (Auto) [place] % (Auto) Eos % (Auto) Baso % (Auto) Neut # (Auto) Lymph # (Auto) [place] # (Auto) Eos # (Auto) Baso # (Auto) PT 9.2 L INR 0.8 APTT 27 pO2 37 VBG pH 7.35 VBG pCO2 39 L VBG HCO3 21.1 VBG Total CO2 22.7 VBG O2 Sat (Calc) 78.8 H VBG Base Excess -3.8 L VBG Potassium 3.6 Glucose 415 H* Lactate 1.1 Crit Value Called To Reina rodriguez rn Crit Value Called By Veena Crit Value Read Back Y Blood Gas Notified Time 2310 Sodium 135.0 Potassium Chloride 108.0 H Carbon Dioxide Anion Gap BUN Creatinine Est GFR ( Amer) Est GFR (Non-Af Amer) POC Glucose (mg/dL) Random Glucose Calcium Total Bilirubin AST ALT Alkaline Phosphatase Total Protein Albumin Globulin Albumin/Globulin Ratio Venous Blood Potassium 3.6 Urine Color Urine Clarity Urine pH Ur Specific [place] Urine Protein Urine Glucose (UA) Urine Ketones Urine Blood Urine Nitrate Urine Bilirubin Urine Urobilinogen Ur Leukocyte Esterase Urine WBC (Auto) Urine RBC (Auto) Ur Squamous Epith Cells Urine HCG, Qual Blood Type A POSITIVE Antibody Screen Negative 03/31/17 03/31/17 04/01/17 23:52 23:59 05:47 WBC 7.7 RBC 3.82 Hgb 10.0 L Hct 30.5 L MCV 79.8 L MCH 26.3 L MCHC 33.0 RDW 15.1 H Plt Count 406 H MPV 7.9 Neut % (Auto) 74.3 Lymph % (Auto) 16.0 L [place] % (Auto) 8.3 Eos % (Auto) 0.6 Baso % (Auto) 0.8 Neut # (Auto) 5.7 Lymph # (Auto) 1.2 [place] # (Auto) 0.6 Eos # (Auto) 0.0 Baso # (Auto) 0.1 PT INR APTT pO2 VBG pH VBG pCO2 VBG HCO3 VBG Total CO2 VBG O2 Sat (Calc) VBG Base Excess VBG Potassium Glucose Lactate Crit Value Called To Crit Value Called By Crit Value Read Back Blood Gas Notified Time Sodium Potassium Chloride Carbon Dioxide Anion Gap BUN Creatinine Est GFR ( Amer) Est GFR (Non-Af Amer) POC Glucose (mg/dL) 342 H Random Glucose Calcium Total Bilirubin AST ALT Alkaline Phosphatase Total Protein Albumin Globulin Albumin/Globulin Ratio Venous Blood Potassium Urine Color [id number] Urine Clarity Clear Urine pH 7.0 Ur Specific [place] 1.012 Urine Protein 2+ H Urine Glucose (UA) 3+ H Urine Ketones Negative Urine Blood Negative Urine Nitrate Negative Urine Bilirubin Negative Urine Urobilinogen Normal Ur Leukocyte Esterase Neg Urine WBC (Auto) 1 Urine RBC (Auto) < 1 Ur Squamous Epith Cells 6 H Urine HCG, Qual Negative Blood Type Antibody Screen 04/01/17 04/01/17 05:47 06:39 WBC RBC Hgb Hct MCV MCH MCHC RDW Plt Count MPV Neut % (Auto) Lymph % (Auto) [place] % (Auto) Eos % (Auto) Baso % (Auto) Neut # (Auto) Lymph # (Auto) [place] # (Auto) Eos # (Auto) Baso # (Auto) PT INR APTT pO2 VBG pH VBG pCO2 VBG HCO3 VBG Total CO2 VBG O2 Sat (Calc) VBG Base Excess VBG Potassium Glucose Lactate Crit Value Called To Crit Value Called By Crit Value Read Back Blood Gas Notified Time Sodium 137 Potassium 3.4 L Chloride 105 Carbon Dioxide 25 Anion Gap 10 BUN 14 Creatinine 0.6 L Est GFR ( Amer) > 60 Est GFR (Non-Af Amer) > 60 POC Glucose (mg/dL) 210 H Random Glucose 233 H Calcium 8.0 L Total Bilirubin 0.2 AST 17 ALT 19 Alkaline Phosphatase 67 Total Protein 6.1 L Albumin 3.0 L Globulin 3.1 Albumin/Globulin Ratio 1.0 Venous Blood Potassium Urine Color Urine Clarity Urine pH Ur Specific [place] Urine Protein Urine Glucose (UA) Urine Ketones Urine Blood Urine Nitrate Urine Bilirubin Urine Urobilinogen Ur Leukocyte Esterase Urine WBC (Auto) Urine RBC (Auto) Ur Squamous Epith Cells Urine HCG, Qual Blood Type Antibody Screen Attending/Attestation - Attestation I have personally seen and examined this patient.: Yes I have fully participated in the care of the patient.: Yes I have reviewed all pertinent clinical information: Yes Notes (Text): Assessment * Suspect cecal inflammation, dd of volvulus, tender at the umbilical area corresponding to CT visualization of cecum * Diarrhea x1 month, without fever, clinical signs of sepsis will order w/u * Back pain radiating to right groin, likely lumbar radiculopathy, patient has small subq lesion in right vulval area clinically not seem cause of the pain, but will need to be f/u if not resolve by biopsy as out patient * Uncontrolled DM due to above stress and patient takes about short acting novolog 14 units 3 times/day but has 5 meals a day, clinically dry, and mentions weight loss of 7lb in last 1 wk. 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
[2017-04-01] MEDS: Sodium Chloride 0.9% 1,000 ML IV SCH ×3 (05:37→21:25)
[2017-04-01 05:51] LABS: BASO # 0.1 K/uL (0.0-0.2); BASO % 0.8 % (0.0-2.0); EOS % 0.6 % (0.0-4.0); LYMPH # 1.2 K/uL (1.0-4.3); MEAN CELL VOLUME 79.8 fL (81.0-99.0); MEAN CORPUSCULAR HEMOGLOBIN 26.3 pg (27.0-31.0); MEAN PLATELET VOLUME 7.9 fL (7.2-11.7); MONO # 0.6 K/uL (0.0-0.8); MONO % 8.3 % (0.0-10.0); NEUT # 5.7 K/uL (1.8-7.0); NEUT % 74.3 % (50.0-75.0); RBC 3.82 Mil/uL (3.80-5.20); RED CELL DISTRIBUTION WIDTH 15.1 % (11.5-14.5); WHITE BLOOD COUNT 7.7 K/uL (4.8-10.8)
[2017-04-01] MEDS ORDERED: Iohexol 240 (50 ml) PO ONE (06:02)
[2017-04-01 06:22] LABS: ALT/SGPT 19 U/L (9-52); AST/SGOT 17 U/L (14-36); BLOOD UREA NITROGEN 14 mg/dL (7-17); GFR AFRICAN-AMERICAN > 60; GFR NON-AFRICAN AMERICAN > 60
--- NOTE | 2017-04-01 08:37 | CP.PCM.PN ---
Subjective - Date & Time of Evaluation Date of Evaluation: 04/01/17 Time of Evaluation: 08:20 - Subjective Subjective: Patient was seen and examined by me This is a very polite and pleasant 42 year old female who explains to me she has been having abdominal pain for several weeks but only recently has had worsening RLQ area pain. She reports diarrhea when trying to eat. A lot of nausea. No vommitting. Currently when I saw her she was at rest and was not in any acute distress The overnight team did a CT of the abdomen and pelvis and it showed very concerning findings at the cecum that was out of place - it looks almost mid- abdomen and was also dilated in size. She does have tenderness with palpation at the right lower quadrant. No guarding. There is a repeat CT of the abdomen and pelvis ordered with PO contrast She is currently NPO and with IVF and pain medication. We also discussed her very elevated blood sugars and she normally takes 22 Levemir at night as well as Novolog with meals 14 units via a flex pen. she requires help of family when administrating insulin. She has very poor vision due to history of DM. She is unable to see how many fingers I am holding up past 2 meters in front of her. Objective - Vital Signs/Intake and Output Vital Signs (last 24 hours): Temp Pulse Resp BP Pulse Ox 97.8 F 78 20 120/80 100 04/01/17 06:25 04/01/17 06:25 04/01/17 06:25 04/01/17 06:25 04/01/17 06:25 - Medications Medications: Current Medications Famotidine (Pepcid) 20 mg IVP DAILY [facility] Sodium Chloride (Sodium Chloride 0.9%) 1,000 mls @ 125 mls/hr IV .Q8H [facility] Last Admin: 04/01/17 05:37 Dose: 125 mls/hr Insulin Detemir (Levemir) 22 unit SC HS [facility] - Labs Labs: 04/01/17 05:47 04/01/17 05:47 PT 9.2 SECONDS (9.7-12.2) L 03/31/17 22:33 INR 0.8 03/31/17 22:33 APTT 27 SECONDS (21-34) 03/31/17 22:33 - Constitutional Appears: Well, Non-toxic, No Acute Distress - Head Exam Head Exam: NORMAL INSPECTION, NORMOCEPHALIC - Eye Exam Eye Exam: EOMI, Normal appearance Additional comments: Very poor vision - cannot see past 2 meters. History of DM - Respiratory Exam Respiratory Exam: Clear to Ausculation Bilateral, NORMAL BREATHING PATTERN - Cardiovascular Exam Cardiovascular Exam: REGULAR RHYTHM - GI/Abdominal Exam GI & Abdominal Exam: Soft, Tenderness. absent: Firm, Guarding, Rigid - Neurological Exam Neurological Exam: Alert, Awake, Oriented x3 Neuro motor strength exam: Left Upper Extremity: 5, Right Upper Extremity: 5 - Psychiatric Exam Psychiatric exam: Normal Affect, Normal Mood - Skin Skin Exam: Normal Color, Warm Assessment and Plan - Assessment and Plan (Free Text) Assessment: 42 year old female with a past medical history of uncontrolled diabetes, hypertension, and hyperlipidemia who currently has abdominal pain as well as diarrhea. Plan: 1. Abdominal Pain - CT reveal dialated cecum and it is midabomin in location 2: We are ordering a repeat CT with PO contrast to assess for potential obstruction/volvuls She is NPO, IVF, pain medications. Pending stool studies at this moment. -IV fluids @125cc/hr She will need surgery evaluation 2. HTN 04/01: Recent BPs have been 120s and 130s systolic. Continue to monitor 3. Uncontrolled Diabetes 04/01 Accuchecks ordered Currently only on Levemir She is NPO at this moment If needed we can start a sliding scale. 4. 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 There were additional MRI imaging ordered. Pending at this time. 5. History of Hypercholesterolemia Stable, at this time PPx Heparin 5000 units q12
--- NOTE | 2017-04-01 09:43 | CT ---
PROCEDURE: CT Abdomen and Pelvis without IV contrast. HISTORY: lower abdominal pain COMPARISON: CT of the abdomen and pelvis with contrast performed 04/01/17 TECHNIQUE: Contiguous axial images of the abdomen and pelvis. Oral contrast was administered. No IV contrast given. Coronal and Sagittal reformats generated and reviewed. Radiation dose: Total exam DLP = 600.01 mGy-cm. This CT exam was performed using one or more of the following dose reduction techniques: Automated exposure control, adjustment of the mA and/or kV according to patient size, and/or use of iterative reconstruction technique. FINDINGS: There is limited evaluation of the solid organs without the administration of IV contrast. LOWER THORAX: Mild bibasilar atelectasis. No visible pleural effusion or pneumothorax. LIVER: Unremarkable unenhanced appearance. GALLBLADDER AND BILE DUCTS: Unremarkable unenhanced appearance. PANCREAS: Unremarkable unenhanced appearance. SPLEEN: 11 mm probable splenule. Otherwise unremarkable unenhanced appearance. ADRENALS: Unremarkable unenhanced appearance. KIDNEYS AND URETERS: No hydronephrosis or obstructing renal calculus. BLADDER: The urinary bladder appears unremarkable. REPRODUCTIVE: Uterus is present. Probable fibroids and ovarian cysts best demonstrated on post-contrast films performed earlier the same day. APPENDIX: The appendix appears within normal limits of caliber. No secondary signs of acute appendicitis. BOWEL: The stomach is nondistended. The bowel loops appear within normal limits of caliber without evidence of intestinal obstruction. Mild distention of the cecum re-identified without significant interval change. Diverticulosis without CT evidence of acute diverticulitis. Question small bowel wall thickening which may be seen in the setting of enteritis. PERITONEUM: Tiny fluid or stranding in the left pelvis. No definite free air. LYMPH NODES: No bulky lymphadenopathy identified. VASCULATURE: No aortic aneurysm. BONES: No acute osseous abnormality is detected. OTHER FINDINGS: Tiny fat containing umbilical hernia. Small fat containing left inguinal hernia. IMPRESSION: Question small bowel wall thickening which may be seen in the setting of enteritis. Correlate clinically. Tiny fluid or stranding re-identified within the left pelvis. Otherwise, no significant interval change appreciated. Additional findings as above.
--- NOTE | 2017-04-01 15:52 | MRI ---
PROCEDURE: MRI of the thoracic spine dated 04/01/2017 HISTORY: Back pain. COMPARISON: No prior study available for comparison however correlation made with concurrent MRI of the lumbar spine. TECHNIQUE: Multiecho multiplanar sequences were performed through the thoracic spine without the use of intravenous contrast. . FINDINGS: ALIGNMENT: The at current study reveals no acute compression fractures no retropulsed fragments. Vertebral bodies exhibit normal stature. Vertebral bodies and facets normally aligned. There is adequate disc height and hydration. No disc herniation nor significant disc bulges. The overall central bony canal and exit foramina appear adequate. There are no intrinsic signal changes seen within the visualized spinal cord. VERTEBRA: Vertebral body height are preserved. MARROW: Marrow signal unremarkable. PARASPINAL SOFT TISSUES: Unremarkable. CORD: Unremarkable thoracic cord. No volume loss, signal abnormality or syrinx. DISCS: No disc herniation, spinal canal stenosis, or neuroforaminal narrowing. OTHER FINDINGS: None. IMPRESSION: No acute compression fractures no retropulsed fragments. No significant degenerative spondylosis. No evidence of canal canal- foraminal compromise nor cord compression.
--- NOTE | 2017-04-01 16:58 | MRI ---
PROCEDURE: MRI lumbar spine dated 04/01/2017. HISTORY: Back pain. COMPARISON: No prior study available for comparison however correlation made with CT scan of the abdomen pelvis 02/28/2017 which image the lumbar spine in 3 planes. TECHNIQUE: Multiecho multiplanar sequences were performed through the lumbar spine without the use of intravenous contrast. FINDINGS: The current study reveals no acute compression fractures no retropulsed fragments. Vertebral bodies exhibit normal stature. Vertebral bodies and facets normally aligned. There is adequate disc height and hydration. No disc herniations nor significant disc bulges. . Central canal and exit foramina appear adequate Conus terminates at approximately the L1 level. OTHER FINDINGS: Note is made of a markedly distended urinary bladder. IMPRESSION: No acute compression fractures no retropulsed fragments. No significant degenerative spondylosis. . Central canal and exit foramina appear adequate throughout Note made of markedly distended urinary bladder.
--- NOTE | 2017-04-01 18:08 | CP.PCM.CON ---
History of Present Illness - History of Present Illness History of Present Illness: General Surgery Consult Note for Dr. Carmen Reason for consult: lower abdominal pain 42 F with past medical history that includes hypertension, DM and hyperlipidemia presents to [facility] for abdominal pain and diarrhea for one month. The patient reports that she is unable to eat or drink without having a loose BM. All BMs nonbloody. She also reports fatigue for past week. She states that she has not been in contact with anyone sick or recent illness. She rates pain as moderate. She describes the pain as constant and sharp in lower abdomen/r groin without radiation. She states she noticed multiple tender , firm mass in groin. Patient denies any fever/chills, SOB, palpitations, chest pain, nausea/vomiting, urinary symptoms, incontinence. PMD: Dr. Torres PMH: hypertension, DM, Hypercholesterolemia Meds: As per EMR Allergy: kiwi PSH: Denies FH: denies Social: Smokes 1 cigarette a day x25 years. Denies etoh or illicit drug use Review of Systems - Review of Systems All systems: reviewed and no additional remarkable complaints except (as per HPI ) Past Patient History - Infectious Disease Hx of Infectious Diseases: None - Past Medical History & Family History Past Medical History?: Yes - Past Social History Smoking Status: Never Smoked - CARDIAC Hx Hypertension: Yes - PULMONARY Hx Respiratory Disorders: No - NEUROLOGICAL Hx Neurological Disorder: No - HEENT Hx HEENT Problems: No - RENAL Hx Chronic Kidney Disease: No - ENDOCRINE/METABOLIC Hx Endocrine Disorders: Yes Hx Diabetes Mellitus Type 1: Yes - HEMATOLOGICAL/ONCOLOGICAL Hx Blood Disorders: No - INTEGUMENTARY Hx Dermatological Problems: No - MUSCULOSKELETAL/RHEUMATOLOGICAL Hx Musculoskeletal Disorders: No Hx Falls: No - GASTROINTESTINAL Hx Gastrointestinal Disorders: No - GENITOURINARY/GYNECOLOGICAL Hx Genitourinary Disorders: No - PSYCHIATRIC Hx Substance Use: No - SURGICAL HISTORY Hx Surgeries: No - ANESTHESIA Hx Anesthesia: Yes Hx Anesthesia Reactions: No Hx Malignant Hyperthermia: No Has any member of the family had a problem w/ anesthesia?: No Meds Allergies/Adverse Reactions: Allergies Allergy/AdvReac Type Severity Reaction Status Date / Time kiwi Allergy Verified 03/31/17 20:08 - Medications Medications: Current Medications Famotidine (Pepcid) 20 mg IVP DAILY [facility] Last Admin: 04/01/17 10:29 Dose: 20 mg Heparin Sodium (Porcine) (Heparin) 5,000 units SC Q12 [facility] Last Admin: 04/01/17 10:32 Dose: 5,000 units Sodium Chloride (Sodium Chloride 0.9%) 1,000 mls @ 125 mls/hr IV .Q8H [facility] Last Admin: 04/01/17 13:42 Dose: 125 mls/hr Insulin Detemir (Levemir) 22 unit SC HS [facility] Ketorolac Tromethamine (Toradol) 30 mg IVP Q6 PRN PRN Reason: Pain, moderate (4-7) Last Admin: 04/01/17 10:28 Dose: 30 mg Physical Exam - Constitutional Appears: No Acute Distress - Head Exam Head Exam: ATRAUMATIC, NORMOCEPHALIC - Eye Exam Eye Exam: EOMI, Normal appearance Pupil Exam: PERRL - ENT Exam ENT Exam: Mucous Membranes Moist - Respiratory Exam Respiratory Exam: NORMAL BREATHING PATTERN - Cardiovascular Exam Cardiovascular Exam: REGULAR RHYTHM - GI/Abdominal Exam GI & Abdominal Exam: Soft. absent: Distended, Firm, Guarding, Hernia, Rebound, Rigid, Tenderness - Extremities Exam Extremities exam: Positive for: normal capillary refill, pedal pulses present. Negative for: calf tenderness Additional comments: R jesus tender to palpation - Back Exam Back exam: absent: CVA tenderness (L), CVA tenderness (R) - Neurological Exam Neurological exam: Alert, CN II-XII Intact, Oriented x3 - Psychiatric Exam Psychiatric exam: Normal Affect, Normal Mood - Skin Skin Exam: Dry, Intact, Normal Color, Warm Results - Vital Signs Recent Vital Signs: Last Vital Signs Temp 97.8 F 04/01/17 06:25 Pulse 78 04/01/17 07:00 Resp 20 04/01/17 07:00 BP 120/80 04/01/17 06:25 Pulse Ox 100 04/01/17 06:25 - Labs Result Diagrams: 04/01/17 05:47 04/01/17 05:47 Labs: Laboratory Results - last 24 hr 03/31/17 03/31/17 03/31/17 20:00 21:03 21:03 WBC 9.5 RBC 4.21 Hgb 10.9 L Hct 34.3 MCV 81.3 MCH 25.8 L MCHC 31.7 L RDW 15.9 H Plt Count 465 H MPV 8.2 Neut % (Auto) 80.0 H Lymph % (Auto) 12.1 L [place] % (Auto) 6.9 Eos % (Auto) 0.3 Baso % (Auto) 0.7 Neut # (Auto) 7.6 H Lymph # (Auto) 1.1 [place] # (Auto) 0.7 Eos # (Auto) 0.0 Baso # (Auto) 0.1 ESR PT INR APTT pO2 VBG pH VBG pCO2 VBG HCO3 VBG Total CO2 VBG O2 Sat (Calc) VBG Base Excess VBG Potassium Glucose Lactate Crit Value Called To Crit Value Called By Crit Value Read Back Blood Gas Notified Time Sodium 133 Potassium 3.9 Chloride 102 Carbon Dioxide 20 L Anion Gap 15 BUN 20 H Creatinine 0.9 Est GFR ( Amer) > 60 Est GFR (Non-Af Amer) > 60 POC Glucose (mg/dL) > 500 H* Random Glucose 608 H* Calcium 8.0 L Total Bilirubin 0.4 AST 19 ALT 23 Alkaline Phosphatase 86 Total Protein 6.6 Albumin 3.3 L Globulin 3.3 Albumin/Globulin Ratio 1.0 Venous Blood Potassium Urine Color Urine Clarity Urine pH Ur Specific [place] Urine Protein Urine Glucose (UA) Urine Ketones Urine Blood Urine Nitrate Urine Bilirubin Urine Urobilinogen Ur Leukocyte Esterase Urine WBC (Auto) Urine RBC (Auto) Ur Squamous Epith Cells Urine HCG, Qual Stool Leukocytes, Qual Blood Type Antibody Screen 03/31/17 03/31/17 03/31/17 22:33 22:33 23:03 WBC RBC Hgb Hct MCV MCH MCHC RDW Plt Count MPV Neut % (Auto) Lymph % (Auto) [place] % (Auto) Eos % (Auto) Baso % (Auto) Neut # (Auto) Lymph # (Auto) [place] # (Auto) Eos # (Auto) Baso # (Auto) ESR PT 9.2 L INR 0.8 APTT 27 pO2 37 VBG pH 7.35 VBG pCO2 39 L VBG HCO3 21.1 VBG Total CO2 22.7 VBG O2 Sat (Calc) 78.8 H VBG Base Excess -3.8 L VBG Potassium 3.6 Glucose 415 H* Lactate 1.1 Crit Value Called To Reina rodriguez rn Crit Value Called By Lendl Crit Value Read Back Y Blood Gas Notified Time 2310 Sodium 135.0 Potassium Chloride 108.0 H Carbon Dioxide Anion Gap BUN Creatinine Est GFR ( Amer) Est GFR (Non-Af Amer) POC Glucose (mg/dL) Random Glucose Calcium Total Bilirubin AST ALT Alkaline Phosphatase Total Protein Albumin Globulin Albumin/Globulin Ratio Venous Blood Potassium 3.6 Urine Color Urine Clarity Urine pH Ur Specific [place] Urine Protein Urine Glucose (UA) Urine Ketones Urine Blood Urine Nitrate Urine Bilirubin Urine Urobilinogen Ur Leukocyte Esterase Urine WBC (Auto) Urine RBC (Auto) Ur Squamous Epith Cells Urine HCG, Qual Stool Leukocytes, Qual Blood Type A POSITIVE Antibody Screen Negative 03/31/17 03/31/17 04/01/17 23:52 23:59 05:47 WBC 7.7 RBC 3.82 Hgb 10.0 L Hct 30.5 L MCV 79.8 L MCH 26.3 L MCHC 33.0 RDW 15.1 H Plt Count 406 H MPV 7.9 Neut % (Auto) 74.3 Lymph % (Auto) 16.0 L [place] % (Auto) 8.3 Eos % (Auto) 0.6 Baso % (Auto) 0.8 Neut # (Auto) 5.7 Lymph # (Auto) 1.2 [place] # (Auto) 0.6 Eos # (Auto) 0.0 Baso # (Auto) 0.1 ESR 60 H PT INR APTT pO2 VBG pH VBG pCO2 VBG HCO3 VBG Total CO2 VBG O2 Sat (Calc) VBG Base Excess VBG Potassium Glucose Lactate Crit Value Called To Crit Value Called By Crit Value Read Back Blood Gas Notified Time Sodium Potassium Chloride Carbon Dioxide Anion Gap BUN Creatinine Est GFR ( Amer) Est GFR (Non-Af Amer) POC Glucose (mg/dL) 342 H Random Glucose Calcium Total Bilirubin AST ALT Alkaline Phosphatase Total Protein Albumin Globulin Albumin/Globulin Ratio Venous Blood Potassium Urine Color 117989 Urine Clarity Clear Urine pH 7.0 Ur Specific [place] 1.012 Urine Protein 2+ H Urine Glucose (UA) 3+ H Urine Ketones Negative Urine Blood Negative Urine Nitrate Negative Urine Bilirubin Negative Urine Urobilinogen Normal Ur Leukocyte Esterase Neg Urine WBC (Auto) 1 Urine RBC (Auto) < 1 Ur Squamous Epith Cells 6 H Urine HCG, Qual Negative Stool Leukocytes, Qual Blood Type Antibody Screen 04/01/17 04/01/17 04/01/17 05:47 06:39 11:30 WBC RBC Hgb Hct MCV MCH MCHC RDW Plt Count MPV Neut % (Auto) Lymph % (Auto) [place] % (Auto) Eos % (Auto) Baso % (Auto) Neut # (Auto) Lymph # (Auto) [place] # (Auto) Eos # (Auto) Baso # (Auto) ESR PT INR APTT pO2 VBG pH VBG pCO2 VBG HCO3 VBG Total CO2 VBG O2 Sat (Calc) VBG Base Excess VBG Potassium Glucose Lactate Crit Value Called To Crit Value Called By Crit Value Read Back Blood Gas Notified Time Sodium 137 Potassium 3.4 L Chloride 105 Carbon Dioxide 25 Anion Gap 10 BUN 14 Creatinine 0.6 L Est GFR ( Amer) > 60 Est GFR (Non-Af Amer) > 60 POC Glucose (mg/dL) 210 H 232 H Random Glucose 233 H Calcium 8.0 L Total Bilirubin 0.2 AST 17 ALT 19 Alkaline Phosphatase 67 Total Protein 6.1 L Albumin 3.0 L Globulin 3.1 Albumin/Globulin Ratio 1.0 Venous Blood Potassium Urine Color Urine Clarity Urine pH Ur Specific [place] Urine Protein Urine Glucose (UA) Urine Ketones Urine Blood Urine Nitrate Urine Bilirubin Urine Urobilinogen Ur Leukocyte Esterase Urine WBC (Auto) Urine RBC (Auto) Ur Squamous Epith Cells Urine HCG, Qual Stool Leukocytes, Qual Blood Type Antibody Screen 04/01/17 04/01/17 15:17 17:03 WBC RBC Hgb Hct MCV MCH MCHC RDW Plt Count MPV Neut % (Auto) Lymph % (Auto) [place] % (Auto) Eos % (Auto) Baso % (Auto) Neut # (Auto) Lymph # (Auto) [place] # (Auto) Eos # (Auto) Baso # (Auto) ESR PT INR APTT pO2 VBG pH VBG pCO2 VBG HCO3 VBG Total CO2 VBG O2 Sat (Calc) VBG Base Excess VBG Potassium Glucose Lactate Crit Value Called To Crit Value Called By Crit Value Read Back Blood Gas Notified Time Sodium Potassium Chloride Carbon Dioxide Anion Gap BUN Creatinine Est GFR ( Amer) Est GFR (Non-Af Amer) POC Glucose (mg/dL) 194 H Random Glucose Calcium Total Bilirubin AST ALT Alkaline Phosphatase Total Protein Albumin Globulin Albumin/Globulin Ratio Venous Blood Potassium Urine Color Urine Clarity Urine pH Ur Specific [place] Urine Protein Urine Glucose (UA) Urine Ketones Urine Blood Urine Nitrate Urine Bilirubin Urine Urobilinogen Ur Leukocyte Esterase Urine WBC (Auto) Urine RBC (Auto) Ur Squamous Epith Cells Urine HCG, Qual Stool Leukocytes, Qual Negative Blood Type Antibody Screen Assessment & Plan - Assessment and Plan (Free Text) Plan: 42 F with lower abd pain like secondary to colitis/enteritis and r groin tenderness -Liquid diet ADAT -IV fluids -Analgesics PRN -Medical management as per primary -Further recs as per Dr. Kermit Levy PGY1
[2017-04-01] MEDS: Insulin Detemir 100 units/ml Vial (Levemir) SC SCH (21:22)
[2017-04-02] MEDS: Sodium Chloride 0.9% 1,000 ML IV SCH ×3 (05:54→13:34)
--- NOTE | 2017-04-02 08:30 | CP.PCM.PN ---
Subjective - Date & Time of Evaluation Date of Evaluation: 04/02/17 Time of Evaluation: 06:40 - Subjective Subjective: General Surgery- Dr. Carmen Patient seen and examined at bedside this AM. Tolerating CLD. Denies current nausea and vomiting. passing flatus and having loose BM. deneis f/c cp/sob numbness/tingling in extremities. Objective - Vital Signs/Intake and Output Vital Signs (last 24 hours): Temp Pulse Resp BP Pulse Ox 98.7 F 95 H 20 147/79 97 04/01/17 23:15 04/01/17 23:15 04/01/17 23:15 04/01/17 23:15 04/01/17 23:15 Intake and Output: 04/02/17 04/02/17 06:59 18:59 Intake Total 1460 Balance 1460 - Medications Medications: Current Medications Famotidine (Pepcid) 20 mg IVP DAILY [facility] Last Admin: 04/01/17 10:29 Dose: 20 mg Heparin Sodium (Porcine) (Heparin) 5,000 units SC Q12 [facility] Last Admin: 04/01/17 21:22 Dose: 5,000 units Sodium Chloride (Sodium Chloride 0.9%) 1,000 mls @ 125 mls/hr IV .Q8H [facility] Last Admin: 04/01/17 21:25 Dose: Not Given Insulin Detemir (Levemir) 22 unit SC HS [facility] Last Admin: 04/01/17 21:22 Dose: 22 unit Ketorolac Tromethamine (Toradol) 30 mg IVP Q6 PRN PRN Reason: Pain, moderate (4-7) Last Admin: 04/02/17 03:38 Dose: 30 mg - Labs Labs: 04/01/17 05:47 04/01/17 05:47 PT 9.2 SECONDS (9.7-12.2) L 03/31/17 22:33 INR 0.8 03/31/17 22:33 APTT 27 SECONDS (21-34) 03/31/17 22:33 - Constitutional Appears: Non-toxic, No Acute Distress - Head Exam Head Exam: ATRAUMATIC - Eye Exam Eye Exam: EOMI. absent: Scleral icterus - ENT Exam ENT Exam: Mucous Membranes Moist - Respiratory Exam Respiratory Exam: NORMAL BREATHING PATTERN. absent: Accessory Muscle Use, Respiratory Distress - Cardiovascular Exam Cardiovascular Exam: +S1, +S2. absent: Bradycardia, Tachycardia - GI/Abdominal Exam GI & Abdominal Exam: Guarding, Soft, Tenderness. absent: Distended, Firm, Rigid Additional comments: tender to palpation in RLQ an LLQ voluntary guarding - Extremities Exam Extremities Exam: Normal Inspection. absent: Calf Tenderness - Neurological Exam Neurological Exam: Alert, Awake, Oriented x3 - Psychiatric Exam Psychiatric exam: Normal Affect - Skin Skin Exam: Intact, Warm Assessment and Plan - Assessment and Plan (Free Text) Assessment: 42F w/ loose BM and ABD pain most likely 2/2 gastroenteritis Plan: - f/u C.Diff toxin results - will start on PO Flagyl - probiotics - advance diet as tolerated - no acute surgical intervention at this time - discussed w/ Dr. Carmen surgical attending Wilfrido Munoz PGY1
[2017-04-02 08:46] LABS: BASO % 0.5 % (0.0-2.0); EOS % 0.4 % (0.0-4.0); HEMOGLOBIN 10.1 g/dL (11.0-16.0); LYMPH # 1.5 K/uL (1.0-4.3); LYMPH % 23.8 % (20.0-40.0); MEAN CELL VOLUME 81.1 fL (81.0-99.0); MEAN CORPUSCULAR HEMOGLOBIN 26.3 pg (27.0-31.0); MEAN CORPUSCULAR HGB CONC 32.4 g/dL (33.0-37.0); MEAN PLATELET VOLUME 8.4 fL (7.2-11.7); MONO # 0.4 K/uL (0.0-0.8); MONO % 6.7 % (0.0-10.0); NEUT # 4.3 K/uL (1.8-7.0); NEUT % 68.6 % (50.0-75.0); NRBC % 0.1 % (0.0-2.0); RBC 3.84 Mil/uL (3.80-5.20); RED CELL DISTRIBUTION WIDTH 15.8 % (11.5-14.5); WHITE BLOOD COUNT 6.2 K/uL (4.8-10.8)
[2017-04-02 09:08] LABS: ALBUMIN 3.2 g/dL (3.5-5.0); ALT/SGPT 19 U/L (9-52); AST/SGOT 19 U/L (14-36); BLOOD UREA NITROGEN 12 mg/dL (7-17); CALCIUM 8.5 mg/dl (8.6-10.4); GFR AFRICAN-AMERICAN > 60; GFR NON-AFRICAN AMERICAN > 60
--- NOTE | 2017-04-02 09:13 | CP.PCM.PN ---
Subjective - Date & Time of Evaluation Date of Evaluation: 04/02/17 Time of Evaluation: 09:00 - Subjective Subjective: Patient was seen and examined by me The patient reported still having pain at the same area. Her CT scan of abdomen and pelvis with PO contrast returned it did not have obstruction. It did suggest possible enteritis. The patient tolerated CLD yesterday, will try advancing to full liquid diet. Objective - Vital Signs/Intake and Output Vital Signs (last 24 hours): Temp Pulse Resp BP Pulse Ox 98.7 F 95 H 20 147/79 97 04/01/17 23:15 04/01/17 23:15 04/01/17 23:15 04/01/17 23:15 04/01/17 23:15 Intake and Output: 04/02/17 04/02/17 06:59 18:59 Intake Total 1460 Balance 1460 - Medications Medications: Current Medications Famotidine (Pepcid) 20 mg IVP DAILY [facility] Last Admin: 04/01/17 10:29 Dose: 20 mg Heparin Sodium (Porcine) (Heparin) 5,000 units SC Q12 [facility] Last Admin: 04/01/17 21:22 Dose: 5,000 units Sodium Chloride (Sodium Chloride 0.9%) 1,000 mls @ 125 mls/hr IV .Q8H [facility] Last Admin: 04/01/17 21:25 Dose: Not Given Ciprofloxacin (Cipro 400mg/200ml Dsw) 400 mg in 200 mls @ 133 mls/hr IVPB Q12 [facility] Insulin Detemir (Levemir) 22 unit SC HS [facility] Last Admin: 04/01/17 21:22 Dose: 22 unit Ketorolac Tromethamine (Toradol) 30 mg IVP Q6 PRN PRN Reason: Pain, moderate (4-7) Last Admin: 04/02/17 03:38 Dose: 30 mg Lactobacillus Acidophilus (Bacid Acidophilus) 1 cap PO BID [facility] Metronidazole (Flagyl) 500 mg PO Q8 [facility] - Labs Labs: 04/02/17 08:29 04/02/17 08:29 PT 9.2 SECONDS (9.7-12.2) L 03/31/17 22:33 INR 0.8 03/31/17 22:33 APTT 27 SECONDS (21-34) 03/31/17 22:33 - Constitutional Appears: Well, No Acute Distress - Head Exam Head Exam: ATRAUMATIC, NORMAL INSPECTION, NORMOCEPHALIC - Eye Exam Eye Exam: EOMI Additional comments: As previously mentioned very poor vision - cannot see past 2 meters - ENT Exam ENT Exam: Mucous Membranes Moist - Neck Exam Neck Exam: Full ROM - Respiratory Exam Respiratory Exam: Clear to Ausculation Bilateral, NORMAL BREATHING PATTERN - Cardiovascular Exam Cardiovascular Exam: REGULAR RHYTHM - GI/Abdominal Exam GI & Abdominal Exam: Soft, Tenderness. absent: Distended, Firm, Guarding Additional comments: Right lower quadrant area - Neurological Exam Neurological Exam: Alert, Awake, Oriented x3 Neuro motor strength exam: Left Upper Extremity: 5, Right Upper Extremity: 5, Left Lower Extremity: 5, Right Lower Extremity: 5 - Psychiatric Exam Psychiatric exam: Normal Affect, Normal Mood - Skin Skin Exam: Normal Color, Warm Assessment and Plan - Assessment and Plan (Free Text) Assessment: 42 year old female with a past medical history of uncontrolled diabetes, hypertension, and hyperlipidemia who currently has abdominal pain as well as diarrhea. Plan: 1. Abdominal Pain - CT reveal dialated cecum and it is midabomin in location 04/02: repeat CT with PO contrast did not show obstruction, it suggested possible enteritis. Patient is having watery BMs. Will advance diet again today. Continue with IVF. Cipro and Flagyl No acute surgery needed at this moment 04/01: We are ordering a repeat CT with PO contrast to assess for potential obstruction/volvuls She is NPO, IVF, pain medications. Pending stool studies at this moment. -IV fluids @125cc/hr She will need surgery evaluation 2. HTN 04/02: Continue to monitor, on NSS and can be DC as diet advances 04/01: Recent BPs have been 120s and 130s systolic. Continue to monitor 3. Uncontrolled Diabetes 04/01 Accuchecks ordered Currently only on Levemir She is NPO at this moment If needed we can start a sliding scale. 4. Lower back pain 04/02: MRI returned and is stable 04/01 She was recently lifting heavy objects - patient reports helping package pick up a refrigerator last weekend. There were additional MRI imaging ordered. Pending at this time. 5. History of Hypercholesterolemia Stable, at this time PPx Heparin 5000 units q12
[2017-04-02] MEDS: Lactobacillus Acidophilus 500 MU Cap PO SCH ×2 (11:41→18:53)
[2017-04-02] MEDS: Ciprofloxacin 400mg/200ml D5W 400 MG/200 ML BAG IVPB SCH ×2 (11:42→22:02)
[2017-04-02] MEDS: Insulin Detemir 100 units/ml Vial (Levemir) SC SCH (22:01)
[2017-04-03] MEDS: Sodium Chloride 0.9% 1,000 ML IV SCH ×4 (01:10→21:31)
[2017-04-03 08:24] LABS: BASO # 0.1 K/uL (0.0-0.2); BASO % 0.9 % (0.0-2.0); EOS # 0.1 K/uL (0.0-0.7); EOS % 0.8 % (0.0-4.0); HEMOGLOBIN 10.3 g/dL (11.0-16.0); LYMPH # 1.5 K/uL (1.0-4.3); LYMPH % 18.5 % (20.0-40.0); MEAN CELL VOLUME 80.5 fL (81.0-99.0); MEAN CORPUSCULAR HEMOGLOBIN 25.9 pg (27.0-31.0); MEAN CORPUSCULAR HGB CONC 32.2 g/dL (33.0-37.0); MEAN PLATELET VOLUME 8.2 fL (7.2-11.7); MONO # 0.7 K/uL (0.0-0.8); MONO % 8.2 % (0.0-10.0); NEUT # 5.8 K/uL (1.8-7.0); NEUT % 71.6 % (50.0-75.0); NRBC % 0.1 % (0.0-2.0); RBC 3.96 Mil/uL (3.80-5.20); RED CELL DISTRIBUTION WIDTH 16.1 % (11.5-14.5); WHITE BLOOD COUNT 8.1 K/uL (4.8-10.8)
[2017-04-03 08:55] LABS: ALBUMIN 3.2 g/dL (3.5-5.0); ALT/SGPT 15 U/L (9-52); AST/SGOT 19 U/L (14-36); BLOOD UREA NITROGEN 11 mg/dL (7-17); CALCIUM 8.5 mg/dl (8.6-10.4); GFR AFRICAN-AMERICAN > 60; GFR NON-AFRICAN AMERICAN > 60
[2017-04-03] MEDS: Lactobacillus Acidophilus 500 MU Cap PO SCH ×2 (09:47→17:37)
[2017-04-03] MEDS: Ciprofloxacin 400mg/200ml D5W 400 MG/200 ML BAG IVPB SCH (09:47)
[2017-04-03] MEDS: (Novolin R) Insulin Human Regular 100 units/ml vial SC SCH ×3 (11:40→21:33)
--- NOTE | 2017-04-03 15:02 | CP.PCM.PN ---
Subjective - Date & Time of Evaluation Date of Evaluation: 04/03/17 Time of Evaluation: 07:00 - Subjective Subjective: General surgery progress note for Dr. Yenny Reyes, PGY-1 Pt S & E at bedside. Pt reports continued diarrhea, abdominal pain-which is improved. Tolerating CLD. Objective - Vital Signs/Intake and Output Vital Signs (last 24 hours): Temp Pulse Resp BP Pulse Ox 98.8 F 94 H 20 146/98 H 98 04/03/17 07:30 04/03/17 07:30 04/03/17 07:30 04/03/17 07:30 04/03/17 07:30 Intake and Output: 04/03/17 04/03/17 06:59 18:59 Intake Total 1300 Balance 1300 - Medications Medications: Current Medications Famotidine (Pepcid) 20 mg IVP DAILY [facility] Last Admin: 04/03/17 09:48 Dose: 20 mg Heparin Sodium (Porcine) (Heparin) 5,000 units SC Q12 [facility] Last Admin: 04/03/17 09:47 Dose: 5,000 units Sodium Chloride (Sodium Chloride 0.9%) 1,000 mls @ 125 mls/hr IV .Q8H [facility] [place] Last Admin: 04/03/17 14:40 Dose: Not Given Ciprofloxacin (Cipro 400mg/200ml Dsw) 400 mg in 200 mls @ 133 mls/hr IVPB Q12 [facility] [place] Last Admin: 04/03/17 09:47 Dose: 133 mls/hr Insulin Detemir (Levemir) 22 unit SC HS [facility] Last Admin: 04/02/17 22:01 Dose: 22 unit Insulin Human Regular (Novolin R) 0 unit SC ACHS [facility] PRN Reason: Protocol Last Admin: 04/03/17 11:40 Dose: 3 unit Ketorolac Tromethamine (Toradol) 30 mg IVP Q6 PRN PRN Reason: Pain, moderate (4-7) Last Admin: 04/03/17 08:31 Dose: 30 mg Lactobacillus Acidophilus (Bacid Acidophilus) 1 cap PO BID [facility] Last Admin: 04/03/17 09:47 Dose: 1 cap Metronidazole (Flagyl) 500 mg PO Q8 [facility] Last Admin: 04/03/17 13:23 Dose: 500 mg - Labs Labs: 04/03/17 08:19 04/03/17 08:19 PT 9.2 SECONDS (9.7-12.2) L 03/31/17 22:33 INR 0.8 03/31/17 22:33 APTT 27 SECONDS (21-34) 03/31/17 22:33 - Constitutional Appears: Non-toxic, No Acute Distress - Head Exam Head Exam: ATRAUMATIC, NORMAL INSPECTION, NORMOCEPHALIC - Eye Exam Eye Exam: EOMI, Normal appearance - ENT Exam ENT Exam: Mucous Membranes Moist, Normal Exam - Neck Exam Neck Exam: Full ROM, Normal Inspection - Respiratory Exam Respiratory Exam: NORMAL BREATHING PATTERN - Cardiovascular Exam Cardiovascular Exam: REGULAR RHYTHM, +S1, +S2 - GI/Abdominal Exam GI & Abdominal Exam: Soft. absent: Distended, Firm, Guarding, Tenderness, Rebound - Extremities Exam Extremities Exam: Tenderness (Right inguinal area with palpable soft tissue mass ) - Neurological Exam Neurological Exam: Alert, Awake, Oriented x3 - Psychiatric Exam Psychiatric exam: Normal Affect, Normal Mood - Skin Skin Exam: Dry, Intact, Normal Color, Warm Assessment and Plan - Assessment and Plan (Free Text) Assessment: 42F w/abdominal pain due to gastroenteritis Plan: C diff negative Consider PO Flagyl- no need for IV Warm compresses to Right groin Probiotic Advance diet as tolerated No surgical intervention at this time DW attending Amy, PGY-1
--- NOTE | 2017-04-03 15:23 | CP.PCM.PN ---
<Yoly Martinez - Last Filed: 04/03/17 15:20> Subjective - Date & Time of Evaluation Date of Evaluation: 04/03/17 Time of Evaluation: 11:00 - Subjective Subjective: Medicine Note for Hospitalist Service- Dr. Rueda Patient was seen and examined at bedside. Reports she did tolerate the FLD. However, family brought her food from home which she did not tolerate. Diet will be advanced to soft today to see if she tolerates it. She no longer has diarrhea, she reports loose BMs and some mild abdominal pain. Denied fever, chills, headache, chest pain, abdominal pain, n/v/d/c, or urinary symptoms. Objective - Vital Signs/Intake and Output Vital Signs (last 24 hours): Temp Pulse Resp BP Pulse Ox 98.8 F 94 H 20 146/98 H 98 04/03/17 07:30 04/03/17 07:30 04/03/17 07:30 04/03/17 07:30 04/03/17 07:30 Intake and Output: 04/03/17 04/03/17 06:59 18:59 Intake Total 1300 Balance 1300 - Medications Medications: Current Medications Ciprofloxacin (Cipro) 500 mg PO Q12 [facility] Famotidine (Pepcid) 20 mg IVP DAILY [facility] Last Admin: 04/03/17 09:48 Dose: 20 mg Heparin Sodium (Porcine) (Heparin) 5,000 units SC Q12 [facility] Last Admin: 04/03/17 09:47 Dose: 5,000 units Sodium Chloride (Sodium Chloride 0.9%) 1,000 mls @ 125 mls/hr IV .Q8H [facility] Last Admin: 04/03/17 14:40 Dose: Not Given Insulin Detemir (Levemir) 22 unit SC HS [facility] Last Admin: 04/02/17 22:01 Dose: 22 unit Insulin Human Regular (Novolin R) 0 unit SC ACHS [facility] PRN Reason: Protocol Last Admin: 04/03/17 11:40 Dose: 3 unit Ketorolac Tromethamine (Toradol) 30 mg IVP Q6 PRN PRN Reason: Pain, moderate (4-7) Last Admin: 04/03/17 08:31 Dose: 30 mg Lactobacillus Acidophilus (Bacid Acidophilus) 1 cap PO BID [facility] Last Admin: 04/03/17 09:47 Dose: 1 cap Metronidazole (Flagyl) 500 mg PO Q8 [facility] Last Admin: 04/03/17 13:23 Dose: 500 mg - Labs Labs: 04/03/17 08:19 04/03/17 08:19 PT 9.2 SECONDS (9.7-12.2) L 03/31/17 22:33 INR 0.8 03/31/17 22:33 APTT 27 SECONDS (21-34) 03/31/17 22:33 - Additional Findings Additional findings: - Constitutional Appears: Well, No Acute Distress - Head Exam Head Exam: ATRAUMATIC, NORMAL INSPECTION, NORMOCEPHALIC - Eye Exam Eye Exam: EOMI Additional comments: As previously mentioned very poor vision - cannot see past 2 meters - ENT Exam ENT Exam: Mucous Membranes Moist - Neck Exam Neck Exam: Full ROM - Respiratory Exam Respiratory Exam: Clear to Ausculation Bilateral, NORMAL BREATHING PATTERN - Cardiovascular Exam Cardiovascular Exam: REGULAR RHYTHM - GI/Abdominal Exam GI & Abdominal Exam: Soft, Tenderness. absent: Distended, Firm, Guarding Additional comments: Right lower quadrant area - Neurological Exam Neurological Exam: Alert, Awake, Oriented x3 Neuro motor strength exam: Left Upper Extremity: 5, Right Upper Extremity: 5, Left Lower Extremity: 5, Right Lower Extremity: 5 - Psychiatric Exam Psychiatric exam: Normal Affect, Normal Mood - Skin Skin Exam: Normal Color, Warm Assessment and Plan - Assessment and Plan (Free Text) Plan: Enteritis Abdominal Pain Surgery consulted- Dr. Carmen- help appreciated No acute surgery needed at this moment Continue with IVF. Switch IV to PO, Cipro and Flagyl CT with PO contrast: Question small bowel wall thickening which may be seen in the setting of enteritis. Correlate clinically. Tiny fluid or stranding re- identified within the left pelvis. Otherwise, no significant interval change appreciated. Additional findings as above. Patient tolerated FLD - will advanced to soft dinner and breakfast Uncontrolled Diabetes Accuchecks ISS- low Levimer 22units QHS A1C: 15.3 HTN During Hospital Course Continue to monitor Patient is also on fluids, most likely elevating BP Lower back pain Thoracic MRI: No acute compression fractures no retropulsed fragments. No significant degenerative spondylosis. No evidence of canal canal- foraminal compromise nor cord compression. Lumbar MRI: No acute compression fractures no retropulsed fragments. No significant degenerative spondylosis. . Central canal and exit foramina appear adequate throughout History of Hypercholesterolemia Stable, at this time Prophylatic Measures PPx Heparin 5000 units q12, SCDs DW Juan Mendoza DO, PGY-1 <Agustina Rueda - Last Filed: 04/04/17 07:41> Objective - Vital Signs/Intake and Output Vital Signs (last 24 hours): Temp Pulse Resp BP Pulse Ox 98.2 F 90 20 147/84 99 04/03/17 23:20 04/03/17 23:20 04/03/17 23:20 04/03/17 23:20 04/03/17 23:20 Intake and Output: 04/04/17 04/04/17 06:59 18:59 Intake Total 1400 Balance 1400 - Medications Medications: Current Medications Ciprofloxacin (Cipro) 500 mg PO Q12 [facility] Last Admin: 04/03/17 21:30 Dose: 500 mg Famotidine (Pepcid) 20 mg IVP DAILY [facility] Last Admin: 04/03/17 09:48 Dose: 20 mg Heparin Sodium (Porcine) (Heparin) 5,000 units SC Q12 [facility] Last Admin: 04/03/17 21:30 Dose: 5,000 units Sodium Chloride (Sodium Chloride 0.9%) 1,000 mls @ 125 mls/hr IV .Q8H [facility] Last Admin: 04/03/17 21:31 Dose: 125 mls/hr Insulin Detemir (Levemir) 22 unit SC HS [facility] Last Admin: 04/03/17 21:30 Dose: 22 unit Insulin Human Regular (Novolin R) 0 unit SC ACHS [facility] PRN Reason: Protocol Last Admin: 04/03/17 21:33 Dose: Not Given Ketorolac Tromethamine (Toradol) 30 mg IVP Q6 PRN PRN Reason: Pain, moderate (4-7) Last Admin: 04/04/17 00:01 Dose: 30 mg Lactobacillus Acidophilus (Bacid Acidophilus) 1 cap PO BID [facility] Last Admin: 04/03/17 17:37 Dose: 1 cap Metronidazole (Flagyl) 500 mg PO Q8 [facility] Last Admin: 04/04/17 05:02 Dose: 500 mg - Labs Labs: 04/03/17 08:19 04/04/17 06:45 PT 9.2 SECONDS (9.7-12.2) L 03/31/17 22:33 INR 0.8 03/31/17 22:33 APTT 27 SECONDS (21-34) 03/31/17 22:33 Attending/Attestation - Attestation I have personally seen and examined this patient.: Yes I have fully participated in the care of the patient.: Yes I have reviewed all pertinent clinical information, including history, physical exam and plan: Yes Notes (Text): Seen and examined Abdominal pain is better Abdomen is soft,Mild tenderness No guarding ,no rigidity Her HA1c is high, its 15 .Poorly controlled diabetes mellitus Had long discussion with her and her daughter about terminal manager complication of diabetes mellitus including CVA,blindness,renal failure and vascular disease. patient agree to check his sugar 4 times a day,document and bring it to the medical clinic.She is on Levemir and humolog at this time. Discussed with the resident. Diet as tolerated.possible discharge tomorrow I agree withe the documentation of the assessment and the plan
[2017-04-03] MEDS: Insulin Detemir 100 units/ml Vial (Levemir) SC SCH (21:30)
[2017-04-04 07:07] LABS: ALB/GLOB RATIO 0.9 (1.0-2.1); ALBUMIN 2.7 g/dL (3.5-5.0); ALT/SGPT 30 U/L (9-52); AST/SGOT 21 U/L (14-36); BLOOD UREA NITROGEN 15 mg/dL (7-17); CALCIUM 8.1 mg/dl (8.6-10.4); GFR AFRICAN-AMERICAN > 60; GFR NON-AFRICAN AMERICAN > 60; MAGNESIUM 1.7 mg/dL (1.6-2.3)
[2017-04-04 07:20] LABS: BASO % 0.6 % (0.0-2.0); EOS # 0.1 K/uL (0.0-0.7); EOS % 1.2 % (0.0-4.0); HEMOGLOBIN 9.7 g/dL (11.0-16.0); LYMPH # 0.9 K/uL (1.0-4.3); LYMPH % 10.1 % (20.0-40.0); MEAN CELL VOLUME 79.8 fL (81.0-99.0); MEAN CORPUSCULAR HEMOGLOBIN 26.7 pg (27.0-31.0); MEAN CORPUSCULAR HGB CONC 33.4 g/dL (33.0-37.0); MONO # 0.7 K/uL (0.0-0.8); MONO % 8.5 % (0.0-10.0); NEUT # 6.9 K/uL (1.8-7.0); NEUT % 79.6 % (50.0-75.0); NRBC % 0.1 % (0.0-2.0); RBC 3.64 Mil/uL (3.80-5.20); RED CELL DISTRIBUTION WIDTH 15.7 % (11.5-14.5); WHITE BLOOD COUNT 8.7 K/uL (4.8-10.8)
[2017-04-04] MEDS: (Novolin R) Insulin Human Regular 100 units/ml vial SC SCH ×4 (07:36→21:38)
--- NOTE | 2017-04-04 07:46 | CP.PCM.PN ---
Subjective - Date & Time of Evaluation Date of Evaluation: 04/04/17 Time of Evaluation: 06:30 - Subjective Subjective: General surgery progress note for Dr. Carmen-Myra Reyse, PGY-1 Pt S & E at bedside. Pt c/o of continued but improved ab pain, did not tolerate CLD- having nausea. Still having diarrhea. Objective - Vital Signs/Intake and Output Vital Signs (last 24 hours): Temp Pulse Resp BP Pulse Ox 98.2 F 90 20 147/84 99 04/03/17 23:20 04/03/17 23:20 04/03/17 23:20 04/03/17 23:20 04/03/17 23:20 Intake and Output: 04/04/17 04/04/17 06:59 18:59 Intake Total 1400 Balance 1400 - Medications Medications: Current Medications Ciprofloxacin (Cipro) 500 mg PO Q12 [facility] Last Admin: 04/03/17 21:30 Dose: 500 mg Famotidine (Pepcid) 20 mg IVP DAILY [facility] Last Admin: 04/03/17 09:48 Dose: 20 mg Heparin Sodium (Porcine) (Heparin) 5,000 units SC Q12 [facility] Last Admin: 04/03/17 21:30 Dose: 5,000 units Sodium Chloride (Sodium Chloride 0.9%) 1,000 mls @ 125 mls/hr IV .Q8H [facility] Last Admin: 04/03/17 21:31 Dose: 125 mls/hr Insulin Detemir (Levemir) 22 unit SC HS [facility] Last Admin: 04/03/17 21:30 Dose: 22 unit Insulin Human Regular (Novolin R) 0 unit SC ACHS [facility] PRN Reason: Protocol Last Admin: 04/04/17 07:36 Dose: Not Given Ketorolac Tromethamine (Toradol) 30 mg IVP Q6 PRN PRN Reason: Pain, moderate (4-7) Last Admin: 04/04/17 07:39 Dose: 30 mg Lactobacillus Acidophilus (Bacid Acidophilus) 1 cap PO BID [facility] Last Admin: 04/03/17 17:37 Dose: 1 cap Metronidazole (Flagyl) 500 mg PO Q8 [facility] Last Admin: 04/04/17 05:02 Dose: 500 mg Potassium Chloride (K-Dur 20 Meq Er Tab) 40 meq PO ONCE ONE Stop: 04/04/17 10:01 - Labs Labs: 04/04/17 06:45 04/04/17 06:45 PT 9.2 SECONDS (9.7-12.2) L 03/31/17 22:33 INR 0.8 03/31/17 22:33 APTT 27 SECONDS (21-34) 03/31/17 22:33 - Constitutional Appears: Non-toxic, No Acute Distress - Head Exam Head Exam: ATRAUMATIC, NORMAL INSPECTION, NORMOCEPHALIC - Eye Exam Eye Exam: EOMI, Normal appearance - ENT Exam ENT Exam: Mucous Membranes Moist, Normal Exam - Neck Exam Neck Exam: Full ROM, Normal Inspection - Respiratory Exam Respiratory Exam: NORMAL BREATHING PATTERN - Cardiovascular Exam Cardiovascular Exam: REGULAR RHYTHM, +S1, +S2 - GI/Abdominal Exam GI & Abdominal Exam: Soft. absent: Distended, Firm, Guarding, Rigid, Tenderness Additional comments: inguinal lymphnode decreased in size on right - Neurological Exam Neurological Exam: Alert, Awake, CN II-XII Intact, Oriented x3 - Psychiatric Exam Psychiatric exam: Normal Affect, Normal Mood - Skin Skin Exam: Dry, Intact, Normal Color, Warm Assessment and Plan - Assessment and Plan (Free Text) Assessment: 42F w/abdominal pain due to gastroenteritis Plan: Cont PO Flagyl Cont Warm compresses to Right groin Cont Probiotic Advance diet as tolerated No surgical intervention at this time Encourage ambulation DW attending Amy, PGY-1
[2017-04-04] MEDS: Lactobacillus Acidophilus 500 MU Cap PO SCH ×2 (09:37→17:32)
[2017-04-04] MEDS ORDERED: Potassium Chloride 20 mEq ER Tab PO ONE (10:00)
--- NOTE | 2017-04-04 10:53 | CP.PCM.DIS ---
Addendum entered and electronically signed by Yoly Martinez DO 04/04/17 15:51 : Patient reports nausea and vomiting with diet and continued loose BM. We will resume IVF, PO abx, and monitor overnight. Original Note: <Yoly Martinez - Last Filed: 04/04/17 11:13> Provider - Provider Date of Admission: 04/01/17 02:50 Attending physician: Agustina Rueda MD Time Spent in preparation of Discharge (in minutes): 55 Hospital Course - Lab Results Lab Results: Micro Results 03/31/17 22:00 Blood Blood Culture - Preliminary NO GROWTH AFTER 3 DAYS 03/31/17 22:00 Blood Blood Culture - Preliminary NO GROWTH AFTER 3 DAYS 04/01/17 15:17 Stool Stool Culture - Final NO SALMONELLA, SHIGELLA OR CAMPYLOBACTER ISOLATED. 04/01/17 15:17 Rectum Ova and Parasite Concentrate Exam - Final Most Recent Lab Values WBC 8.7 K/uL (4.8-10.8) 04/04/17 06:45 RBC 3.64 Mil/uL (3.80-5.20) L 04/04/17 06:45 Hgb 9.7 g/dL (11.0-16.0) L 04/04/17 06:45 Hct 29.0 % (34.0-47.0) L 04/04/17 06:45 MCV 79.8 fL (81.0-99.0) L 04/04/17 06:45 MCH 26.7 pg (27.0-31.0) L 04/04/17 06:45 MCHC 33.4 g/dL (33.0-37.0) 04/04/17 06:45 RDW 15.7 % (11.5-14.5) H 04/04/17 06:45 Plt Count 396 K/uL (130-400) 04/04/17 06:45 MPV 8.0 fL (7.2-11.7) 04/04/17 06:45 Neut % (Auto) 79.6 % (50.0-75.0) H 04/04/17 06:45 Lymph % (Auto) 10.1 % (20.0-40.0) L 04/04/17 06:45 [place] % (Auto) 8.5 % (0.0-10.0) 04/04/17 06:45 Eos % (Auto) 1.2 % (0.0-4.0) 04/04/17 06:45 Baso % (Auto) 0.6 % (0.0-2.0) 04/04/17 06:45 Neut # (Auto) 6.9 K/uL (1.8-7.0) 04/04/17 06:45 Lymph # (Auto) 0.9 K/uL (1.0-4.3) L 04/04/17 06:45 [place] # (Auto) 0.7 K/uL (0.0-0.8) 04/04/17 06:45 Eos # (Auto) 0.1 K/uL (0.0-0.7) 04/04/17 06:45 Baso # (Auto) 0.0 K/uL (0.0-0.2) 04/04/17 06:45 ESR 60 mm/hr (0-20) H 04/01/17 05:47 PT 9.2 SECONDS (9.7-12.2) L 03/31/17 22:33 INR 0.8 03/31/17 22:33 APTT 27 SECONDS (21-34) 03/31/17 22:33 pO2 37 mm/Hg (30-55) 03/31/17 23:03 VBG pH 7.35 (7.32-7.43) 03/31/17 23:03 VBG pCO2 39 mmHg (40-60) L 03/31/17 23:03 VBG HCO3 21.1 mmol/L 03/31/17 23:03 VBG Total CO2 22.7 mmol/L (22-28) 03/31/17 23:03 VBG O2 Sat (Calc) 78.8 % (40-65) H 03/31/17 23:03 VBG Base Excess -3.8 mmol/L (0.0-2.0) L 03/31/17 23:03 VBG Potassium 3.6 mmol/L (3.6-5.2) 03/31/17 23:03 Sodium 135.0 mmol/l (132-148) 03/31/17 23:03 Chloride 108.0 mmol/L (98-107) H 03/31/17 23:03 Glucose 415 mg/dl (65-105) H* 03/31/17 23:03 Lactate 1.1 mmol/L (0.7-2.1) 03/31/17 23:03 Crit Value Called To Reina rodriguez rn 03/31/17 23:03 Crit Value Called By Veena 03/31/17 23:03 Crit Value Read Back Y 03/31/17 23:03 Blood Gas Notified Time 2310 03/31/17 23:03 Sodium 136 mmol/L (132-148) 04/04/17 06:45 Potassium 3.5 mmol/L (3.6-5.2) L 04/04/17 06:45 Chloride 108 mmol/L (98-107) H 04/04/17 06:45 Carbon Dioxide 23 mmol/L (22-30) 04/04/17 06:45 Anion Gap 8 (10-20) L 04/04/17 06:45 BUN 15 mg/dL (7-17) 04/04/17 06:45 Creatinine 0.7 mg/dL (0.7-1.2) 04/04/17 06:45 Est GFR ( Amer) > 60 04/04/17 06:45 Est GFR (Non-Af Amer) > 60 04/04/17 06:45 POC Glucose (mg/dL) 137 mg/dL (65-110) H 04/04/17 06:21 Random Glucose 140 mg/dL (65-105) H 04/04/17 06:45 Hemoglobin A1c 15.3 % (4.2-6.5) H D 04/01/17 10:40 Calcium 8.1 mg/dl (8.6-10.4) L 04/04/17 06:45 Phosphorus 2.9 mg/dL (2.5-4.5) 04/04/17 06:45 Magnesium 1.7 mg/dL (1.6-2.3) 04/04/17 06:45 Total Bilirubin 0.2 mg/dL (0.2-1.3) 04/04/17 06:45 AST 21 U/L (14-36) 04/04/17 06:45 ALT 30 U/L (9-52) 04/04/17 06:45 Alkaline Phosphatase 61 U/L (38-126) 04/04/17 06:45 Total Protein 5.7 g/dL (6.3-8.3) L 04/04/17 06:45 Albumin 2.7 g/dL (3.5-5.0) L 04/04/17 06:45 Globulin 3.0 gm/dL (2.2-3.9) 04/04/17 06:45 Albumin/Globulin Ratio 0.9 (1.0-2.1) L 04/04/17 06:45 Venous Blood Potassium 3.6 mmol/L (3.6-5.2) 03/31/17 23:03 Urine Color [id number] (YELLOW) 03/31/17 23:59 Urine Clarity Clear (Clear) 03/31/17 23:59 Urine pH 7.0 (5.0-8.0) 03/31/17 23:59 Ur Specific [place] 1.012 (1.003-1.030) 03/31/17 23:59 Urine Protein 2+ mg/dL (NEGATIVE) H 03/31/17 23:59 Urine Glucose (UA) 3+ mg/dL (Normal) H 03/31/17 23:59 Urine Ketones Negative mg/dL (NEGATIVE) 03/31/17 23:59 Urine Blood Negative (NEGATIVE) 03/31/17 23:59 Urine Nitrate Negative (NEGATIVE) 03/31/17 23:59 Urine Bilirubin Negative (NEGATIVE) 03/31/17 23:59 Urine Urobilinogen Normal mg/dL (0.2-1.0) 03/31/17 23:59 Ur Leukocyte Esterase Neg Tia/uL (Negative) 03/31/17 23:59 Urine WBC (Auto) 1 /hpf (0-5) 03/31/17 23:59 Urine RBC (Auto) < 1 /hpf (0-3) 03/31/17 23:59 Ur Squamous Epith Cells 6 /hpf (0-5) H 03/31/17 23:59 Urine HCG, Qual Negative (NEGATIVE) 03/31/17 23:59 Stool Leukocytes, Qual Negative (NEGATIVE) 04/01/17 15:17 C. difficile Ag & Toxin Negative (NEGATIVE) 04/02/17 15:04 Blood Type A POSITIVE 03/31/17 22:33 Antibody Screen Negative 03/31/17 22:33 - Hospital Course Hospital Course: Upon Admission: 42 year old female with a past medical history of hypertension, type 2 Diabetes Mellitus and hyperlipidemia, and hypertension comes in to the hospital complaining of diarrhea for the past one month. The patient reports having to go to the bathroom anytime she eats or drinks anything. She denies any changes in diet or travel. The patient denies any blood or mucous in the stool. She describes the stool as watery in nature. In conjunction the patient also reports abdominal pain for the past week. The pain is located in the lower left and lower right quadrant . She describes the pain as sharp in nature with no radiation. She denies the pain is associated with food intake. Patient denies any chest pain, nausea, vomiting, fevers, chills, changes in vision, headaches, syncopal episodes or any other complaints. PMD: Dr. Torres Past medical history: hypertension, DM, Hypercholesterolemia Medications: Will verify with clinic in the A.M. Surgical history: Denies Allergies: Denies Social: Smokes 1 cigarette a day x25 years. Denies alcohol or illicit drug use. Throughout Hospital Course: Patient was admitted for colitis. CT with PO contrast: Question small bowel wall thickening which may be seen in the setting of enteritis. Correlate clinically. Tiny fluid or stranding re-identified within the left pelvis. Otherwise, no significant interval change appreciated. Additional findings as above. Patient was started on IV ABX, Fluids, seen by surgery with no intervention. Her A1C is 15.3. No changes to her insulin were made due to poor diet. Patient is solely tolerating liquid diet. Patient instructed to keep a sugar log and advance diet as tolerated. She will need to follow up with PMD with sugar logs to adjust her insulins. She will continue with PO abx. She complained of LBP. Thoracic MRI: No acute compression fractures no retropulsed fragments. No significant degenerative spondylosis. No evidence of canal canal- foraminal compromise nor cord compression. Lumbar MRI: No acute compression fractures no retropulsed fragments. No significant degenerative spondylosis. . Central canal and exit foramina appear adequate throughout Please review EMR for full record. Discharge Exam - Additional Findings Additional findings: - Constitutional Appears: Well, No Acute Distress - Head Exam Head Exam: ATRAUMATIC, NORMAL INSPECTION, NORMOCEPHALIC - Eye Exam Eye Exam: EOMI Additional comments: As previously mentioned very poor vision - cannot see past 2 meters - ENT Exam ENT Exam: Mucous Membranes Moist - Neck Exam Neck Exam: Full ROM - Respiratory Exam Respiratory Exam: Clear to Ausculation Bilateral, NORMAL BREATHING PATTERN - Cardiovascular Exam Cardiovascular Exam: REGULAR RHYTHM - GI/Abdominal Exam GI & Abdominal Exam: Soft, Tenderness. absent: Distended, Firm, Guarding Additional comments: - Neurological Exam Neurological Exam: Alert, Awake, Oriented x3 Neuro motor strength exam: Left Upper Extremity: 5, Right Upper Extremity: 5, Left Lower Extremity: 5, Right Lower Extremity: 5 - Psychiatric Exam Psychiatric exam: Normal Affect, Normal Mood - Skin Skin Exam: Normal Color, Warm Discharge Plan - Discharge Medications Prescriptions: Ciprofloxacin [Cipro] 500 mg PO Q12 10 Days #20 tab Insulin Detemir [Levemir] 22 unit SC HS #1 vial metroNIDAZOLE [Flagyl] 500 mg PO Q8 10 Days #30 tab Rosuvastatin Calcium 2.5 [Crestor] 5 mg PO QPM #30 tab - Follow Up Plan Condition: FAIR Disposition: HOME/ ROUTINE Instructions: Ciprofloxacin (By mouth), Metronidazole (By mouth), Rosuvastatin (By mouth), Insulin Detemir (By injection), Soft Diet (DC), Diabetes Mellitus Type 1 in Adults (DC), Diabetic Hypoglycemia (GEN), Gastroenteritis (DC), Meal Planning with the Plate Method (DC), Acute Nausea and Vomiting (DC), Acute Diarrhea (GEN), Diabetic Hyperglycemia (DC) Additional Instructions: Patient is to continue taking Ciprofloxacin 500mg by mouth twice a day for 10 more days and Flagyl 500 by mouth 3 times a day for 10 days. Please start with a liquid diet, drinking lots of water, gatorade, or poweraid. Continue taking levemir 22 units at night. And continue with taking novolog as instructed to you by Dr. Torres. You will also be taking a medication for your cholesterol, due to now being an uncontrolled diabetic it is important to prevent other cardiac issues. Please check your sugars every morning BEFORE breakfast, BEFORE lunch, BEFORE dinner and BEFORE you go to bed and take your levemir. Keep a record for Dr. Torres so she can make more adjustments to your medications. Return to the ED if your symptoms worsen, fever, chills, diarrhea does not improve. ALL PRESCRIPTIONS WERE SENT TO THE [facility] FOR YOU ALREADY. --- El paciente debe continuar tomando Ciprofloxacino 500mg por va oral dos veces al da jonel 10 gregg ms y Flagyl 500 por va oral 3 veces al da jonel 10 d as. Comience con jcarlos dieta lquida, bebiendo marce agua, gatorade o poweraid. Contina tomando levemir 22 unidades por la noche. Y contine con la kati de novolog veronica tomás se lo indic el Dr. Torres. Tambin aaron un medicamento para bermudez colesterol, debido a que ahora es un diabtico descontrolado, es importante prevenir otros problemas cardacos. Por favor revise sarahi azcares todas las maanas ANTES del desayuno, ANTES de la comida, ANTES de la mobile mechanic y ANTES de irse a la cama y aaron bermudez Levemir. Mantenga un registro para la Dra. Torres para que pueda hacer ms ajustes a sarahi medicamentos. Regrese al departamento de emergencias si sarahi sntomas empeoran, fiebre, escalofros, la diarrea no mejora. TODAS LAS PRESCRIPCIONES FUERON ENVIADAS A LA FARMACIA CAREPOINT PARA USTED YA. Referrals: [facility] [Outside] - 1 Week <Agustina Rueda - Last Filed: 04/04/17 18:06> Provider - Provider Date of Admission: 04/01/17 02:50 Attending physician: Agustina Rueda MD Hospital Course - Lab Results Lab Results: Micro Results 03/31/17 22:00 Blood Blood Culture - Preliminary NO GROWTH AFTER 3 DAYS 03/31/17 22:00 Blood Blood Culture - Preliminary NO GROWTH AFTER 3 DAYS 04/01/17 15:17 Stool Stool Culture - Final NO SALMONELLA, SHIGELLA OR CAMPYLOBACTER ISOLATED. 04/01/17 15:17 Rectum Ova and Parasite Concentrate Exam - Final Most Recent Lab Values WBC 8.7 K/uL (4.8-10.8) 04/04/17 06:45 RBC 3.64 Mil/uL (3.80-5.20) L 04/04/17 06:45 Hgb 9.7 g/dL (11.0-16.0) L 04/04/17 06:45 Hct 29.0 % (34.0-47.0) L 04/04/17 06:45 MCV 79.8 fL (81.0-99.0) L 04/04/17 06:45 MCH 26.7 pg (27.0-31.0) L 04/04/17 06:45 MCHC 33.4 g/dL (33.0-37.0) 04/04/17 06:45 RDW 15.7 % (11.5-14.5) H 04/04/17 06:45 Plt Count 396 K/uL (130-400) 04/04/17 06:45 MPV 8.0 fL (7.2-11.7) 04/04/17 06:45 Neut % (Auto) 79.6 % (50.0-75.0) H 04/04/17 06:45 Lymph % (Auto) 10.1 % (20.0-40.0) L 04/04/17 06:45 [place] % (Auto) 8.5 % (0.0-10.0) 04/04/17 06:45 Eos % (Auto) 1.2 % (0.0-4.0) 04/04/17 06:45 Baso % (Auto) 0.6 % (0.0-2.0) 04/04/17 06:45 Neut # (Auto) 6.9 K/uL (1.8-7.0) 04/04/17 06:45 Lymph # (Auto) 0.9 K/uL (1.0-4.3) L 04/04/17 06:45 [place] # (Auto) 0.7 K/uL (0.0-0.8) 04/04/17 06:45 Eos # (Auto) 0.1 K/uL (0.0-0.7) 04/04/17 06:45 Baso # (Auto) 0.0 K/uL (0.0-0.2) 04/04/17 06:45 ESR 60 mm/hr (0-20) H 04/01/17 05:47 PT 9.2 SECONDS (9.7-12.2) L 03/31/17 22:33 INR 0.8 03/31/17 22:33 APTT 27 SECONDS (21-34) 03/31/17 22:33 pO2 37 mm/Hg (30-55) 03/31/17 23:03 VBG pH 7.35 (7.32-7.43) 03/31/17 23:03 VBG pCO2 39 mmHg (40-60) L 03/31/17 23:03 VBG HCO3 21.1 mmol/L 03/31/17 23:03 VBG Total CO2 22.7 mmol/L (22-28) 03/31/17 23:03 VBG O2 Sat (Calc) 78.8 % (40-65) H 03/31/17 23:03 VBG Base Excess -3.8 mmol/L (0.0-2.0) L 03/31/17 23:03 VBG Potassium 3.6 mmol/L (3.6-5.2) 03/31/17 23:03 Sodium 135.0 mmol/l (132-148) 03/31/17 23:03 Chloride 108.0 mmol/L (98-107) H 03/31/17 23:03 Glucose 415 mg/dl (65-105) H* 03/31/17 23:03 Lactate 1.1 mmol/L (0.7-2.1) 03/31/17 23:03 Crit Value Called To Reina rodriguez rn 03/31/17 23:03 Crit Value Called By Veena 03/31/17 23:03 Crit Value Read Back Y 03/31/17 23:03 Blood Gas Notified Time 2310 03/31/17 23:03 Sodium 136 mmol/L (132-148) 04/04/17 06:45 Potassium 3.5 mmol/L (3.6-5.2) L 04/04/17 06:45 Chloride 108 mmol/L (98-107) H 04/04/17 06:45 Carbon Dioxide 23 mmol/L (22-30) 04/04/17 06:45 Anion Gap 8 (10-20) L 04/04/17 06:45 BUN 15 mg/dL (7-17) 04/04/17 06:45 Creatinine 0.7 mg/dL (0.7-1.2) 04/04/17 06:45 Est GFR ( Amer) > 60 04/04/17 06:45 Est GFR (Non-Af Amer) > 60 04/04/17 06:45 POC Glucose (mg/dL) 447 mg/dL (65-110) H* 04/04/17 16:22 Random Glucose 140 mg/dL (65-105) H 04/04/17 06:45 Hemoglobin A1c 15.3 % (4.2-6.5) H D 04/01/17 10:40 Calcium 8.1 mg/dl (8.6-10.4) L 04/04/17 06:45 Phosphorus 2.9 mg/dL (2.5-4.5) 04/04/17 06:45 Magnesium 1.7 mg/dL (1.6-2.3) 04/04/17 06:45 Total Bilirubin 0.2 mg/dL (0.2-1.3) 04/04/17 06:45 AST 21 U/L (14-36) 04/04/17 06:45 ALT 30 U/L (9-52) 04/04/17 06:45 Alkaline Phosphatase 61 U/L (38-126) 04/04/17 06:45 Total Protein 5.7 g/dL (6.3-8.3) L 04/04/17 06:45 Albumin 2.7 g/dL (3.5-5.0) L 04/04/17 06:45 Globulin 3.0 gm/dL (2.2-3.9) 04/04/17 06:45 Albumin/Globulin Ratio 0.9 (1.0-2.1) L 04/04/17 06:45 Venous Blood Potassium 3.6 mmol/L (3.6-5.2) 03/31/17 23:03 Urine Color [id number] (YELLOW) 03/31/17 23:59 Urine Clarity Clear (Clear) 03/31/17 23:59 Urine pH 7.0 (5.0-8.0) 03/31/17 23:59 Ur Specific [place] 1.012 (1.003-1.030) 03/31/17 23:59 Urine Protein 2+ mg/dL (NEGATIVE) H 03/31/17 23:59 Urine Glucose (UA) 3+ mg/dL (Normal) H 03/31/17 23:59 Urine Ketones Negative mg/dL (NEGATIVE) 03/31/17 23:59 Urine Blood Negative (NEGATIVE) 03/31/17 23:59 Urine Nitrate Negative (NEGATIVE) 03/31/17 23:59 Urine Bilirubin Negative (NEGATIVE) 03/31/17 23:59 Urine Urobilinogen Normal mg/dL (0.2-1.0) 03/31/17 23:59 Ur Leukocyte Esterase Neg Tia/uL (Negative) 03/31/17 23:59 Urine WBC (Auto) 1 /hpf (0-5) 03/31/17 23:59 Urine RBC (Auto) < 1 /hpf (0-3) 03/31/17 23:59 Ur Squamous Epith Cells 6 /hpf (0-5) H 03/31/17 23:59 Urine HCG, Qual Negative (NEGATIVE) 03/31/17 23:59 Stool Leukocytes, Qual Negative (NEGATIVE) 04/01/17 15:17 C. difficile Ag & Toxin Negative (NEGATIVE) 04/02/17 15:04 Blood Type A POSITIVE 03/31/17 22:33 Antibody Screen Negative 03/31/17 22:33 Attending/Attestation - Attestation I have personally seen and examined this patient.: Yes I have fully participated in the care of the patient.: Yes I have reviewed all pertinent clinical information, including history, physical exam and plan: Yes Notes (Text): Patient was not tolerating diet,s/p watery diarrhea. c/o abdominal pain. On examination her abdomen is soft,tenderness on palpation.no guarding no rigidity vomited x1 patient was seen again this afternoon . We will keep her overnight, hydrate and continue liquid diet I agree with the documentation of the assessment and the plan of the resident possible discharge tomorrow
[2017-04-04] MEDS: Sodium Chloride 0.9% 1,000 ML IV SCH ×2 (19:03→21:54)
[2017-04-04] MEDS: Insulin Detemir 100 units/ml Vial (Levemir) SC SCH (21:38)
[2017-04-05 06:53] LABS: BASO # 0.1 K/uL (0.0-0.2); BASO % 1.1 % (0.0-2.0); EOS # 0.1 K/uL (0.0-0.7); EOS % 0.5 % (0.0-4.0); HEMOGLOBIN 10.2 g/dL (11.0-16.0); LYMPH # 1.1 K/uL (1.0-4.3); LYMPH % 11.3 % (20.0-40.0); MEAN CELL VOLUME 79.7 fL (81.0-99.0); MEAN CORPUSCULAR HEMOGLOBIN 26.1 pg (27.0-31.0); MEAN CORPUSCULAR HGB CONC 32.7 g/dL (33.0-37.0); MEAN PLATELET VOLUME 8.1 fL (7.2-11.7); MONO # 0.7 K/uL (0.0-0.8); MONO % 7.6 % (0.0-10.0); NEUT # 7.8 K/uL (1.8-7.0); NEUT % 79.5 % (50.0-75.0); NRBC % 0.2 % (0.0-2.0); RBC 3.92 Mil/uL (3.80-5.20); WHITE BLOOD COUNT 9.8 K/uL (4.8-10.8)
[2017-04-05 07:02] LABS: ALBUMIN 2.9 g/dL (3.5-5.0); ALT/SGPT 34 U/L (9-52); AST/SGOT 33 U/L (14-36); BLOOD UREA NITROGEN 11 mg/dL (7-17); CALCIUM 8.3 mg/dl (8.6-10.4); GFR AFRICAN-AMERICAN > 60; GFR NON-AFRICAN AMERICAN > 60
[2017-04-05] MEDS: (Novolin R) Insulin Human Regular 100 units/ml vial SC SCH ×4 (08:23→21:23)
[2017-04-05] MEDS ORDERED: Acetylcysteine 20% Inhal Soln (4ml) INH ONE (08:30)
[2017-04-05] MEDS ORDERED: Albuterol-Ipratrop 3 mg / 0.5 (3 ml) UD INH STA (08:34)
[2017-04-05] MEDS: Lactobacillus Acidophilus 500 MU Cap PO SCH ×2 (09:14→17:44)
[2017-04-05] MEDS: metroNIDAZOLE IV 500 mg/100 ml 500 MG/100 ML BAG IVPB SCH ×2 (09:15→17:44)
--- NOTE | 2017-04-05 09:34 | RAD ---
HISTORY: cough COMPARISON: No prior. FINDINGS: LUNGS: No active pulmonary disease. PLEURA: No significant pleural effusion identified, no pneumothorax apparent. CARDIOVASCULAR: Normal. OSSEOUS STRUCTURES: No significant abnormalities. VISUALIZED UPPER ABDOMEN: Normal. OTHER FINDINGS: None. IMPRESSION: No active disease.
[2017-04-05] MEDS: Ciprofloxacin 400mg/200ml D5W 400 MG/200 ML BAG IVPB SCH ×2 (10:37→21:16)
--- NOTE | 2017-04-05 12:45 | CP.PCM.PN ---
<Yoly Martinez - Last Filed: 04/05/17 12:41> Subjective - Date & Time of Evaluation Date of Evaluation: 04/05/17 Time of Evaluation: 09:00 - Subjective Subjective: Medicine Note for Hospitalist Service- Dr. Rueda Patient was seen and examined at bedside. Patient did not tolerate CLD last night, she admitted to abdominal pain, n/v/d. Admitted to cough and congestion. Denied fever, chills, headache, chest pain, n/v/c, or urinary symptoms. Objective - Vital Signs/Intake and Output Vital Signs (last 24 hours): Temp Pulse Resp BP Pulse Ox 98.2 F 96 H 20 129/83 98 04/04/17 23:20 04/04/17 23:20 04/04/17 23:20 04/04/17 23:20 04/04/17 23:20 Intake and Output: 04/05/17 04/05/17 06:59 18:59 Intake Total 1100 Balance 1100 - Medications Medications: Current Medications Acetaminophen (Tylenol 325mg Tab) 650 mg PO Q6 PRN PRN Reason: Pain, moderate (4-7) Last Admin: 04/05/17 01:24 Dose: 650 mg Benzocaine/Menthol (Cepacol Sore Throat) 1 natalie MT QID PRN PRN Reason: Sore Throat Famotidine (Pepcid) 20 mg IVP DAILY [facility] Last Admin: 04/05/17 11:22 Dose: 20 mg Heparin Sodium (Porcine) (Heparin) 5,000 units SC Q12 [facility] Last Admin: 04/05/17 09:14 Dose: 5,000 units Sodium Chloride (Sodium Chloride 0.9%) 1,000 mls @ 125 mls/hr IV .Q8H [facility] Last Admin: 04/04/17 21:54 Dose: Not Given Ciprofloxacin (Cipro 400mg/200ml Dsw) 400 mg in 200 mls @ 133 mls/hr IVPB Q12H [facility] Last Admin: 04/05/17 10:37 Dose: 133 mls/hr Metronidazole (Flagyl) 500 mg in 100 mls @ 100 mls/hr IVPB Q8H [facility] Last Admin: 04/05/17 09:15 Dose: 100 mls/hr Insulin Detemir (Levemir) 22 unit SC [facility] Last Admin: 04/04/17 21:38 Dose: 22 unit Insulin Human Regular (Novolin R) 0 unit SC ACHS ANA PRN Reason: Protocol Last Admin: 04/05/17 08:23 Dose: 1 unit Lactobacillus Acidophilus (Bacid Acidophilus) 1 cap PO BID ANA Last Admin: 04/05/17 09:14 Dose: 1 cap Loperamide HCl (Imodium) 4 mg PO BID PRN PRN Reason: Diarrhea Last Admin: 04/05/17 11:22 Dose: 4 mg Ondansetron HCl (Zofran Inj) 4 mg IVP Q6H PRN PRN Reason: Nausea/Vomiting - Labs Labs: 04/05/17 06:30 04/05/17 06:30 PT 9.2 SECONDS (9.7-12.2) L 03/31/17 22:33 INR 0.8 03/31/17 22:33 APTT 27 SECONDS (21-34) 03/31/17 22:33 - Additional Findings Additional findings: - Constitutional Appears: Well, No Acute Distress - Head Exam Head Exam: ATRAUMATIC, NORMAL INSPECTION, NORMOCEPHALIC - Eye Exam Eye Exam: EOMI Additional comments: As previously mentioned very poor vision - cannot see past 2 meters - ENT Exam ENT Exam: Mucous Membranes Moist - Neck Exam Neck Exam: Full ROM - Respiratory Exam Respiratory Exam: Clear to Ausculation Bilateral, NORMAL BREATHING PATTERN - Cardiovascular Exam Cardiovascular Exam: REGULAR RHYTHM - GI/Abdominal Exam GI & Abdominal Exam: Soft, Tenderness. absent: Distended, Firm, Guarding Additional comments: Right lower quadrant area - Neurological Exam Neurological Exam: Alert, Awake, Oriented x3 Neuro motor strength exam: Left Upper Extremity: 5, Right Upper Extremity: 5, Left Lower Extremity: 5, Right Lower Extremity: 5 - Psychiatric Exam Psychiatric exam: Normal Affect, Normal Mood - Skin Skin Exam: Normal Color, Warm Assessment and Plan - Assessment and Plan (Free Text) Plan: Enteritis Abdominal Pain Surgery consulted- Dr. Carmen- bandar appreciated No acute surgery needed at this moment CT with PO contrast: Question small bowel wall thickening which may be seen in the setting of enteritis. Correlate clinically. Tiny fluid or stranding re- identified within the left pelvis. Otherwise, no significant interval change appreciated. Additional findings as above. NPO, IVF, IV Cipro, Flagyl Uncontrolled Diabetes Endo consulted - Dr. Cam - help appreciated Accuchecks ISS- low Levimer 22units QHS A1C: 15.3 HTN Continue to monitor Patient is also on fluids, most likely elevating BP Lower back pain Thoracic MRI: No acute compression fractures no retropulsed fragments. No significant degenerative spondylosis. No evidence of canal canal- foraminal compromise nor cord compression. Lumbar MRI: No acute compression fractures no retropulsed fragments. No significant degenerative spondylosis. . Central canal and exit foramina appear adequate throughout History of Hypercholesterolemia Stable, at this time Prophylatic Measures PPx Heparin 5000 units q12, SCDs DW Juan Mendoza DO, PGY-1 <Agustina Rueda - Last Filed: 04/05/17 14:14> Objective - Vital Signs/Intake and Output Vital Signs (last 24 hours): Temp Pulse Resp BP Pulse Ox 98.2 F 96 H 20 129/83 98 04/04/17 23:20 04/04/17 23:20 04/04/17 23:20 04/04/17 23:20 04/04/17 23:20 Intake and Output: 04/05/17 04/05/17 06:59 18:59 Intake Total 1100 Balance 1100 - Medications Medications: Current Medications Acetaminophen (Tylenol 325mg Tab) 650 mg PO Q6 PRN PRN Reason: Pain, moderate (4-7) Last Admin: 04/05/17 01:24 Dose: 650 mg Benzocaine/Menthol (Cepacol Sore Throat) 1 natalie MT QID PRN PRN Reason: Sore Throat Last Admin: 04/05/17 13:39 Dose: 1 natalie Famotidine (Pepcid) 20 mg IVP DAILY [facility] Last Admin: 04/05/17 11:22 Dose: 20 mg Heparin Sodium (Porcine) (Heparin) 5,000 units SC Q12 [facility] Last Admin: 04/05/17 09:14 Dose: 5,000 units Sodium Chloride (Sodium Chloride 0.9%) 1,000 mls @ 125 mls/hr IV .Q8H [facility] Last Admin: 04/04/17 21:54 Dose: Not Given Ciprofloxacin (Cipro 400mg/200ml Dsw) 400 mg in 200 mls @ 133 mls/hr IVPB Q12H [facility] Last Admin: 04/05/17 10:37 Dose: 133 mls/hr Metronidazole (Flagyl) 500 mg in 100 mls @ 100 mls/hr IVPB Q8H ANA Last Admin: 04/05/17 09:15 Dose: 100 mls/hr Insulin Detemir (Levemir) 22 unit SC HS [facility] Last Admin: 04/04/17 21:38 Dose: 22 unit Insulin Human Regular (Novolin R) 0 unit SC ACHS NAA PRN Reason: Protocol Last Admin: 04/05/17 13:06 Dose: 2 unit Lactobacillus Acidophilus (Bacid Acidophilus) 1 cap PO BID ANA Last Admin: 04/05/17 09:14 Dose: 1 cap Loperamide HCl (Imodium) 4 mg PO BID PRN PRN Reason: Diarrhea Last Admin: 04/05/17 11:22 Dose: 4 mg Ondansetron HCl (Zofran Inj) 4 mg IVP Q6H PRN PRN Reason: Nausea/Vomiting - Labs Labs: 04/05/17 06:30 04/05/17 06:30 PT 9.2 SECONDS (9.7-12.2) L 03/31/17 22:33 INR 0.8 03/31/17 22:33 APTT 27 SECONDS (21-34) 03/31/17 22:33 Attending/Attestation - Attestation I have personally seen and examined this patient.: Yes I have fully participated in the care of the patient.: Yes I have reviewed all pertinent clinical information, including history, physical exam and plan: Yes Notes (Text): Patient was seen and examined complaining that she was able to tolerate diet. Has abdominal pain,no vomiting or diarrhea this morning Abdominal exam shows soft abdomen,mild tenderness on LLQ,no guarding no rigidity no fever,no leukocytosis. Recommend out of bed to chair and ambulate keep NPO today,IV antibiotics and re evaluate inthe morning Her blood sugar is high last night ,got her levemir. Her HAc1 is 15. we will ask endocrine for evaluation. 04/05/17 14:09
[2017-04-05] MEDS: Benzocaine/Menthol (Cepacol) Lozenge MT PRN (13:39)
[2017-04-05] MEDS: Sodium Chloride 0.9% 1,000 ML IV SCH ×2 (16:11→21:23)
--- NOTE | 2017-04-05 17:10 | CP.PCM.CON ---
<Gavin Rodriguez - Last Filed: 04/05/17 17:10> History of Present Illness - History of Present Illness History of Present Illness: PGy5 GI Fellow Consult Note Patient is a 42yo female with PMHx significant for HTN, DMT2, hyperlipidemia who presented to the ED with abdominal pain, nausea, vomiting and diarrhea for 6 weeks. The patient started having diffuse, achey abdominal pain approximately 6 weeks ago associated with early satiety, bloating and nausea. Symptoms worsened gradually and during the past two weeks became much more severe with the development of stabbing RLQ abdominal pain. Initially, when pain began she experienced constipation which has since changed to loose stool and watery diarrhea in the last 2-3 weeks with upwards of 8 episodes daily at this time. In the last two weeks she has had increasing difficulty tolerating oral intake and reports vomiting any intake whatsoever at this time. Currently, she continues to have diffuse abdominal tenderness with significant pain in the suprapubic area and RLQ. Denies any rectal bleeding, weight loss, fever, chills. PMHx: See HPI PSHx: Denies any prior surgical history FHx: 2 uncles and grandmother on maternal side with gastric/esophageal cancer; paternal grandmother with stomach cancer Social: Denies tobacco, EtOH or illicit drug use Endo: No prior endoscopic evaluations 12 system ROS performed and negative except where stated above. Past Patient History - Infectious Disease Hx of Infectious Diseases: None - Past Medical History & Family History Past Medical History?: Yes - Past Social History Smoking Status: Never Smoked - CARDIAC Hx Hypertension: Yes - PULMONARY Hx Respiratory Disorders: No - NEUROLOGICAL Hx Neurological Disorder: No - HEENT Hx HEENT Problems: No - RENAL Hx Chronic Kidney Disease: No - ENDOCRINE/METABOLIC Hx Endocrine Disorders: Yes Hx Diabetes Mellitus Type 1: Yes - HEMATOLOGICAL/ONCOLOGICAL Hx Blood Disorders: No - INTEGUMENTARY Hx Dermatological Problems: No - MUSCULOSKELETAL/RHEUMATOLOGICAL Hx Musculoskeletal Disorders: No Hx Falls: No - GASTROINTESTINAL Hx Gastrointestinal Disorders: No - GENITOURINARY/GYNECOLOGICAL Hx Genitourinary Disorders: No - PSYCHIATRIC Hx Substance Use: No - SURGICAL HISTORY Hx Surgeries: No - ANESTHESIA Hx Anesthesia: Yes Hx Anesthesia Reactions: No Hx Malignant Hyperthermia: No Has any member of the family had a problem w/ anesthesia?: No Meds Home Medications: Home Medication List Medication Instructions Recorded Confirmed Type Ciprofloxacin [Cipro] 500 mg PO Q12 10 Days #20 tab 04/04/17 Rx Insulin Detemir [Levemir] 22 unit SC HS #1 vial 04/04/17 Rx Rosuvastatin Calcium 2.5 [Crestor] 5 mg PO QPM #30 tab 04/04/17 Rx metroNIDAZOLE [Flagyl] 500 mg PO Q8 10 Days #30 tab 04/04/17 Rx Allergies/Adverse Reactions: Allergies Allergy/AdvReac Type Severity Reaction Status Date / Time kiwi Allergy Verified 03/31/17 20:08 - Medications Medications: Current Medications Acetaminophen (Tylenol 325mg Tab) 650 mg PO Q6 PRN PRN Reason: Pain, MILD 1-3 Benzocaine/Menthol (Cepacol Sore Throat) 1 natalie MT QID PRN PRN Reason: Sore Throat Last Admin: 04/05/17 13:39 Dose: 1 natalie Famotidine (Pepcid) 20 mg IVP DAILY [facility] Last Admin: 04/05/17 11:22 Dose: 20 mg Heparin Sodium (Porcine) (Heparin) 5,000 units SC Q12 [facility] Last Admin: 04/05/17 09:14 Dose: 5,000 units Sodium Chloride (Sodium Chloride 0.9%) 1,000 mls @ 125 mls/hr IV .Q8H [facility] Last Admin: 04/05/17 16:11 Dose: 125 mls/hr Ciprofloxacin (Cipro 400mg/200ml Dsw) 400 mg in 200 mls @ 133 mls/hr IVPB Q12H [facility] Last Admin: 04/05/17 10:37 Dose: 133 mls/hr Metronidazole (Flagyl) 500 mg in 100 mls @ 100 mls/hr IVPB Q8H [facility] Last Admin: 04/05/17 09:15 Dose: 100 mls/hr Insulin Detemir (Levemir) 22 unit SC HS [facility] Last Admin: 04/04/17 21:38 Dose: 22 unit Insulin Human Regular (Novolin R) 0 unit SC ACHS [facility] PRN Reason: Protocol Last Admin: 04/05/17 13:06 Dose: 2 unit Ketorolac Tromethamine (Toradol) 30 mg IVP Q6 PRN PRN Reason: Pain, moderate (4-7) Last Admin: 04/05/17 16:14 Dose: 30 mg Lactobacillus Acidophilus (Bacid Acidophilus) 1 cap PO BID ANA Last Admin: 04/05/17 09:14 Dose: 1 cap Loperamide HCl (Imodium) 4 mg PO BID PRN PRN Reason: Diarrhea Last Admin: 04/05/17 11:22 Dose: 4 mg Ondansetron HCl (Zofran Inj) 4 mg IVP Q6H PRN PRN Reason: Nausea/Vomiting Physical Exam - Constitutional Appears: Non-toxic, No Acute Distress - Eye Exam Eye Exam: EOMI, PERRL - ENT Exam ENT Exam: Mucous Membranes Moist - Respiratory Exam Respiratory Exam: Clear to Auscultation Bilateral. absent: Rales, Rhonchi, Wheezes - Cardiovascular Exam Cardiovascular Exam: RRR, +S1, +S2 - GI/Abdominal Exam GI & Abdominal Exam: Distended, Normal Bowel Sounds, Soft, Tenderness ( suprapubic, periumbilical, RLQ). absent: Firm, Guarding, Hernia, Organomegaly, Rigid - Extremities Exam Extremities exam: Negative for: pedal edema Additional comments: purpura noted on RUE - Neurological Exam Neurological exam: Alert, Oriented x3 - Psychiatric Exam Psychiatric exam: Normal Affect, Normal Mood - Skin Skin Exam: Dry, Warm Results - Vital Signs Recent Vital Signs: Last Vital Signs Temp 98.8 F 04/05/17 15:15 Pulse 112 H 04/05/17 15:15 Resp 20 04/05/17 15:15 BP 147/98 H 04/05/17 15:15 Pulse Ox 99 04/05/17 15:15 - Labs Result Diagrams: 04/05/17 06:30 04/05/17 06:30 Labs: Laboratory Results - last 24 hr 04/04/17 04/04/17 04/05/17 21:19 23:53 02:54 WBC RBC Hgb Hct MCV MCH MCHC RDW Plt Count MPV Neut % (Auto) Lymph % (Auto) [place] % (Auto) Eos % (Auto) Baso % (Auto) Neut # (Auto) Lymph # (Auto) [place] # (Auto) Eos # (Auto) Baso # (Auto) Sodium Potassium Chloride Carbon Dioxide Anion Gap BUN Creatinine Est GFR ( Amer) Est GFR (Non-Af Amer) POC Glucose (mg/dL) > 500 H* 441 H* 347 H Random Glucose Calcium Phosphorus Magnesium Total Bilirubin AST ALT Alkaline Phosphatase Total Protein Albumin Globulin Albumin/Globulin Ratio 04/05/17 04/05/17 04/05/17 06:20 06:30 06:30 WBC 9.8 RBC 3.92 Hgb 10.2 L Hct 31.2 L MCV 79.7 L MCH 26.1 L MCHC 32.7 L RDW 16.0 H Plt Count 442 H MPV 8.1 Neut % (Auto) 79.5 H Lymph % (Auto) 11.3 L [place] % (Auto) 7.6 Eos % (Auto) 0.5 Baso % (Auto) 1.1 Neut # (Auto) 7.8 H Lymph # (Auto) 1.1 [place] # (Auto) 0.7 Eos # (Auto) 0.1 Baso # (Auto) 0.1 Sodium 137 Potassium 3.9 Chloride 108 H Carbon Dioxide 22 Anion Gap 11 BUN 11 Creatinine 0.7 Est GFR ( Amer) > 60 Est GFR (Non-Af Amer) > 60 POC Glucose (mg/dL) 182 H Random Glucose 195 H Calcium 8.3 L Phosphorus 2.7 Magnesium 2.0 Total Bilirubin < 0.1 L AST 33 ALT 34 Alkaline Phosphatase 68 Total Protein 5.9 L Albumin 2.9 L Globulin 3.0 Albumin/Globulin Ratio 1.0 04/05/17 04/05/17 10:16 11:53 WBC RBC Hgb Hct MCV MCH MCHC RDW Plt Count MPV Neut % (Auto) Lymph % (Auto) [place] % (Auto) Eos % (Auto) Baso % (Auto) Neut # (Auto) Lymph # (Auto) [place] # (Auto) Eos # (Auto) Baso # (Auto) Sodium Potassium Chloride Carbon Dioxide Anion Gap BUN Creatinine Est GFR ( Amer) Est GFR (Non-Af Amer) POC Glucose (mg/dL) 187 H 228 H Random Glucose Calcium Phosphorus Magnesium Total Bilirubin AST ALT Alkaline Phosphatase Total Protein Albumin Globulin Albumin/Globulin Ratio Assessment & Plan - Assessment and Plan (Free Text) Assessment: Patient is a 42yo female with PMHx significant for HTN, DMT2, hyperlipidemia who presented to the ED with abdominal pain, nausea, vomiting and diarrhea for 6 weeks. -Abdominal pain, nausea and vomiting - R/O cecal volvulus, diabetic gastroparesis, obstruction -Subacute diarrheal illness - differential broad and includes infectious, inflammatory, microscopic colitis, celiac, pancreatic insufficiency, diabetic enteropathy, obstruction, occult malignancy -Uncontrolled DM, A1c 15.3 -HTN Plan: -Stool culture, O&P, C diff unremarkable -Check stool calprotectin, pancratic elastase and fecal fat -ESR, CRP -CT scans from past 60 days reviewed with radiology; some cecal dilation noted - unclear if related to volvulus -Check abdominal plain film -Plan for barium contrast enema (without air) with x-ray to eval for volvulus tomorrow -Pending results, patient may benefit from endoscopic evaluation -OK to give clear liquid diet as tolerated -On empiric Cipro/Flagyl -Immodium PRN ordered by primary service - Date & Time Date: 04/05/17 Time: 17:00 <Nikos Starkey - Last Filed: 04/06/17 17:51> Meds - Medications Medications: Current Medications Acetaminophen (Tylenol 325mg Tab) 650 mg PO Q6 PRN PRN Reason: Pain, MILD 1-3 Benzocaine/Menthol (Cepacol Sore Throat) 1 natalie MT QID PRN PRN Reason: Sore Throat Last Admin: 04/06/17 04:12 Dose: 1 natalie Famotidine (Pepcid) 20 mg IVP DAILY [facility] Last Admin: 04/06/17 10:27 Dose: 20 mg Fluticasone Propionate (Flonase) 1 spr SIM BID [facility] Last Admin: 04/06/17 14:49 Dose: 1 applic Guaifenesin (Robitussin) 200 mg PO Q4H PRN PRN Reason: Cough and congestion Last Admin: 04/06/17 10:28 Dose: 200 mg Sodium Chloride (Sodium Chloride 0.9%) 1,000 mls @ 125 mls/hr IV .Q8H [facility] Last Admin: 04/06/17 14:47 Dose: 125 mls/hr Ciprofloxacin (Cipro 400mg/200ml Dsw) 400 mg in 200 mls @ 133 mls/hr IVPB Q12H [facility] Last Admin: 04/06/17 10:28 Dose: 133 mls/hr Metronidazole (Flagyl) 500 mg in 100 mls @ 100 mls/hr IVPB Q8H [facility] Last Admin: 04/06/17 17:40 Dose: 100 mls/hr Insulin Aspart (Novolog) 4 unit SC AC [facility] Last Admin: 04/06/17 17:41 Dose: 4 unit Insulin Aspart (Novolog) 0 unit SC ACHS ANA PRN Reason: Protocol Last Admin: 04/06/17 17:44 Dose: Not Given Insulin Detemir (Levemir) 22 unit SC HS [facility] Last Admin: 04/05/17 21:30 Dose: Not Given Ketorolac Tromethamine (Toradol) 30 mg IVP Q6 PRN PRN Reason: Pain, moderate (4-7) Last Admin: 04/06/17 03:11 Dose: 30 mg Lactobacillus Acidophilus (Bacid Acidophilus) 1 cap PO BID ANA Last Admin: 04/06/17 17:41 Dose: 1 cap Loperamide HCl (Imodium) 4 mg PO BID PRN PRN Reason: Diarrhea Last Admin: 04/05/17 11:22 Dose: 4 mg Ondansetron HCl (Zofran Inj) 4 mg IVP Q6H PRN PRN Reason: Nausea/Vomiting Last Admin: 04/06/17 03:08 Dose: 4 mg Results - Vital Signs Recent Vital Signs: Last Vital Signs Temp 98.7 F 04/05/17 23:20 Pulse 102 H 04/05/17 23:20 Resp 20 04/05/17 23:20 BP 152/90 H 04/05/17 23:20 Pulse Ox 99 04/05/17 23:20 - Labs Result Diagrams: 04/06/17 07:02 04/06/17 07:02 Labs: Laboratory Results - last 24 hr 04/05/17 04/05/17 04/05/17 19:29 20:35 21:20 WBC RBC Hgb Hct MCV MCH MCHC RDW Plt Count MPV Neut % (Auto) Lymph % (Auto) [place] % (Auto) Eos % (Auto) Baso % (Auto) Neut # (Auto) Lymph # (Auto) [place] # (Auto) Eos # (Auto) Baso # (Auto) Neutrophils % (Manual) Band Neutrophils % Lymphocytes % (Manual) Monocytes % (Manual) Myelocytes % Platelet Estimate Large Platelets Polychromasia Hypochromasia (manual) Poikilocytosis (manual Anisocytosis (manual) Target Cells Tear Drop Cells Ovalocytes Ana Cells ESR 80 H Sodium Potassium Chloride Carbon Dioxide Anion Gap BUN Creatinine Est GFR ( Amer) Est GFR (Non-Af Amer) POC Glucose (mg/dL) 133 H Random Glucose Calcium Phosphorus Magnesium Total Bilirubin AST ALT Alkaline Phosphatase C-React Prot High Sens 9.16 H Total Protein Albumin Globulin Albumin/Globulin Ratio 04/06/17 04/06/17 04/06/17 06:30 07:02 07:02 WBC 9.4 RBC 3.81 Hgb 10.0 L Hct 30.5 L MCV 80.1 L MCH 26.1 L MCHC 32.6 L RDW 16.4 H Plt Count 378 MPV 8.5 Neut % (Auto) 82.7 H Lymph % (Auto) 7.4 L [place] % (Auto) 8.9 Eos % (Auto) 0.3 Baso % (Auto) 0.7 Neut # (Auto) 7.7 H Lymph # (Auto) 0.7 L [place] # (Auto) 0.8 Eos # (Auto) 0.0 Baso # (Auto) 0.1 Neutrophils % (Manual) 82 H Band Neutrophils % 3 H Lymphocytes % (Manual) 4 L Monocytes % (Manual) 10 Myelocytes % 1 H Platelet Estimate Normal Large Platelets Present Polychromasia Slight Hypochromasia (manual) Slight Poikilocytosis (manual Slight Anisocytosis (manual) Slight Target Cells Slight Tear Drop Cells Slight Ovalocytes Slight Ana Cells Slight ESR Sodium 133 Potassium 4.0 Chloride 105 Carbon Dioxide 23 Anion Gap 8 L BUN 7 Creatinine 0.7 Est GFR ( Amer) > 60 Est GFR (Non-Af Amer) > 60 POC Glucose (mg/dL) 166 H Random Glucose 168 H Calcium 7.5 L Phosphorus 2.9 Magnesium 1.7 Total Bilirubin 0.1 L AST 58 H D ALT 50 Alkaline Phosphatase 79 C-React Prot High Sens Total Protein 5.8 L Albumin 2.7 L Globulin 3.1 Albumin/Globulin Ratio 0.9 L 04/06/17 11:47 WBC RBC Hgb Hct MCV MCH MCHC RDW Plt Count MPV Neut % (Auto) Lymph % (Auto) [place] % (Auto) Eos % (Auto) Baso % (Auto) Neut # (Auto) Lymph # (Auto) [place] # (Auto) Eos # (Auto) Baso # (Auto) Neutrophils % (Manual) Band Neutrophils % Lymphocytes % (Manual) Monocytes % (Manual) Myelocytes % Platelet Estimate Large Platelets Polychromasia Hypochromasia (manual) Poikilocytosis (manual Anisocytosis (manual) Target Cells Tear Drop Cells Ovalocytes [place] Cells ESR Sodium Potassium Chloride Carbon Dioxide Anion Gap BUN Creatinine Est GFR ( Amer) Est GFR (Non-Af Amer) POC Glucose (mg/dL) 191 H Random Glucose Calcium Phosphorus Magnesium Total Bilirubin AST ALT Alkaline Phosphatase C-React Prot High Sens Total Protein Albumin Globulin Albumin/Globulin Ratio Attending/Attestation - Attestation I have personally seen and examined this patient.: Yes I have fully participated in the care of the patient.: Yes I have reviewed all pertinent clinical information: Yes Notes (Text): 04/05/17 17:48 42 year old female with h/o HTN, DM, HLD a/w chronic diarrhea, abdo pain, and N/ V. 1. Chronic diarrhea 2. Abdominal pain 3. Nausea and vomiting Plan: -Stool studies negative for infection, eval for other chronic cause sof diarrhea such as celiac, panc insuff, IBD -poorly controlled DM may also be contributing, may be component of gastroparesis -recommend optimizing glycemic control -check ESR/ CRP -questionable cecal volvulus on CT scan -recommend barium lower GI -consider EGD/colon pending lower GI -surgery evaluated the patient as well -on abx at the moment empirically
[2017-04-05] MEDS: Insulin Detemir 100 units/ml Vial (Levemir) SC SCH (21:30)
[2017-04-06] MEDS: metroNIDAZOLE IV 500 mg/100 ml 500 MG/100 ML BAG IVPB SCH ×3 (00:13→17:40)
[2017-04-06] MEDS: Sodium Chloride 0.9% 1,000 ML IV SCH ×3 (03:18→22:15)
[2017-04-06] MEDS: Benzocaine/Menthol (Cepacol) Lozenge MT PRN (04:12)
--- NOTE | 2017-04-06 06:44 | CP.PCM.PN ---
Subjective - Date & Time of Evaluation Date of Evaluation: 04/06/17 Time of Evaluation: 06:42 - Subjective Subjective: PGY5 GI Fellow Progress Note Patient seen and examined bedside this morning. States no bowel movements since last visit with her around 6PM yesterday. Did not take pain medications to try to evaluate where pain located and now stating worst in her low back and flanks along with epigastric/R sided abdominal pain. +Nausea/vomiting overnight. +Cough /sore throat. 12 system ROS performed and negative except where stated, Objective - Vital Signs/Intake and Output Vital Signs (last 24 hours): Temp Pulse Resp BP Pulse Ox 98.7 F 102 H 20 152/90 H 99 04/05/17 23:20 04/05/17 23:20 04/05/17 23:20 04/05/17 23:20 04/05/17 23:20 - Medications Medications: Current Medications Acetaminophen (Tylenol 325mg Tab) 650 mg PO Q6 PRN PRN Reason: Pain, MILD 1-3 Benzocaine/Menthol (Cepacol Sore Throat) 1 natalie MT QID PRN PRN Reason: Sore Throat Last Admin: 04/06/17 04:12 Dose: 1 natalie Famotidine (Pepcid) 20 mg IVP DAILY [facility] Last Admin: 04/05/17 11:22 Dose: 20 mg Heparin Sodium (Porcine) (Heparin) 5,000 units SC Q12 RE[facility]AC[facility] Last Admin: 04/05/17 21:16 Dose: 5,000 units Sodium Chloride (Sodium Chloride 0.9%) 1,000 mls @ 125 mls/hr IV .Q8H REPLACED BY [facility] Last Admin: 04/06/17 03:18 Dose: 125 mls/hr Ciprofloxacin (Cipro 400mg/200ml Dsw) 400 mg in 200 mls @ 133 mls/hr IVPB Q12H [facility]AC[facility] Last Admin: 04/05/17 21:16 Dose: 133 mls/hr Metronidazole (Flagyl) 500 mg in 100 mls @ 100 mls/hr IVPB Q8H [facility]ED BY [facility] Last Admin: 04/06/17 00:13 Dose: 100 mls/hr Insulin Detemir (Levemir) 22 unit SC HS [facility]PL[facility]ED BY [facility] Last Admin: 04/05/17 21:30 Dose: Not Given Insulin Human Regular (Novolin R) 0 unit SC ACHS RE[facility] BY [facility] PRN Reason: Protocol Last Admin: 04/05/17 21:23 Dose: Not Given Ketorolac Tromethamine (Toradol) 30 mg IVP Q6 PRN PRN Reason: Pain, moderate (4-7) Last Admin: 04/06/17 03:11 Dose: 30 mg Lactobacillus Acidophilus (Bacid Acidophilus) 1 cap PO BID ANA Last Admin: 04/05/17 17:44 Dose: 1 cap Loperamide HCl (Imodium) 4 mg PO BID PRN PRN Reason: Diarrhea Last Admin: 04/05/17 11:22 Dose: 4 mg Ondansetron HCl (Zofran Inj) 4 mg IVP Q6H PRN PRN Reason: Nausea/Vomiting Last Admin: 04/06/17 03:08 Dose: 4 mg - Labs Labs: 04/05/17 06:30 04/05/17 06:30 PT 9.2 SECONDS (9.7-12.2) L 03/31/17 22:33 INR 0.8 03/31/17 22:33 APTT 27 SECONDS (21-34) 03/31/17 22:33 - Constitutional Appears: Non-toxic, No Acute Distress - Eye Exam Eye Exam: EOMI, PERRL - ENT Exam ENT Exam: Mucous Membranes Moist - Respiratory Exam Respiratory Exam: Clear to Ausculation Bilateral. absent: Rales, Rhonchi, Wheezes - Cardiovascular Exam Cardiovascular Exam: RRR, +S1, +S2 - GI/Abdominal Exam GI & Abdominal Exam: Soft, Tenderness (right flank, R side abdomen), Normal Bowel Sounds. absent: Distended, Firm, Guarding, Rigid, Organomegaly - Extremities Exam Extremities Exam: Normal Inspection. absent: Pedal Edema - Neurological Exam Neurological Exam: Alert, Awake, Oriented x3 - Psychiatric Exam Psychiatric exam: Normal Affect, Normal Mood - Skin Skin Exam: Dry, Warm Assessment and Plan - Assessment and Plan (Free Text) Assessment: Patient is a 42yo female with PMHx significant for HTN, DMT2, hyperlipidemia who presented to the ED with abdominal pain, nausea, vomiting and diarrhea for 6 weeks. -Abdominal pain, nausea and vomiting - R/O cecal volvulus, diabetic gastroparesis, obstruction -Subacute diarrheal illness - differential broad and includes infectious, inflammatory, microscopic colitis, celiac, pancreatic insufficiency, diabetic enteropathy, obstruction, occult malignancy -Uncontrolled DM, A1c 15.3 -HTN Plan: -Awaiting collection of stool for calprotectin, pancratic elastase and fecal fat -Stool culture, O&P, C diff unremarkable -ESR, CRP both elevated suggesting ongoing inflammatory process -Given cough, sore throat, diarrhea, pain - check influenza screen -Abdominal plain film was not performed, awaiting this today -On empiric Cipro/Flagyl -Immodium PRN ordered by primary service -Recommend tight glycemic control -Plan for EGD/Colonoscopy tomorrow if patient can tolerate prep
--- NOTE | 2017-04-06 06:55 | CP.PCM.PN ---
<Yoly Martinez - Last Filed: 04/06/17 11:03> Subjective - Date & Time of Evaluation Date of Evaluation: 04/06/17 Time of Evaluation: 07:00 - Subjective Subjective: Medicine Note for Hospitalist Service- Dr. Rueda Patient was seen and examined at bedside. Patient reports her abdominal pain is still present. She complains of nonproductive cough with some nasal congestion. Denied fever, chills, headache, chest pain, n/v/c, or urinary symptoms. Objective - Vital Signs/Intake and Output Vital Signs (last 24 hours): Temp Pulse Resp BP Pulse Ox 98.7 F 102 H 20 152/90 H 99 04/05/17 23:20 04/05/17 23:20 04/05/17 23:20 04/05/17 23:20 04/05/17 23:20 - Medications Medications: Current Medications Acetaminophen (Tylenol 325mg Tab) 650 mg PO Q6 PRN PRN Reason: Pain, MILD 1-3 Benzocaine/Menthol (Cepacol Sore Throat) 1 natalie MT QID PRN PRN Reason: Sore Throat Last Admin: 04/06/17 04:12 Dose: 1 natalie Famotidine (Pepcid) 20 mg IVP DAILY [facility] Last Admin: 04/05/17 11:22 Dose: 20 mg Heparin Sodium (Porcine) (Heparin) 5,000 units SC Q12 [facility] Last Admin: 04/05/17 21:16 Dose: 5,000 units Sodium Chloride (Sodium Chloride 0.9%) 1,000 mls @ 125 mls/hr IV .Q8H [facility] Last Admin: 04/06/17 03:18 Dose: 125 mls/hr Ciprofloxacin (Cipro 400mg/200ml Dsw) 400 mg in 200 mls @ 133 mls/hr IVPB Q12H [facility] Last Admin: 04/05/17 21:16 Dose: 133 mls/hr Metronidazole (Flagyl) 500 mg in 100 mls @ 100 mls/hr IVPB Q8H [facility] Last Admin: 04/06/17 00:13 Dose: 100 mls/hr Insulin Detemir (Levemir) 22 unit SC HS [facility] Last Admin: 04/05/17 21:30 Dose: Not Given Insulin Human Regular (Novolin R) 0 unit SC ACHS [facility] PRN Reason: Protocol Last Admin: 04/05/17 21:23 Dose: Not Given Ketorolac Tromethamine (Toradol) 30 mg IVP Q6 PRN PRN Reason: Pain, moderate (4-7) Last Admin: 04/06/17 03:11 Dose: 30 mg Lactobacillus Acidophilus (Bacid Acidophilus) 1 cap PO BID [facility] Last Admin: 04/05/17 17:44 Dose: 1 cap Loperamide HCl (Imodium) 4 mg PO BID PRN PRN Reason: Diarrhea Last Admin: 04/05/17 11:22 Dose: 4 mg Ondansetron HCl (Zofran Inj) 4 mg IVP Q6H PRN PRN Reason: Nausea/Vomiting Last Admin: 04/06/17 03:08 Dose: 4 mg - Labs Labs: 04/05/17 06:30 04/05/17 06:30 PT 9.2 SECONDS (9.7-12.2) L 03/31/17 22:33 INR 0.8 03/31/17 22:33 APTT 27 SECONDS (21-34) 03/31/17 22:33 Assessment and Plan - Assessment and Plan (Free Text) Plan: Enteritis Abdominal Pain Surgery consulted- Dr. Carmen- help appreciated. No acute surgery needed at this moment GI consulted - Dr. Camp - help appreciated due to persist abdominal pain, n /v/d Plan for barium contrast enema (without air) with x-ray to eval for volvulus Possible EGD/ Colonoscopy tomorrow F/U IBD labs CT with PO contrast: Question small bowel wall thickening which may be seen in the setting of enteritis. Correlate clinically. Tiny fluid or stranding re- identified within the left pelvis. Otherwise, no significant interval change appreciated. Additional findings as above. NPO - will advance as tolerated - advanced to CLD by GI IVF, IV Cipro, Flagyl Nonproductive Cough and Congestion Likely Viral URI F/U Influenza Uncontrolled Diabetes Endo consulted - Dr. Henry - help appreciated - continue current regimen; adjustments can't be made until baseline diet is resumed As per Dr. Henry she will Accuchecks ISS- low Levimer 22units QHS A1C: 15.3 HTN Continue to monitor Patient is also on fluids, most likely elevating BP Lower back pain Thoracic MRI: No acute compression fractures no retropulsed fragments. No significant degenerative spondylosis. No evidence of canal canal- foraminal compromise nor cord compression. Lumbar MRI: No acute compression fractures no retropulsed fragments. No significant degenerative spondylosis. . Central canal and exit foramina appear adequate throughout History of Hypercholesterolemia Stable, at this time Prophylatic Measures PPx Heparin 5000 units q12 - held anticipating EGD/ Colonoscopy tomorrow, SCDs DW Juan Mendoza DO, PGY-1 <Agustina Rueda - Last Filed: 04/06/17 13:39> Objective - Vital Signs/Intake and Output Vital Signs (last 24 hours): Temp Pulse Resp BP Pulse Ox 98.7 F 102 H 20 152/90 H 99 04/05/17 23:20 04/05/17 23:20 04/05/17 23:20 04/05/17 23:20 04/05/17 23:20 Intake and Output: 04/06/17 04/06/17 06:59 18:59 Intake Total 1095 Balance 1095 - Medications Medications: Current Medications Acetaminophen (Tylenol 325mg Tab) 650 mg PO Q6 PRN PRN Reason: Pain, MILD 1-3 Benzocaine/Menthol (Cepacol Sore Throat) 1 natalie MT QID PRN PRN Reason: Sore Throat Last Admin: 04/06/17 04:12 Dose: 1 natalie Famotidine (Pepcid) 20 mg IVP DAILY [facility] Last Admin: 04/06/17 10:27 Dose: 20 mg Fluticasone Propionate (Flonase) 1 spr SIM BID [facility] Guaifenesin (Robitussin) 200 mg PO Q4H PRN PRN Reason: Cough and congestion Last Admin: 04/06/17 10:28 Dose: 200 mg Sodium Chloride (Sodium Chloride 0.9%) 1,000 mls @ 125 mls/hr IV .Q8H [facility] Last Admin: 04/06/17 03:18 Dose: 125 mls/hr Ciprofloxacin (Cipro 400mg/200ml Dsw) 400 mg in 200 mls @ 133 mls/hr IVPB Q12H [facility] Last Admin: 04/06/17 10:28 Dose: 133 mls/hr Metronidazole (Flagyl) 500 mg in 100 mls @ 100 mls/hr IVPB Q8H [facility] Last Admin: 04/06/17 08:44 Dose: 100 mls/hr Insulin Detemir (Levemir) 22 unit SC HS [facility] Last Admin: 04/05/17 21:30 Dose: Not Given Insulin Human Regular (Novolin R) 0 unit SC ACHS [facility] PRN Reason: Protocol Last Admin: 04/06/17 13:27 Dose: 1 unit Ketorolac Tromethamine (Toradol) 30 mg IVP Q6 PRN PRN Reason: Pain, moderate (4-7) Last Admin: 04/06/17 03:11 Dose: 30 mg Lactobacillus Acidophilus (Bacid Acidophilus) 1 cap PO BID [facility]NA Last Admin: 04/06/17 10:28 Dose: 1 cap Loperamide HCl (Imodium) 4 mg PO BID PRN PRN Reason: Diarrhea Last Admin: 04/05/17 11:22 Dose: 4 mg Ondansetron HCl (Zofran Inj) 4 mg IVP Q6H PRN PRN Reason: Nausea/Vomiting Last Admin: 04/06/17 03:08 Dose: 4 mg - Labs Labs: 04/06/17 07:02 04/06/17 07:02 PT 9.2 SECONDS (9.7-12.2) L 03/31/17 22:33 INR 0.8 03/31/17 22:33 APTT 27 SECONDS (21-34) 03/31/17 22:33 Attending/Attestation - Attestation I have personally seen and examined this patient.: Yes I have fully participated in the care of the patient.: Yes I have reviewed all pertinent clinical information, including history, physical exam and plan: Yes Notes (Text): Seen and examined this morning. Patient state that no more diarrhea., NO BM last night and this morning. Complaining of cough and back pain. Her abdominal pain is better/has epigastric pain and RLQ pain. Gisele sob,no vomiting,has nausea On examination-abdomen is not distended,soft,Mild tenderness on her epigastric area and left lower abdomen. right labia/groin area swelling is improving. No redness, no open wound( Patient state that she noted discharge from the swelling when she press that area.Its cleared now) Throat not inflammed lungs clear Patient understand that she need tight sugar control once she start eating going for barium enema,follow GI recommendation D/W The resident I agree with the documentation of the resident's assessment and the plan
[2017-04-06 07:39] LABS: ALB/GLOB RATIO 0.9 (1.0-2.1); ALBUMIN 2.7 g/dL (3.5-5.0); ALT/SGPT 50 U/L (9-52); AST/SGOT 58 U/L (14-36); BLOOD UREA NITROGEN 7 mg/dL (7-17); CALCIUM 7.5 mg/dl (8.6-10.4); GFR AFRICAN-AMERICAN > 60; GFR NON-AFRICAN AMERICAN > 60; MAGNESIUM 1.7 mg/dL (1.6-2.3)
[2017-04-06 07:40] LABS: BASO # 0.1 K/uL (0.0-0.2); BASO % 0.7 % (0.0-2.0); EOS % 0.3 % (0.0-4.0); LYMPH # 0.7 K/uL (1.0-4.3); LYMPH % 7.4 % (20.0-40.0); MEAN CELL VOLUME 80.1 fL (81.0-99.0); MEAN CORPUSCULAR HEMOGLOBIN 26.1 pg (27.0-31.0); MEAN CORPUSCULAR HGB CONC 32.6 g/dL (33.0-37.0); MEAN PLATELET VOLUME 8.5 fL (7.2-11.7); MONO # 0.8 K/uL (0.0-0.8); MONO % 8.9 % (0.0-10.0); NEUT # 7.7 K/uL (1.8-7.0); NEUT % 82.7 % (50.0-75.0); NRBC % 0.1 % (0.0-2.0); PLATELET COUNT 378 K/uL (130-400); RBC 3.81 Mil/uL (3.80-5.20); RED CELL DISTRIBUTION WIDTH 16.4 % (11.5-14.5); WHITE BLOOD COUNT 9.4 K/uL (4.8-10.8)
--- NOTE | 2017-04-06 07:52 | CON ---
DATE: HISTORY OF PRESENT ILLNESS: This is a 42-year-old female with known history of type 2 insulin-requiring diabetes presenting here with diffuse abdominal pain, especially in both lower quadrant areas and is being referred now for diabetic evaluation and management. PAST MEDICAL HISTORY: As mentioned above, history of type 2 insulin-requiring diabetes on a combination of Levemir and NovoLog therapy as given, she is currently using NovoLog given as 12 units t.i.d. before meals and Levemir 22 units at bedtime, no recent home glucose monitoring levels are available at this time, history of hypertension and dyslipidemia, history of chronic diarrhea with nausea and dyspepsia as noted, history of lower abdominal pain as mentioned. FAMILY HISTORY: Positive for hypertension and diabetes. SOCIAL HISTORY: The patient admits to nicotine use. No other known substance use. She has a supportive family otherwise. REVIEW OF SYSTEMS: As mentioned above, admits to episodic dizziness and lightheadedness with generalized body malaise and suboptimal energy level. No chest pains or palpitations or PND. Her oral intake is variable with nausea, dyspepsia, and vague upper abdominal pain, worse in the last week or so prior to admission as the pain was localizing the right and left lower quadrants. She admits to loose watery diarrhea, episodic over the last month or so, also admits to occasional nocturia and polyuria as noted with about a 5 pounds or so weight loss. PHYSICAL EXAMINATION: GENERAL: This is an average built female, in no apparent distress. VITAL SIGNS: Blood pressure 140/80, pulse of 70 beats per minute and regular, temperature 98, and respirations 20. HEENT: Head is normocephalic. Eyes anicteric with pink conjunctivae. Funduscopy not possible at this time. Ears, nose, and throat otherwise normal. NECK: Supple. Thyroid gland is normal in size. No carotid bruit or cervical adenopathy. CARDIOPULMONARY: Adynamic precordium. S1, S2 is rapid and regular. LUNGS: Clear to auscultation. ABDOMEN: Flat and soft with positive bowel sounds. No evidence of any rebound tenderness. EXTREMITIES: Pulses are +2 bilaterally. LABORATORY DATA: Chemistry shows BUN of 11, sodium 137, potassium 3.9, chloride 108, CO2 22, glucose 195, and creatinine 0.7. Her glucose levels have been fluctuating ranging from 187 to 228 this morning and it was 441 to 347 overnight as noted. ASSESSMENT: This is a 42-year-old female with uncontrolled and decompensated type 2 insulin-requiring diabetes presenting here with gastrointestinal related manifestations and the possibility of an irritable bowel syndrome versus viral gastroenteritis and other gastrointestinal enteropathy disorders have to be excluded at this time. PLAN OF MANAGEMENT: As discussed with the patient and the staff, we will continue and modify her current insulin regimen once they have advanced her to solid food, but since she is n.p.o. at this time, we will continue the low-dose correction scale using regular NovoLog insulin as ordered. We will prefer NovoLog insulin because she has been using NovoLog at home and would be able to switch her back over to a more physiologic regimen once the diet has been advanced accordingly. We will also continue the basal insulin given at bedtime as ordered. We will obtain serial chemistries and supplement accordingly as needed. We will also continue the IV hydration as given. We will follow with you. Deepika Henry MD
[2017-04-06] MEDS: (Novolin R) Insulin Human Regular 100 units/ml vial SC SCH ×2 (08:44→13:27)
[2017-04-06 09:08] LABS: ANISOCYTOSIS SLIGHT; BANDS 3 % (0-2); HYPOCHROMIC SLIGHT; LYMPHOCYTE 4 % (20-40); MONOCYTE 10 % (0-10); MYELOCYTE 1 % (0-0); NEUTROPHIL 82 % (50-75); PLATELET ESTIMATE NORMAL (NORMAL); POIKILOCYTOSIS SLIGHT; TOTAL CELLS COUNTED 100
[2017-04-06 09:09] LABS: BURR CELLS SLIGHT; LARGE PLATELETS PRESENT; OVALOCYTES SLIGHT; TARGET CELLS SLIGHT; TEARDROP CELLS SLIGHT
[2017-04-06 09:10] LABS: POLYCHROMIC SLIGHT
[2017-04-06] MEDS: Lactobacillus Acidophilus 500 MU Cap PO SCH ×2 (10:28→17:41)
[2017-04-06] MEDS: Ciprofloxacin 400mg/200ml D5W 400 MG/200 ML BAG IVPB SCH ×2 (10:28→22:05)
[2017-04-06] MEDS: guaiFENesin 200 mg/10 ml Syrup UD PO PRN (10:28)
[2017-04-06] MEDS ORDERED: Peg-Electrolyte Oral Soln 4L (Golytely) PO ONE (14:00)
[2017-04-06] MEDS: Fluticasone Nasal 50 mcg/Spray NAS SCH ×2 (14:49→17:50)
[2017-04-06] MEDS: (Novolog) Insulin Aspart, Recombinant 100 u/ml 10 ml vial SC SCH ×3 (16:30→17:44)
--- NOTE | 2017-04-06 17:16 | RAD ---
HISTORY: abdominal pain, r/o volvulus COMPARISON: Chest 04/05/2007 FINDINGS: BOWEL: Moderate left stool retention No obstruction. No free air. BONES: Normal. OTHER FINDINGS: On the current study including part of the left lung base patchy opacity over the left costophrenic angle. This region was clear on the very recent chest x-ray from 04/05/2017. Current appearance is questioned technical. Repeat chest x-ray upright PA may clarified. Without this a small patchy interval infiltrate or atelectasis left pleural-parenchymal thickening here are considerations. A 5-6 mm rounded opacity on the portable supine AP abdominal image is not reproduced on the current exam including the lung bases and is not appreciated on the prior chest x-ray its significant unclear . IMPRESSION: Moderate left stool retention. No bowel obstruction Interval possible patchy infiltrate and/or patchy atelectasis left lung base over costophrenic angle. If needed, repeat chest x-ray upright PA with increased inspiration may clarify
[2017-04-06] MEDS: Insulin Detemir 100 units/ml Vial (Levemir) SC SCH (22:14)
--- NOTE | 2017-04-06 23:21 | PN ---
DATE: ENDOCRINOLOGY FOLLOWUP NOTE LOCATION: Room 653. SUBJECTIVE: This is a 42-year-old female, presented here with diffuse abdominal pain and is now being followed closely for metabolic management. Her glycemic levels are fluctuating but improved, and the glucose levels are ranging from 166 to 191 mg/dL. She has been advanced to liquid diet at this time as noted. Her A1c level is 15.3, which is quite elevated and indicative of suboptimal metabolic control of her diabetic condition even prior to this admission. Her latest chemistry showed a BUN of 7, sodium 133, potassium 4.0, chloride 105, CO2 of 23, glucose 168, and creatinine 0.7. So at this time, we will start her on a low-dose NovoLog given as 4 units subcu t.i.d. before meals to start at dinner time today as ordered as she has been advanced now to a liquid diet as noted. We will also continue the Levemir given as 22 units subcu at bedtime daily as ordered. We will titrate incrementally as indicated to optimize metabolic control. We will obtain serial chemistries and supplement accordingly as needed. We will follow. Deepika Henry MD
[2017-04-07] MEDS: Sodium Chloride 0.9% 1,000 ML IV SCH (01:49)
[2017-04-07] MEDS: metroNIDAZOLE IV 500 mg/100 ml 500 MG/100 ML BAG IVPB SCH ×3 (01:49→17:11)
[2017-04-07 07:25] LABS: PROTHROMBIN TIME 11.3 SECONDS (9.7-12.2)
[2017-04-07 07:29] LABS: BASO % 0.6 % (0.0-2.0); EOS % 0.3 % (0.0-4.0); LYMPH # 0.9 K/uL (1.0-4.3); LYMPH % 15.6 % (20.0-40.0); MEAN CELL VOLUME 79.9 fL (81.0-99.0); MEAN CORPUSCULAR HEMOGLOBIN 26.3 pg (27.0-31.0); MEAN PLATELET VOLUME 7.9 fL (7.2-11.7); MONO # 0.9 K/uL (0.0-0.8); MONO % 14.6 % (0.0-10.0); NEUT # 4.1 K/uL (1.8-7.0); NEUT % 68.9 % (50.0-75.0); NRBC % 0.1 % (0.0-2.0); RBC 3.43 Mil/uL (3.80-5.20); RED CELL DISTRIBUTION WIDTH 16.2 % (11.5-14.5); WHITE BLOOD COUNT 5.9 K/uL (4.8-10.8)
[2017-04-07 07:58] LABS: ALB/GLOB RATIO 0.9 (1.0-2.1); ALBUMIN 2.5 g/dL (3.5-5.0); ALT/SGPT 61 U/L (9-52); AST/SGOT 84 U/L (14-36); BLOOD UREA NITROGEN 8 mg/dL (7-17); CALCIUM 7.7 mg/dl (8.6-10.4); GFR AFRICAN-AMERICAN > 60; GFR NON-AFRICAN AMERICAN > 60; MAGNESIUM 1.7 mg/dL (1.6-2.3)
[2017-04-07] MEDS ORDERED: Propofol 10 mg/ml Inj (20 ML) ONE ×4 (09:14→10:08)
[2017-04-07] MEDS ORDERED: Lactated Ringer's 1,000 ML IV ONE ×2 (09:26→09:40)
--- NOTE | 2017-04-07 10:52 | CP.PCM.PN ---
<Kinza Ashford - Last Filed: 04/07/17 14:03> Subjective - Date & Time of Evaluation Date of Evaluation: 04/07/17 Time of Evaluation: 10:49 - Subjective Subjective: Patient seen and examined at bedside. Patient resting comfortably in bed. Patient is complaining of abdominal pain, non prductive cough, nasal congestion , and sinus pain. She also had some chest pain yesterday which she says is gone but is now having pain in her shoulders bilaterally and weakness in her arms. She is working on drinking her prep for the colonoscopy today. She denies fever , chills, SOB, nausea, and vomiting. Objective - Vital Signs/Intake and Output Vital Signs (last 24 hours): Temp Pulse Resp BP Pulse Ox 99.0 F 90 20 154/93 H 100 04/07/17 09:13 04/07/17 09:13 04/07/17 09:13 04/07/17 09:13 04/07/17 09:13 Intake and Output: 04/07/17 04/07/17 06:59 18:59 Intake Total 975 Balance 975 - Medications Medications: Current Medications Acetaminophen (Tylenol 325mg Tab) 650 mg PO Q6 PRN PRN Reason: Pain, MILD 1-3 Benzocaine/Menthol (Cepacol Sore Throat) 1 natalie MT QID PRN PRN Reason: Sore Throat Last Admin: 04/06/17 04:12 Dose: 1 natalie Famotidine (Pepcid) 20 mg IVP DAILY [facility] Last Admin: 04/06/17 10:27 Dose: 20 mg Fluticasone Propionate (Flonase) 1 spr SIM BID [facility] Last Admin: 04/06/17 17:50 Dose: 1 applic Guaifenesin (Robitussin) 200 mg PO Q4H PRN PRN Reason: Cough and congestion Last Admin: 04/06/17 10:28 Dose: 200 mg Sodium Chloride (Sodium Chloride 0.9%) 1,000 mls @ 125 mls/hr IV .Q8H [facility] Last Admin: 04/07/17 01:49 Dose: 125 mls/hr Ciprofloxacin (Cipro 400mg/200ml Dsw) 400 mg in 200 mls @ 133 mls/hr IVPB Q12H [facility] Last Admin: 04/06/17 22:05 Dose: 133 mls/hr Metronidazole (Flagyl) 500 mg in 100 mls @ 100 mls/hr IVPB Q8H [facility] Last Admin: 04/07/17 01:49 Dose: 100 mls/hr Insulin Aspart (Novolog) 4 unit SC AC [facility] Last Admin: 04/06/17 17:41 Dose: 4 unit Insulin Aspart (Novolog) 0 unit SC ACHS [facility] PRN Reason: Protocol Last Admin: 04/06/17 17:44 Dose: Not Given Insulin Detemir (Levemir) 22 unit SC HS [facility] Last Admin: 04/06/17 22:14 Dose: Not Given Ketorolac Tromethamine (Toradol) 30 mg IVP Q6 PRN PRN Reason: Pain, moderate (4-7) Last Admin: 04/06/17 03:11 Dose: 30 mg Lactobacillus Acidophilus (Bacid Acidophilus) 1 cap PO BID [facility] Last Admin: 04/06/17 17:41 Dose: 1 cap Loperamide HCl (Imodium) 4 mg PO BID PRN PRN Reason: Diarrhea Last Admin: 04/05/17 11:22 Dose: 4 mg Ondansetron HCl (Zofran Inj) 4 mg IVP Q6H PRN PRN Reason: Nausea/Vomiting Last Admin: 04/07/17 06:58 Dose: 4 mg Oseltamivir Phosphate (Tamiflu Cap) 75 mg PO BID [facility] Stop: 04/11/17 18:51 Last Admin: 04/06/17 22:06 Dose: 75 mg - Labs Labs: 04/07/17 07:04 04/07/17 07:04 PT 11.3 SECONDS (9.7-12.2) 04/07/17 07:04 INR 1.0 04/07/17 07:04 APTT 27 SECONDS (21-34) 03/31/17 22:33 - Constitutional Appears: Non-toxic, No Acute Distress - Head Exam Head Exam: ATRAUMATIC, NORMAL INSPECTION, NORMOCEPHALIC - Eye Exam Eye Exam: EOMI, Normal appearance, PERRL - ENT Exam ENT Exam: Mucous Membranes Moist Additional comments: Sounds nasally congested, mouth breathing. - Respiratory Exam Respiratory Exam: Rhonchi, NORMAL BREATHING PATTERN. absent: Accessory Muscle Use, Rales, Wheezes, Respiratory Distress - Cardiovascular Exam Cardiovascular Exam: RRR, +S1, +S2 - GI/Abdominal Exam GI & Abdominal Exam: Soft, Tenderness (generalized ), Diminished Bowel Sounds. absent: Distended - Extremities Exam Extremities Exam: Normal Inspection. absent: Calf Tenderness, Pedal Edema - Neurological Exam Neurological Exam: Alert, Awake, Oriented x3 - Psychiatric Exam Psychiatric exam: Normal Affect, Normal Mood - Skin Skin Exam: Dry, Intact, Normal Color, Warm Assessment and Plan - Assessment and Plan (Free Text) Plan: Disposition: colonoscopy done on 04/07 showed multiple polyps but no clear reason for diarrhea; patient will need follow up with GI as outpatient for biopsy results and continued follow up of polyps Enteritis/Abdominal Pain Surgery consulted- Dr. Carmen- help appreciated. No acute surgery needed at this moment GI consulted - Dr. Camp - bandar appreciated due to persist abdominal pain, n /v/d Barium contrast enema (without air) with x-ray: moderate left stool retention and lung findings as described below EGD/Colonoscopy done 04/07: mild gastritis; multiple sessile polyps in the colon and one pedunculated polyp, all sent for path F/U IBD labs CT with PO contrast: Question small bowel wall thickening which may be seen in the setting of enteritis. Correlate clinically. Tiny fluid or stranding re- identified within the left pelvis. Otherwise, no significant interval change appreciated. Additional findings as above. NPO - will advance as tolerated - advanced to CLD by GI IVF, IV Cipro, Flagyl Nonproductive Cough and Congestion Influenza positive Abdominal XR showed patchy infiltrate/atelectasis at the left lung base over the costophrenic angle Tamiflu, Robitussin, fluticasone Uncontrolled Diabetes Endo consulted - Dr. Henry - help appreciated - continue current regimen; adjustments can't be made until baseline diet is resumed As per Dr. Henry she will Accuchecks ISS- low Levimer 22units QHS A1C: 15.3 HTN Continue to monitor Patient is also on fluids, most likely elevating BP Lower back pain Thoracic MRI: No acute compression fractures no retropulsed fragments. No significant degenerative spondylosis. No evidence of canal canal- foraminal compromise nor cord compression. Lumbar MRI: No acute compression fractures no retropulsed fragments. No significant degenerative spondylosis. . Central canal and exit foramina appear adequate throughout History of Hypercholesterolemia Stable, at this time Prophylatic Measures PPx Heparin 5000 units q12 - held anticipating EGD/ Colonoscopy, SCDs <Agustina Rueda - Last Filed: 04/07/17 15:25> Objective - Vital Signs/Intake and Output Vital Signs (last 24 hours): Temp Pulse Resp BP Pulse Ox 96.8 F L 98 H 16 150/99 H 100 04/07/17 11:16 04/07/17 11:16 04/07/17 11:16 04/07/17 11:16 04/07/17 11:16 Intake and Output: 04/07/17 04/07/17 06:59 18:59 Intake Total 975 Balance 975 - Medications Medications: Current Medications Acetaminophen (Tylenol 325mg Tab) 650 mg PO Q6 PRN PRN Reason: Pain, MILD 1-3 Benzocaine/Menthol (Cepacol Sore Throat) 1 natalie MT QID PRN PRN Reason: Sore Throat Last Admin: 04/06/17 04:12 Dose: 1 natalie Famotidine (Pepcid) 20 mg IVP DAILY [facility] Last Admin: 04/07/17 12:29 Dose: 20 mg Fluticasone Propionate (Flonase) 1 spr SIM BID [facility] Last Admin: 04/07/17 12:22 Dose: 1 applic Guaifenesin (Robitussin) 200 mg PO Q4H PRN PRN Reason: Cough and congestion Last Admin: 04/06/17 10:28 Dose: 200 mg Ciprofloxacin (Cipro 400mg/200ml Dsw) 400 mg in 200 mls @ 133 mls/hr IVPB Q12H [facility] Last Admin: 04/07/17 14:05 Dose: 133 mls/hr Metronidazole (Flagyl) 500 mg in 100 mls @ 100 mls/hr IVPB Q8H [facility] Last Admin: 04/07/17 12:21 Dose: 100 mls/hr Sodium Chloride (Sodium Chloride 0.9%) 1,000 mls @ 80 mls/hr IV .[id number] [facility] Insulin Aspart (Novolog) 4 unit SC AC [facility] Last Admin: 04/07/17 12:27 Dose: 4 unit Insulin Aspart (Novolog) 0 unit SC ACHS [facility] PRN Reason: Protocol Last Admin: 04/07/17 12:28 Dose: Not Given Insulin Detemir (Levemir) 22 unit SC HS [facility] Last Admin: 04/06/17 22:14 Dose: Not Given Ketorolac Tromethamine (Toradol) 30 mg IVP Q6 PRN PRN Reason: Pain, moderate (4-7) Last Admin: 04/06/17 03:11 Dose: 30 mg Lactobacillus Acidophilus (Bacid Acidophilus) 1 cap PO BID [facility] Last Admin: 04/07/17 12:22 Dose: 1 cap Loperamide HCl (Imodium) 4 mg PO BID PRN PRN Reason: Diarrhea Last Admin: 04/05/17 11:22 Dose: 4 mg Ondansetron HCl (Zofran Inj) 4 mg IVP Q6H PRN PRN Reason: Nausea/Vomiting Last Admin: 04/07/17 06:58 Dose: 4 mg Oseltamivir Phosphate (Tamiflu Cap) 75 mg PO BID [facility] Stop: 04/11/17 18:51 Last Admin: 04/07/17 12:23 Dose: 75 mg - Labs Labs: 04/07/17 07:04 04/07/17 07:04 PT 11.3 SECONDS (9.7-12.2) 04/07/17 07:04 INR 1.0 04/07/17 07:04 APTT 27 SECONDS (21-34) 03/31/17 22:33 Attending/Attestation - Attestation I have personally seen and examined this patient.: Yes I have fully participated in the care of the patient.: Yes I have reviewed all pertinent clinical information, including history, physical exam and plan: Yes Notes (Text): seen and examined Came back from EGD and colonoscopy. patient feels better. States that her abdomen pain is better. No diarrhea,no vomiting. Hungry and wants to eat. no fever,no sob. Her groin swelling is improving D/W GI group. EGD shows mild gastritis. Colonoscopy with large polyps. Polyps removed and biopsy done Has some inflammation of sigmoid colon. Her vomiting and diarrhea may be due to poorly controlled DM We will continue flagyl and cipro. Possible discharge tomorrow on Tamiflu and oral anitbiotics She should follow medical clinic and GI. D/W resident and I agree with the resident's documentation of the assessment and the plan d/w the patient about the scope and plan 04/07/17 15:16
[2017-04-07] MEDS: Fluticasone Nasal 50 mcg/Spray NAS SCH ×2 (12:22→17:11)
[2017-04-07] MEDS: Lactobacillus Acidophilus 500 MU Cap PO SCH ×2 (12:22→17:11)
[2017-04-07] MEDS: (Novolog) Insulin Aspart, Recombinant 100 u/ml 10 ml vial SC SCH ×7 (12:27→21:56)
[2017-04-07] MEDS: Ciprofloxacin 400mg/200ml D5W 400 MG/200 ML BAG IVPB SCH ×2 (14:05→21:11)
[2017-04-07] MEDS ORDERED: Sodium Chloride 0.9% 1,000 ML IV SCH (15:08)
[2017-04-07 17:03] VITALS: RESP 20
[2017-04-07] MEDS: Insulin Detemir 100 units/ml Vial (Levemir) SC SCH (21:16)
--- NOTE | 2017-04-07 23:12 | CARD ---
APPROVED REPORT EKG Measurement Heart [id number] CT [id number] <Conclusion> Sinus tachycardia Nonspecific T wave abnormality Abnormal ECG
[2017-04-08] MEDS: metroNIDAZOLE IV 500 mg/100 ml 500 MG/100 ML BAG IVPB SCH ×2 (00:27→09:34)
[2017-04-08] MEDS: guaiFENesin 200 mg/10 ml Syrup UD PO PRN (00:33)
--- NOTE | 2017-04-08 00:55 | PN ---
DATE: ENDOCRINOLOGY FOLLOWUP NOTE LOCATION: Room 653. SUBJECTIVE: This is a 42-year-old female with recent uncontrolled type 2 insulin-requiring diabetes, now being followed closely for metabolic management. Her glycemic levels are fluctuating but improved, and the latest glucose levels are ranging from 128 to 130 mg/dL. It was 140 at bedtime last night. Latest hemoglobin A1c, however, is quite elevated at 16.3%, indicative of suboptimal metabolic control of her diabetic condition even prior to this admission. Her latest chemistry showed a BUN of 7, sodium 133, potassium 4.0, chloride 105, CO2 of 23, glucose 168, and creatinine 0.7. So at this time, we will continue the same basal and bolus insulin regimen as given with NovoLog given as 4 units subcu t.i.d. and Levemir given as 22 units subcu at bedtime daily as ordered. We will titrate incrementally as indicated to optimize metabolic control. We will sign off from the endocrine care at this time. We will follow and advise accordingly. Deepika Henry MD
[2017-04-08] MEDS: (Novolog) Insulin Aspart, Recombinant 100 u/ml 10 ml vial SC SCH ×5 (07:25→17:08)
[2017-04-08 09:11] LABS: BASO % 0.7 % (0.0-2.0); EOS % 0.7 % (0.0-4.0); HEMOGLOBIN 9.7 g/dL (11.0-16.0); LYMPH # 1.3 K/uL (1.0-4.3); LYMPH % 19.3 % (20.0-40.0); MEAN CORPUSCULAR HEMOGLOBIN 25.9 pg (27.0-31.0); MEAN CORPUSCULAR HGB CONC 32.8 g/dL (33.0-37.0); MEAN PLATELET VOLUME 7.8 fL (7.2-11.7); MONO # 0.7 K/uL (0.0-0.8); MONO % 10.1 % (0.0-10.0); NEUT # 4.6 K/uL (1.8-7.0); NEUT % 69.2 % (50.0-75.0); RBC 3.76 Mil/uL (3.80-5.20); RED CELL DISTRIBUTION WIDTH 16.5 % (11.5-14.5); WHITE BLOOD COUNT 6.6 K/uL (4.8-10.8)
[2017-04-08 09:29] LABS: ALB/GLOB RATIO 0.9 (1.0-2.1); ALBUMIN 2.7 g/dL (3.5-5.0); ALT/SGPT 49 U/L (9-52); AST/SGOT 41 U/L (14-36); BLOOD UREA NITROGEN 9 mg/dL (7-17); CALCIUM 7.9 mg/dl (8.6-10.4); GFR AFRICAN-AMERICAN > 60; GFR NON-AFRICAN AMERICAN > 60; MAGNESIUM 1.9 mg/dL (1.6-2.3)
[2017-04-08 09:59] LABS: HEPATITIS B SURFACE AG Negative (NEGATIVE)
[2017-04-08 10:04] LABS: HEPATITIS A IGM NEGATIVE (NEGATIVE); HEPATITIS B CORE AB NEGATIVE (NEGATIVE)
[2017-04-08 10:16] LABS: HEPATITIS C ANTIBODY NEGATIVE (NEGATIVE)
[2017-04-08] MEDS: Ciprofloxacin 400mg/200ml D5W 400 MG/200 ML BAG IVPB SCH (11:33)
[2017-04-08] MEDS: Lactobacillus Acidophilus 500 MU Cap PO SCH (11:34)
--- NOTE | 2017-04-08 12:50 | CP.PCM.PN ---
<JaylenHilda - Last Filed: 04/08/17 12:51> Subjective - Date & Time of Evaluation Date of Evaluation: 04/08/17 Time of Evaluation: 09:00 - Subjective Subjective: GI Fellow PGY4 Progress Note Patient seen and examined bedside this morning. Pt reports nausea with food consumption. 12 system ROS performed and negative except where stated Objective - Vital Signs/Intake and Output Vital Signs (last 24 hours): Temp Pulse Resp BP Pulse Ox 98.0 F 81 20 148/85 97 04/08/17 08:38 04/08/17 08:38 04/08/17 08:38 04/08/17 08:38 04/08/17 08:38 Intake and Output: 04/08/17 04/08/17 06:59 18:59 Intake Total 2140 Output Total 500 Balance 1640 - Medications Medications: Current Medications Acetaminophen (Tylenol 325mg Tab) 650 mg PO Q6 PRN PRN Reason: Pain, MILD 1-3 Last Admin: 04/08/17 00:33 Dose: 650 mg Benzocaine/Menthol (Cepacol Sore Throat) 1 natalie MT QID PRN PRN Reason: Sore Throat Last Admin: 04/06/17 04:12 Dose: 1 natalie Famotidine (Pepcid) 20 mg IVP DAILY [facility] Last Admin: 04/08/17 09:35 Dose: 20 mg Fluticasone Propionate (Flonase) 1 spr SIM BID [facility] Last Admin: 04/07/17 17:11 Dose: 1 applic Guaifenesin (Robitussin) 200 mg PO Q4H PRN PRN Reason: Cough and congestion Last Admin: 04/08/17 00:33 Dose: 200 mg Ciprofloxacin (Cipro 400mg/200ml Dsw) 400 mg in 200 mls @ 133 mls/hr IVPB Q12H [facility] Last Admin: 04/08/17 11:33 Dose: 133 mls/hr Metronidazole (Flagyl) 500 mg in 100 mls @ 100 mls/hr IVPB Q8H [facility] Last Admin: 04/08/17 09:34 Dose: 100 mls/hr Sodium Chloride (Sodium Chloride 0.9%) 1,000 mls @ 80 mls/hr IV .[id number] [facility] Last Admin: 04/07/17 17:22 Dose: 80 mls/hr Insulin Aspart (Novolog) 0 unit SC ACHS [facility] PRN Reason: Protocol Last Admin: 04/08/17 07:41 Dose: Not Given Insulin Aspart (Novolog) 8 unit SC AC [facility] Insulin Detemir (Levemir) 24 unit SC HS [facility] Ketorolac Tromethamine (Toradol) 30 mg IVP Q6 PRN PRN Reason: Pain, moderate (4-7) Last Admin: 04/08/17 08:01 Dose: 30 mg Lactobacillus Acidophilus (Bacid Acidophilus) 1 cap PO BID [facility] Last Admin: 04/08/17 11:34 Dose: 1 cap Loperamide HCl (Imodium) 4 mg PO BID PRN PRN Reason: Diarrhea Last Admin: 04/07/17 17:13 Dose: 4 mg Metoclopramide HCl (Reglan) 10 mg PO ACHS [facility] Ondansetron HCl (Zofran Inj) 4 mg IVP Q6H PRN PRN Reason: Nausea/Vomiting Last Admin: 04/07/17 06:58 Dose: 4 mg Oseltamivir Phosphate (Tamiflu Cap) 75 mg PO BID [facility] Stop: 04/11/17 18:51 Last Admin: 04/08/17 09:34 Dose: 75 mg - Labs Labs: 04/08/17 09:07 04/08/17 09:07 PT 11.3 SECONDS (9.7-12.2) 04/07/17 07:04 INR 1.0 04/07/17 07:04 APTT 27 SECONDS (21-34) 03/31/17 22:33 - Constitutional Appears: Non-toxic, No Acute Distress - Eye Exam Eye Exam: EOMI, Normal appearance Pupil Exam: NORMAL ACCOMODATION - ENT Exam ENT Exam: Mucous Membranes Moist, Normal Exam - Neck Exam Neck Exam: Normal Inspection - Respiratory Exam Respiratory Exam: Clear to Ausculation Bilateral, NORMAL BREATHING PATTERN - Cardiovascular Exam Cardiovascular Exam: REGULAR RHYTHM - GI/Abdominal Exam GI & Abdominal Exam: Soft, Normal Bowel Sounds. absent: Distended, Guarding, Tenderness - Extremities Exam Extremities Exam: Full ROM - Neurological Exam Neurological Exam: Alert, Awake, Oriented x3 - Psychiatric Exam Psychiatric exam: Normal Affect, Normal Mood - Skin Skin Exam: Dry, Intact, Normal Color, Warm Assessment and Plan - Assessment and Plan (Free Text) Assessment: Patient is a 42yo female with PMHx significant for HTN, DMT2, hyperlipidemia who presented to the ED with abdominal pain, nausea, vomiting and diarrhea for 6 weeks. 1. Abdominal pain, nausea and vomiting -Gastroparesis 2. Colon polyps 3. Uncontrolled DM, A1c 15.3 4. Gastritis 5. Influenza Plan: -Continue supportive care with pain control and anti-emetic -s/p EGD with gastritis no obstruction, pathology pending -s/p Colonoscopy with 9 polyps removed, repeat in 6 months, pathology pending -CT imaging with enteritis, on empiric Cipro/Flagyl -Nausea and abdominal pain likely from gastroparesis -Start Reglan with meals -Recommend tight glycemic control -LFTs elevated, hep panel negative, autoimmune serologies pending -Will continue to follow closely <Nikos Starkey - Last Filed: 04/08/17 15:13> Objective - Vital Signs/Intake and Output Vital Signs (last 24 hours): Temp Pulse Resp BP Pulse Ox 98.0 F 81 20 148/85 97 04/08/17 08:38 04/08/17 08:38 04/08/17 08:38 04/08/17 08:38 04/08/17 08:38 Intake and Output: 04/08/17 04/08/17 06:59 18:59 Intake Total 2140 Output Total 500 Balance 1640 - Medications Medications: Current Medications Acetaminophen (Tylenol 325mg Tab) 650 mg PO Q6 PRN PRN Reason: Pain, MILD 1-3 Last Admin: 04/08/17 00:33 Dose: 650 mg Benzocaine/Menthol (Cepacol Sore Throat) 1 natalie MT QID PRN PRN Reason: Sore Throat Last Admin: 04/06/17 04:12 Dose: 1 natalie Famotidine (Pepcid) 20 mg IVP DAILY [facility] Last Admin: 04/08/17 09:35 Dose: 20 mg Fluticasone Propionate (Flonase) 1 spr SIM BID [facility] Last Admin: 04/07/17 17:11 Dose: 1 applic Guaifenesin (Robitussin) 200 mg PO Q4H PRN PRN Reason: Cough and congestion Last Admin: 04/08/17 00:33 Dose: 200 mg Ciprofloxacin (Cipro 400mg/200ml Dsw) 400 mg in 200 mls @ 133 mls/hr IVPB Q12H [facility] Last Admin: 02/17/18 11:33 Dose: 133 mls/hr Metronidazole (Flagyl) 500 mg in 100 mls @ 100 mls/hr IVPB Q8H [facility] Last Admin: 04/08/17 09:34 Dose: 100 mls/hr Sodium Chloride (Sodium Chloride 0.9%) 1,000 mls @ 80 mls/hr IV .[id number] [facility] Last Admin: 04/07/17 17:22 Dose: 80 mls/hr Insulin Aspart (Novolog) 0 unit SC ACHS [facility] PRN Reason: Protocol Last Admin: 04/08/17 12:47 Dose: 3 unit Insulin Aspart (Novolog) 8 unit SC AC [facility] Insulin Detemir (Levemir) 24 unit SC HS [facility] Ketorolac Tromethamine (Toradol) 30 mg IVP Q6 PRN PRN Reason: Pain, moderate (4-7) Last Admin: 04/08/17 08:01 Dose: 30 mg Lactobacillus Acidophilus (Bacid Acidophilus) 1 cap PO BID [facility] Last Admin: 04/08/17 11:34 Dose: 1 cap Loperamide HCl (Imodium) 4 mg PO BID PRN PRN Reason: Diarrhea Last Admin: 04/07/17 17:13 Dose: 4 mg Metoclopramide HCl (Reglan) 10 mg PO ACHS [facility] Ondansetron HCl (Zofran Inj) 4 mg IVP Q6H PRN PRN Reason: Nausea/Vomiting Last Admin: 04/07/17 06:58 Dose: 4 mg Oseltamivir Phosphate (Tamiflu Cap) 75 mg PO BID [facility] Stop: 04/11/17 18:51 Last Admin: 04/08/17 09:34 Dose: 75 mg - Labs Labs: 04/08/17 09:07 04/08/17 09:07 PT 11.3 SECONDS (9.7-12.2) 04/07/17 07:04 INR 1.0 04/07/17 07:04 APTT 27 SECONDS (21-34) 03/31/17 22:33 Attending/Attestation - Attestation I have personally seen and examined this patient.: Yes I have fully participated in the care of the patient.: Yes I have reviewed all pertinent clinical information, including history, physical exam and plan: Yes Notes (Text): 04/08/17 15:10 42 year old female with h/o HTN, poorly controlled DM, HLD with chronic diarrhea , a/w abdominal pain, nausea, and vomiting. 1. Erosive gastritis 2. Nausea and vomiting 3. Colon polyps 4. Colitis 5. Influenza Plan: -start reglan for possible gastroparesis considering refractory symptoms -continue ppi for erosive gastritis -await path from EGD/Colon -possible left sided colitis, await path -multiple polyps removed, await path -optimize glycemic control -small freq meals / low fat -mild elevation of lfts may be related to influenza, other workup so far negative
[2017-04-08] MEDS ORDERED: (Novolog) Insulin Aspart, Recombinant 100 u/ml 10 ml vial SC SCH (16:30)
[2017-04-08 16:44] VITALS: BP 150/85; PULSE 87; TEMP 98.8; O2SAT 100
--- NOTE | 2017-04-08 18:18 | CP.PCM.DIS ---
<Kinza Ashford - Last Filed: 04/08/17 17:58> Provider - Provider Date of Admission: 04/01/17 02:50 Attending physician: Agustina Rueda MD Consults: Dr. Conrado Henry Time Spent in preparation of Discharge (in minutes): 35 Diagnosis - Discharge Diagnosis (1) HTN (hypertension) Status: Acute (2) HLD (hyperlipidemia) Status: Acute (3) Influenza Status: Acute (4) Diabetes mellitus Status: Acute (5) Diarrhea Status: Acute Hospital Course - Lab Results Lab Results: Micro Results 03/31/17 22:00 Blood Blood Culture - Final NO GROWTH AFTER 5 DAYS 03/31/17 22:00 Blood Gram Stain - Final TEST NOT PERFORMED 03/31/17 22:00 Blood Blood Culture - Final NO GROWTH AFTER 5 DAYS 03/31/17 22:00 Blood Gram Stain - Final TEST NOT PERFORMED 04/01/17 15:17 Stool Stool Culture - Final NO SALMONELLA, SHIGELLA OR CAMPYLOBACTER ISOLATED. 04/01/17 15:17 Rectum Ova and Parasite Concentrate Exam - Final Most Recent Lab Values WBC 6.6 K/uL (4.8-10.8) 04/08/17 09:07 RBC 3.76 Mil/uL (3.80-5.20) L 04/08/17 09:07 Hgb 9.7 g/dL (11.0-16.0) L 04/08/17 09:07 Hct 29.7 % (34.0-47.0) L 04/08/17 09:07 MCV 79.0 fL (81.0-99.0) L 04/08/17 09:07 MCH 25.9 pg (27.0-31.0) L 04/08/17 09:07 MCHC 32.8 g/dL (33.0-37.0) L 04/08/17 09:07 RDW 16.5 % (11.5-14.5) H 04/08/17 09:07 Plt Count 385 K/uL (130-400) 04/08/17 09:07 MPV 7.8 fL (7.2-11.7) 04/08/17 09:07 Neut % (Auto) 69.2 % (50.0-75.0) 04/08/17 09:07 Lymph % (Auto) 19.3 % (20.0-40.0) L 04/08/17 09:07 Howard % (Auto) 10.1 % (0.0-10.0) H 04/08/17 09:07 Eos % (Auto) 0.7 % (0.0-4.0) 04/08/17 09:07 Baso % (Auto) 0.7 % (0.0-2.0) 04/08/17 09:07 Neut # (Auto) 4.6 K/uL (1.8-7.0) 04/08/17 09:07 Lymph # (Auto) 1.3 K/uL (1.0-4.3) 04/08/17 09:07 Howard # (Auto) 0.7 K/uL (0.0-0.8) 04/08/17 09:07 Eos # (Auto) 0.0 K/uL (0.0-0.7) 04/08/17 09:07 Baso # (Auto) 0.0 K/uL (0.0-0.2) 04/08/17 09:07 Neutrophils % (Manual) 82 % (50-75) H 04/06/17 07:02 Band Neutrophils % 3 % (0-2) H 04/06/17 07:02 Lymphocytes % (Manual) 4 % (20-40) L 04/06/17 07:02 Monocytes % (Manual) 10 % (0-10) 04/06/17 07:02 Myelocytes % 1 % (0-0) H 04/06/17 07:02 Platelet Estimate Normal (NORMAL) 04/06/17 07:02 Large Platelets Present 04/06/17 07:02 Polychromasia Slight 04/06/17 07:02 Hypochromasia (manual) Slight 04/06/17 07:02 Poikilocytosis (manual Slight 04/06/17 07:02 Anisocytosis (manual) Slight 04/06/17 07:02 Target Cells Slight 04/06/17 07:02 Tear Drop Cells Slight 04/06/17 07:02 Ovalocytes Slight 04/06/17 07:02 Ana Cells Slight 04/06/17 07:02 ESR 80 mm/hr (0-20) H 04/05/17 20:35 PT 11.3 SECONDS (9.7-12.2) 04/07/17 07:04 INR 1.0 04/07/17 07:04 APTT 27 SECONDS (21-34) 03/31/17 22:33 pO2 37 mm/Hg (30-55) 03/31/17 23:03 VBG pH 7.35 (7.32-7.43) 03/31/17 23:03 VBG pCO2 39 mmHg (40-60) L 03/31/17 23:03 VBG HCO3 21.1 mmol/L 03/31/17 23:03 VBG Total CO2 22.7 mmol/L (22-28) 03/31/17 23:03 VBG O2 Sat (Calc) 78.8 % (40-65) H 03/31/17 23:03 VBG Base Excess -3.8 mmol/L (0.0-2.0) L 03/31/17 23:03 VBG Potassium 3.6 mmol/L (3.6-5.2) 03/31/17 23:03 Sodium 135.0 mmol/l (132-148) 03/31/17 23:03 Chloride 108.0 mmol/L (98-107) H 03/31/17 23:03 Glucose 415 mg/dl (65-105) H* 03/31/17 23:03 Lactate 1.1 mmol/L (0.7-2.1) 03/31/17 23:03 Crit Value Called To Reina rodriguez rn 03/31/17 23:03 Crit Value Called By Veena 03/31/17 23:03 Crit Value Read Back Y 03/31/17 23:03 Blood Gas Notified Time 230903/31/17 23:03 Sodium 136 mmol/L (132-148) 04/08/17 09:07 Potassium 3.2 mmol/L (3.6-5.2) L 04/08/17 09:07 Chloride 108 mmol/L (98-107) H 04/08/17 09:07 Carbon Dioxide 24 mmol/L (22-30) 04/08/17 09:07 Anion Gap 8 (10-20) L 04/08/17 09:07 BUN 9 mg/dL (7-17) 04/08/17 09:07 Creatinine 0.7 mg/dL (0.7-1.2) 04/08/17 09:07 Est GFR ( Amer) > 60 04/08/17 09:07 Est GFR (Non-Af Amer) > 60 04/08/17 09:07 POC Glucose (mg/dL) 267 mg/dL (65-110) H 04/08/17 16:21 Random Glucose 156 mg/dL (65-105) H 04/08/17 09:07 Hemoglobin A1c 15.3 % (4.2-6.5) H D 04/01/17 10:40 Calcium 7.9 mg/dl (8.6-10.4) L 04/08/17 09:07 Phosphorus 2.8 mg/dL (2.5-4.5) 04/08/17 09:07 Magnesium 1.9 mg/dL (1.6-2.3) 04/08/17 09:07 Total Bilirubin 0.1 mg/dL (0.2-1.3) L 04/08/17 09:07 AST 41 U/L (14-36) H D 04/08/17 09:07 ALT 49 U/L (9-52) 04/08/17 09:07 Alkaline Phosphatase 71 U/L (38-126) 04/08/17 09:07 Troponin I < 0.0120 ng/mL (0.00-0.120) 04/06/17 19:55 C-React Prot High Sens 9.16 mg/L (1.00-3.00) H 04/05/17 19:29 Total Protein 5.7 g/dL (6.3-8.3) L 04/08/17 09:07 Albumin 2.7 g/dL (3.5-5.0) L 04/08/17 09:07 Globulin 3.1 gm/dL (2.2-3.9) 04/08/17 09:07 Albumin/Globulin Ratio 0.9 (1.0-2.1) L 04/08/17 09:07 Venous Blood Potassium 3.6 mmol/L (3.6-5.2) 03/31/17 23:03 Urine Color [id number] (YELLOW) 03/31/17 23:59 Urine Clarity Clear (Clear) 03/31/17 23:59 Urine pH 7.0 (5.0-8.0) 03/31/17 23:59 Ur Specific Sperry 1.012 (1.003-1.030) 03/31/17 23:59 Urine Protein 2+ mg/dL (NEGATIVE) H 03/31/17 23:59 Urine Glucose (UA) 3+ mg/dL (Normal) H 03/31/17 23:59 Urine Ketones Negative mg/dL (NEGATIVE) 03/31/17 23:59 Urine Blood Negative (NEGATIVE) 03/31/17 23:59 Urine Nitrate Negative (NEGATIVE) 03/31/17 23:59 Urine Bilirubin Negative (NEGATIVE) 03/31/17 23:59 Urine Urobilinogen Normal mg/dL (0.2-1.0) 03/31/17 23:59 Ur Leukocyte Esterase Neg Tia/uL (Negative) 03/31/17 23:59 Urine WBC (Auto) 1 /hpf (0-5) 03/31/17 23:59 Urine RBC (Auto) < 1 /hpf (0-3) 03/31/17 23:59 Ur Squamous Epith Cells 6 /hpf (0-5) H 03/31/17 23:59 Urine HCG, Qual Negative (NEGATIVE) 04/07/17 06:05 Stool Leukocytes, Qual Negative (NEGATIVE) 04/01/17 15:17 IgG 656.7 mg/dL (700.0-1600.0) L 04/08/17 09:07 C. difficile Ag & Toxin Negative (NEGATIVE) 04/02/17 15:04 Hepatitis A IgM Ab Negative (NEGATIVE) 04/08/17 09:07 Hep Bs Antigen Negative (NEGATIVE) 04/08/17 09:07 Hep B Core IgM Ab Negative (NEGATIVE) 04/08/17 09:07 Hepatitis C Antibody Negative (NEGATIVE) 04/08/17 09:07 Influenza Typ A,B (EIA) Pos for influenza a (NEGATIVE) H 04/06/17 18:21 Blood Type A POSITIVE 03/31/17 22:33 Antibody Screen Negative 03/31/17 22:33 - Hospital Course Hospital Course: Upon admission: 42 year old female with a past medical history of hypertension, type 2 Diabetes Mellitus and hyperlipidemia, and hypertension comes in to the hospital complaining of diarrhea for the past one month. The patient reports having to go to the bathroom anytime she eats or drinks anything. She denies any changes in diet or travel. The patient denies any blood or mucous in the stool. She describes the stool as watery in nature. In conjunction the patient also reports abdominal pain for the past week. The pain is located in the lower left and lower right quadrant . She describes the pain as sharp in nature with no radiation. She denies the pain is associated with food intake. Patient denies any chest pain, nausea, vomiting, fevers, chills, changes in vision, headaches, syncopal episodes or any other complaints. Hospital course: Patient was admitted for possible enteritis. Dr. Carmen (general surgery) and Dr. Camp (GI) were consulted. Patient was started on IV fluids, cipro, and flagyl. CT with PO contrast showed questionable small bowel wall thickening which may be seen in the setting of enteritis, and tiny fluid or stranding re- identified within the left pelvis. Barium contrast enema (without air) with x- ray showed moderate left stool retention. EGD/Colonoscopy done 04/07 showed mild gastritis; multiple sessile polyps in the colon and one pedunculated polyp, all sent for path. Patient also complained of cough during hospital stay and was found to have patchy infiltrate/atelectasis at the left lung base over the costophrenic angle on her abdominal XR. She was found to be influenza positive and was started on tamiflu, robitussin, and fluticasone nasal spray. Dr. Henry (Endocrinology) was consulted for uncontrolled DM. Patient was treated with SSI low dose and Levimer 22units QHS with accuchecks to monitor. A1C: 15.3. Patient's low back pain was evaluated with MRI which showed the following: Thoracic MRI: No acute compression fractures no retropulsed fragments. No significant degenerative spondylosis. No evidence of canal canal- foraminal compromise nor cord compression. Lumbar MRI: No acute compression fractures no retropulsed fragments. No significant degenerative spondylosis. . Central canal and exit foramina appear adequate throughout Upon discharge: Patient stable for discharge. She was instructed to follow up with GI for biopsy results from the colonoscopy. Please note that this is a summary of events. For more details please see complete medical record. Discharge Exam - Head Exam Head Exam: ATRAUMATIC, NORMAL INSPECTION, NORMOCEPHALIC - Eye Exam Eye Exam: EOMI, Normal appearance, PERRL - ENT Exam ENT Exam: Mucous Membranes Moist - Respiratory Exam Respiratory Exam: Clear to PA & Lateral, NORMAL BREATHING PATTERN, UNREMARKABLE - Cardiovascular Exam Cardiovascular Exam: RRR, +S1, +S2 - GI/Abdominal Exam GI & Abdominal Exam: Normal Bowel Sounds, Unremarkable - Extremities Exam Extremities exam: normal inspection - Neurological Exam Neurological exam: Alert, Oriented x3 - Psychiatric Exam Psychiatric exam: Normal Affect, Normal Mood - Skin Skin Exam: Dry, Intact, Normal Color, Warm Discharge Plan - Discharge Medications Prescriptions: Ciprofloxacin [Cipro] 500 mg PO Q12 10 Days #20 tab Insulin Detemir [Levemir] 22 unit SC HS #1 vial Lisinopril [Zestril] 5 mg PO DAILY #30 tablet metroNIDAZOLE [Flagyl] 500 mg PO Q8 10 Days #30 tab Oseltamivir [Tamiflu Cap] 75 mg PO BID #10 cap Rosuvastatin Calcium 2.5 [Crestor] 5 mg PO QPM #30 tab - Follow Up Plan Condition: FAIR Disposition: HOME/ ROUTINE Instructions: Ciprofloxacin (By mouth), Metronidazole (By mouth), Rosuvastatin (By mouth), Insulin Detemir (By injection), Rotavirus Infection (DC), Rotavirus Infection (GEN), Soft Diet (DC), Diabetes Mellitus Type 1 in Adults (DC), Diabetic Hypoglycemia (GEN), Gastroenteritis (DC), Acute Pyelonephritis (DC), Acute Pyelonephritis (GEN), Meal Planning with the Plate Method (DC), Acute Nausea and Vomiting (DC), Acute Diarrhea (GEN), Abscess (GEN), Nutrition Tips for Relief of Diarrhea (DC), Nutrition Tips for Relief of Diarrhea (GEN), Diabetic Hyperglycemia (DC) Additional Instructions: Patient is to continue taking Ciprofloxacin 500mg by mouth twice a day for 10 more days and Flagyl 500 by mouth 3 times a day for 10 days, and tamiflu 75 mg by mouth twice a day for 5 days. Please start with a liquid diet, drinking lots of water, gatorade, or poweraid. Please start lisinopril 5 mg by mouth daily. Continue taking levemir 22 units at night. And continue with taking novolog as instructed to you by Dr. Torres. You will also be taking a medication for your cholesterol, due to now being an uncontrolled diabetic it is important to prevent other cardiac issues. Please check your sugars every morning BEFORE breakfast, BEFORE lunch, BEFORE dinner and BEFORE you go to bed and take your levemir. Keep a record for Dr. Torres so she can make more adjustments to your medications. Return to the ED if your symptoms worsen, fever, chills, diarrhea does not improve. ALL PRESCRIPTIONS [facility] TO [facility]. --- El paciente debe continuar tomando Ciprofloxacino 500mg por va oral dos veces al da jonel 10 gregg ms y Flagyl 500 por va oral 3 veces al da jonel 10 d as. Comience con jcarlos dieta lquida, bebiendo marce agua, gatorade o poweraid. Contina tomando levemir 22 unidades por la noche. Y contine con la kati de novolog veronica tomás se lo indic el Dr. Torres. Tambin aaron un medicamento para bermudez colesterol, debido a que ahora es un diabtico descontrolado, es importante prevenir otros problemas cardacos. Por favor revise sarahi azcares todas las maanas ANTES del desayuno, ANTES de la comida, ANTES de la malcolm y ANTES de irse a la cama y aaron bermudez Levemir. Mantenga un registro para la Dra. Torres para que pueda hacer ms ajustes a sarahi medicamentos. Regrese al departamento de emergencias si sarahi sntomas empeoran, fiebre, escalofros, la diarrea no mejora. TODAS LAS PRESCRIPCIONES FUERON ENVIADAS A LA FARMACIA [facility] PARA USTED YA. Referrals: [facility] [Outside] - 1 Week <Agustina Rueda - Last Filed: 04/08/17 18:48> Provider - Provider Date of Admission: 04/01/17 02:50 Attending physician: Agustina Rueda MD Hospital Course - Lab Results Lab Results: Micro Results 03/31/17 22:00 Blood Blood Culture - Final NO GROWTH AFTER 5 DAYS 03/31/17 22:00 Blood Gram Stain - Final TEST NOT PERFORMED 03/31/17 22:00 Blood Blood Culture - Final NO GROWTH AFTER 5 DAYS 03/31/17 22:00 Blood Gram Stain - Final TEST NOT PERFORMED 04/01/17 15:17 Stool Stool Culture - Final NO SALMONELLA, SHIGELLA OR CAMPYLOBACTER ISOLATED. 04/01/17 15:17 Rectum Ova and Parasite Concentrate Exam - Final Most Recent Lab Values WBC 6.6 K/uL (4.8-10.8) 04/08/17 09:07 RBC 3.76 Mil/uL (3.80-5.20) L 04/08/17 09:07 Hgb 9.7 g/dL (11.0-16.0) L 04/08/17 09:07 Hct 29.7 % (34.0-47.0) L 04/08/17 09:07 MCV 79.0 fL (81.0-99.0) L 04/08/17 09:07 MCH 25.9 pg (27.0-31.0) L 04/08/17 09:07 MCHC 32.8 g/dL (33.0-37.0) L 04/08/17 09:07 RDW 16.5 % (11.5-14.5) H 04/08/17 09:07 Plt Count 385 K/uL (130-400) 04/08/17 09:07 MPV 7.8 fL (7.2-11.7) 04/08/17 09:07 Neut % (Auto) 69.2 % (50.0-75.0) 04/08/17 09:07 Lymph % (Auto) 19.3 % (20.0-40.0) L 04/08/17 09:07 Howard % (Auto) 10.1 % (0.0-10.0) H 04/08/17 09:07 Eos % (Auto) 0.7 % (0.0-4.0) 04/08/17 09:07 Baso % (Auto) 0.7 % (0.0-2.0) 04/08/17 09:07 Neut # (Auto) 4.6 K/uL (1.8-7.0) 04/08/17 09:07 Lymph # (Auto) 1.3 K/uL (1.0-4.3) 04/08/17 09:07 Howard # (Auto) 0.7 K/uL (0.0-0.8) 04/08/17 09:07 Eos # (Auto) 0.0 K/uL (0.0-0.7) 04/08/17 09:07 Baso # (Auto) 0.0 K/uL (0.0-0.2) 04/08/17 09:07 Neutrophils % (Manual) 82 % (50-75) H 04/06/17 07:02 Band Neutrophils % 3 % (0-2) H 04/06/17 07:02 Lymphocytes % (Manual) 4 % (20-40) L 04/06/17 07:02 Monocytes % (Manual) 10 % (0-10) 04/06/17 07:02 Myelocytes % 1 % (0-0) H 04/06/17 07:02 Platelet Estimate Normal (NORMAL) 04/06/17 07:02 Large Platelets Present 04/06/17 07:02 Polychromasia Slight 04/06/17 07:02 Hypochromasia (manual) Slight 04/06/17 07:02 Poikilocytosis (manual Slight 04/06/17 07:02 Anisocytosis (manual) Slight 04/06/17 07:02 Target Cells Slight 04/06/17 07:02 Tear Drop Cells Slight 04/06/17 07:02 Ovalocytes Slight 04/06/17 07:02 Ana Cells Slight 04/06/17 07:02 ESR 80 mm/hr (0-20) H 04/05/17 20:35 PT 11.3 SECONDS (9.7-12.2) 04/07/17 07:04 INR 1.0 04/07/17 07:04 APTT 27 SECONDS (21-34) 03/31/17 22:33 pO2 37 mm/Hg (30-55) 03/31/17 23:03 VBG pH 7.35 (7.32-7.43) 03/31/17 23:03 VBG pCO2 39 mmHg (40-60) L 03/31/17 23:03 VBG HCO3 21.1 mmol/L 03/31/17 23:03 VBG Total CO2 22.7 mmol/L (22-28) 03/31/17 23:03 VBG O2 Sat (Calc) 78.8 % (40-65) H 03/31/17 23:03 VBG Base Excess -3.8 mmol/L (0.0-2.0) L 03/31/17 23:03 VBG Potassium 3.6 mmol/L (3.6-5.2) 03/31/17 23:03 Sodium 135.0 mmol/l (132-148) 03/31/17 23:03 Chloride 108.0 mmol/L (98-107) H 03/31/17 23:03 Glucose 415 mg/dl (65-105) H* 03/31/17 23:03 Lactate 1.1 mmol/L (0.7-2.1) 03/31/17 23:03 Crit Value Called To Reina rodriguez rn 03/31/17 23:03 Crit Value Called By Veena 03/31/17 23:03 Crit Value Read Back Y 03/31/17 23:03 Blood Gas Notified Time 230903/31/17 23:03 Sodium 136 mmol/L (132-148) 04/08/17 09:07 Potassium 3.2 mmol/L (3.6-5.2) L 04/08/17 09:07 Chloride 108 mmol/L (98-107) H 04/08/17 09:07 Carbon Dioxide 24 mmol/L (22-30) 04/08/17 09:07 Anion Gap 8 (10-20) L 04/08/17 09:07 BUN 9 mg/dL (7-17) 04/08/17 09:07 Creatinine 0.7 mg/dL (0.7-1.2) 04/08/17 09:07 Est GFR ( Amer) > 60 04/08/17 09:07 Est GFR (Non-Af Amer) > 60 04/08/17 09:07 POC Glucose (mg/dL) 267 mg/dL (65-110) H 04/08/17 16:21 Random Glucose 156 mg/dL (65-105) H 04/08/17 09:07 Hemoglobin A1c 15.3 % (4.2-6.5) H D 04/01/17 10:40 Calcium 7.9 mg/dl (8.6-10.4) L 04/08/17 09:07 Phosphorus 2.8 mg/dL (2.5-4.5) 04/08/17 09:07 Magnesium 1.9 mg/dL (1.6-2.3) 04/08/17 09:07 Total Bilirubin 0.1 mg/dL (0.2-1.3) L 04/08/17 09:07 AST 41 U/L (14-36) H D 04/08/17 09:07 ALT 49 U/L (9-52) 04/08/17 09:07 Alkaline Phosphatase 71 U/L (38-126) 04/08/17 09:07 Troponin I < 0.0120 ng/mL (0.00-0.120) 04/06/17 19:55 C-React Prot High Sens 9.16 mg/L (1.00-3.00) H 04/05/17 19:29 Total Protein 5.7 g/dL (6.3-8.3) L 04/08/17 09:07 Albumin 2.7 g/dL (3.5-5.0) L 04/08/17 09:07 Globulin 3.1 gm/dL (2.2-3.9) 04/08/17 09:07 Albumin/Globulin Ratio 0.9 (1.0-2.1) L 04/08/17 09:07 Venous Blood Potassium 3.6 mmol/L (3.6-5.2) 03/31/17 23:03 Urine Color [id number] (YELLOW) 03/31/17 23:59 Urine Clarity Clear (Clear) 03/31/17 23:59 Urine pH 7.0 (5.0-8.0) 03/31/17 23:59 Ur Specific Sperry 1.012 (1.003-1.030) 03/31/17 23:59 Urine Protein 2+ mg/dL (NEGATIVE) H 03/31/17 23:59 Urine Glucose (UA) 3+ mg/dL (Normal) H 03/31/17 23:59 Urine Ketones Negative mg/dL (NEGATIVE) 03/31/17 23:59 Urine Blood Negative (NEGATIVE) 03/31/17 23:59 Urine Nitrate Negative (NEGATIVE) 03/31/17 23:59 Urine Bilirubin Negative (NEGATIVE) 03/31/17 23:59 Urine Urobilinogen Normal mg/dL (0.2-1.0) 03/31/17 23:59 Ur Leukocyte Esterase Neg Tia/uL (Negative) 03/31/17 23:59 Urine WBC (Auto) 1 /hpf (0-5) 03/31/17 23:59 Urine RBC (Auto) < 1 /hpf (0-3) 03/31/17 23:59 Ur Squamous Epith Cells 6 /hpf (0-5) H 03/31/17 23:59 Urine HCG, Qual Negative (NEGATIVE) 04/07/17 06:05 Stool Leukocytes, Qual Negative (NEGATIVE) 04/01/17 15:17 IgG 656.7 mg/dL (700.0-1600.0) L 04/08/17 09:07 C. difficile Ag & Toxin Negative (NEGATIVE) 04/02/17 15:04 Hepatitis A IgM Ab Negative (NEGATIVE) 04/08/17 09:07 Hep Bs Antigen Negative (NEGATIVE) 04/08/17 09:07 Hep B Core IgM Ab Negative (NEGATIVE) 04/08/17 09:07 Hepatitis C Antibody Negative (NEGATIVE) 04/08/17 09:07 Influenza Typ A,B (EIA) Pos for influenza a (NEGATIVE) H 04/06/17 18:21 Blood Type A POSITIVE 03/31/17 22:33 Antibody Screen Negative 03/31/17 22:33 Attending/Attestation - Attestation I have personally seen and examined this patient.: Yes I have fully participated in the care of the patient.: Yes I have reviewed all pertinent clinical information, including history, physical exam and plan: Yes Notes (Text): 04/08/17 18:25 Patient was seen and examined. No abdominal pain,denies diarrhea and tolerating diet She is stable for discharge. discussed with GI yesterday. patient will follow medical clinic for her biopsy and GI follow up. patient and her daughter was explained about 1.GI work up,follow up and continue cipro and flagyl 2.She will continue Tamiflu, recommend precaution washing hands,cover mouth when she sneeze... 3.Hypertension .Discussed with daughter about startin on lisinopril,watch for side effects. Explained about benefits of ACI and ARB in diabetes.asked to follow clinic monitor BP. 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 Discussed about adjusting doses,keep a log and follow clinic. 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 patient was asked to follow GI and control sugar.Discussed about Reglan and its side effects. patient was asked to follow clinic if she needs medication.( she was tolerating diet today).
[2017-04-08] MEDS ORDERED: Insulin Detemir 100 units/ml Vial (Levemir) SC SCH (22:00)
== END 2017-04-08 17:40 | disposition home or self-care (01) | DRG 813 ==
LOC: C.ER 19:45 → C.6T 04-01 02:50
PROVIDERS: ADMIT Internal Medicine; ATTEND Internal Medicine
PROC: 0DBN8ZX Excision of Sigmoid Colon, Via Natural or Artificial Opening Endoscopic, Diagnostic (ICD-10-PCS; 2017-04-07)
PROC: 0DBP8ZX Excision of Rectum, Via Natural or Artificial Opening Endoscopic, Diagnostic (ICD-10-PCS; 2017-04-07)
PROC: 0DBK8ZZ Excision of Ascending Colon, Via Natural or Artificial Opening Endoscopic (ICD-10-PCS; 2017-04-07)
PROC: 0DBM8ZZ Excision of Descending Colon, Via Natural or Artificial Opening Endoscopic (ICD-10-PCS; 2017-04-07)
PROC: 0DB98ZX Excision of Duodenum, Via Natural or Artificial Opening Endoscopic, Diagnostic (ICD-10-PCS; 2017-04-07)
PROC: 0DB68ZX Excision of Stomach, Via Natural or Artificial Opening Endoscopic, Diagnostic (ICD-10-PCS; 2017-04-07)
PROC: 0DBL8ZZ Excision of Transverse Colon, Via Natural or Artificial Opening Endoscopic (ICD-10-PCS; principal; 2017-04-07 09:16)
PROC: 0DBF8ZX Excision of Right Large Intestine, Via Natural or Artificial Opening Endoscopic, Diagnostic (ICD-10-PCS; 2017-04-07 09:16)
DX: K52.9 Noninfective gastroenteritis and colitis, unspecified (principal); E11.40 Type 2 diabetes mellitus with diabetic neuropathy, unspecified; K31.84 Gastroparesis; E11.319 Type 2 diabetes mellitus with unspecified diabetic retinopathy without macular edema; J98.11 Atelectasis; E11.43 Type 2 diabetes mellitus with diabetic autonomic (poly)neuropathy; E11.65 Type 2 diabetes mellitus with hyperglycemia; K29.50 Unspecified chronic gastritis without bleeding; J11.1 Influenza due to unidentified influenza virus with other respiratory manifestations; D12.2 Benign neoplasm of ascending colon; D25.9 Leiomyoma of uterus, unspecified; H54.7 Unspecified visual loss; I10 Essential (primary) hypertension; K63.5 Polyp of colon; D12.4 Benign neoplasm of descending colon; D12.3 Benign neoplasm of transverse colon; B96.81 Helicobacter pylori [H. pylori] as the cause of diseases classified elsewhere; E78.00 Pure hypercholesterolemia, unspecified; F17.210 Nicotine dependence, cigarettes, uncomplicated; K59.00 Constipation, unspecified; N83.209 Unspecified ovarian cyst, unspecified side; Z79.4 Long term (current) use of insulin; Z79.899 Other long term (current) drug therapy; Z80.0 Family history of malignant neoplasm of digestive organs; M54.5 Low back pain

== ENCOUNTER 2017-11-27 07:21 | Emergency (ER) | payer OTHER ==
[2017-11-27 07:46] VITALS: RESP 18; O2SAT 98; BMI 27.8
--- NOTE | 2017-11-27 07:51 | C.PDOC ---
History Of Present Illness 42 Y/O FEMALE PRESENTS TO ED WITH COMPLAINTS OF DYSURIA AND RIGHT FLANK/RUQ PAIN X 4 DAYS. PATIENT ADMITS TO NAUSEA ASSOCIATED WITH EATING. PATIENT DENIES FEVER, CHILLS, HEMATURIA OR ANY OTHER ASSOCIATED SYMPTOMS. Dr. Camp (GI) EGD/Colonoscopy done 04/07 showed mild gastritis; multiple sessile polyps in the colon and one pedunculated polyp, Patient's low back pain was evaluated with MRI which showed the following: Thoracic MRI: No acute compression fractures no retropulsed fragments. No significant degenerative spondylosis. No evidence of canal canal- foraminal compromise nor cord compression. Lumbar MRI: No acute compression fractures no retropulsed fragments. No significant degenerative spondylosis. . Central canal and exit foramina appear adequate throughout EXAM NONTOXIC HEENT ANICTERIC ABD +MILD RUQ TEND SOFT NO R/G +R CVAT AROM WO DIFF NEURO INTACT REMAINDER NEG Time Seen by Provider: 11/27/17 07:35 Chief Complaint (Nursing): High Blood Sugar History Per: Patient History/Exam Limitations: no limitations Onset/Duration Of Symptoms: Days Current Symptoms Are (Timing): Still Present Past Medical History Reviewed: Historical Data, Nursing Documentation, Vital Signs Vital Signs: Last Vital Signs Temp 98.3 F 11/27/17 07:34 Pulse 107 H 11/27/17 07:34 Resp 18 11/27/17 07:34 BP 150/97 H 11/27/17 07:34 Pulse Ox 98 11/27/17 07:34 - Medical History PMH: Diabetes, HTN Surgical History: No Surg Hx - [facility] Procedures EXCISION OF ASCENDING COLON, ENDO (04/01/17) EXCISION OF DESCENDING COLON, ENDO (04/01/17) EXCISION OF DUODENUM, ENDO, DIAGN (04/01/17) EXCISION OF RECTUM, ENDO, DIAGN (04/01/17) EXCISION OF RIGHT LARGE INTESTINE, ENDO, DIAGN (04/01/17) EXCISION OF SIGMOID COLON, ENDO, DIAGN (04/01/17) EXCISION OF STOMACH, ENDO, DIAGN (04/01/17) EXCISION OF TRANSVERSE COLON, ENDO (04/01/17) MEASURE OF ARTERIAL PRESSURE, PERIPHERAL, SOYBEAN GROWER APPROACH (08/17/16) MEASUREMENT OF CARDIAC RHYTHM, EXTERNAL APPROACH (08/17/16) Family History: States: No Known Family Hx - Social History Hx Tobacco Use: No Hx Alcohol Use: No Hx Substance Use: No - Immunization History Hx Tetanus Toxoid Vaccination: Yes Hx Influenza Vaccination: No Hx Pneumococcal Vaccination: No Review Of Systems Constitutional: Negative for: Fever, Chills Gastrointestinal: Positive for: Nausea, Abdominal Pain. Negative for: Vomiting, Diarrhea Genitourinary: Positive for: Dysuria. Negative for: Frequency, Incontinence, Hematuria, Vaginal Discharge Musculoskeletal: Positive for: Other (Flank pain) Skin: Negative for: Rash Physical Exam - Physical Exam Appears: Non-toxic, No Acute Distress Skin: Warm, Dry, No Rash Head: Atraumatic, Normacephalic Eye(s): bilateral: Normal Inspection Oral Mucosa: Moist Neck: Supple Cardiovascular: Rhythm Regular Respiratory: Normal Breath Sounds, No Rales, No Rhonchi, No Wheezing Gastrointestinal/Abdominal: Soft, Tenderness (Mild RUQ), No Guarding, No Rebound Back: CVA Tenderness (right) Extremity: Normal ROM, Capillary Refill (<2 seconds) Neurological/Psych: Oriented x3, Normal Speech, Normal Cognition ED Course And Treatment - Laboratory Results Result Diagrams: 11/27/17 08:33 11/27/17 09:23 O2 Sat by Pulse Oximetry: 98 (RA) Pulse Ox Interpretation: Normal - Radiology CXR: Interpreted by Me CXR Interpretation: Yes: No Acute Disease Progress - Re-Evaluation Re-evaluation Note: 11/27/17 12:59 COMFORTABLE NAD TALKING ON CELL PHONE. CT, US REPORTS AND LABS REVIEWED. DC FU PMD - Data Reviewed Data Reviewed: Lab, Diagnostic imaging, Old records Disposition Counseled Patient/Family Regarding: Studies Performed, Diagnosis, Need For Followup - Disposition Referrals: YOUR,PMD [Other] Disposition: HOME/ ROUTINE Disposition Time: 12:59 Condition: IMPROVED Additional Instructions: FOLLOW UP WITH YOUR PMD THIS WEEK REGARDING THE [place] AND [place] Prescriptions: Magnesium Citrate [[facility] Magnesium Citrate] 300 ml PO ONCE #1 bottle Instructions: Constipation, Adult (DC), Acute Abdomen (Belly Pain), Adult (DC) Forms: [facility] (Tai[place]ese), Work Excuse - Clinical Impression Clinical Impression: Abdominal pain, Constipation - Scribe Statement The provider has reviewed the documentation as recorded by the Juan Villatoro All medical record entries made by the Joseibcornell were at my direction and personally dictated by me. I have reviewed the chart and agree that the record accurately reflects my personal performance of the history, physical exam, medical decision making, and the department course for this patient. I have also personally directed, reviewed, and agree with the discharge instructions and disposition.
[2017-11-27] MEDS ORDERED: SODIUM CHLORIDE 0.9% IV ONE (08:02)
[2017-11-27] MEDS ORDERED: LIDOCAINE IV ONE (08:02)
[2017-11-27] MEDS ORDERED: Sodium Chloride 0.9% 1,000 ML IV ONE (08:02)
[2017-11-27] MEDS ORDERED: Sodium Chloride 0.9% 1,000 ML ONE (08:42)
[2017-11-27 08:48] LABS: BASO # 0.1 K/uL (0.0-0.2); BASO % 1.5 % (0.0-2.0); EOS % 0.4 % (0.0-4.0); HEMOGLOBIN 10.4 g/dL (11.0-16.0); LYMPH # 1.5 K/uL (1.0-4.3); LYMPH % 19.1 % (20.0-40.0); MEAN CELL VOLUME 80.7 fL (81.0-99.0); MEAN CORPUSCULAR HEMOGLOBIN 26.4 pg (27.0-31.0); MEAN CORPUSCULAR HGB CONC 32.7 g/dL (33.0-37.0); MEAN PLATELET VOLUME 8.3 fL (7.2-11.7); MONO # 0.6 K/uL (0.0-0.8); MONO % 8.2 % (0.0-10.0); NEUT # 5.6 K/uL (1.8-7.0); NEUT % 70.8 % (50.0-75.0); NRBC % 0.1 % (0.0-2.0); RBC 3.92 Mil/uL (3.80-5.20); WHITE BLOOD COUNT 7.9 K/uL (4.8-10.8)
--- NOTE | 2017-11-27 08:49 | RAD ---
HISTORY: Right flank pain COMPARISON: No prior. TECHNIQUE: Chest PA and lateral FINDINGS: LINES AND TUBES: None. LUNG AND PLEURA: The lungs are well inflated and clear. No pleural effusion or pneumothorax. HEART AND MEDIASTINUM: The heart is not enlarged. The hilar and mediastinal contours are within normal limits. SKELETAL STRUCTURES: The bony structures are within normal limits for the patient's age. VISUALIZED UPPER ABDOMEN: Normal. OTHER FINDINGS: None. IMPRESSION: No active pulmonary disease.
[2017-11-27 08:59] LABS: GRANULAR CAST 1 /lpf (0-1); SQUAMOUS EPITHIAL 1 /hpf (0-5); URINE BACTERIA RARE (<OCC); URINE BILIRUBIN NEGATIVE (NEGATIVE); URINE BLOOD NEGATIVE (NEGATIVE); URINE CLARITY Clear (Clear); URINE COLOR Yellow (YELLOW); URINE GLUCOSE (UA) 3+ mg/dL (Normal); URINE HYALINE CAST 0-2 /lpf (0-2); URINE LEUKOCYTE ESTERASE NEG Leu/uL (Negative); URINE PROTEIN 3+ mg/dL (NEGATIVE); URINE UROBILINOGEN NORMAL mg/dL (0.2-1.0)
[2017-11-27 10:16] LABS: ALB/GLOB RATIO 1.1 (1.0-2.1); ALBUMIN 3.4 g/dL (3.5-5.0); ALT/SGPT 17 U/L (9-52); AST/SGOT 23 U/L (14-36); BLOOD UREA NITROGEN 27 mg/dL (7-17); CALCIUM 9.1 mg/dl (8.6-10.4); GFR NON-AFRICAN AMERICAN > 60; LIPASE 231 U/L (23-300)
--- NOTE | 2017-11-27 10:16 | US ---
Date of service: 11/27/2017 HISTORY: Abdominal pain, RUQ COMPARISON: 08/31/2016. TECHNIQUE: Grayscale imaging was performed. FINDINGS: LIVER: Measures 16.1 cm in length. There is diffuse increased echogenicity of the liver parenchyma. There is a 0.9 x 0.7 x 0.7 cm well-circumscribed round echogenic area in the right hepatic lobe. No intrahepatic bile duct dilatation. GALLBLADDER: The gallbladder is contracted. No gallstones. COMMON BILE DUCT: Measures 2.1 mm. No stones. No dilatation. PANCREAS: Unremarkable as visualized. No mass. No ductal dilatation. RIGHT KIDNEY: Measures 11.3 cm in length. Normal echogenicity. No calculus, mass, or hydronephrosis. AORTA: No aneurysmal dilatation. IVC: Unremarkable. OTHER FINDINGS: None . IMPRESSION: The gallbladder is contracted. Diffuse increased echogenicity in the liver may reflect hepatic steatosis however parenchymal infectious/ inflammatory etiologies cannot be entirely excluded. Clinical and laboratory correlation is advised. 9 mm well-circumscribed round lesion in the right hepatic lobe is nonspecific and could represent a hemangioma however correlation with known or suspected history of cancer is recommended as echogenic metastasis is also a consideration. Follow-up ultrasound may be performed in 6-12 months to assess stability.
[2017-11-27] MEDS ORDERED: Iodixanol 320 MG/ML 100 ML BOTTLE IV ONE (10:42)
[2017-11-27 11:50] VITALS: TEMP 98
--- NOTE | 2017-11-27 12:39 | CT ---
Date of service: 11/27/2017 PROCEDURE: CT Abdomen and Pelvis with contrast HISTORY: R FLANK/UG PAIN COMPARISON: Limited abdominal ultrasound performed 11/27/17, CT abdomen and pelvis without IV contrast performed 04/01/17 TECHNIQUE: Contrast dose: 100 mL Visipaque IV Radiation dose: Total exam DLP = 503.68 mGy-cm. This CT exam was performed using one or more of the following dose reduction techniques: Automated exposure control, adjustment of the mA and/or kV according to patient size, and/or use of iterative reconstruction technique. FINDINGS: LOWER THORAX: No visible consolidation, pleural effusion, or pneumothorax. LIVER: Unremarkable. GALLBLADDER AND BILE DUCTS: Contracted gallbladder appears grossly unremarkable. PANCREAS: Unremarkable. SPLEEN: 11 mm probable splenule. Otherwise unremarkable. ADRENALS: Unremarkable. KIDNEYS AND URETERS: The kidneys enhance symmetrically. Question possibility of 1 mm echogenic focus within the distal right ureter (series 3, image 141). Mild fullness of the right ureter. VASCULATURE: No aortic aneurysm. BOWEL: Stomach is nondistended. Lack of oral contrast limits evaluation for bowel pathology. Bowel loops appear within normal limits of caliber without evidence of obstruction. Moderate constipation. APPENDIX: The appendix appears within normal limits of caliber. No secondary signs of acute appendicitis. PERITONEUM: No significant free fluid. No definite free air. LYMPH NODES: No bulky adenopathy identified. BLADDER: Distended urinary bladder. REPRODUCTIVE: Uterus appears elongated and enlarged. Heterogeneous appearance of the uterine echotexture; suspect fibroid. BONES: No acute osseous abnormality is detected. OTHER FINDINGS: Small fat containing left inguinal hernia. Small umbilical hernia. IMPRESSION: Question possibility of 1 mm echogenic focus within the distal right ureter. Mild fullness of the right ureter. Uterus appears elongated and enlarged. Heterogeneous appearance of the uterine echotexture; suspect fibroid. Moderate constipation. Well-circumscribed round echogenic lesion noted within the right hepatic lobe on ultrasound performed 11/27/17 is not appreciated on the current study. Suggest dedicated liver CT for further evaluation if indicated. Additional findings as above.
[2017-11-27 13:02] VITALS: BP 136/79; PULSE 79
== END 2017-11-27 13:01 | disposition home or self-care (01) ==
LOC: C.ER 07:21
DX: K59.00 Constipation, unspecified (principal); R10.9 Unspecified abdominal pain; I10 Essential (primary) hypertension; E11.9 Type 2 diabetes mellitus without complications
CPT/HCPCS: 71046; 74177; 76705; 80053; 81001; 82948; 83690; 85025; 96374; 99285; J1885; J2001; J7030; Q9967

== ENCOUNTER 2018-03-28 11:27 | Emergency (ER) | payer OTHER ==
[2018-03-28 11:27] VITALS: BMI 27.8
[2018-03-28] MEDS ORDERED: Sodium Chloride 0.9% 1,000 ML IV ONE ×2 (12:21→13:39)
--- NOTE | 2018-03-28 12:29 | C.PDOC ---
History Of Present Illness 43 y/o female,w/PMhx of diabetes, presents to the ER complaining of lower abdominal pain x 2 weeks and watery diarrhea x 1 week. Patient states that she was evaluated for same complaint in the [facility] clinic yesterday, boggs s not had any improvement in her symptoms. She admits to having dysuria and mild headache. She denies fever, chills, CP, SOB, nausea, vomiting, vaginal bleeding/discharge. Time Seen by Provider: 03/28/18 12:21 Chief Complaint (Nursing): Abdominal Pain History Per: Patient History/Exam Limitations: no limitations Onset/Duration Of Symptoms: Days Current Symptoms Are (Timing): Still Present Severity: Moderate Past Medical History Reviewed: Historical Data, Nursing Documentation, Vital Signs Vital Signs: Last Vital Signs Temp 97.6 F 03/28/18 11:56 Pulse 106 H 03/28/18 11:56 Resp 18 03/28/18 11:56 BP 112/97 H 03/28/18 11:56 Pulse Ox 98 03/28/18 11:56 - Medical History PMH: Diabetes, HTN Surgical History: No Surg Hx - [facility] Procedures EXCISION OF ASCENDING COLON, ENDO (04/01/17) EXCISION OF DESCENDING COLON, ENDO (04/01/17) EXCISION OF DUODENUM, ENDO, DIAGN (04/01/17) EXCISION OF RECTUM, ENDO, DIAGN (04/01/17) EXCISION OF RIGHT LARGE INTESTINE, ENDO, DIAGN (04/01/17) EXCISION OF SIGMOID COLON, ENDO, DIAGN (04/01/17) EXCISION OF STOMACH, ENDO, DIAGN (04/01/17) EXCISION OF TRANSVERSE COLON, ENDO (04/01/17) MEASURE OF ARTERIAL PRESSURE, PERIPHERAL, DESIGNER AND PATTERNMAKER APPROACH (08/17/16) MEASUREMENT OF CARDIAC RHYTHM, EXTERNAL APPROACH (08/17/16) Family History: States: No Known Family Hx - Social History Hx Tobacco Use: No Hx Alcohol Use: No Hx Substance Use: No - Immunization History Hx Tetanus Toxoid Vaccination: Yes Hx Influenza Vaccination: No Hx Pneumococcal Vaccination: No Review Of Systems Constitutional: Negative for: Fever, Chills Cardiovascular: Negative for: Chest Pain Respiratory: Negative for: Shortness of Breath Gastrointestinal: Positive for: Abdominal Pain, Diarrhea Genitourinary: Positive for: Dysuria. Negative for: Hematuria, Vaginal Discharge, Vaginal Bleeding Neurological: Positive for: Headache. Negative for: Dizziness Physical Exam - Physical Exam Appears: Well, Non-toxic, No Acute Distress Skin: Normal Color, Warm, Dry Eye(s): bilateral: Normal Inspection Oral Mucosa: Moist Neck: Supple Cardiovascular: Rhythm Regular (with tachycardia) Respiratory: Normal Breath Sounds, No Rales, No Rhonchi, No Wheezing Gastrointestinal/Abdominal: Bowel Sounds, Soft, Tenderness (suprapubic and LLQ tenderness), No Guarding, No Rebound, Other ((-) Bowman's, (-) McBurney's) Back: No CVA Tenderness Neurological/Psych: Oriented x3 ED Course And Treatment - Laboratory Results Result Diagrams: 03/28/18 12:51 O2 Sat by Pulse Oximetry: 98 (RA) Pulse Ox Interpretation: Normal Progress Note: Blood work, UA, Upreg, CT scan abd/pelvis ordered and reviewed. Patient given IV NS bolus, IV toradol. Disposition - Disposition Disposition Time: 13:25 Condition: STABLE Forms: [facility] (N[place]ien) - Clinical Impression Clinical Impression: Abdominal pain - Scribe Statement The provider has reviewed the documentation as recorded by the Juan Griffith Provider Attestation: All medical record entries made by the Scribe were at my direction and per sonally dictated by me. I have reviewed the chart and agree that the record accurately reflects my personal performance of the history, physical exam, medical decision making, and the department course for this patient. I have also personally directed, reviewed, and agree with the discharge instructions and disposition. Physician Patient Turnover Patient Signed Over To: Ana Nicholas Handoff Comments: pending labs, UA, CT scan
[2018-03-28] MEDS ORDERED: Sodium Chloride 0.9% 1,000 ML ONE (13:00)
[2018-03-28 13:04] LABS: BASO # 0.2 K/uL (0.0-0.2); BASO % 2.8 % (0.0-2.0); EOS % 0.3 % (0.0-4.0); HEMOGLOBIN 11.5 g/dL (11.0-16.0); LYMPH # 1.5 K/uL (1.0-4.3); LYMPH % 17.5 % (20.0-40.0); MEAN CORPUSCULAR HEMOGLOBIN 25.5 pg (27.0-31.0); MEAN CORPUSCULAR HGB CONC 31.6 g/dL (33.0-37.0); MEAN PLATELET VOLUME 8.4 fL (7.2-11.7); MONO # 0.6 K/uL (0.0-0.8); MONO % 7.1 % (0.0-10.0); NEUT # 6.1 K/uL (1.8-7.0); NEUT % 72.3 % (50.0-75.0); RBC 4.52 Mil/uL (3.80-5.20); RED CELL DISTRIBUTION WIDTH 17.3 % (11.5-14.5); WHITE BLOOD COUNT 8.5 K/uL (4.8-10.8)
[2018-03-28 13:10] LABS: MEAN CELL VOLUME 80.9 fL (81.0-99.0)
[2018-03-28 13:16] LABS: SQUAMOUS EPITHIAL 10 /hpf (0-5); URINE BACTERIA MANY (<OCC); URINE BILIRUBIN NEGATIVE (NEGATIVE); URINE BLOOD NEGATIVE (NEGATIVE); URINE CLARITY Hazy (Clear); URINE COLOR Yellow (YELLOW); URINE GLUCOSE (UA) 3+ mg/dL (Normal); URINE LEUKOCYTE ESTERASE 1+ Leu/uL (Negative); URINE PROTEIN 3+ mg/dL (NEGATIVE); URINE UROBILINOGEN NORMAL mg/dL (0.2-1.0); WBC CLUMPS FEW /hpf
[2018-03-28 13:25] LABS: HCG,QUALITATIVE URINE NEGATIVE (NEGATIVE)
[2018-03-28] MEDS ORDERED: cefTRIAXone IV 1 gm in Dextros 50 ML IV ONE (13:26)
[2018-03-28] MEDS ORDERED: (Novolin R) Insulin Human Regular 100 units/ml vial IVP ONE (13:38)
[2018-03-28 13:40] LABS: ALB/GLOB RATIO 1.2 (1.0-2.1); ALT/SGPT 14 U/L (9-52); AST/SGOT 26 U/L (14-36); BLOOD UREA NITROGEN 20 mg/dL (7-17); CALCIUM 9.1 mg/dl (8.6-10.4); GFR NON-AFRICAN AMERICAN 55; LIPASE 147 U/L (23-300)
[2018-03-28] MEDS ORDERED: (Novolin R) Insulin Human Regular 100 units/ml vial ONE (14:02)
[2018-03-28] MEDS ORDERED: Sodium Chloride 0.9% 2,000 ML ONE (14:03)
[2018-03-28] MEDS ORDERED: Iodixanol 320 MG/ML 100 ML BOTTLE IV ONE (14:23)
--- NOTE | 2018-03-28 15:31 | CT ---
Date of service: 03/28/2018 PROCEDURE: CT Abdomen and Pelvis with contrast HISTORY: LLQ PAIN R/O DIVERTICULITIS COMPARISON: Abdomen pelvis CT with contrast 11/27/2017. TECHNIQUE: Following the intravenous administration of iodinated contrast material, a CT examination of the abdomen and pelvis was performed from the domes of the diaphragms to the symphysis pubis with reformatted datasets provided in axial, sagittal and coronal planes. Oral contrast was not administered as per referring physician request. Contrast dose: Visipaque 320, 100 cc Radiation dose: Total exam DLP = 616.7 mGy-cm. This CT exam was performed using one or more of the following dose reduction techniques: Automated exposure control, adjustment of the mA and/or kV according to patient size, and/or use of iterative reconstruction technique. FINDINGS: LOWER THORAX: Trace bilateral basilar atelectasis noted. Small hiatal hernia evident. LIVER: Attic steatosis appreciate without mass or gross intrahepatic biliary dilatation evident. GALLBLADDER AND BILE DUCTS: Unremarkable. PANCREAS: Unremarkable. No gross lesion or ductal dilatation. SPLEEN: Unremarkable. ADRENALS: Unremarkable. No mass. KIDNEYS AND URETERS: Small lucency at the midpole left kidney is again seen probably representing a cyst but is still too small to characterize. VASCULATURE: Nonaneurysmal abdominal aortic calcific atherosclerotic changes are identified. BOWEL: Unremarkable. No obstruction. No gross mural thickening. APPENDIX: Normal appendix. PERITONEUM: Unremarkable. No free fluid. No free air. LYMPH NODES: Unremarkable. No enlarged lymph nodes. BLADDER: Bladder is incompletely distended with thick wall and may reflect cystitis though this is difficult to evaluate. Clinically correlate further. REPRODUCTIVE: Uterine fibroids again suspected. BONES: No acute fracture. OTHER FINDINGS: None. IMPRESSION: 1. No acute findings in the abdomen or pelvis including left lower quadrant abdomen. 2. Mild hepatic steatosis suggested. 3. Small uterine fibroids again suggested. 4. Potential cystitis. Clinically correlate. Please see discussion above.
[2018-03-28 16:00] VITALS: BP 143/89; PULSE 100; RESP 20; TEMP 97.8; O2SAT 100
== END 2018-03-28 15:59 | disposition home or self-care (01) ==
LOC: C.ER 11:27
DX: R10.32 Left lower quadrant pain (principal); E11.9 Type 2 diabetes mellitus without complications; I10 Essential (primary) hypertension
CPT/HCPCS: 74177; 80053; 81001; 82948; 83690; 84703; 85025; 96361; 96374; 96375; 99285; J0696; J1885; J7030; Q9967